=== PATIENT | female | born 1965 | race Caucasian/White ===

== ENCOUNTER 2020-07-13 10:29 | Outpatient (REF) | payer MEDICARE, MEDICAID, SELFPAY ==
--- NOTE | 2020-07-13 10:43 | XR_ITS ---
EXAMINATION: XR KNEE, BILATERAL XR KNEE, RIGHT CLINICAL INFORMATION: Right knee pain COMPARISON: X-ray left knee 08/29/2019. X-ray bilateral knees 07/04/2017 TECHNIQUE: AP bilateral knees 1 view. Right knee 2 views. FINDINGS: RIGHT KNEE: Moderate medial compartment joint space narrowing. Marginal spurring in the patellofemoral compartment. No fracture or dislocation. Possible small joint effusion. LEFT KNEE: Moderate medial compartment joint space narrowing. Marginal spurring in the lateral compartment. XR/XR knee RT 2V IMPRESSION: 1. Right knee arthritis. Moderate medial compartment arthritis, slightly progressed from previous. 2. Left knee arthritis as above.
--- NOTE | 2020-07-13 10:43 | XR_ITS ---
EXAMINATION: XR KNEE, BILATERAL XR KNEE, RIGHT CLINICAL INFORMATION: Right knee pain COMPARISON: X-ray left knee 08/29/2019. X-ray bilateral knees 07/04/2017 TECHNIQUE: AP bilateral knees 1 view. Right knee 2 views. FINDINGS: RIGHT KNEE: Moderate medial compartment joint space narrowing. Marginal spurring in the patellofemoral compartment. No fracture or dislocation. Possible small joint effusion. LEFT KNEE: Moderate medial compartment joint space narrowing. Marginal spurring in the lateral compartment. XR/XR knee standing BI IMPRESSION: 1. Right knee arthritis. Moderate medial compartment arthritis, slightly progressed from previous. 2. Left knee arthritis as above.
== END 2020-07-13 10:30 | disposition home or self-care (01) ==
LOC: HO.HOSX 10:29
PROVIDERS: Visit Provider Orthopaedic Surgery
DX: M25.561 Pain in right knee (principal); M17.0 Bilateral primary osteoarthritis of knee
CPT/HCPCS: 20610; 73560; 73565; 99212; J1100

== ENCOUNTER → 2021-05-06 14:09 | Outpatient (BNVA) | payer MEDICARE, MEDICAID, SELFPAY | PROVIDERS: PCP Internal Medicine Geriatric Medicine; Visit Provider Hospitalist | DX: J45.909 Unspecified asthma, uncomplicated (principal); G47.33 Obstructive sleep apnea (adult) (pediatric); Z79.899 Other long term (current) drug therapy | CPT/HCPCS: 99202 ==

== ENCOUNTER 2021-06-10 13:59 | Outpatient (REF) | payer MEDICARE, MEDICAID, SELFPAY ==
--- NOTE | ~2021-06-10 | XR_ITS ---
EXAMINATION: XR CHEST CLINICAL INFORMATION: Asthma. COMPARISON: Most recent chest radiograph dated 10/26/2014 TECHNIQUE: 2 views of the chest were obtained. FINDINGS: Linear atelectasis versus scarring along the right minor fissure, new when compared to the prior examination. No large, confluent airspace consolidation. No pleural effusion or pneumothorax. Stable cardiomediastinal silhouette. No acute osseous abnormality. XR/XR chest 2V IMPRESSION: Linear scarring versus atelectasis along the right minor fissure, new when compared to the prior examination.
[2021-06-10 15:42] LABS: MANUAL DIFF FLAG NO
[2021-06-10 16:10] LABS: Basophils Absolute Auto 0.1 X10*3/uL (0.0-0.2); Basophils Percent Auto 0.6 % (0-2); Eosinophils Absolute Auto 0.3 X10*3/uL (0.0-0.4); Eosinophils Percent Auto 2.3 % (0-4); Hematocrit 37.7 % (37-47); Imm Gran Abs Auto 0.07 X10*3/uL (0.00-0.03); Imm Gran Pct Auto 0.6 % (0.0-0.4); Lymphocytes Absolute Auto 2.4 X10*3/uL (1.2-4.9); Lymphocytes Percent Auto 21.2 % (20-40); Mean Corpuscular HGB Conc 31.8 g/dl (31.0-35.0); Mean Corpuscular Hemoglobin 26.3 pg (27.0-33.0); Mean Corpuscular Volume 82.5 fL (80-98); Mean Platelet Volume 10.3 fL (9.4-12.3); Monocytes Absolute Auto 0.6 X10*3/uL (0.1-1.2); Monocytes Percent Auto 4.9 % (2-11); Neutrophils Absolute Auto 7.9 X10*3/uL (2.0-8.3); Neutrophils Percent Auto 70.4 % (45-73); Platelet Count 299 X10*3/uL (160-400); Red Blood Count 4.57 X10*6/uL (4.20-5.50); Red Cell Distribution Width 14.6 % (11.0-16.0); White Blood Count 11.2 X10*3/uL (4.8-10.8)
[2021-06-10 16:31] LABS: Anion Gap 11 (12-20); Blood Urea Nitrogen 15 mg/dL (9-16); Calcium 9.9 mg/dL (8.4-10.2); Carbon Dioxide 30 mmol/L (22-29); Chloride 105 mmol/L (96-108); Estimated Glomerular Filt Rate > 60; Glucose Random 62 mg/dL (60-115); Potassium 4.8 mmol/L (3.3-5.1); Sodium 141 mmol/L (135-145)
[2021-06-10 17:16] LABS: Erythrocyte Sedimentation Rate 31 MM/HR (0-20)
== END 2021-06-10 14:00 | disposition home or self-care (01) ==
LOC: HO.XRAY 13:59
PROVIDERS: PCP Internal Medicine Geriatric Medicine; Visit Provider Hospitalist
DX: G47.33 Obstructive sleep apnea (adult) (pediatric) (principal); E66.01 Morbid (severe) obesity due to excess calories; J45.909 Unspecified asthma, uncomplicated; M79.89 Other specified soft tissue disorders; Z01.82 Encounter for allergy testing; Z99.81 Dependence on supplemental oxygen
CPT/HCPCS: 36415; 71046; 80048; 82785; 85025; 85652; 86003; 99212

== ENCOUNTER → 2021-06-23 19:07 | Outpatient (REF) | payer MEDICARE, MEDICAID, SELFPAY | LOC: HO.SL 19:07 | PROVIDERS: Visit Provider Hospitalist | DX: G47.33 Obstructive sleep apnea (adult) (pediatric) (principal); E66.01 Morbid (severe) obesity due to excess calories | CPT/HCPCS: 95810 ==

== ENCOUNTER → 2021-07-22 15:10 | Outpatient (BNVA) | payer MEDICARE, MEDICAID, SELFPAY | PROVIDERS: PCP Internal Medicine Geriatric Medicine; Visit Provider Hospitalist | DX: G47.33 Obstructive sleep apnea (adult) (pediatric) (principal); E66.01 Morbid (severe) obesity due to excess calories; J45.909 Unspecified asthma, uncomplicated; M79.89 Other specified soft tissue disorders | CPT/HCPCS: 99212 ==

== ENCOUNTER 2021-08-26 11:00 | Outpatient (RCR) | payer MEDICARE, MEDICAID, SELFPAY ==
[2021-08-14 09:09] VITALS: BP 152/71; PULSE 76
== END 2021-10-08 14:38 | disposition home or self-care (01) ==
LOC: HO.PT 11:00
PROVIDERS: PCP Internal Medicine Geriatric Medicine; Visit Provider Internal Medicine Rheumatology
DX: M25.511 Pain in right shoulder (principal); M25.512 Pain in left shoulder
CPT/HCPCS: 97110; 97161

== ENCOUNTER → 2021-09-20 11:13 | Outpatient (BNVA) | payer MEDICARE, MEDICAID, SELFPAY | PROVIDERS: PCP Internal Medicine Geriatric Medicine; Referring Provider Internal Medicine Geriatric Medicine; Visit Provider Physician Assistant | DX: E65 Localized adiposity (principal); G47.33 Obstructive sleep apnea (adult) (pediatric); E11.9 Type 2 diabetes mellitus without complications | CPT/HCPCS: 99211 ==

== ENCOUNTER → 2021-09-20 11:22 | Outpatient (BNVA) | payer MEDICARE, MEDICAID, SELFPAY | PROVIDERS: PCP Internal Medicine Geriatric Medicine; Visit Provider Physician Assistant ==

== ENCOUNTER → 2021-10-18 10:34 | Outpatient (BNVA) | payer MEDICARE, MEDICAID, SELFPAY | PROVIDERS: PCP Internal Medicine Geriatric Medicine; Referring Provider Internal Medicine Geriatric Medicine; Visit Provider Physician Assistant | DX: E66.01 Morbid (severe) obesity due to excess calories (principal); G47.33 Obstructive sleep apnea (adult) (pediatric); J45.909 Unspecified asthma, uncomplicated; Z68.43 Body mass index [BMI] 50.0-59.9, adult | CPT/HCPCS: 99212 ==

== ENCOUNTER 2021-10-21 07:09 | Outpatient (REF) | payer MEDICARE, MEDICAID, SELFPAY ==
[2021-10-21 07:47] LABS: MANUAL DIFF FLAG NO
[2021-10-21 08:18] LABS: Basophils Absolute Auto 0.1 X10*3/uL (0.0-0.2); Basophils Percent Auto 0.8 % (0-2); Eosinophils Absolute Auto 0.2 X10*3/uL (0.0-0.4); Eosinophils Percent Auto 2.2 % (0-4); Hematocrit 38.9 % (37.0-47.0); Hemoglobin 12.3 g/dl (12.0-16.0); Imm Gran Abs Auto 0.12 X10*3/uL (0.00-0.03); Imm Gran Pct Auto 1.1 % (0.0-0.4); Lymphocytes Absolute Auto 2.3 X10*3/uL (1.2-4.9); Lymphocytes Percent Auto 21.1 % (20-40); Mean Corpuscular HGB Conc 31.6 g/dl (31.0-35.0); Mean Corpuscular Hemoglobin 26.1 pg (27.0-33.0); Mean Corpuscular Volume 82.6 fL (80.0-98.0); Mean Platelet Volume 10.9 fL (9.4-12.3); Monocytes Absolute Auto 0.5 X10*3/uL (0.1-1.2); Monocytes Percent Auto 4.8 % (2-11); Neutrophils Absolute Auto 7.5 x10*3/uL (2.0-8.3); Platelet Count 284 X10*3/uL (160-400); Red Blood Count 4.71 X10*6/uL (4.20-5.50); Red Cell Distribution Width 14.9 % (11.0-16.0); White Blood Count 10.8 X10*3/uL (4.8-10.8)
[2021-10-21 08:19] LABS: Estimated Average Glucose 203 mg/dL; Hemoglobin A1c % 8.7 %
[2021-10-21 08:29] LABS: Alanine Aminotransferase 28 U/L (0-31); Albumin Level 4.4 g/dL (3.5-5.0); Alkaline Phosphatase 100 U/L (39-117); Anion Gap 13 (12-20); Aspartate Amino Transferase 20 U/L (5-31); Bilirubin Total 0.4 mg/dL (0.0-1.0); Blood Urea Nitrogen 16 mg/dL (9-16); C Reactive Protein 3.38 mg/dL (< or = 0.50); Calcium 9.8 mg/dL (8.4-10.2); Carbon Dioxide 28 mmol/L (22-29); Chloride 102 mmol/L (96-108); Cholesterol 162 mg/dL; Estimated Glomerular Filt Rate > 60; Glucose Random 237 mg/dL (60-115); HDL Cholesterol 33 mg/dL; Iron 45 mcg/dL (30-160); LDL Cholesterol Calculated 94 mg/dl; Percent Iron Saturation 13 % (15-50); Potassium 4.6 mmol/L (3.3-5.1); Sodium 138 mmol/L (135-145); Total Iron Binding Capacity 348 mcg/dL (228-428); Total Protein 7.5 g/dL (6.5-8.0); Triglycerides 179 mg/dL; Unsaturated Iron Binding 303 ug/dL
[2021-10-21 08:59] LABS: Ferritin 99 ng/mL (10-250); TSH reflex Free T4 2.05 uIU/mL (0.32-4.0)
[2021-10-21 09:18] LABS: Vitamin B12 389 pg/mL (200-900)
[2021-10-21 10:13] LABS: Insulin 623 uU/mL (2-29)
[2021-10-21 10:36] LABS: Creatinine Urine 117.05 mg/dL; Protein/Creatinine Ratio, Ur 0.35 (<0.2); Total Protein Urine Random 41 mg/dL (<12)
[2021-10-22 12:07] LABS: Calcium (PTHI) 9.6 mg/dL (8.6-10.4); PTHI 41 pg/mL (14-64)
[2021-10-25 05:25] LABS: Zinc 80 mcg/dL (60-130)
[2021-10-26 06:27] LABS: Vitamin B1 10 nmol/L (8-30)
[2021-10-27 20:00] LABS: Vitamin A 42 mcg/dL (38-98)
== END 2021-10-21 07:10 | disposition home or self-care (01) ==
LOC: HO.LAB 07:09
PROVIDERS: Absent Provider Internal Medicine Nephrology; PCP Internal Medicine Geriatric Medicine; Visit Provider Physician Assistant
DX: R80.8 Other proteinuria (principal); I10 Essential (primary) hypertension; E66.01 Morbid (severe) obesity due to excess calories; G47.33 Obstructive sleep apnea (adult) (pediatric); J45.909 Unspecified asthma, uncomplicated
CPT/HCPCS: 36415; 80053; 80061; 82306; 82607; 82728; 82746; 83036; 83525; 83540; 83970; 84156; 84425; 84443; 84590; 84630; 85025; 86140

== ENCOUNTER → 2021-11-04 08:14 | Outpatient (BNVA) | payer MEDICARE, MEDICAID, SELFPAY | PROVIDERS: PCP Internal Medicine Geriatric Medicine; Visit Provider Dietitian, Registered | DX: Z13.89 Encounter for screening for other disorder (principal) ==

== ENCOUNTER → 2021-11-05 08:17 | Outpatient (BNVA) | payer MEDICARE, MEDICAID, SELFPAY | PROVIDERS: PCP Internal Medicine Geriatric Medicine; Visit Provider Dietitian, Registered | DX: E66.01 Morbid (severe) obesity due to excess calories (principal); E11.9 Type 2 diabetes mellitus without complications; Z71.3 Dietary counseling and surveillance | CPT/HCPCS: 97802 ==

== ENCOUNTER → 2021-11-19 08:13 | Outpatient (BNVA) | payer MEDICARE, MEDICAID, SELFPAY | PROVIDERS: PCP Internal Medicine Geriatric Medicine; Referring Provider Physician Assistant; Visit Provider Dietitian, Registered | DX: E66.01 Morbid (severe) obesity due to excess calories (principal); Z68.43 Body mass index [BMI] 50.0-59.9, adult; E11.9 Type 2 diabetes mellitus without complications; Z71.3 Dietary counseling and surveillance | CPT/HCPCS: 97803 ==

== ENCOUNTER → 2021-11-21 15:22 | Outpatient (BNVA) | payer MEDICARE, MEDICAID, SELFPAY | PROVIDERS: PCP Internal Medicine Geriatric Medicine; Visit Provider Hospitalist | DX: G47.33 Obstructive sleep apnea (adult) (pediatric) (principal); E66.01 Morbid (severe) obesity due to excess calories; J45.909 Unspecified asthma, uncomplicated; M79.89 Other specified soft tissue disorders; Z68.43 Body mass index [BMI] 50.0-59.9, adult | CPT/HCPCS: 99212 ==

== ENCOUNTER 2021-11-25 10:15 | Outpatient (REF) | payer MEDICARE, MEDICAID, SELFPAY ==
[2021-11-27 11:28] LABS: H Pylori Breath Test Negative (Negative)
== END 2021-11-25 10:16 | disposition home or self-care (01) ==
LOC: CF 10:15
PROVIDERS: PCP Internal Medicine Geriatric Medicine; Referring Provider Internal Medicine Geriatric Medicine; Visit Provider Physician Assistant
DX: E66.01 Morbid (severe) obesity due to excess calories (principal); E11.9 Type 2 diabetes mellitus without complications; G47.33 Obstructive sleep apnea (adult) (pediatric); J44.9 Chronic obstructive pulmonary disease, unspecified
CPT/HCPCS: 36415; 83013; 99211; 99212

== ENCOUNTER 2021-11-27 08:18 | Outpatient (REF) | payer MEDICARE, MEDICAID, SELFPAY ==
--- NOTE | ~2021-11-27 | US_ITS ---
EXAMINATION: US COMPLETE ABDOMEN WITH LIVER ELASTOGRAPHY CLINICAL INFORMATION: Obesity COMPARISON: None. TECHNIQUE: Real-time imaging of the abdominal viscera. Noninvasive ultrasound liver fibrosis assessment is performed using Rochelle ElastPQ point quantification shear wave elastography (2D-SWE) with a C5-2 MHz transducer. Multiple elastography samples are obtained. FINDINGS: PANCREAS: The visualized pancreatic head and body are normal in appearance. The remainder of the pancreas is obscured from visualization by the overlying bowel gas. ABDOMINAL AORTA: Not well visualized due to bowel gas. INFERIOR VENA CAVA: Not well visualized due to bowel gas. LIVER: Liver echotexture is increased. The liver is enlarged. The liver contour is normal. No focal lesion or intrahepatic biliary duct dilatation. The right lobe measures 20 cm in length. The left lobe measures 10 cm in length. Portal flow is normal/hepatopedal Shear wave liver elastography median stiffness is 1.1 m/s (reference: normal median stiffness is 1.3 m/s or less). IQR/median stiffness to assess sampling precision is 0.27 (reference: good quality data set is IQR/median stiffness of 0.15 or less). GALLBLADDER: Normal. The gallbladder is physiologically distended without evidence of stones, sludge, polyps, wall thickening or pericholecystic fluid. COMMON BILE DUCT: Normal in caliber measuring 0.3 cm in diameter. RIGHT KIDNEY: Normal. No hydronephrosis. No renal calculi or focal parenchymal lesions. The kidney measures 11.9 cm in maximum dimension. LEFT KIDNEY: Normal. No hydronephrosis. No renal calculi or focal parenchymal lesions. The kidney measures 10.9 cm in maximum dimension. SPLEEN: Slightly enlarged. The spleen measures 14.6 cm in maximum dimension. FREE FLUID: None. US/US abdomen comp w elastography IMPRESSION: 1. Impression: Enlarged liver and spleen. Echogenic liver probably representing fatty infiltration. Limited visualization of the pancreas, aorta and IVC. 2. Liver elastography: Slightly limited due to sampling error. Normal liver stiffness. REFERENCE: Society of Radiologists in Ultrasound Liver Stiffness Thresholds (2020): LIVER STIFFNESS THRESHOLDS: *Liver Stiffness equal or less than 1.3 m/s: High probability of being normal. *Liver Stiffness less than 1.7 m/s: In the absence of other known clinical signs, rules out compensated advanced chronic liver disease. *Liver Stiffness 1.7-2.1 m/s: Suggestive of compensated advanced chronic liver disease but need further test for confirmation. *Liver Stiffness over 2.1 m/s: Rules in compensated advanced chronic liver disease. *Liver Stiffness over 2.4 m/s: Suggestive of clinically significant portal hypertension. QUALITY OF DATA SET: *IQR/Median value equal or less than 0.15 implies a quality data set. *IQR/Median value over 0.15 implies a poor quality data set. SIGNIFICANT CHANGE FROM PRIOR EXAM: Significant change if liver stiffness measurement is 10% or greater from prior exam. OTHER CONSIDERATIONS: The stage of liver fibrosis may be overestimated in the setting of acute hepatitis, liver inflammation, elevated liver function tests, hepatic vascular congestion, obstructive cholestasis, non-fasting state, and infiltrative diseases such as amyloidosis and lymphoma. In some patients with NAFLD, the liver stiffness thresholds for compensated advanced chronic liver disease may be lower. In causes other than viral hepatitis and NAFLD, liver stiffness thresholds are not well established.
--- NOTE | ~2021-11-27 | FL_ITS ---
EXAMINATION: XR FLUOROSCOPY UPPER GI WITH AIR CLINICAL INFORMATION: Morbid/severe obesity due to excess calories. COMPARISON: None TECHNIQUE: Routine upper GI contrast study was performed. FINDINGS: Following oral administration of thick barium and effervescent granules there is normal propagation of bolus from the oral cavity through the pharynx, esophagus into stomach without any evidence of obstruction, narrowing or stricture. On placing patient supine and prone there is mild gastroesophageal reflux without hiatal hernia. The course, caliber and peristalsis of stomach, duodenal bulb and the sweep is normal. The mucosal pattern of stomach and the duodenum is normal. FLUOROSCOPY TIME: 2.8 minutes. DOSE AREA PRODUCT: 43.682 uGy-m2 (microgray-meter squared). FL/FL upper GI w air IMPRESSION: Mild gastroesophageal reflux without hiatal hernia.
== END 2021-11-27 08:19 | disposition home or self-care (01) ==
LOC: HO.US 08:18
PROVIDERS: Visit Provider Physician Assistant
DX: Z01.818 Encounter for other preprocedural examination (principal); E66.01 Morbid (severe) obesity due to excess calories; G47.33 Obstructive sleep apnea (adult) (pediatric); J45.909 Unspecified asthma, uncomplicated
CPT/HCPCS: 74246; 76705; 76981

== ENCOUNTER → 2021-12-12 15:41 | Outpatient (BNVA) | payer MEDICARE, MEDICAID, SELFPAY | PROVIDERS: Referring Provider Physician Assistant; Visit Provider Dietitian, Registered | DX: E66.01 Morbid (severe) obesity due to excess calories (principal); E11.9 Type 2 diabetes mellitus without complications; G47.33 Obstructive sleep apnea (adult) (pediatric); Z88.8 Allergy status to other drugs, medicaments and biological substances | CPT/HCPCS: 97803 ==

== ENCOUNTER → 2021-12-16 10:41 | Outpatient (REF) | payer MEDICARE, MEDICAID, SELFPAY ==
--- NOTE | 2021-12-16 11:53 | ECG_ITS ---
Test Reason : E66.01 Blood Pressure : / mmHG Vent. Rate : 076 BPM Atrial Rate : 076 BPM P-R Int : 178 ms QRS Dur : 094 ms QT Int : 358 ms P-R-T Axes : 039 -03 015 degrees QTc Int : 402 ms Normal sinus rhythm Normal ECG When compared to the previous EKG of No significant changes seen Referred By: Asmita Hernández Electronically Signed By:Denis Moore
== END ==
LOC: HO.CARD 10:41
PROVIDERS: PCP Internal Medicine Geriatric Medicine; Referring Provider Internal Medicine Geriatric Medicine; Visit Provider Physician Assistant
DX: G47.33 Obstructive sleep apnea (adult) (pediatric) (principal); J45.909 Unspecified asthma, uncomplicated; E66.01 Morbid (severe) obesity due to excess calories; K76.0 Fatty (change of) liver, not elsewhere classified
CPT/HCPCS: 93005; 99212

== ENCOUNTER → 2021-12-19 08:08 | Outpatient (BNVA) | payer MEDICARE, MEDICAID, SELFPAY | PROVIDERS: PCP Internal Medicine Geriatric Medicine; Referring Provider Physician Assistant; Visit Provider Dietitian, Registered | DX: E66.01 Morbid (severe) obesity due to excess calories (principal); E11.9 Type 2 diabetes mellitus without complications; Z71.3 Dietary counseling and surveillance | CPT/HCPCS: 97803 ==

== ENCOUNTER → 2022-01-13 10:13 | Outpatient (BNVA) | payer MEDICARE, MEDICAID, SELFPAY | PROVIDERS: PCP Internal Medicine Geriatric Medicine; Referring Provider Internal Medicine Geriatric Medicine; Visit Provider Physician Assistant | DX: E66.01 Morbid (severe) obesity due to excess calories (principal); E11.9 Type 2 diabetes mellitus without complications; R07.9 Chest pain, unspecified; Z68.43 Body mass index [BMI] 50.0-59.9, adult | CPT/HCPCS: 99212 ==

== ENCOUNTER → 2022-01-27 08:26 | Outpatient (BNVA) | payer MEDICARE, MEDICAID, SELFPAY | PROVIDERS: PCP Internal Medicine Geriatric Medicine; Visit Provider Dietitian, Registered | DX: Z13.89 Encounter for screening for other disorder (principal) ==

== ENCOUNTER → 2022-02-10 12:40 | Outpatient (BNVA) | payer MEDICARE, MEDICAID, SELFPAY | PROVIDERS: PCP Internal Medicine Geriatric Medicine; Visit Provider Counselor Mental Health | DX: F41.1 Generalized anxiety disorder (principal); E66.01 Morbid (severe) obesity due to excess calories | CPT/HCPCS: 90791 ==

== ENCOUNTER → 2022-02-17 09:04 | Outpatient (BNVA) | payer MEDICARE, MEDICAID, SELFPAY | PROVIDERS: PCP Internal Medicine Geriatric Medicine; Visit Provider Physician Assistant | DX: E66.01 Morbid (severe) obesity due to excess calories (principal); Z68.43 Body mass index [BMI] 50.0-59.9, adult; E11.9 Type 2 diabetes mellitus without complications; R07.9 Chest pain, unspecified | CPT/HCPCS: 99212 ==

== ENCOUNTER → 2022-02-18 09:08 | Outpatient (BNVA) | payer MEDICARE, MEDICAID, SELFPAY | PROVIDERS: PCP Internal Medicine Geriatric Medicine; Referring Provider Physician Assistant; Visit Provider Dietitian, Registered | DX: E66.01 Morbid (severe) obesity due to excess calories (principal); E11.9 Type 2 diabetes mellitus without complications; Z71.3 Dietary counseling and surveillance | CPT/HCPCS: 97803 ==

== ENCOUNTER → 2022-02-24 15:25 | Outpatient (BNVA) | payer MEDICARE, MEDICAID, SELFPAY | PROVIDERS: PCP Internal Medicine Geriatric Medicine; Visit Provider Hospitalist | DX: J45.909 Unspecified asthma, uncomplicated (principal); G47.33 Obstructive sleep apnea (adult) (pediatric); E66.01 Morbid (severe) obesity due to excess calories; Z68.43 Body mass index [BMI] 50.0-59.9, adult; M79.89 Other specified soft tissue disorders | CPT/HCPCS: 99212 ==

== ENCOUNTER → 2022-03-03 07:33 | Outpatient (REF) | payer MEDICARE, MEDICAID, SELFPAY ==
--- NOTE | 2022-03-03 | CA_ITS ---
Acquisition Time: 2022-03-03 08:34:52 Total Exercise Time: 00:02:00 Test Indications: Abnormal ECG Medications: SEE H Protocol: LEXISCAN Max HR: 116 BPM 70% of Pred: 164 BPM Max BP: 140/080 mmHG Max Work Load: 1.0 METS Pharmacological stress test with Lexiscan injection, while sitting and kicking her legs, with report of mild chest tightness post injection, without arrythmia, with normotensive response to injection, without EKG changes meeting criteria for ischemia. Nuclear images pending. Test reviewed with Dr Gallegos. Referred By: Asmita Hernándze Overread By: ANTON BARRETT
--- NOTE | ~2022-03-03 | NM_ITS ---
Myocardial perfusion study Indication: Chest pain to evaluate for myocardial ischemia Technique: The patient was brought in for a Lexiscan perfusion study on 03/03/2022. Patient performed low-level exercise and was injected 0.4 mg of Lexiscan intravenously. Within a minute of injection, 45 mCi of sestamibi was given intravenously. Images were obtained using the SPECT gamma camera interlaced with the gating device. Images were obtained in supine position. Resting perfusion study was performed on 03/04/2022. Patient was administered 45 mCi of sestamibi intravenously at rest. Images were then obtained in supine position. Images obtained with and without CT attenuation. Total DLP 186 mGy-cm. Images were processed with the software and compared side to side in short axis, horizontal long axis and vertical long axis views. Findings: The stress perfusion study showed non attenuated images show minimal thinning of the distal lateral wall of the LV minute of the cardiac. Attenuation corrected images show minimally reduced uptake in the septum of the LV myocardium.. The gated study shows normal LV systolic function with calculated LVEF of 58%. LV cavity is normal in size. The gated study shows normal systolic wall thickening and contraction of segments. Resting study shows no clear change in perfusion pattern compared to stress perfusion study. Gating at rest reveals normal systolic wall motion with ejection fraction at greater than 50%. The findings are consistent with likely normal myocardial perfusion. NM/NM cardiolite stress test Impression: 1. Myocardial perfusion imaging study shows likely normal myocardial perfusion 2. Gated LVEF is 58% 3. Transient ischemic dilatation not present EKG is nondiagnostic for ischemia
--- NOTE | 2022-03-03 07:37 | CA_ITS ---
Transthoracic Echocardiogram Patient (Last, First, Middle): Angela Montilla I Gender: Female Date of : 1965 Age: 56 Procedure Date: 03/03/2022 Procedure Type: Transthoracic Echocardiogram Location: OP Height: 149.86 cm Weight: 115.21 kg BSA: 2.04 m2 Heart Rate: bpm BP: 150 / 64 mmHg [place] [facility] Operator: CHRISTY Referring MD: Asmita Hernández PA-C Symptoms: R07.9 - Chest pain, unspecified Study Quality: Adequate ECG Rhythm: Sinus Conclusions: - The left ventricular systolic function is normal. The calculated ejection fraction is 66% by biplane method. - There is mild mitral annular calcification. - There is mild tricuspid valve regurgitation. Findings Left Ventricle Normal left ventricular cavity size. There is normal left ventricular wall thickness. The left ventricular systolic function is normal. The calculated ejection fraction is 66% by biplane method. There is no evidence of regional wall motion abnormalities. Diastolic function is normal for age. Right Ventricle Normal right ventricular cavity size and systolic function. Atria Both atria are normal in size. Aortic Valve The aortic valve structure and function is likely normal. There is no aortic valve stenosis. There is no aortic valve regurgitation. Mitral Valve There is mild mitral annular calcification. There is trace mitral valve regurgitation. There is no mitral valve stenosis. Pulmonic Valve The pulmonic valve is likely normal. Tricuspid Valve Normal tricuspid valve structure. There is mild tricuspid valve regurgitation. The pulmonary artery systolic pressure is normal. Great Vessels The aortic annulus, sinuses of valsalva, and asc aorta are normal in size. Venous The inferior vena cava is normal in size and collapses greater than 50% with inspiration. Pericardium/Pleural There is no evidence of pericardial effusion. Prior Study Comparison No prior study available for comparison. Measurements 2D Linear Measurements IVSd: 1.00 0.6-0.9/0.6-1.0 cm LVIDd: 4.84 3.9-5.3/4.2-5.9 cm LVIDd Index: 2.37 2.4-3.2/2.2-3.1 cm/m2 LVIDs: 3.10 2.0-3.6 cm LVPWd: 1.08 0.7-1.1 cm LA Diam: 3.00 2.7-3.8/3.0-4.0 cm LAIDs Index: 1.47 1.5-2.3 cm/m2 LV Mass: 226.71 67-162/88-224 g LV Mass Index: 111.13 43-95/49-115 g/m2 LVOT Diam: 1.70 3.0+(-)1.3 cm 2D Systolic Function EF 4C: 62.60 >55% EF 2C: 69.70 >55% EF BiP: 65.70 >55% Mitral Valve MV Pk E: 1.25 MV PK A: 0.99 MV Decel Time: 225.00 E/A: 1.30 E'Lateral: 9.25 E'Medial: 7.72 E/E' Med: 16.20 E/E' Lat: 13.50 PHT: 66.00 MVA PHT: 3.33 Decel [place]: 5.57 Aortic Valve AoV Pk Alonzo: 1.81 AoV Mn Alonzo: 1.20 AoV VTI: 0.41 AoV Pk Grad: 13.00 Aov Mn Grad: 7.00 ARSEN Cont.VTI: 1.68 LVOT LVOT Pk Alonzo: 1.22 LVOT Mn [place]onzo: 0.85 LVOT VTI: 0.30 LVOT Pk Grad: 6.00 LVOT Mn Grad: 3.00 LVOT Diam: 1.70 LVOT Area: 2.27 Diastolic Function MV Pk E: 1.25 MV Pk A: 0.99 E/A: 1.30 E'Medial: 7.72 E/E' Med: 16.20 E' Laterial: 9.25 E/E' Lat: 13.50 Right Ventricle TAPSE (mm): 27.20 TVS' Alonzo: 14.90 Tricuspid Valve TR Pk Alonzo: 2.69 TR Pk Grad: 29.00 RA Press: 3.00 RVSP: 32.00 Great Vessels Aorta Sinus of Valsalva: 2.65 2.0-3.5 cm Ao Asc: 3.20 2.1-3.4 cm Updated in Other Vendor System with Status of Final David Gallegos MD electronically signed on 03/03/2022 11:26:36 AM with status of Final
== END ==
LOC: HO.CARD 07:33
PROVIDERS: PCP Internal Medicine Geriatric Medicine; Visit Provider Physician Assistant
DX: R07.9 Chest pain, unspecified (principal); E66.01 Morbid (severe) obesity due to excess calories; E11.9 Type 2 diabetes mellitus without complications
CPT/HCPCS: 78452; 93017; 93306; A9500; J0280; J2785

== ENCOUNTER → 2022-03-07 08:08 | Outpatient (BNVA) | payer MEDICARE, MEDICAID, SELFPAY | PROVIDERS: PCP Internal Medicine Geriatric Medicine; Visit Provider Surgery | DX: E66.01 Morbid (severe) obesity due to excess calories (principal); G47.33 Obstructive sleep apnea (adult) (pediatric); J44.9 Chronic obstructive pulmonary disease, unspecified; M17.0 Bilateral primary osteoarthritis of knee; F41.1 Generalized anxiety disorder; E78.1 Pure hyperglyceridemia; F32.9 Major depressive disorder, single episode, unspecified; I10 Essential (primary) hypertension; E11.21 Type 2 diabetes mellitus with diabetic nephropathy; K76.0 Fatty (change of) liver, not elsewhere classified; K21.9 Gastro-esophageal reflux disease without esophagitis | CPT/HCPCS: Q3014 ==

== ENCOUNTER → 2022-04-01 09:15 | Outpatient (BNVA) | payer MEDICARE, MEDICAID, SELFPAY | PROVIDERS: PCP Internal Medicine Geriatric Medicine; Visit Provider Internal Medicine | DX: J45.901 Unspecified asthma with (acute) exacerbation (principal); G47.33 Obstructive sleep apnea (adult) (pediatric); J44.9 Chronic obstructive pulmonary disease, unspecified; E66.01 Morbid (severe) obesity due to excess calories; Z68.43 Body mass index [BMI] 50.0-59.9, adult | CPT/HCPCS: 99212 ==

== ENCOUNTER → 2022-04-07 09:15 | Outpatient (BNVA) | payer MEDICARE, MEDICAID, SELFPAY | PROVIDERS: PCP Internal Medicine Geriatric Medicine; Visit Provider Physician Assistant | DX: E66.01 Morbid (severe) obesity due to excess calories (principal); Z68.43 Body mass index [BMI] 50.0-59.9, adult; G47.33 Obstructive sleep apnea (adult) (pediatric); E11.9 Type 2 diabetes mellitus without complications; E78.1 Pure hyperglyceridemia; I10 Essential (primary) hypertension; K21.9 Gastro-esophageal reflux disease without esophagitis; J45.909 Unspecified asthma, uncomplicated | CPT/HCPCS: 99212 ==

== ENCOUNTER → 2022-05-05 10:24 | Outpatient (BNVA) | payer MEDICARE, MEDICAID, SELFPAY | PROVIDERS: PCP Internal Medicine Geriatric Medicine; Visit Provider Physician Assistant | DX: E11.21 Type 2 diabetes mellitus with diabetic nephropathy (principal); E66.01 Morbid (severe) obesity due to excess calories; Z71.3 Dietary counseling and surveillance; Z79.4 Long term (current) use of insulin | CPT/HCPCS: 99212 ==

== ENCOUNTER → 2022-05-21 09:45 | Outpatient (BNVA) | payer MEDICARE, MEDICAID, SELFPAY | PROVIDERS: PCP Internal Medicine Geriatric Medicine; Referring Provider Internal Medicine Geriatric Medicine; Visit Provider Internal Medicine Cardiovascular Disease | DX: R07.9 Chest pain, unspecified (principal) | CPT/HCPCS: 93005; 99202 ==

== ENCOUNTER → 2022-05-26 08:32 | Outpatient (BNVA) | payer MEDICARE, MEDICAID, SELFPAY | PROVIDERS: PCP Internal Medicine Geriatric Medicine; Visit Provider Physician Assistant | DX: E66.01 Morbid (severe) obesity due to excess calories (principal); R07.9 Chest pain, unspecified; G47.33 Obstructive sleep apnea (adult) (pediatric); E11.9 Type 2 diabetes mellitus without complications; I10 Essential (primary) hypertension; Z68.43 Body mass index [BMI] 50.0-59.9, adult | CPT/HCPCS: 99212 ==

== ENCOUNTER 2022-06-06 15:55 | Outpatient (REF) | payer MEDICARE, MEDICAID, SELFPAY ==
[2022-06-06 17:10] LABS: Hematocrit 38.5 % (37.0-47.0); Hemoglobin 12.5 g/dl (12.0-16.0); Mean Corpuscular HGB Conc 32.5 g/dl (31.0-35.0); Mean Corpuscular Volume 80.2 fL (80.0-98.0); Mean Platelet Volume 11.1 fL (9.4-12.3); Platelet Count 307 X10*3/uL (160-400); Red Cell Distribution Width 14.6 % (11.0-16.0); White Blood Count 10.9 X10*3/uL (4.8-10.8)
[2022-06-06 17:18] LABS: INTERNATIONAL NORM RATIO 1.1 (0.9-1.1); Prothrombin Time 12.7 SEC (10.0-13.1)
[2022-06-06 17:30] LABS: Anion Gap 16 (12-20); Blood Urea Nitrogen 13 mg/dL (9-16); Carbon Dioxide 28 mmol/L (22-29); Chloride 101 mmol/L (96-108); Estimated Glomerular Filt Rate > 60; Glucose Random 128 mg/dL (60-115); Potassium 4.5 mmol/L (3.3-5.1); Sodium 140 mmol/L (135-145)
== END 2022-06-06 15:56 | disposition home or self-care (01) ==
LOC: HO.LAB 15:55
PROVIDERS: PCP Internal Medicine Geriatric Medicine; Visit Provider Internal Medicine Cardiovascular Disease
DX: R07.9 Chest pain, unspecified (principal)
CPT/HCPCS: 36415; 80048; 85027; 85610

== ENCOUNTER → 2022-06-23 09:11 | Outpatient (BNVA) | payer MEDICARE, MEDICAID, SELFPAY | PROVIDERS: PCP Internal Medicine Geriatric Medicine; Visit Provider Physician Assistant | DX: E66.01 Morbid (severe) obesity due to excess calories (principal); E11.9 Type 2 diabetes mellitus without complications; G47.33 Obstructive sleep apnea (adult) (pediatric); J44.9 Chronic obstructive pulmonary disease, unspecified | CPT/HCPCS: 99212 ==

== ENCOUNTER → 2022-07-02 09:57 | Outpatient (BNVA) | payer MEDICARE, MEDICAID, SELFPAY | PROVIDERS: PCP Internal Medicine Geriatric Medicine; Referring Provider Internal Medicine Geriatric Medicine; Visit Provider Internal Medicine Cardiovascular Disease | DX: R07.9 Chest pain, unspecified (principal); I10 Essential (primary) hypertension | CPT/HCPCS: 99212 ==

== ENCOUNTER → 2022-07-28 09:12 | Outpatient (BNVA) | payer MEDICARE, MEDICAID, SELFPAY | PROVIDERS: PCP Internal Medicine Geriatric Medicine; Referring Provider Internal Medicine Geriatric Medicine; Visit Provider Physician Assistant | DX: E66.01 Morbid (severe) obesity due to excess calories (principal); E11.9 Type 2 diabetes mellitus without complications; J45.901 Unspecified asthma with (acute) exacerbation; I10 Essential (primary) hypertension; Z68.43 Body mass index [BMI] 50.0-59.9, adult | CPT/HCPCS: 99212 ==

== ENCOUNTER → 2022-08-25 14:38 | Outpatient (BNVA) | payer MEDICARE, MEDICAID, SELFPAY | PROVIDERS: PCP Internal Medicine Geriatric Medicine; Visit Provider Hospitalist | DX: G47.33 Obstructive sleep apnea (adult) (pediatric) (principal); J45.909 Unspecified asthma, uncomplicated; E66.01 Morbid (severe) obesity due to excess calories; Z68.43 Body mass index [BMI] 50.0-59.9, adult | CPT/HCPCS: 99212 ==

== ENCOUNTER → 2022-09-22 09:25 | Outpatient (BNVA) | payer MEDICARE, MEDICAID, SELFPAY | PROVIDERS: PCP Internal Medicine Geriatric Medicine; Visit Provider Physician Assistant | DX: R07.89 Other chest pain (principal); I10 Essential (primary) hypertension; J45.901 Unspecified asthma with (acute) exacerbation; Z98.890 Other specified postprocedural states | CPT/HCPCS: 99212 ==

== ENCOUNTER 2022-10-03 07:57 | Outpatient (REF) | payer MEDICARE, MEDICAID, SELFPAY ==
[2022-10-03 09:15] LABS: Estimated Average Glucose 177 mg/dL; Hemoglobin A1c % 7.8 %
== END 2022-10-03 07:58 | disposition home or self-care (01) ==
LOC: HO.LAB 07:57
PROVIDERS: PCP Internal Medicine Geriatric Medicine; Visit Provider Surgery
DX: E11.9 Type 2 diabetes mellitus without complications (principal)
CPT/HCPCS: 36415; 83036

== ENCOUNTER → 2022-10-06 08:55 | Outpatient (BNVA) | payer MEDICARE, MEDICAID, SELFPAY | PROVIDERS: PCP Internal Medicine Geriatric Medicine; Visit Provider Surgery | DX: E66.01 Morbid (severe) obesity due to excess calories (principal); Z68.43 Body mass index [BMI] 50.0-59.9, adult | CPT/HCPCS: 99212 ==

== ENCOUNTER → 2022-11-17 09:33 | Outpatient (BNVA) | payer MEDICARE, MEDICAID, SELFPAY | PROVIDERS: PCP Internal Medicine Geriatric Medicine; Referring Provider Internal Medicine Geriatric Medicine; Visit Provider Surgery | DX: E66.01 Morbid (severe) obesity due to excess calories (principal); E11.9 Type 2 diabetes mellitus without complications; Z79.4 Long term (current) use of insulin; Z68.43 Body mass index [BMI] 50.0-59.9, adult | CPT/HCPCS: 99212 ==

== ENCOUNTER → 2022-12-15 10:44 | Outpatient (BNVA) | payer MEDICARE, MEDICAID, SELFPAY | PROVIDERS: PCP Internal Medicine Geriatric Medicine; Visit Provider Surgery | DX: E66.01 Morbid (severe) obesity due to excess calories (principal); Z68.42 Body mass index [BMI] 45.0-49.9, adult | CPT/HCPCS: 99212 ==

== ENCOUNTER 2023-01-02 08:26 | Outpatient (REF) | payer MEDICARE, MEDICAID, SELFPAY ==
--- NOTE | ~2023-01-02 | US_ITS ---
EXAMINATION: US COMPLETE ABDOMEN WITH LIVER ELASTOGRAPHY CLINICAL INFORMATION: Hepatomegaly COMPARISON: Previous ultrasound November 2021 TECHNIQUE: Real-time imaging of the abdominal viscera. Noninvasive ultrasound liver fibrosis assessment is performed using Rochelle ElastPQ point quantification shear wave elastography (2D-SWE) with a C5-2 MHz transducer. Multiple elastography samples are obtained. FINDINGS: PANCREAS: Head and body the pancreas are normal. The tail is not well visualized due to bowel gas ABDOMINAL AORTA: The proximal abdominal aorta is normal in caliber. The mid and distal abdominal aorta are not well visualized. INFERIOR VENA CAVA: Visualized portions are normal. LIVER: Enlarged echogenic liver probably representing fatty infiltration. There is a small hypoechoic area adjacent to the gallbladder, characteristic location of focal fatty sparing. The liver is normal in contour. No other focal lesion or intrahepatic biliary duct dilatation. The right lobe measures 21 cm in length. The left lobe measures 9 cm in length. Portal flow is normal/hepatopedal Shear wave liver elastography median stiffness is 1.1 m/s (reference: normal median stiffness is 1.3 m/s or less). Previous: 1.1 m/s. IQR/median stiffness to assess sampling precision is 0.12 (reference: good quality data set is IQR/median stiffness of 0.15 or less). GALLBLADDER: Normal. The gallbladder is physiologically distended without evidence of stones, sludge, polyps, wall thickening or pericholecystic fluid. COMMON BILE DUCT: Normal in caliber measuring 0.4 cm in diameter. RIGHT KIDNEY: Normal. No hydronephrosis. No renal calculi or focal parenchymal lesions. The kidney measures 11 cm in maximum dimension. LEFT KIDNEY: Normal. No hydronephrosis. No renal calculi or focal parenchymal lesions. The kidney measures 10 cm in maximum dimension. SPLEEN: The spleen is slightly enlarged. The spleen measures 14 cm in maximum dimension. FREE FLUID: None. US/US abdomen comp w elastography IMPRESSION: 1. Impression: Enlarged echogenic liver probably representing fatty infiltration. Mild splenomegaly. Limited visualization of the pancreas and aorta. 2. Liver elastography: Adequate liver sampling. Normal liver stiffness. REFERENCE: Society of Radiologists in Ultrasound Liver Stiffness Thresholds (2020): LIVER STIFFNESS THRESHOLDS: *Liver Stiffness equal or less than 1.3 m/s: High probability of being normal. *Liver Stiffness less than 1.7 m/s: In the absence of other known clinical signs, rules out compensated advanced chronic liver disease. *Liver Stiffness 1.7-2.1 m/s: Suggestive of compensated advanced chronic liver disease but need further test for confirmation. *Liver Stiffness over 2.1 m/s: Rules in compensated advanced chronic liver disease. *Liver Stiffness over 2.4 m/s: Suggestive of clinically significant portal hypertension. QUALITY OF DATA SET: *IQR/Median value equal or less than 0.15 implies a quality data set. *IQR/Median value over 0.15 implies a poor quality data set. SIGNIFICANT CHANGE FROM PRIOR EXAM: Significant change if liver stiffness measurement is 10% or greater from prior exam. OTHER CONSIDERATIONS: The stage of liver fibrosis may be overestimated in the setting of acute hepatitis, liver inflammation, elevated liver function tests, hepatic vascular congestion, obstructive cholestasis, non-fasting state, and infiltrative diseases such as amyloidosis and lymphoma. In some patients with NAFLD, the liver stiffness thresholds for compensated advanced chronic liver disease may be lower. In causes other than viral hepatitis and NAFLD, liver stiffness thresholds are not well established.
== END 2023-01-02 08:27 | disposition home or self-care (01) ==
LOC: HO.US 08:26
PROVIDERS: PCP Internal Medicine Geriatric Medicine; Visit Provider Surgery
DX: Z01.818 Encounter for other preprocedural examination (principal); R16.0 Hepatomegaly, not elsewhere classified; E66.01 Morbid (severe) obesity due to excess calories
CPT/HCPCS: 76705; 76981

== ENCOUNTER → 2023-01-05 11:46 | Outpatient (BNVA) | payer MEDICARE, MEDICAID, SELFPAY | PROVIDERS: PCP Internal Medicine Geriatric Medicine; Visit Provider Surgery | DX: E66.01 Morbid (severe) obesity due to excess calories (principal); G47.33 Obstructive sleep apnea (adult) (pediatric); K21.9 Gastro-esophageal reflux disease without esophagitis; J44.9 Chronic obstructive pulmonary disease, unspecified; E11.9 Type 2 diabetes mellitus without complications; Z68.42 Body mass index [BMI] 45.0-49.9, adult | CPT/HCPCS: 99212 ==

== ENCOUNTER → 2023-01-09 08:57 | Outpatient (BNVA) | payer MEDICARE, MEDICAID, SELFPAY | PROVIDERS: PCP Internal Medicine Geriatric Medicine; Visit Provider Surgery ==

== ENCOUNTER 2023-01-20 08:56 | Outpatient (REF) | payer MEDICARE, MEDICAID, SELFPAY ==
[2023-01-20 09:27] LABS: MANUAL DIFF FLAG NO
[2023-01-20 10:32] LABS: Estimated Average Glucose 111 mg/dL; Hemoglobin A1c % 5.5 %
[2023-01-20 10:33] LABS: Basophils Absolute Auto 0.1 X10*3/uL (0.0-0.2); Basophils Percent Auto 0.6 % (0-2); Eosinophils Absolute Auto 0.2 X10*3/uL (0.0-0.4); Eosinophils Percent Auto 1.8 % (0-4); Hematocrit 41.2 % (37.0-47.0); Hemoglobin 13.2 g/dl (12.0-16.0); Imm Gran Abs Auto 0.04 X10*3/uL (0.00-0.03); Imm Gran Pct Auto 0.4 % (0.0-0.4); Lymphocytes Absolute Auto 2.1 X10*3/uL (1.2-4.9); Lymphocytes Percent Auto 22.6 % (20-40); Mean Corpuscular Hemoglobin 26.3 pg (27.0-33.0); Mean Corpuscular Volume 82.2 fL (80.0-98.0); Mean Platelet Volume 11.3 fL (9.4-12.3); Monocytes Absolute Auto 0.5 X10*3/uL (0.1-1.2); Neutrophils Absolute Auto 6.6 x10*3/uL (2.0-8.3); Neutrophils Percent Auto 69.6 % (45-73); Platelet Count 307 X10*3/uL (160-400); Red Blood Count 5.01 X10*6/uL (4.20-5.50); Red Cell Distribution Width 14.6 % (11.0-16.0); White Blood Count 9.4 X10*3/uL (4.8-10.8)
[2023-01-20 10:37] LABS: INTERNATIONAL NORM RATIO 1.1 (0.9-1.1); Prothrombin Time 12.3 SEC (10.0-13.1)
[2023-01-20 10:40] LABS: Partial Thromboplastin Time 36.3 SEC (26.0-36.4)
[2023-01-20 11:10] LABS: Alanine Aminotransferase 28 U/L (0-31); Albumin Level 4.4 g/dL (3.5-5.0); Alkaline Phosphatase 81 U/L (39-117); Anion Gap 15 (12-20); Aspartate Amino Transferase 25 U/L (5-31); Bilirubin Total 0.6 mg/dL (0.0-1.0); Blood Urea Nitrogen 10 mg/dL (9-16); C Reactive Protein 2.48 mg/dL (< or = 0.50); Calcium 9.8 mg/dL (8.4-10.2); Carbon Dioxide 25 mmol/L (22-29); Chloride 103 mmol/L (96-108); Cholesterol 162 mg/dL; Estimated Glomerular Filt Rate > 60; Glucose Random 81 mg/dL (60-115); HDL Cholesterol 31 mg/dL; LDL Cholesterol Calculated 104 mg/dl; Potassium 4.6 mmol/L (3.3-5.1); Sodium 138 mmol/L (135-145); Total Protein 7.4 g/dL (6.5-8.0); Triglycerides 137 mg/dL
[2023-01-20 11:26] LABS: Insulin 19 uU/mL (2-29); TSH reflex Free T4 1.52 uIU/mL (0.32-4.0)
== END 2023-01-20 08:57 | disposition home or self-care (01) ==
LOC: HO.LAB 08:56
PROVIDERS: Visit Provider Surgery
DX: E66.01 Morbid (severe) obesity due to excess calories (principal); G47.33 Obstructive sleep apnea (adult) (pediatric); J44.9 Chronic obstructive pulmonary disease, unspecified; E11.9 Type 2 diabetes mellitus without complications
CPT/HCPCS: 36415; 80053; 80061; 83036; 83525; 84443; 85025; 85610; 85730; 86140

== ENCOUNTER 2023-02-03 08:01 | Inpatient (IN) | payer MEDICARE, MEDICAID, SELFPAY ==
[2023-01-26 14:10] VITALS: BMI 47.5
--- NOTE | 2023-01-27 13:01 | P.CONAN_ITS ---
Documented by User: Marly Pemberton NP 01/30/23 09:53 HPI - Anesthesia Eval Consult details Narrative: 57yo F for Gastrectomy Sleeve,EGD,poss diaphragmatic hernia,poss ventral hernia,poss open, Follows renal for proteinuria - last eval 11/17/2022, stable, encouraged weight loss surgery Stable at PCP annual exam 10/2022 [place] [facility] [place] - cath showed no significant CAD - stable at 09/2022 office visit [place] [facility] [place] asthma, LUCINDA - stable at last eval 08/2022 [facility] Active Problems Active Problems: All Active Problems (Updated 01/26/23 @ 14:04 by Kita Choudhary RN) Limb swelling (Acute) Morbid obesity (Acute) LUCINDA and COPD overlap syndrome (Acute) Diabetes mellitus (Acute) Steatosis, liver (Acute) Chest pain at rest (Acute) Generalized anxiety disorder (Acute) Chest pain (Acute) Hepatomegaly (Acute) Asthma exacerbation (Acute) GERD (gastroesophageal reflux disease) (Acute) Diabetic nephropathy (Acute) Hypertension (Acute) Depression (Acute) Hypertriglyceridemia (Acute) Asthma (Acute) Morbid obesity (Acute) LUCINDA (obstructive sleep apnea) (Acute) Bilateral primary osteoarthritis of knee (Acute) Right knee pain (Acute) Past Medical History Medical History Anxiety Asthma Asthma exacerbation Bilateral primary osteoarthritis of knee Bursitis, subacromial Carpal tunnel syndrome Depression Diabetic nephropathy Dyspepsia Fibromyalgia GERD (gastroesophageal reflux disease) Hypertension Hypertriglyceridemia Kidney problem Morbid obesity LUCINDA (obstructive sleep apnea) Right knee pain Type 2 diabetes mellitus Family History Family History Mother No problems noted. Father No problems noted. Surgical History Surgical History History of carpal tunnel release of both wrists S/P cardiac cath Social History Social History Household Members Other:: niece Are you a primary animal care technician to a significant other at home: No Do you presently have visiting nurse or other home services: Yes (monthly nurse check-in) Alcohol intake: never Patient Tobacco Use Status: Never used Tobacco Use of substances other than those prescribed or required for medical reasons: No Have you been hit, kicked, punched, or otherwise hurt by someone within the past year? If so, by whom?: No Are you DNR?: No Advance Directives: No Advance Directives Information Provided: Yes (brochure mailed) Advance Directives on File: No Recently lost weight without trying: No Eating poorly because of decreased appetite: No Nutrition Risks: No Nutritional Risk Poor oral hygiene: Yes (missing tooth upper front/broken teeth) Current occupational status: unemployed Current occupation: right handed Meds Allergies Allergy/AdvReac Type Severity Reaction Status Date / Time canagliflozin [Invokana] Allergy Severe chest Verified 02/03/23 08:24 tightness lisinopril [LISINOPRIL] Allergy Severe sweating, Verified 02/03/23 08:24 rash, difficulty breathing, cough oxycodone Allergy Intermediate vomiting/GI Verified 02/03/23 08:24 cramping Home Medications Medication Instructions Recorded Confirmed Last Taken Type amitriptyline 50 mg tablet 50 mg PO DAILY 07/12/20 01/26/23 02/02/23 History rosuvastatin 5 mg tablet (Crestor) 5 mg PO DAILY 07/12/20 01/26/23 02/02/23 History trazodone 50 mg tablet 25 mg PO DAILY 07/12/20 01/26/23 02/02/23 History aspirin 81 mg tablet,delayed 81 mg PO DAILY 05/06/21 01/26/23 01/20/23 History release bupropion HCl 300 mg 24 hr tablet, 300 mg PO DAILY 05/06/21 02/03/23 02/02/23 History extended release cyclobenzaprine 5 mg tablet 5 mg PO TID PRN muscle pain 05/06/21 01/26/23 Unknown History diclofenac sodium 1 % topical gel 1 ea topical BID 05/06/21 01/26/23 Unknown History lidocaine 5 % topical patch 1 patch topical DAILY 05/06/21 01/26/23 02/02/23 History loratadine 10 mg tablet 10 mg PO DAILY 05/06/21 01/26/23 02/02/23 History omeprazole 20 mg capsule,delayed 20 mg PO DAILY 05/06/21 01/26/23 02/02/23 History release losartan 100 mg tablet 100 mg PO DAILY 06/10/21 01/26/23 02/02/23 History amlodipine 10 mg tablet 10 mg PO DAILY 02/24/22 01/26/23 02/03/23 06:30 History budesonide 1 mg/2 mL suspension 1 mg inhalation DAILY 02/24/22 01/26/23 Unknown History for nebulization insulin degludec 200 unit/mL (3 45 unit subcut DAILY 08/25/22 01/26/23 02/02/23 History mL) subcutaneous pen (Tresiba FlexTouch U-200 insulin) clonidine HCl 0.2 mg tablet See Rx Instructions PO .COMPLEX 09/22/22 01/26/23 02/02/23 History Exam Exam Date and Time: January 27, 2023 1301 Height,Weight and Vital Signs: Height 4 ft 11 in Weight 106.594 kg Pertinent Lab Results Pertinent Lab Results: Laboratory Tests 01/20/23 09:17 Blood Type O Positive Antibody Screen NEGATIVE Laboratory Tests 01/20/23 01/20/23 09:26 09:26 WBC 9.4 Hgb 13.2 Hct 41.2 Plt Count 307 Sodium 138 Potassium 4.6 Chloride 103 Carbon Dioxide 25 BUN 10 Creatinine 0.76 Narrative Narrative: EKG pending ECHO 02/2022 Conclusions: - The left ventricular systolic function is normal.? The ? calculated ejection fraction is 66% by biplane method. ? - There is mild mitral annular calcification.? - There is mild tricuspid valve regurgitation. ? ? Assessment and Plan Assessment Anesthesia Assessment: Chart Reviewed Documented by User: Mary Douglass MD 02/03/23 12:00 [facility] Past Medical History Medical History Anxiety Asthma Asthma exacerbation Bilateral primary osteoarthritis of knee Bursitis, subacromial Carpal tunnel syndrome Depression Diabetic nephropathy Dyspepsia Fibromyalgia GERD (gastroesophageal reflux disease) Hypertension Hypertriglyceridemia Kidney problem Morbid obesity LUCINDA (obstructive sleep apnea) Right knee pain Type 2 diabetes mellitus Family History Family History Mother No problems noted. Father No problems noted. Surgical History Surgical History History of carpal tunnel release of both wrists S/P cardiac cath History of Problems with Anesthesia: No Social History Social History Household Members Other:: niece Are you a primary animal care technician to a significant other at home: No Do you presently have visiting nurse or other home services: Yes (monthly nurse check-in) Alcohol intake: never Patient Tobacco Use Status: Never used Tobacco Use of substances other than those prescribed or required for medical reasons: No Have you been hit, kicked, punched, or otherwise hurt by someone within the past year? If so, by whom?: No Are you DNR?: No Advance Directives: No Advance Directives Information Provided: Yes (brochure mailed) Advance Directives on File: No Recently lost weight without trying: No Eating poorly because of decreased appetite: No Nutrition Risks: No Nutritional Risk Poor oral hygiene: Yes (missing tooth upper front/broken teeth) Current occupational status: unemployed Current occupation: right handed Meds Allergies Allergy/AdvReac Type Severity Reaction Status Date / Time canagliflozin [Invokana] Allergy Severe chest Verified 02/03/23 08:24 tightness lisinopril [LISINOPRIL] Allergy Severe sweating, Verified 02/03/23 08:24 rash, difficulty breathing, cough oxycodone Allergy Intermediate vomiting/GI Verified 02/03/23 08:24 cramping Home Medications Medication Instructions Recorded Confirmed Last Taken Type amitriptyline 50 mg tablet 50 mg PO DAILY 07/12/20 01/26/23 02/02/23 History rosuvastatin 5 mg tablet (Crestor) 5 mg PO DAILY 07/12/20 01/26/23 02/02/23 History trazodone 50 mg tablet 25 mg PO DAILY 07/12/20 01/26/23 02/02/23 History aspirin 81 mg tablet,delayed 81 mg PO DAILY 05/06/21 01/26/23 01/20/23 History release bupropion HCl 300 mg 24 hr tablet, 300 mg PO DAILY 05/06/21 02/03/23 02/02/23 History extended release cyclobenzaprine 5 mg tablet 5 mg PO TID PRN muscle pain 05/06/21 01/26/23 Unknown History diclofenac sodium 1 % topical gel 1 ea topical BID 05/06/21 01/26/23 Unknown History lidocaine 5 % topical patch 1 patch topical DAILY 05/06/21 01/26/23 02/02/23 History loratadine 10 mg tablet 10 mg PO DAILY 05/06/21 01/26/23 02/02/23 History omeprazole 20 mg capsule,delayed 20 mg PO DAILY 05/06/21 01/26/23 02/02/23 History release losartan 100 mg tablet 100 mg PO DAILY 06/10/21 01/26/23 02/02/23 History amlodipine 10 mg tablet 10 mg PO DAILY 02/24/22 01/26/23 02/03/23 06:30 History budesonide 1 mg/2 mL suspension 1 mg inhalation DAILY 02/24/22 01/26/23 Unknown History for nebulization insulin degludec 200 unit/mL (3 45 unit subcut DAILY 08/25/22 01/26/23 02/02/23 History mL) subcutaneous pen (Tresiba FlexTouch U-200 insulin) clonidine HCl 0.2 mg tablet See Rx Instructions PO .COMPLEX 09/22/22 01/26/23 02/02/23 History Exam Airway Mallampati Class: II (missing upper central incisor) TM Dist: >3cm Neck ROM: Full Loose/Missing/Broken Teeth: Yes and Upper Heart: RRR Lungs: CTA Assessment and Plan Assessment Anesthesia Assessment: Anesthesia Plan Discussed Final Anesthetic Review History of Problems with Anesthesia: No NPO: Yes ASA Class: III Final Preanesthetic Review: Meds/Allgs Chart Reviewed, Consent Obtained/Reviewed and Anes Risks/Benef Reviewed Patient Risk: Intermediate Procedure Risk: Intermediate Anesthetic Plan Anesthetic Plan: GA Disposition: Standard PACU
--- NOTE | 2023-02-01 11:00 | MHC.SHP ---
Pre-Procedural Eval Section A Date of Service: 02/01/23 The patient is an INPATIENT: Yes The History & Physical has been completed within 30 days and I have reviewed it.: Yes Section B Chief Complaint: Morbid (severe) obesity due to excess calories Relevant Family History (Specify if Yes): No Relevant Social History: None Present Medications: None Medical History: No relevant PMH History of Previous Operations: No relevant previous surgery Allergies: Allergies Allergy/AdvReac Type Severity Reaction Status Date / Time canagliflozin [Invokana] Allergy Severe chest Verified 01/26/23 13:20 tightness lisinopril [LISINOPRIL] Allergy Severe sweating, Verified 01/26/23 13:19 rash, difficulty breathing, cough oxycodone Allergy Intermediate vomiting/GI Verified 01/26/23 14:09 cramping Review of Systems Sugical H&P ROS: Negative: Constitution, Cardiovascular, Respiratory, Neurological, Psychiatric, Hem-Onc, Allergic/Immunologic, Gastrointestinal, Genitourinary, Musculoskeletal, Integumentary, Endocrine and Eyes/Ears/Nose/Throat Exam Surgical H&P Exam: Normal: HEENT, Normal: Heart, Normal: Lungs, Normal: Extremities, Normal: Abdomen, Normal: Skin and Normal: Neurological Plan Diagnosis/Plan: Unchanged I have reviewed the history and physical and performed a pertinent physical examination on my patient. No changes have occurred unless specified. Time Spent With Patient Time: Total time managing care of this patient today ____ minutes.
[2023-02-03] VITALS (10 sets, daily range): BP systolic 116–151; BP diastolic 57–68; PULSE 83–97; RESP 14–20; TEMP 35.9–37.1; O2SAT 90–97
--- NOTE | 2023-02-03 | ECG_ITS ---
Test Reason : ASTHMA, HTN Blood Pressure : / mmHG Vent. Rate : 080 BPM Atrial Rate : 080 BPM P-R Int : 166 ms QRS Dur : 092 ms QT Int : 378 ms P-R-T Axes : 034 -11 014 degrees QTc Int : 435 ms Normal sinus rhythm Cannot rule out Anterior infarct , age undetermined Abnormal ECG When compared with ECG of 16-DEC-2021 11:55, No significant change was found Referred By: Marly Pemberton Electronically Signed By:SOPHIE PUENTE MD
--- OUTSIDE RECORDS SUMMARY | 2023-02-03 08:17 | XMS_ITS | Continuity of Care Document ---
Author Name Unknown Organization [facility] Address [address] [place] [address]- Care Team Providers Care Motion Picture Actor Name Role Phone Name Jamal HENDRIX Primary Care Physician Encounter [facility] Date(s): 07/24/20 - 08/23/20 [facility] [address] [place] [id number]- Allergies, Adverse Reactions, Alerts Substance Reaction Severity Status lisinopril Active Medications Advair Diskus 500 mcg-50 mcg inhalation powder INHALE 1 PUFF TWICE DAILY., 07/18/14 14:55:00 Start Date: 07/18/14 Status: Ordered albuterol 0.083% inhalation solution USE 1 UNIT DOSE IN NEBULIZER EVERY 6 HOURS NEEDED., 07/18/14 14:55:00 Start Date: 07/18/14 Status: Ordered aspirin 81 mg oral delayed release tablet 81 mg, 1, tablet, By Mouth, Daily, # 90 tablet, Refills 5, Tot. Refills 5, Maintenance, 09/08/17 15:13:52, Route to Pharmacy Electronically, [id number], [facility]/pharmacy #[id number] Start Date: 09/08/17 Stop Date: 03/02/19 Status: Ordered aspirin 81 mg oral delayed release tablet TAKE 1 TABLET DAILY., 07/18/14 15:31:00 Start Date: 07/18/14 Status: Ordered buPROPion 300 mg/24 hours (XL) oral tablet, extended release TAKE 1 TABLET DAILY., 07/18/14 14:55:00 Start Date: 07/18/14 Status: Ordered cholecalciferol 1000 intl units oral capsule 1 capsule = 1,000 International_Units, By Mouth, Daily, # 30 capsule, 6 Refills, Maintenance, 12/10/17 17:05:00 EDT, Capsule Start Date: 12/10/17 Status: Ordered fluoxeteine 2o mg fluoxeteine 2o mg, Refills 0, Maintenance, 05/09/11 15:10:35 Start Date: 05/09/11 Status: Ordered Fluticasone Nasal Daily, 0 Refills, Maintenance Start Date: 05/09/11 Status: Ordered Freestyle Lite Lancets See Instructions, # 400 each, Refills 3, Tot. Refills 3, Maintenance, use as directed for Type 2 Diabetes Mellitus, 09/08/17 15:14:44, Compound Start Date: 09/08/17 Stop Date: 09/03/18 Status: Ordered Freestyle Lite Test Strips See Instructions, # 200 each, Refills 5, Tot. Refills 5, Maintenance, use as directed for Type 2 Diabetes Mellitus E11.9 Test Blood Sugar 5-6x day, 12/14/17 15:10:20 EDT, Compound Start Date: 12/14/17 Stop Date: 06/07/19 Status: Ordered NovoLOG FlexPen 100 units/mL subcutaneous solution 10-45 units, Subcutaneous Injection, 4 times a day, # 30 mL, 5 Refills, Maintenance, 09/08/17 15:12:56 Start Date: 09/08/17 Stop Date: 03/07/18 Status: Ordered omega-3 polyunsaturated fatty acids 1100 mg oral delayed release capsule See Instructions, 2 capsules 2x a day, # 100 capsule, 3 Refills, Maintenance Start Date: 11/01/12 Status: Ordered Pen [place], 31 G x 8 mm BD Ultra Fine III See Instructions, # 150 each, Refills 5, Tot. Refills 5, Maintenance, use as directed for Type 2 Diabetes Mellitus, 09/08/17 15:13:39, Compound Start Date: 09/08/17 Stop Date: 03/07/18 Status: Ordered ProAir HFA 90 mcg/inh inhalation aerosol with adapter 2 puffs, Inhalation, 4 times a day, 0 Refills, Maintenance Start Date: 05/09/11 Status: Ordered rosuvastatin 10 mg oral tablet 1 tablet = 10 mg, By Mouth, Daily, # 30 tablet, 11 Refills, Maintenance, 11/27/17 10:29:42, Tablet Start Date: 11/27/17 Stop Date: 11/22/18 Status: Ordered Singulair 10 mg oral tablet 1 tablet, By Mouth, Daily in PM, # 30 tablet, 0 Refills, Maintenance, Tablet Start Date: 05/09/11 Status: Ordered Tresiba FlexTouch 200 units/mL subcutaneous solution = 140 units, Subcutaneous Infusion, Daily, # 9 application, 5 Refills, Maintenance, 09/08/17 15:12:45 Start Date: 09/08/17 Stop Date: 03/07/18 Status: Ordered Victoza 18 mg/3 mL subcutaneous solution = 1.8 mg, Subcutaneous Infusion, Daily, # 9 mL, 11 Refills, Maintenance, 09/08/17 15:09:09 Start Date: 09/08/17 Stop Date: 09/03/18 Status: Ordered Vitamin D 30954 iu oral capsule 50,000 International_Units, 1, capsule, By Mouth, Every week, # 5 capsule, Refills 3, Tot. Refills 3, Maintenance, 12/17/15 17:35:49, Route to Pharmacy Electronically, [id number], [facility]/pharmacy #[id number] Start Date: 12/17/15 Stop Date: 04/15/16 Status: Ordered Problem List Condition Effective Dates Status Health Status Inform ant Asthma(Confirmed) Active Depression(Confirmed) Active Diabetes mellitus(Confirmed) Active Fibromyalgia(Confirmed) Active Hypercholesteremia(Confirmed) Active Hypertension(Confirmed) Active Osteoarthritis of knee(Confirmed) Active Encounter for preventive [facility] examination(Confirmed) Active Social History Social History Type Response Smoking Status Never smoker; Type: Cigarettes entered on: 08/13/15 Sex
--- OUTSIDE RECORDS SUMMARY | 2023-02-03 08:17 | XMS_ITS | Continuity of Care Document ---
Author Name Unknown Organization [facility] ter Address [address] [place] [id number]- Care Team Providers Care Cloth Winder Name Role Phone Name Jamal HENDRIX Primary Care Physician Encounter [facility] [place] Date(s): 06/10/22 - 06/10/[address] [id number] Discharge Disposition: A-D/C Home Attending Physician: Denis Moore MD Admitting Physician: Denis Moore MD Referring Physician: Denis Moore MD Allergies, Adverse Reactions, Alerts Substance Reaction Severity Status lisinopril Active Percocet Active canagliflozin Active Medications albuterol 0.083% inhalation solution USE 1 UNIT DOSE IN NEBULIZER EVERY 6 HOURS NEEDED., 07/18/14 14:55:00 Start Date: 07/18/14 Status: Ordered amitriptyline 50 mg oral tablet See Instructions, ASHLEY ORDAZ AL LORENA, # 90 tablet, 2 Refills, 02/10/22 9:28:00 EDT, [facility]/pharmacy #[id number], 150, cm, 02/10/22 8:58:00 EDT, Height Start Date: 02/10/22 Status: Ordered amLODIPine 10 mg oral tablet 10 mg, 1, tablet, By Mouth, Daily, # 30 tablet, Refills 0, Maintenance, 08/05/21 9:06:00 EST, Partial fill upon patient request if the prescription is for a schedule II opioid drug. Start Date: 08/05/21 Status: Ordered aspirin 81 mg oral delayed release tablet 81 mg, 1, tablet, By Mouth, Daily, # 90 tablet, Refills 5, Tot. Refills 5, Maintenance, 09/08/17 15:13:52, Route to Pharmacy Electronically, [id number], [facility]/pharmacy #[id number] Start Date: 09/08/17 Stop Date: 03/02/19 Status: Ordered budesonide 1 mg/2 mL inhalation suspension INHALE 2 MILLILITER BY NEBULIZATION ROUTE EVERY DAY. PT MUST ANSWER QUESTIONS ON PART B Start Date: 06/10/22 Status: Ordered buPROPion 300 mg/24 hours (XL) oral tablet, extended release TAKE 1 TABLET DAILY., 07/18/14 14:55:00 Start Date: 07/18/14 Status: Ordered cholecalciferol 1000 intl units oral capsule 1 capsule = 1,000 International_Units, By Mouth, Daily, # 30 capsule, 6 Refills, Maintenance, 12/10/17 17:05:00 EDT, Capsule Start Date: 12/10/17 Status: Ordered cloNIDine 0.2 mg oral tablet 0.2 mg, 1, tablet, By Mouth, Daily, PRN, TOME PEACE TABLETA AL ACOSTARSE AND 1/4 TO 1/2 TAB DAILY NEED FOR PANIC SYMPTOMS, Anxiety Start Date: 06/10/22 Status: Ordered diclofenac 1% topical gel See Instructions, APLIQUE AL AREA AFECTADA DOS VECES AL SHRUTHI, # 300 Gm, 3 Refills, [id number], 30, APLIQUE AL AREA AFECTADA DOS VECES AL SHRUTHI, 150, cm, 02/10/22 8:58:00 EDT, Height Start Date: 04/24/22 Status: Ordered fluoxeteine 2o mg fluoxeteine 2o [...] Date: 12/14/17 Stop Date: 06/07/19 Status: Ordered lidocaine 5% topical film 1 patch, Topically, Daily, APLIQUE UN PARCHE TODOS LOS D MAY WEAR UP TO 12 HOURS Start Date: 06/10/22 Status: Ordered loratadine 10 mg oral tablet 10 mg, 1, tablet, By Mouth, Daily, TOME PEACE TABLETA TODOS LOS D Start Date: 06/10/22 Status: Ordered losartan 100 mg oral tablet 1 tablet = 100 mg, By Mouth, Daily, 0 Refills, Maintenance, 08/05/21 9:05:00 EST, Partial fill uponpatient request if the prescription is for a schedule II opioid drug. Start Date: 08/05/21 Status: Ordered NovoLOG FlexPen 100 units/mL subcutaneous solution 10-45 units, Subcutaneous Injection, 4 times a day, # 30 mL, 5 Refills, Maintenance, 09/08/17 15:12:56 Start Date: 09/08/17 Stop Date: 03/07/18 Status: Ordered omeprazole 20 mg oral enteric coated capsule 1 capsule = 20 mg, By Mouth, Daily, TOME PEACE C PSULA TOS LOS D 30 MINUTES TO 1 HOUR BEFORE A MEAL Start Date: 06/10/22 Status: Ordered Ozempic (1 mg dose) 4 mg/3 mL subcutaneous solution = 1 mg, Subcutaneous Injection, Every 7 days, INJECT 1 MG UNDER THE SKIN EVERY 7 DAYS Start Date: 06/10/22 Status: Ordered Pen [place], 31 G x 8 mm BD Ultra Fine III See Instructions, # 150 each, Refills 5, Tot. Refills 5, Maintenance, use as directed for Type 2 Diabetes Mellitus, 09/08/17 15:13:39, Compound Start Date: 09/08/17 Stop Date: 03/07/18 Status: Ordered rosuvastatin 5 mg oral tablet 1 tablet = 5 mg, By Mouth, Daily, TOME PEACE TABLETA TODOS LOS D Start Date: 06/10/22 Status: Ordered Singulair 10 mg oral tablet 1 tablet, By Mouth, Daily in PM, # 30 tablet, 0 Refills, Maintenance, Tablet Start Date: 05/09/11 Status: Ordered traZODone 50 mg oral tablet TOME PEACE O DOS TABLETAS POR V A ORAL AL ACOSTARSE CUANDO SEA NECESARIO PARA DORMIR Start Date: 06/10/22 Status: Ordered Trelegy Ellipta 200 mcg-62.5 mcg-25 mcg/inh inhalation powder 1 puffs, Inhalation, Daily, INHALE 1 PUFF BY INHALATION ROUTE EVERY DAY AT THE SAME TIME EACH DAY Start Date: 06/10/22 Status: Ordered Tresiba FlexTouch 200 units/mL subcutaneous solution = 125 units, Subcutaneous Injection, Daily, INJECT 125 UNITS UNDER THE SKIN DAILY. Start Date: 06/10/22 Status: Ordered triamcinolone 0.1% topical cream 0 Refills, Maintenance, 06/10/22 13:14:00 EDT, Partial fill upon patient request if the prescription is for a schedule II opioid drug. Start Date: 06/10/22 Status: Ordered Vitamin B-12 250 mcg oral tablet 1 tablet = 250 mcg, By Mouth, Daily, TOME PEACE TABLETA TODOS LOS D Start Date: 06/10/22 Status: Ordered Problem List Condition Confirmation Course Effective Dates Status Health Status Informant Asthma Confirmed Active Depression Confirmed Active Diabetes mellitus Confirmed Active Fibromyalgia Confirmed Active Hypercholesteremia Confirmed Active Hypertension Confirmed Active Osteoarthritis of knee Confirmed Active Encounter for preventive health examination Confirmed Active Severe obesity Confirmed Active Vital Signs Most recent to oldest [Reference Range]: 1 2 3 Height 149 cm (06/10/22 10:00 AM) 149 cm (06/10/22 10:00 AM) Weight 117.4 kg (06/10/22 10:00 AM) 117.4 kg (06/10/22 10:00 AM) Oxygen Saturation [94-100 %] 95 % (06/10/22 5:00 PM) 96 % (06/10/22 4:45 PM) 94 % (06/10/22 4:30 PM) Pulse Rate [55-90 bpm] 67 bpm (06/10/22 10:00 AM) Body Mass Index [18.5-24.99 kg/m2] 52.88 kg/m2 *>HHI* (06/10/22 10:00 AM) Blood Pressure [90-138/55-84 mm Hg] 150/73mm Hg *H* (06/10/22 5:00 PM) 154/68mm Hg *H* (06/10/22 4:45 PM) 147/66mm Hg *H* (06/10/22 4:30 PM) Respiratory Rate [16-30 br/min] 17 br/min (06/10/22 5:00 PM) 20 br/min (06/10/22 4:45 PM) 18 br/min (06/10/22 4:30 PM) Temperature [96.8-100.4 DegF] 97.4 DegF (06/10/22 10:00 AM) Mode of Delivery (Oxygen) Room air (06/10/22 5:00 PM) Room air (06/10/22 4:45 PM) Room air (06/10/22 2:00 PM) Blood pressure sites Arm, left (06/10/22 2:00 PM) Arm, left (06/10/22 10:15 AM) Arm, right (06/10/22 10:00 AM) Social History Social History Type Response Smoking Status Never smoker; Type: Cigarettes entered on: 08/13/15 Sex Patient Care team information Personnel Name: Jamal Castañeda MD Address: Address: [address] [place] [address]
--- OUTSIDE RECORDS SUMMARY | 2023-02-03 08:17 | XMS_ITS | Continuity of Care Document ---
Author Name Unknown Organization [facility] Address [address] [place] [address]- Care Team Providers Care Palliative Care Specialist Name Role Phone Moris HENDRIX, Asma Primary Care Physician Encounter [facility] Date(s): 06/04/20 - 07/04/20 [facility] Rhe[facility] [address] [place] [address]- [facility] Allergies, Adverse Reactions, Alerts Substance Reaction Severity [...] Maintenance, 09/08/17 15:13:52, Route to Pharmacy Electronically, [id number], [facility]/pharmacy #[id number] Start Date: 09/08/17 Stop Date: 03/02/19 Status: [...] Maintenance Start Date: 11/01/12 Status: Ordered Pen [place], 31 G x 8 mm BD Ultra [...] Stop Date: 09/03/18 Status: Ordered Vitamin D 61528 iu oral capsule 50,000 International_Units, 1, capsule, By Mouth, Every week, # 5 capsule, Refills 3, Tot. Refills 3, Maintenance, 12/17/15 17:35:49, Route to Pharmacy Electronically, [id number], [facility][id number] Start Date: 12/17/15 Stop Date: 04/15/16 Status: Ordered Problem List Condition Effective Dates Status Health Status Inform ant Asthma(Confirmed) Active Depression(Confirmed) Active Diabetes mellitus(Confirmed) Active Fibromyalgia(Confirmed) Active Hypercholesteremia(Confirmed) Active Hypertension(Confirmed) Active Osteoarthritis of knee(Confirmed) Active Encounter for preventive [facility] examination(Confirmed) Active Social History Social History Type Response Smoking Status Never smoker; Type: Cigarettes entered on: 08/13/15 Sex
--- OUTSIDE RECORDS SUMMARY | 2023-02-03 08:17 | XMS_ITS | Continuity of Care Document ---
Author Name Unknown Organization [facility] Address [address] [place] [address]- Care Team Providers Care Type Proof Reproducer Name Role Phone Moris HENDRIX, Asma Primary Care Physician [phone] Encounter [facility] Date(s): 04/18/20 - 05/18/20 [facility] [address] [place] [address]- [facility] Allergies, Adverse Reactions, Alerts Substance Reaction [...] Maintenance, 09/08/17 15:13:52, Route to Pharmacy Electronically, [id number], [facility]/pharmacy #[id number] Start Date: 09/08/17 Stop Date: 03/02/19 Status: [...] Maintenance Start Date: 11/01/12 Status: Ordered Pen [place], 31 G x 8 mm BD Ultra [...] Stop Date: 09/03/18 Status: Ordered Vitamin D 10384 iu oral capsule 50,000 International_Units, 1, capsule, By Mouth, Every week, # 5 capsule, Refills 3, Tot. Refills 3, Maintenance, 12/17/15 17:35:49, Route to Pharmacy Electronically, [id number], [id number] Start Date: 12/17/15 Stop Date: 04/15/16 Status: Ordered Problem List Condition Effective Dates Status Health Status Inform ant Asthma(Confirmed) Active Depression(Confirmed) Active Diabetes mellitus(Confirmed) Active Fibromyalgia(Confirmed) Active Hypercholesteremia(Confirmed) Active Hypertension(Confirmed) Active Osteoarthritis of knee(Confirmed) Active Encounter for preventive [facility] examination(Confirmed) Active Social History Social History Type Response Smoking Status Never smoker; Type: Cigarettes entered on: 08/13/15 Sex
--- NOTE | 2023-02-03 08:30 | PHA.MEDREC ---
Pharmacy Consult ? Medication Reconciliation Pharmacy has completed the medication reconciliation. Pharmacy has reviewed med rec done by nursing.
[2023-02-03 08:41] LABS: COVID-19 Test Negative (Negative); IDNOW Serial# BCCEAD1C
[2023-02-03] MEDS: Aprepitant 32 MG/4.4 ML VIAL IVPUSH (08:56)
[2023-02-03] MEDS: Lactated Ringers 1,000 ML 999 ML IV (08:57)
[2023-02-03 09:32] LABS: Glucose, Whole Blood 86 mg/dL (60-115)
--- NOTE | 2023-02-03 10:10 | P.BOP_ITS ---
Brief Operative Note Date of Service: 02/03/23 Pre-op diagnosis: Morbid obesity with comorbidities (see below) Post-op diagnosis: same Procedure: INITIAL PATIENT BMI ON PRESENTATION AT OUR OFFICE: 55 kg/m2 LAST BMI BEFORE SURGERY: 46.2 kg/m2 COMORBIDITIES: sleep apnea on CPAP, GERD, hyperlipidemia, insulin dependent diabetes, diabetic neuropathy, hypertension, asthma, depression, anxiety, insomnia, back pain, livber steatosis, tricucpid calve insufficiency ?The patient presented to the Weight Management Program with significant obesity that was negatively impacting the patient's comorbidities as listed above.? The program is a phased program with a special focus on preoperative medical weight management to promote substantial weight loss and prepare the patients for the second phase of the program: bariatric surgery. The patient participated in an intensive weekly lifestyle ?intervention and exercise program during which the patient ?has lost between the initial office visit and the last preoperative visit 46.2 lbs, or 16.96% of initial actual body weight. It was deemed appropriate for the patient to now have bariatric surgery. In light of the current Covid-19 pandemic and the well documented strong association of obesity and increased risk of worse outcomes if infected with Covid-19 (REFERENCES: https://pubmed.ncbi.nlm.nih.gov/11265215/ ,? https://pubmed.ncbi.nlm.nih.gov/65580512/ ), any delay in undergoing bariatric surgery may lead to the patient's worsening health condition and increased?risk of more severe Covid-19 disease if infected. In addition a recent?study from [facility] published in [employer] on 09/02/2021 ([email or web address]) found that, among patients with obesity, substantial weight loss achieved with surgery was associated with improved outcomes of COVID-19 infection. The findings suggest that obesity can be a modifiable risk factor for the severity of COVID-19 infection. In addition, the patient met the BMI-criteria for bariatric surgery based on the BMI on initial presentation. The patient should not be penalized for achieving such weight loss because ?it is not sustainable long-term without surgical intervention and it was achieved in preparation for bariatric surgery ?under my direction and based on my published research ([email or web address]).[email or web address] and? https://www.soard.org/article/[email or web address](32)32330-X/pdf ) ?that a 10% preoperative weight loss improves long-term weight loss after surgery and reduces perioperative complications.? Insurance carriers such as [employer] [facility] [facility] have endorsed my recommendations ?and have included in their policies criteria to include a 10% preoperative weight loss requirement. PROCEDURE: Esophago-gastroscopy, laparoscopic sleeve gastrectomy and laparoscopic gastropexy INDICATIONS: This is a 57 year-old female who was electively scheduled for laparoscopic, possibly open sleeve gastrectomy. The risks and complications of the procedure were discussed with the patient in advance, particularly the possibility of ; pulmonary embolism; staple line leak; bleeding; GERD; cardiac, pulmonary, or renal complications; as well as long-term problems such as insufficient weight loss, vitamin deficiency, strictures, or ulcers. The patient understood all the risks, and was in agreement to proceed with surgery. DESCRIPTION OF PROCEDURE: After informed consent was obtained from the patient, the patient was given preoperative antibiotics, and was transferred to the operating room. After successful induction of general anesthesia, pneumatic compression devices were placed on both lower extremities. An upper endoscopy was performed next. The oropharynx and esophagus appeared to be within normal limits. There was no diaphragmatic hernia present consistent with the findings of the preoperative upper GI. The stomach was entered. Then after all fluid and air were suctioned and the stomach was fully decompressed, the scope was withdrawn and secured in the mid esophagus. The patient was then prepped and draped in the usual sterile manner, and abdominal access was established at the right upper quadrant with the Andres technique. A 12 mm blunt port was inserted, and the abdomen was insufflated with CO2 to a pressure of 15 mmHg. Under direct visualization, additional ports were placed, specifically two 5 mm Versi-step ports to the left upper quadrant, and a 5 mm Versi-Step port to the right upper quadrant. 1% lidocaine plain was used to infiltrate all port sites as well as all fascia defects. Following that, the patient was placed in a steep reverse Trendelenburg position. An additional 5 mm port was placed to the right flank for the Mediflex retractor that was used to retract the left lobe of the liver. The gastro-esophageal fat pad was opened with the ultrasonic device (Thunderbeat, Olympus) and the anterior esophagus and hiatus were exposed. The a ngle of His was opened with the ultrasonic device the fundus of the stomach from any diaphragmatic and splenic attachments. I then opened the gastrocolic ligament between the transverse colon and the greater curvature of the stomach with the ultrasonic device to enter the lesser sac and facilitate the ligation of the short gastric vessels. I started at a mid-point along the greater curvature and using the Thunderbeat, all short gastric vessels were divided all the way to the angle of His until the left marta was completely dissected at its entirety. I then divided the gastro-colic l igament distally to a distance of about 3-4 cm proximal to the pylorus. The stomach was then divided transversely with two Endo MARSHA-45 purple and four MARSHA-60 articulating purple loads using the ROSTRIA stapler and loads. Every effort was made that the gastric sleeve had a tubular shape and an even caliber throughout. Once the sleeve resection was completed, the staple line of the gastric sleeve was reinforced with Hemoclips. The resected stomach was retrieved without difficulty from the Andres port. A gastropexy was then performed in order to prevent postoperative GERD and partial gastric volvulus. Several interrupted 2.0 Surgidac sutures were placed between the sleeve's staple line and the previously divided greater omentum and gastro-colic ligament using the Endo-Stitch device. ?An upper endoscopy was performed. There was no narrowing at the GE junction. The scope was easily advanced all the way to the pylorus which was clearly visualized. There was no narrowing anywhere and the sleeve's caliber was even throughout. The sleeve's staple line was inspected and there was no evidence of ischemia, bleeding or dehiscence. At that point the gastroscope was withdrawn from the patient?s mouth while we were decompressing the bowel and the stomach from any remaining air. I looked into the lesser sac to see how the sleeve was situating and it was situating well. There was no bleeding from the staple line, spleen, or short gastric vessels. The Mediflex retractor was removed, and the undersurface of the liver was inspected and there was no bleeding. The patient was placed in supine position. I closed the fascial defect of the 12 mm port site with a figure of eight #1 Polysorb suture. Then 30cc Ropivacaine plain with 10 mg of Dexamethasone were used to infiltrate the fascial closure as well as all skin incisions. At this point, the abdomen was deflated, all ports were removed under direct vision, and no bleeding was noted from any of the port sites. The skin incisions were irrigated with saline and were closed with 4-0 absorbable monofilament sutures. Steri-Strips and OpSites were used to cover all incisions. The patient was extubated and was transferred in stable condition to the recovery room for further care. I was present and performed all arriaga parts of the procedure. Ms. Hernández was the first dyer. There were no residents to assist with this case. Xiang Kc MD, PhD, FACS Surgeon: Yobani Kc MD Anesthesia: GETA, local and other (TAP block) Was an Thread Cutter used for this Procedure?: No Thread Cutter: Asmita Hernández Estimated blood loss (mL): 10 Urine output (mL): 0 (No [place] to record) Pathology: other (Stomach) Condition: stable Disposition: PACU
--- NOTE | 2023-02-03 10:13 | PM.PNGS ---
Subjective Subjective Date of Service: 02/04/23 Interval history: Feels well. Mild incisional pain. She is tolerating phase 1 bariatric diet Physical Exam Vital Signs: Vital Signs: BMI result Body Mass Index 47.5 GI: Inspection: Yes normal to inspection, Yes incision (clean, dry and intact) and Yes obesity Palpation (GI): Soft to palpation Extrem: Right lower extremity: normal to inspection (no calf tenderness) Left lower extremity: normal to inspection (no calf tenderness) Objective Data Active Medications Albuterol Sulfate (Albuterol Sulfate (0.083%) 2.5 Mg/3 Ml Vial.Neb) 2.5 mg INHALE ONCE PRN PRN Reason: Shortness of Breath/Wheezing Lactated Ringer's (Lr) 1,000 mls @ 100 mls/hr IVCONT .Q10H AMADEO Lactated Ringer's (Lr) 1,000 mls @ 999 mls/hr IV .Q1H1M AMADEO Stop: 02/03/23 10:15 Last Admin: 02/03/23 08:57 Dose: 999 mls/hr Documented By: OZZY Labs 02/04/23 06:17 02/04/23 06:17 Labs: Laboratory Results - last 24 hr 02/03/23 02/03/23 08:08 09:01 POC Glucose 86 COVID-19 ([facility]) Negative COVID-19 Clin Com See Note Procedures Date of Service Date of Service: 02/04/23 Progress Note: A&P Assessment and plan (1) Morbid obesity: Status: Acute Assessment and Plan: s/p laparoscopic sleeve gastrectomy and gastropexy Doing well Will check am labs and if OK the patient will be discharged home (2) LUCINDA (obstructive sleep apnea): Status: Acute (3) Bilateral primary osteoarthritis of knee: Status: Acute (4) Asthma: Status: Acute (5) Hypertriglyceridemia: Status: Acute (6) Depression: Status: Acute (7) Hypertension: Status: Acute (8) Diabetic nephropathy: Status: Acute (9) GERD (gastroesophageal reflux disease): Status: Acute (10) Asthma exacerbation: Status: Acute (11) Hepatomegaly: Status: Acute (12) Steatosis, liver: Status: Acute (13) Diabetes mellitus: Status: Acute (14) S/P laparoscopic sleeve gastrectomy: Status: Acute (15) Tricuspid valve insufficiency: Status: Acute Time Spent With Patient Time: Total time managing care of this patient today ____ minutes. Quality Stroke Does the patient have a stroke diagnosis?: No VTE Prior VTE?: No VTE Risk Level:: Surgical - moderate VTE Device Contraindication: N/A - Device Ordered VTE Drug Contraindication: Treatment Not Indicated
--- NOTE | 2023-02-03 10:16 | P.DS_ITS ---
DS: Providers Provider Date of Service: 02/04/23 Date of admission: 02/03/23 08:01 Primary care physician: Jamal Castañeda MD DS: Diagnosis Discharge Diagnosis (1) Morbid obesity: Status: Acute (2) LUCINDA (obstructive sleep apnea): Status: Acute (3) Bilateral primary osteoarthritis of knee: Status: Acute (4) Asthma: Status: Acute (5) Hypertriglyceridemia: Status: Acute (6) Depression: Status: Acute (7) Hypertension: Status: Acute (8) Diabetic nephropathy: Status: Acute (9) GERD (gastroesophageal reflux disease): Status: Acute (10) Asthma exacerbation: Status: Acute (11) Hepatomegaly: Status: Acute (12) Steatosis, liver: Status: Acute (13) Diabetes mellitus: Status: Acute DS: Summary Hospital Course Hospital Course: ADMITTING DIAGNOSIS: morbid obesity, DM, HTN, HLD,LUCINDA, fibromyalgia, astham, GERD DISCHARGE DIAGNOSIS: same, s/p laparoscopic sleeve gastrectomy PAST SURGICAL HISTORY: cardiac catheterization, bilateral carpal tunnel PROCEDURE: upper endoscopy, laparoscopic sleeve gastrectomy DISCHARGE SUMMARY: History of Present Illness: The patient is a 57 year-old woman with a BMI of 55.8 kg/m2 and associated co- morbidities as described above. The patient had extensive work-up, lost 36.8 lbs preoperatively and was electively scheduled for laparoscopic, possible open sleeve gastrectomy and gastropexy. Risks and complications of the surgery were discussed with the patient in advance, particularly the possibility of , pulmonary embolism, anastomotic leak, bleeding, bowel injury, GERD, cardiac, renal or pulmonary complications. The patient understood all the risks and was in agreement with the surgical plan. Hospital Course: The patient underwent an uneventful laparoscopic sleeve gastrectomy with gastropexy on the day of admission. Postoperatively, the patient was transferred to the surgical floor. The patient received IV Acetaminophen and IV dilaudid for pain control. Patient was started on bariatric phase 1 diet POD #0. On postoperative day one, the patient was feeling well without nausea, vomiting, fevers, or tachycardia. The patient had some mild incisional pain and the abdomen was soft. On the morning of postoperative day one, the patient was continued on 1 ounce of water or ice every half hour. During the day, the patient did fairly well, having some incisional pain, but able to ambulate adequately and to tolerate liquids well. Since the patient is doing well, we decided that the patient was ready to be discharged. The patient was given instructions to follow-up with me next week and to call my office for any fever over 101, persistent abdominal pain, nausea, vomiting, GERD, symptoms of DVT such as calf tenderness, or leg swelling, or pulmonary embolism such as chest pain or shortness of breath. The patient was also instructed to drink 40-60 ounces of liquids per day using the 1-ounce cups. The patient had been given prescriptions for Tylenol for pain, Zofran prn for nausea, and pantoprazole and carafate previously. The patient was encouraged to ambulate and use the incentive spirometer. The patient was allowed to shower, but no baths, and encouraged to stay active at home. All of these instructions were given to the patient personally. All questions were answered and the patient understood all instructions, the instructions were also given to the patient in print. Time Spent with Patient Time attestation: Total time managing care of this patient today ____ minutes. Discharge coordination time: Less than 30 minutes Quality: Safe Use of Opioids Does Pt have an Active Cancer Diagnosis on the Problem List?: No Quality: Stroke Does the patient have a stroke diagnosis?: No Physical Exam Vital Signs: Vital Signs: BMI result Body Mass Index 47.5 DS: Data Data Completed and Pending Labs on day of discharge: Laboratory Results - last 24 hr 02/03/23 02/03/23 08:08 09:01 POC Glucose 86 COVID-19 ([facility]) Negative COVID-19 Clin Com See Note Discharge Plan Discharge Anticipated Discharge Date/Time: 02/04/23 10:00 Patient Disposition: Home, Self-Care Discharge Diagnosis: s/p sleeve gastrectomy Referrals: Name,MD Jamal [Primary Care Provider] - 1 Week Discharge Medications: Continued Trelegy Ellipta 200-62.5-25 mcg blister with device 1 inh inhalation DAILY 30 Days Qty: 60 12RF fluticasone propionate 50 mcg/actuation spray,suspension 2 spray intranasal DAILY Qty: 48 3RF montelukast 10 mg tablet 10 mg PO DAILY Qty: 90 2RF albuterol sulfate 2.5 mg /3 mL (0.083 %) solution for nebulization 2.5 mg inhalation Q6H PRN (Reason: shortness of breath or wheezing) 30 Days Qty: 180 11RF losartan 100 mg tablet 100 mg PO DAILY trazodone 50 mg tablet 25 mg PO DAILY rosuvastatin [Crestor] 5 mg tablet 5 mg PO DAILY amitriptyline 50 mg tablet 50 mg PO DAILY diclofenac sodium 1 % gel 1 ea topical BID loratadine 10 mg tablet 10 mg PO DAILY bupropion HCl 300 mg tablet extended release 24 hr 300 mg PO DAILY lidocaine 5 % adhesive patch,medicated 1 patch topical DAILY budesonide 1 mg/2 mL suspension for nebulization 1 mg inhalation DAILY albuterol sulfate 90 mcg/actuation HFA aerosol inhaler 2 puff inhalation Q6H PRN (Reason: shortness of breath or wheezing) 30 Days Qty: 8.5 8RF sucralfate 100 mg/mL suspension 10 ml PO BID Qty: 400 2RF Held clonidine HCl 0.2 mg tablet See Rx Instructions PO .COMPLEX Hold Instructions: Resume on 02/05/23. Send blood pressure to Dr. Kc. Do not take before he responds. Don't take if blood pressure is less than 110/70. Rx Instructions: 0.2mg QHS. Then 0.25-0.5 tab PRN for panic symptoms orally; hydrochlorothiazide 12.5 mg tablet 12.5 mg PO DAILY 90 Days Qty: 90 3RF Hold Instructions: Discuss restart wtih Dr Buchanan amlodipine 10 mg tablet 10 mg PO DAILY Hold Instructions: Resume on 02/05/23. Send blood pressure to Dr. Kc. Do not take before he responds. Don't take if blood pressure is less than 110/70. insulin degludec [Tresiba FlexTouch U-200] 200 unit/mL (3 mL) insulin pen 45 unit subcut DAILY Hold Instructions: Discuss dosage with Dr Buchanan Ozemprush 1 mg/dose (4 mg/3 mL) pen injector 2 mg subcut QWEEK Qty: 3 3RF Hold Instructions: Discuss continuing with Dr De Flores cholecalciferol (vitamin D3) [Vitamin D3] 25 mcg (1,000 unit) capsule 25 mcg PO DAILY Qty: 90 2RF cyanocobalamin (vitamin B-12) 250 mcg tablet 250 mcg PO DAILY Qty: 90 2RF aspirin 81 mg tablet,delayed release (DR/EC) 81 mg PO DAILY cyclobenzaprine 5 mg tablet 5 mg PO TID PRN (Reason: muscle pain) omeprazole 20 mg capsule,delayed release(DR/EC) 20 mg PO DAILY Discharge Orders: Discharge Order (Routine); Ordered 02/04/23 Ordered By: Yobani Kc Activity on Discharge: No heavy lifting Stand Alone Forms: Patient Portal Discharge page Care Plan Goals: weight loss Health Concerns: morbid obesity Plan of Treatment: No tub baths, sex or returning to work until discussed at first post op appointment. No exercise, alcohol, tobacco or illegal drug use. Continue to use incentive spirometer hourly while awake. Walk in home for 5- 10 minutes every 2 hours during the first week. Continue phase 1 diet today and start phase 2 diet tomorrow morning. Follow all instructions in the bariatric handbook and call with any questions. 1. Please call your doctor or come back to the emergency room should any new symptoms arise. 2. You will receive a courtesy call from [facility] 24-48 hours after discharge. 3. Activity: abstain from alcohol, practice limited stair climbing, no bending, no driving, no exercise, no illicit substances, no lifting, no sex, no tub bath, no work. 4. Diet: continue as discussed with bariatric team.. 5. Dressing Change/Wound Care: Do not change or remove surgical dressings unless they are wet or soiled. 6. Call your doctor if: - Your temperature exceeds 101.5 F - You experience excessive pain or swelling - You have an unexpected reaction to medication - You have excessive bleeding - You experience continued vomiting/nausea - Your incision begins to separate - Your incision shows signs of infection such as increased redness, swelling, excessive pain, heat, or drainage (light blood or clear fluid is normal) 7. General instructions: No lifting greater than 5 lbs for the next 4 weeks[address] driving within 24 hours of taking narcotic pain medications. If you do not move your bowels in the next 2 days, please take milk of magnesia over the counter. Please follow the post op diet and do not advance your diet until you are seen in the office in about 2 weeks. Please walk around your home every hour or two to prevent blood clots from forming in your legs. You do not need to wake from sleeping to walk. Please sleep in a bed or couch to prevent kinking at the hips and knees. Please take your incentive spirometer (your lung satellite dish installer) home with you and use it for the next few days to prevent pneumonias. You may shower, no hot tubs, baths or swimming pools. Please call the office with any questions or concerns such as increasing abdominal pain, fever, chills, shortness of breath, chest pain, leg pain or swelling, or redness or drainage from your incisions. Do not hesitate to contact the office with any questions at . The patient's medical history has been reviewed and they are considered low risk for post op DVT and therefore DVT prophylaxis is not considered necessary. Travel after surgery was reviewed. The patient has not disclosed any travel plans during the first 30 days after surgery and they have been advised that within the first 30 days after surgery any bus, plane, train or car travel over 2 hours in duration is contraindicated due to the possibility of developing blood clots from immobility. Any travel, needs to include periods of ambulation of 10 minutes in duration every 2 hours. The patient was instructed to discuss any plans for travel during this period with their bariatric surgeon. Assessment: stable, post op sleeve gastrectomy Discharge Date/Time: 02/04/23 10:12
[2023-02-03 13:24] LABS: Hematocrit 37.6 % (37.0-47.0); Hemoglobin 12.4 g/dl (12.0-16.0)
[2023-02-03 13:39] LABS: Anion Gap 15 (12-20); Blood Urea Nitrogen 7 mg/dL (9-16); Carbon Dioxide 23 mmol/L (22-29); Chloride 106 mmol/L (96-108); Creatinine Clr Calc Pharmacy 94.6; Estimated Glomerular Filt Rate > 60; Glucose Random 140 mg/dL (60-115); Potassium 3.9 mmol/L (3.3-5.1); Sodium 140 mmol/L (135-145)
[2023-02-03] MEDS: Lactated Ringers 1,000 ML 100 ML IVCONT ×2 (13:52→20:57)
[2023-02-03] MEDS: ondansetron HCL 4 MG/2 ML VIAL IVPUSH ×2 (13:54→20:58)
[2023-02-03] MEDS: Famotidine/PF 20 MG/2 ML VIAL IVPUSH ×2 (15:20→20:58)
[2023-02-03 16:35] LABS: Glucose, Whole Blood 217 mg/dL (60-115)
[2023-02-03] MEDS: ceFAZolin Sodium/Dextrose,Iso 2 GM/50 ML PIGGYBACK IV (16:48)
[2023-02-03] MEDS: Insulin Lispro 100 UNIT/ML 3 ML VIAL SUBCUT (16:48)
[2023-02-03 20:37] LABS: Glucose, Whole Blood 164 mg/dL (60-115)
[2023-02-03] MEDS: Acetaminophen 1,000 MG/100 ML PIGGYBACK 400 MG IV (20:58)
[2023-02-04 00:08] LABS: Glucose, Whole Blood 117 mg/dL (60-115)
[2023-02-04 03:21] VITALS: BP 148/70; PULSE 71; RESP 18; TEMP 36.6; O2SAT 99
[2023-02-04 03:47] LABS: Glucose, Whole Blood 117 mg/dL (60-115)
[2023-02-04] MEDS: Acetaminophen 1,000 MG/100 ML PIGGYBACK 400 MG IV (04:13)
[2023-02-04 06:32] LABS: MANUAL DIFF FLAG NO
[2023-02-04 06:56] LABS: Anion Gap 14 (12-20); Blood Urea Nitrogen 7 mg/dL (9-16); Calcium 8.6 mg/dL (8.4-10.2); Carbon Dioxide 22 mmol/L (22-29); Chloride 107 mmol/L (96-108); Creatinine Clr Calc Pharmacy 110.1; Estimated Glomerular Filt Rate > 60; Glucose Random 96 mg/dL (60-115); Potassium 4.4 mmol/L (3.3-5.1); Sodium 139 mmol/L (135-145)
[2023-02-04 07:03] LABS: Basophils Percent Auto 0.2 % (0-2); Hematocrit 33.5 % (37.0-47.0); Hemoglobin 10.7 g/dl (12.0-16.0); Imm Gran Abs Auto 0.09 X10*3/uL (0.00-0.03); Imm Gran Pct Auto 0.7 % (0.0-0.4); Lymphocytes Absolute Auto 0.9 X10*3/uL (1.2-4.9); Lymphocytes Percent Auto 6.9 % (20-40); Mean Corpuscular HGB Conc 31.9 g/dl (31.0-35.0); Mean Corpuscular Hemoglobin 26.4 pg (27.0-33.0); Mean Corpuscular Volume 82.5 fL (80.0-98.0); Mean Platelet Volume 11.7 fL (9.4-12.3); Monocytes Absolute Auto 0.6 X10*3/uL (0.1-1.2); Monocytes Percent Auto 4.7 % (2-11); Neutrophils Absolute Auto 11.2 x10*3/uL (2.0-8.3); Neutrophils Percent Auto 87.5 % (45-73); Platelet Count 252 X10*3/uL (160-400); Red Blood Count 4.06 X10*6/uL (4.20-5.50); Red Cell Distribution Width 14.6 % (11.0-16.0); White Blood Count 12.8 X10*3/uL (4.8-10.8)
[2023-02-04] MEDS: Famotidine/PF 20 MG/2 ML VIAL IVPUSH (07:12)
[2023-02-04 07:20] VITALS: BP 168/81; PULSE 81; RESP 18; TEMP 36; O2SAT 97
[2023-02-04 07:52] LABS: Glucose, Whole Blood 98 mg/dL (60-115)
--- NOTE | 2023-02-04 08:47 | MHC.CM.PN ---
[facility] DELIVERED INTERVIEW CONDUCTED WITH [facility]. PT LIVES ALONE IN AN APT. USES CANE FOR MOBILITY. USES C-PAP AT NIGHT, VENDOR IS [employer]. UNSURE IF HAS A HCP, DOES NOT WISH TO COMPLETE AT THIS TIME. +COVID VAX X2 PCP [facility]. DP: PT HAS BEEN MEDICALLY CLEARED FOR DC HOME, NO SERVICES. [facility] WILL TRANSPORT HOME
--- NOTE | 2023-02-05 10:55 | HO.POSTANES ---
Post Anesthesia Evaluation Post Anesthesia Evaluation Date of Service: 02/04/23 Vital Signs: 0720: 168/81, 81, 18, 96.8F, 97%RA Anesthesia: General Endotracheal-GETA Mental Status: Awake Pain Control: Satisfactory Nausea/Vomiting: None Hydration: Adequate Anesthesia-Related Issues: No Anes. Related Issues
== END 2023-02-04 10:12 | disposition home or self-care (01) | DRG 621 ==
LOC: HO.SSSA 10:16 → HO.S3 13:20
PROVIDERS: Physician Assistant; Physician Assistant Surgical; Admitting Provider Surgery; PCP Internal Medicine Geriatric Medicine; Visit Provider Surgery
PROC: 0DB64Z3 Excision of Stomach, Percutaneous Endoscopic Approach, Vertical (ICD-10-PCS; CPT 43845; principal; 2023-02-03 10:10)
DX: E66.01 Morbid (severe) obesity due to excess calories (principal); E78.1 Pure hyperglyceridemia; G47.33 Obstructive sleep apnea (adult) (pediatric); K21.9 Gastro-esophageal reflux disease without esophagitis; E11.40 Type 2 diabetes mellitus with diabetic neuropathy, unspecified; I10 Essential (primary) hypertension; J45.909 Unspecified asthma, uncomplicated; F32.A Depression, unspecified; F41.9 Anxiety disorder, unspecified; G47.00 Insomnia, unspecified; K76.0 Fatty (change of) liver, not elsewhere classified; I07.1 Rheumatic tricuspid insufficiency; Z68.42 Body mass index [BMI] 45.0-49.9, adult; Z20.822 Contact with and (suspected) exposure to COVID-19; Z88.5 Allergy status to narcotic agent; Z88.8 Allergy status to other drugs, medicaments and biological substances; Z79.51 Long term (current) use of inhaled steroids; Z79.4 Long term (current) use of insulin; Z79.899 Other long term (current) drug therapy
CPT/HCPCS: 36415; 80048; 82947; 85014; 85018; 85025; 86850; 86900; 86901; 87635; 88304; 88307; 88342; 93005; A4649; C9088; C9145; J0131; J0690; J1100; J1170; J2250; J2405; J2795; J3010

== ENCOUNTER → 2023-02-09 10:39 | Outpatient (BNVA) | payer MEDICARE, MEDICAID, SELFPAY | PROVIDERS: PCP Internal Medicine Geriatric Medicine; Referring Provider Internal Medicine Geriatric Medicine; Visit Provider Physician Assistant Surgical | DX: Z98.84 Bariatric surgery status (principal) | CPT/HCPCS: 99212 ==

== ENCOUNTER → 2023-02-23 13:41 | Outpatient (BNVA) | payer MEDICARE, MEDICAID, SELFPAY | PROVIDERS: PCP Internal Medicine Geriatric Medicine; Visit Provider Hospitalist | DX: G47.33 Obstructive sleep apnea (adult) (pediatric) (principal); J45.909 Unspecified asthma, uncomplicated; J31.0 Chronic rhinitis; E66.01 Morbid (severe) obesity due to excess calories; Z68.41 Body mass index [BMI] 40.0-44.9, adult | CPT/HCPCS: 99212 ==

== ENCOUNTER → 2023-03-05 10:46 | Outpatient (BNVA) | payer MEDICARE, MEDICAID, SELFPAY | PROVIDERS: PCP Internal Medicine Geriatric Medicine; Visit Provider Physician Assistant Surgical | DX: Z98.84 Bariatric surgery status (principal) ==

== ENCOUNTER 2023-03-30 09:39 | Outpatient (AMB) | payer MEDICARE, MEDICAID, SELFPAY ==
--- NOTE | 2023-03-30 09:56 | MHC.OFFVIS ---
Intake Vital Signs 03/30/23 09:57 Height 4 ft 11 in Weight 198 lb 6.656 oz BMI 40.1 BP 120/70 Pulse 53 Pulse Source Pulse Oximeter Intake Visit Reasons: 6 mth fu Intake Note: 6 month f/u Allergies canagliflozin [Invokana] Allergy (Severe, Verified 03/30/23 10:00) chest tightness lisinopril [LISINOPRIL] Allergy (Severe, Verified 03/30/23 10:00) sweating, rash, difficulty breathing, cough oxycodone Allergy (Intermediate, Verified 03/30/23 10:00) vomiting/GI cramping Medication List - Last Reconciled 03/30/23 by Denis Moore MD albuterol sulfate 2.5 mg (3 mL) inhalation Q6H PRN 30 days albuterol sulfate 90 mcg/actuation 2 puffs inhalation Q6H PRN 30 days amitriptyline 50 mg PO DAILY amlodipine 10 mg PO DAILY budesonide 1 mg inhalation DAILY bupropion HCl 300 mg PO DAILY clonidine HCl 0.2mg QHS. Then 0.25-0.5 tab PRN for panic symptoms orally; diclofenac sodium 1% 1 ea topical BID fluticasone propionate 50 mcg/actuation 2 sprays intranasal DAILY [id number]-qpfthdiph-mdehysdt 200-62.5-25 mcg (Trelegy Ellipta) 1 inh inhalation DAILY 30 days hydrochlorothiazide 12.5 mg PO DAILY 90 days lidocaine 5% 1 patch topical DAILY loratadine 10 mg PO DAILY nebulizers As directed pantoprazole 40 mg PO DAILY rosuvastatin (Crestor) 5 mg PO DAILY sennosides (senna) 17.2 mg (2 x 8.6 mg) PO BEDTIME PRN 90 days sucralfate 10 mL PO BID HPI HPI Comments History of Present Illness Details 57-year-old female who is here for follow-up. She has background history of asthma. She had exertional chest discomfort and underwent Lexiscan the past which was normal. She continued to have exertional chest discomfort and we discussed about coronary CTA versus diagnostic angiography and she wished to pursue angiography. She was taken for cardiac catheterization and underwent angiography from right ulnar artery approach because righted artery was too small. This showed no significant coronary disease. Her blood pressure was elevated and we added hydrochlorothiazide to her regimen. She is back for follow-up today. Blood pressure control is much better. 03/30/23: Today she returns for follow-up. She has no chest discomfort shortness of breath on follow-up. She has been taking medications regularly and has no concerns about her medications. Blood pressure control is good. [facility] Medical History Anxiety Asthma Asthma exacerbation Bilateral primary osteoarthritis of knee Bursitis, subacromial Carpal tunnel syndrome Depression Diabetic nephropathy Dyspepsia Fibromyalgia GERD (gastroesophageal reflux disease) Hypertension Hypertriglyceridemia Kidney problem Morbid obesity LUCINDA (obstructive sleep apnea) Right knee pain Type 2 diabetes mellitus Surgical History History of carpal tunnel release of both wrists S/P cardiac cath S/P laparoscopic sleeve gastrectomy Family History Mother No problems noted. Father No problems noted. Social History Household Members: Family Household Members Other:: niece Housing: Apartment Are you a primary respiratory care technician to a significant other at home: No Do you presently have visiting nurse or other home services: No Alcohol intake: never Patient Tobacco Use Status: Never used Tobacco service: No Current occupational status: unemployed Current occupation: right handed Review of Systems ENT Reports dizziness Card Denies chest pain, Denies chest pain at rest, Denies chest pain with activity, Denies rapid heart rate, Denies pedal edema, Denies edema, Denies leg edema, Denies lightheadedness, Denies palpitations, Denies dyspnea, Denies dyspnea on exertion and Denies orthopnea Resp Denies cough, Denies dyspnea and Denies dyspnea on exertion GI Denies hematochezia and Denies change in stool character Musc Denies abnormal gait, Reports limited range of motion, Reports muscle cramps, Denies muscle weakness, Denies numbness, Denies radiating pain into limb, Denies stiffness and Denies tingling Neuro Denies abnormal gait, Reports dizziness, Denies numbness and Denies tingling Endo Denies palpitations Physical Exam Vital Signs: Last Vital Signs Pulse 53 03/30/23 09:57 BP 120/70 03/30/23 09:57 BMI result Body Mass Index 40.1 GENERAL APPEARANCE: in no acute distress, pleasant. NECK: no carotid bruit, no jugular venous distention. SKIN: no suspicious lesions, warm and dry. HEART: no murmurs, regular rate and rhythm. LUNGS: clear to auscultation bilaterally. ABDOMEN: soft, nontender. EXTREMITIES: no edema. PERIPHERAL PULSES: equal. NEUROLOGIC: No gross deficits, AAO X 3 Assessment & Plan Assessment & Plan (1) Hypertension: Code(s): I10 - Essential (primary) hypertension Plan Pleasant 57 year female here for follow-up. She underwent cardiac catheterization for chest discomfort which revealed no coronary artery disease. She has been doing well on follow-up and denying any chest discomfort shortness of breath. Her blood pressure control is good. She should continue same medications for now. She will follow-up with us in 6 months. Thank you for allowing me to participate in the care of your patient. Please feel free to contact me if you have any questions. Coding Level of Care Code Est Pt Level 3 (74005) Diagnoses Hypertension I10
[2023-03-30 09:57] VITALS: BP 120/70; PULSE 53; BMI 40.1
== END 2023-03-30 10:40 | disposition home or self-care (01) ==
LOC: HO.HCS 09:39
PROVIDERS: PCP Internal Medicine Geriatric Medicine; Visit Provider Internal Medicine Cardiovascular Disease
DX: I10 Essential (primary) hypertension (principal)
CPT/HCPCS: 99213

== ENCOUNTER → 2023-03-30 09:39 | Outpatient (BNVA) | payer MEDICARE, MEDICAID, SELFPAY | PROVIDERS: PCP Internal Medicine Geriatric Medicine; Visit Provider Internal Medicine Cardiovascular Disease | DX: I10 Essential (primary) hypertension (principal) | CPT/HCPCS: 99212 ==

== ENCOUNTER 2023-04-06 09:21 | Outpatient (AMB) | payer MEDICARE, MEDICAID, SELFPAY ==
--- NOTE | 2023-04-06 09:25 | A.OFFVIS_ITS ---
Intake VS Expanded 04/06/23 09:30 Height 4 ft 11 in Weight 193 lb 6.4 oz BMI 39.1 BP 161/71 H Blood Pressure Location Rt brachial Blood Pressure Position Sitting Pulse 70 Pulse Source Pulse Oximeter Temp 97.1 F Temperature Source Temporal Artery Scan Pulse Oximetry 98 Oxygen Delivery Method Room Air Body Fat 71.0 Body Fat Percentage 36.7 Free Fat Mass 122.4 Muscle Mass 116.2 Visceral Mass 12.0 Water Mass 86.6 BMR 1,658 Intake Visit Reasons: (OV) PO LSG 02/03/23 Horse Exerciser Required: Yes Horse Exerciser Name: office cmi Allergies canagliflozin [Invokana] Allergy (Severe, Verified 04/06/23 09:29) chest tightness lisinopril [LISINOPRIL] Allergy (Severe, Verified 04/06/23 09:29) sweating, rash, difficulty breathing, cough oxycodone Allergy (Intermediate, Verified 04/06/23 09:29) vomiting/GI cramping Medication List - Last Reconciled 04/06/23 by JANET Negro albuterol sulfate 2.5 mg (3 mL) inhalation Q6H PRN 30 days albuterol sulfate 90 mcg/actuation 2 puffs inhalation Q6H PRN 30 days amitriptyline 50 mg PO DAILY amlodipine 10 mg PO DAILY budesonide 1 mg inhalation DAILY bupropion HCl 300 mg PO DAILY clonidine HCl 0.2mg QHS. Then 0.25-0.5 tab PRN for panic symptoms orally; diclofenac sodium 1% 1 ea topical BID fluticasone propionate 50 mcg/actuation 2 sprays intranasal DAILY bpwrqgmpozi-atomtimkd-seflqrdm 200-62.5-25 mcg (Trelegy Ellipta) 1 inh in halation DAILY 30 days hydrochlorothiazide 12.5 mg PO DAILY 90 days lidocaine 5% 1 patch topical DAILY loratadine 10 mg PO DAILY nebulizers As directed pantoprazole 40 mg PO DAILY rosuvastatin (Crestor) 5 mg PO DAILY sennosides (senna) 17.2 mg (2 x 8.6 mg) PO BEDTIME PRN 90 days sucralfate 10 mL PO BID HPI HPI Comments History of Present Illness Details This?a?58?yo female who is s/p LSG without hiatal hernia repair on?5/30/23. Presents for 2 month post op visit. Weight today is 193.4 pounds, with a BMI of 39.1.? There has been a 79 pound weight loss,(initial weight 272.4 pounds) since starting the program on 09/19/21 reflecting a 29% total body weight loss and a weight loss of 41.1 pounds since surgery (operative weight 234.5 pounds) reflecting a 17.5% TBWL since surgery.? Mild constipation improved with senna Wants to start food Present meal plan includes: 2 celebrate 4:1 w 2 scoops each Orgain 1 scoop 1 ZP bar? 32 oz water daily Exercise routine includes: walking, 7 days per week 300-320 joaquim [facility] Medical History Anxiety Asthma Asthma exacerbation Bilateral primary osteoarthritis of knee Bursitis, subacromial Carpal tunnel syndrome Depression Diabetic nephropathy Dyspepsia Fibromyalgia GERD (gastroesophageal reflux disease) Hypertension Hypertriglyceridemia Kidney problem Morbid obesity LUCINDA (obstructive sleep apnea) Right knee pain Type 2 diabetes mellitus Surgical History History of carpal tunnel release of both wrists S/P cardiac cath S/P laparoscopic sleeve gastrectomy Family History Mother No problems noted. Father No problems noted. Social History Household Members: Family Household Members Other:: niece Housing: Apartment Are you a primary career placement specialist to a significant other at home: No Do you presently have visiting nurse or other home services: No Alcohol intake: never Patient Tobacco Use Status: Never used Tobacco service: No Current occupational status: unemployed Current occupation: right handed Review of Systems Const All systems reviewed & are unremarkable except as noted in HPI and below Physical Exam Const General: healthy appearing and no acute distress Resp Effort & Inspection: normal respiratory effort Auscultation: clear to auscultation bilaterally Cardio Rate: regular rate Rhythm: regular rhythm GI Auscultation: normal bowel sounds Extrem General: Yes normal to inspection Assessment & Plan Assessment & Plan (1) S/P laparoscopic sleeve gastrectomy: Code(s): Z98.84 - Bariatric surgery status Plan: meal plan: Celebrate 4:1 2 scoops each meal with 4 forks protein and 4 forks cooked veg, may increase to 6/6 if she wishes and tolerates well (2) Constipation: Code(s): K59.00 - Constipation, unspecified Plan: add colace increase water to 48-64 oz water daily Medications: New docusate sodium (Colace) 100 mg PO BID 90 days 180 caps 0RF Coding Level of Care Code Global (33924) Diagnoses S/P laparoscopic sleeve gastrectomy Z98.84 Constipation K59.00
[2023-04-06 09:30] VITALS: BP 161/71; PULSE 70; TEMP 36.2; O2SAT 98; BMI 39.1
== END 2023-04-06 09:46 | disposition home or self-care (01) ==
PROVIDERS: PCP Internal Medicine Geriatric Medicine; Visit Provider Physician Assistant Surgical
DX: E66.09 Other obesity due to excess calories (principal); Z68.39 Body mass index [BMI] 39.0-39.9, adult; Z90.3 Acquired absence of stomach [part of]; Z98.84 Bariatric surgery status
CPT/HCPCS: 99024

== ENCOUNTER → 2023-04-06 09:21 | Outpatient (BNVA) | payer MEDICARE, MEDICAID, SELFPAY | PROVIDERS: PCP Internal Medicine Geriatric Medicine; Visit Provider Physician Assistant Surgical | DX: Z98.84 Bariatric surgery status (principal) ==

== ENCOUNTER → 2023-05-13 09:37 | Outpatient (REF) | payer MEDICARE, MEDICAID, SELFPAY | LOC: HO.SL 09:37 | PROVIDERS: Visit Provider Hospitalist | DX: G47.33 Obstructive sleep apnea (adult) (pediatric) (principal) | CPT/HCPCS: 95806 ==

== ENCOUNTER → 2023-05-13 09:58 | Outpatient (BNV) | payer MEDICARE, MEDICAID, SELFPAY | PROVIDERS: Visit Provider Internal Medicine | DX: G47.33 Obstructive sleep apnea (adult) (pediatric) (principal) | CPT/HCPCS: 95806 ==

== ENCOUNTER 2023-05-18 12:55 | Outpatient (AMB) | payer MEDICARE, MEDICAID, SELFPAY ==
--- NOTE | 2023-05-18 13:05 | MHC.OFFVISWM ---
Intake VS Expanded 05/18/23 13:14 Height 4 ft 11 in Weight 187 lb BMI 37.8 BP 141/64 H Blood Pressure Location Rt brachial Pulse 87 Pulse Source Pulse Oximeter Temp 98.0 F Temperature Source Tympanic Pulse Oximetry 95 Oxygen Delivery Method Room Air Body Fat 61.8 Body Fat Percentage 33.0 Free Fat Mass 125.2 Muscle Mass 118.8 Visceral Mass 10.0 Water Mass 88.8 BMR 1,678 Intake Visit Reasons: (OV) PO LSG 02/03/23 Microbiology Lab Technician Required: Yes Microbiology Lab Technician Name: office cmi Allergies canagliflozin [Invokana] Allergy (Severe, Verified 05/18/23 13:15) chest tightness lisinopril [LISINOPRIL] Allergy (Severe, Verified 05/18/23 13:15) sweating, rash, difficulty breathing, cough oxycodone Allergy (Intermediate, Verified 05/18/23 13:15) vomiting/GI cramping Medication List - Last Reconciled 05/18/23 by JANET Negro albuterol sulfate 2.5 mg (3 mL) inhalation Q6H PRN 30 days albuterol sulfate 90 mcg/actuation 2 puffs inhalation Q6H PRN 30 days amitriptyline 50 mg PO DAILY amlodipine 10 mg PO DAILY budesonide 1 mg inhalation DAILY bupropion HCl 300 mg PO DAILY clonidine HCl 0.2mg QHS. Then 0.25-0.5 tab PRN for panic symptoms orally; diclofenac sodium 1% 1 ea topical BID fluticasone propionate 50 mcg/actuation 2 sprays intranasal DAILY glfoxizoono-iycvjunif-qugnfhel 200-62.5-25 mcg (Trelegy Ellipta) 1 inh inhalation DAILY 30 days hydrochlorothiazide 12.5 mg PO DAILY 90 days lidocaine 5% 1 patch topical DAILY loratadine 10 mg PO DAILY nebulizers As directed nirmatrelvir-ritonavir 300 mg (150 mg x 2)-100 mg (Paxlovid) take TWO 150 mg tablets of nirmatrelvir with ONE 100 mg tablet of ritonavir twice daily for 5 days PO rosuvastatin (Crestor) 5 mg PO DAILY HPI HPI Comments History of Present Illness Details This?a?58?yo female who is s/p LSG without hiatal hernia repair on?02/03/23. Presents for 3 month post op visit. Weight today is 187 pounds, with a BMI of 37.8.? There has been a 85.4 pound weight loss,(initial weight 272.4 pounds) since starting the program on 09/19/21 reflecting a 31.3% total body weight loss and a weight loss of 47.5 pounds since surgery (operative weight 234.5 pounds) reflecting a 20.2% TBWL since surgery.? Mild constipation improved with senna She states she has had covid about a month ago and has now recovered. She has not started a MVI as per Dr Breaux. She wants to keep her meal plan the same for now. Present meal plan includes: 1 celebrate 4:1 w 1 scoop, 8-10am Another shake w 2 scoops, 2-4 pm ZP bar, 4-7 pm Meal 4 forks, 4 forks, 8 pm 96 oz water daily Exercise routine includes: treadmill, 5 x per week, 300 calories PFS Medical History Asthma exacerbation GERD (gastroesophageal reflux disease) Diabetic nephropathy Hypertension LUCINDA (obstructive sleep apnea) Bilateral primary osteoarthritis of knee Kidney problem Fibromyalgia Right knee pain Carpal tunnel syndrome Morbid obesity Depression Anxiety Asthma Type 2 diabetes mellitus Dyspepsia Hypertriglyceridemia Bursitis, subacromial Surgical History S/P laparoscopic sleeve gastrectomy S/P cardiac cath History of carpal tunnel release of both wrists Family History Mother No problems noted. Father No problems noted. Social History Household Members: Family Household Members Other:: niece Housing: Apartment Are you a primary healthcare economics manager to a significant other at home: No Do you presently have visiting nurse or other home services: No Alcohol intake: never Patient Tobacco Use Status: Never used Tobacco service: No Current occupational status: unemployed Current occupation: right handed Physical Exam Vital Signs: Last Vital Signs Temp 98.0 F 05/18/23 13:14 Pulse 87 05/18/23 13:14 BP 141/64 H 05/18/23 13:14 Pulse Ox 95 05/18/23 13:14 Oxygen Delivery Method Room Air 05/18/23 13:14 BMI result Body Mass Index 37.8 Const General: healthy appearing and no acute distress Resp Effort & Inspection: normal respiratory effort Auscultation: clear to auscultation bilaterally Cardio Rate: regular rate Rhythm: regular rhythm GI Auscultation: normal bowel sounds Extrem General: Yes normal to inspection Assessment & Plan Assessment & Plan (1) S/P laparoscopic sleeve gastrectomy: Code(s): Z98.84 - Bariatric surgery status Plan: States wants to keep meal plan same for now Discussed if she wants to change meal plan will need MVI Encouraged to try to increase calories burned on treadmill to 400 if doing 5 days per week, speed 3 incline 0-8 She has been in constant communications with Dr Breaux and will continue to do so Encouraged to decrease water intake to 64 oz daily RTC Asmita 6 weeks for meal changes Coding Level of Care Code Est Pt Level 3 (23622) Diagnoses S/P laparoscopic sleeve gastrectomy Z98.84
[2023-05-18 13:14] VITALS: BP 141/64; PULSE 87; TEMP 36.7; O2SAT 95; BMI 37.8
== END 2023-05-18 13:49 | disposition home or self-care (01) ==
PROVIDERS: PCP Internal Medicine Geriatric Medicine; Visit Provider Physician Assistant Surgical
DX: E66.09 Other obesity due to excess calories (principal); Z68.37 Body mass index [BMI] 37.0-37.9, adult; Z90.3 Acquired absence of stomach [part of]; Z98.84 Bariatric surgery status
CPT/HCPCS: 99213

== ENCOUNTER → 2023-05-18 12:55 | Outpatient (BNVA) | payer MEDICARE, MEDICAID, SELFPAY | PROVIDERS: PCP Internal Medicine Geriatric Medicine; Visit Provider Physician Assistant Surgical | DX: Z98.84 Bariatric surgery status (principal) | CPT/HCPCS: 99212 ==

== ENCOUNTER 2023-07-24 13:26 | Outpatient (REF) | payer MEDICARE, MEDICAID, SELFPAY ==
[2023-07-24 16:06] LABS: MANUAL DIFF FLAG NO
[2023-07-24 16:18] LABS: Basophils Absolute Auto 0.1 X10*3/uL (0.0-0.2); Basophils Percent Auto 0.5 % (0-2); Eosinophils Absolute Auto 0.1 X10*3/uL (0.0-0.4); Eosinophils Percent Auto 0.7 % (0-4); Hematocrit 41.2 % (37.0-47.0); Hemoglobin 13.6 g/dl (12.0-16.0); Imm Gran Abs Auto 0.04 X10*3/uL (0.00-0.03); Imm Gran Pct Auto 0.3 % (0.0-0.4); Lymphocytes Absolute Auto 1.1 X10*3/uL (1.2-4.9); Lymphocytes Percent Auto 9.8 % (20-40); Mean Corpuscular Hemoglobin 27.4 pg (27.0-33.0); Mean Corpuscular Volume 82.9 fL (80.0-98.0); Mean Platelet Volume 11.4 fL (9.4-12.3); Monocytes Absolute Auto 0.5 X10*3/uL (0.1-1.2); Monocytes Percent Auto 4.2 % (2-11); Neutrophils Absolute Auto 9.8 x10*3/uL (2.0-8.3); Neutrophils Percent Auto 84.5 % (45-73); Platelet Count 313 X10*3/uL (160-400); Red Blood Count 4.97 X10*6/uL (4.20-5.50); Red Cell Distribution Width 13.6 % (11.0-16.0); White Blood Count 11.6 X10*3/uL (4.8-10.8)
[2023-07-24 16:37] LABS: Alanine Aminotransferase 467 U/L (0-31); Albumin Level 4.5 g/dL (3.5-5.0); Alkaline Phosphatase 237 U/L (39-117); Anion Gap 11 (12-20); Aspartate Amino Transferase 813 U/L (5-31); Bilirubin Total 1.6 mg/dL (0.0-1.0); Blood Urea Nitrogen 12 mg/dL (9-16); Calcium 10.4 mg/dL (8.4-10.2); Carbon Dioxide 30 mmol/L (22-29); Chloride 102 mmol/L (96-108); Estimated Glomerular Filt Rate > 60; Glucose Random 97 mg/dL (60-115); Potassium 4.2 mmol/L (3.3-5.1); Sodium 139 mmol/L (135-145); Total Protein 8.3 g/dL (6.5-8.0)
[2023-07-24 16:46] LABS: Lipase 960 U/L (8-78)
== END 2023-07-24 13:27 | disposition home or self-care (01) ==
LOC: HO.HHCL 13:26
PROVIDERS: Visit Provider Internal Medicine Geriatric Medicine
DX: R10.10 Upper abdominal pain, unspecified (principal); R11.0 Nausea
CPT/HCPCS: 36415; 80053; 83690; 85025

== ENCOUNTER 2023-08-10 12:49 | Outpatient (AMB) | payer MEDICARE, MEDICAID, SELFPAY ==
--- NOTE | 2023-08-10 12:51 | MHC.OFFVIS ---
Intake Vital Signs 08/10/23 13:03 Height 4 ft 11 in Weight 176 lb 12.972 oz BMI 35.7 BP 133/63 Blood Pressure Location Rt brachial Position Sitting Pulse 73 Pulse Source Pulse Oximeter Temp 96.7 F L Temp Source Tympanic Pulse Oximetry (%) 94 Oxygen Delivery Method Room Air Intake Visit Reasons: (OV) Pre Op Lap Ruby 08/13/23 Radar Mechanic Required: Yes Radar Mechanic Name: Nichole Information Interpreted: clinical only Spray Pilot: Spray Pilot Present Allergies canagliflozin [Invokana] Allergy (Severe, Verified 05/18/23 13:15) chest tightness lisinopril [LISINOPRIL] Allergy (Severe, Verified 05/18/23 13:15) sweating, rash, difficulty breathing, cough oxycodone Allergy (Intermediate, Verified 05/18/23 13:15) vomiting/GI cramping Medication List - Last Reconciled 08/10/23 by Jose Miguel Santo MD, FACS, [facility] amlodipine 10 mg PO DAILY hydrochlorothiazide 12.5 mg PO DAILY 90 days nebulizers As directed HPI HPI Comments History of Present Illness Details The patient is a 58-year-old woman with history of type 2 diabetes, obstructive sleep apnea, hypertension who underwent laparoscopic sleeve gastrectomy 02/03/2023 without hiatal hernia repair. Patient presented to an outside hospital with abdominal pain and was noted to have choledocholithiasis. Notes from [facility] from her admission 07/24/2023 to 03/27/2023 are reviewed and in the EMR. Interpretive services were provided by MARSHAL Varela to facilitate care since the patient is Nauruan-speaking only. Ozempic is listed in her discharge medications and she reports her last dose was 3 weeks ago. Other than bariatric surgery, specifically her sleeve gastrectomy, the patient denies other abdominal operations. As noted, she underwent successful ERCP and subsequent MRCP and was advised to have cholecystectomy. She denies any new medical problems or pains. She notes that she was advised to stop Ozempic because it can cause pancreatitis. [facility] Medical History Asthma exacerbation GERD (gastroesophageal reflux disease) Diabetic nephropathy Hypertension LUCINDA (obstructive sleep apnea) Bilateral primary osteoarthritis of knee Kidney problem Fibromyalgia Right knee pain Carpal tunnel syndrome Morbid obesity Depression Anxiety Asthma Type 2 diabetes mellitus Dyspepsia Hypertriglyceridemia Bursitis, subacromial Surgical History (Reviewed 08/10/23 @ 13:18 by Jose Miguel Santo MD, [facility], [facility]) S/P laparoscopic sleeve gastrectomy S/P cardiac cath History of carpal tunnel release of both wrists Family History (Reviewed 08/10/23 @ 13:18 by Jose Miguel Santo MD, [facility], [facility]) Mother No problems noted. Father No problems noted. Social History (Reviewed 08/10/23 @ 13:18 by Jose Miguel Santo MD, [facility], [facility]) Household Members: Family Household Members Other:: niece Housing: Apartment Are you a primary vocational childcare teacher to a significant other at home: No Do you presently have visiting nurse or other home services: No Alcohol intake: never Patient Tobacco Use Status: Never used Tobacco service: No Current occupational status: unemployed Current occupation: right handed Review of Systems Const All systems reviewed & are unremarkable except as noted in HPI and below Reports as per HPI Physical Exam On exam, she is nontoxic She is anicteric She is in no respiratory distress Her abdomen is obese and nontender Results Reviewed Results Reviewed: labs 07/24/23 Hb 13.6, Plts 313K, wbc 11.6 BN 12, Cr 0.60, lytes WNL, Ca high at 10.4 TBili down to 1.6, Alk phos 237 lipase 960 AST 813, ALT 467 Note that these labs were from pre ERCP. Records from [facility] discharge 07/28/2023 are reviewed. Patient presented with choledocholithiasis and gallstone pancreatitis and underwent successful ERCP with sphincterotomy and subsequent MRCP that showed no residual debris in the CBD. Assessment & Plan Assessment & Plan (1) Gallstone pancreatitis: Code(s): K85.10 - Biliary acute pancreatitis without necrosis or infection (2) S/P laparoscopic sleeve gastrectomy: Code(s): Z98.84 - Bariatric surgery status (3) Stable angina: Code(s): I20.8 - Other forms of angina pectoris (4) LUCINDA and COPD overlap syndrome: Comment: Patient is using her CPAP very regularly. Code(s): G47.33 - Obstructive sleep apnea (adult) (pediatric); J44.9 - Chronic obstructive pulmonary disease, unspecified (5) Diabetes mellitus: Code(s): E11.9 - Type 2 diabetes mellitus without complications (6) Steatosis, liver: Code(s): K76.0 - Fatty (change of) liver, not elsewhere classified (7) Hepatomegaly: Code(s): R16.0 - Hepatomegaly, not elsewhere classified (8) Hypertension: Code(s): I10 - Essential (primary) hypertension (9) Hypertriglyceridemia: Code(s): E78.1 - Pure hyperglyceridemia Plan I explained the patient's recent hospitalization due to gallstones and gallstone pancreatitis and reviewed the recommendation for laparoscopic cholecystectomy, possibly open, possible cholangiogram. I reviewed the option of continued observation and 2nd opinion which was declined. I also reviewed the inherent risks to surgery which include, but are not limited to: Bleeding that could require another operation or blood transfusion, the need for open surgery, the unlikely but possible issue of bile leak that could require an ERCP, the risk of retained common duct stones that could require an ERCP, the risk of common bile duct injury which would require transfer to a larger institution for another operation. Patient seemed to understand her options, and the cathode builder was present for the entire visit including informed consent. Instructions regarding diet and activity reviewed and apparently understood. The patient is advised to avoid rich fatty foods postoperatively to avoid GI distress/diarrhea and advised to not lift more than 20 lb for medical reasons to minimize the risk of hernia postoperatively. I recommended that she discuss these restrictions with her employer and that she is not disabled during this time frame but can perform light duty. The patient's questions seemed to be satisfactorily answered. While the patient notes nausea and sometimes vomiting with oxycodone, records from [facility] indicate that she received morphine; patient notes that she has ondansetron at home and this helps with her nausea. Will likely prescribe hydrocodone/[place] and the patient is advised to use ondansetron if needed for nausea or vomiting. The patient will void her bladder electronic device monitor, receive Ancef, 2 g IV and have SCDs in place. Arrangements regarding transportation were reviewed. Will sign scripts for [place] and Zofran postop. Coding Level of Care Code Est Pt Level 4 (99094) Diagnoses Gallstone pancreatitis K85.10 S/P laparoscopic sleeve gastrectomy Z98.84 Stable angina I20.8 LUCINDA and COPD overlap syndrome G47.33; J44.9 Diabetes mellitus E11.9 Steatosis, liver K76.0 Hepatomegaly R16.0 Hypertension I10 Hypertriglyceridemia E78.1
[2023-08-10 13:03] VITALS: BP 133/63; PULSE 73; TEMP 35.9; O2SAT 94; BMI 35.7
== END 2023-08-10 13:24 | disposition home or self-care (01) ==
PROVIDERS: PCP Internal Medicine Geriatric Medicine; Visit Provider Surgery
DX: K85.10 Biliary acute pancreatitis without necrosis or infection (principal); Z98.84 Bariatric surgery status; I20.8 Other forms of angina pectoris; G47.33 Obstructive sleep apnea (adult) (pediatric); J44.9 Chronic obstructive pulmonary disease, unspecified; E11.9 Type 2 diabetes mellitus without complications; K76.0 Fatty (change of) liver, not elsewhere classified; R16.0 Hepatomegaly, not elsewhere classified; I10 Essential (primary) hypertension; E78.1 Pure hyperglyceridemia
CPT/HCPCS: 99214

== ENCOUNTER → 2023-08-10 12:49 | Outpatient (BNVA) | payer MEDICARE, MEDICAID, SELFPAY | PROVIDERS: PCP Internal Medicine Geriatric Medicine; Visit Provider Surgery | DX: K85.10 Biliary acute pancreatitis without necrosis or infection (principal); K76.0 Fatty (change of) liver, not elsewhere classified; G47.33 Obstructive sleep apnea (adult) (pediatric); J44.9 Chronic obstructive pulmonary disease, unspecified; R16.0 Hepatomegaly, not elsewhere classified; I10 Essential (primary) hypertension; E78.1 Pure hyperglyceridemia; E11.9 Type 2 diabetes mellitus without complications; I20.89 Other forms of angina pectoris; Z98.84 Bariatric surgery status | CPT/HCPCS: 99212 ==

== ENCOUNTER 2023-08-13 08:20 | Day surgery (SDC) | payer MEDICARE, MEDICAID, SELFPAY ==
--- NOTE | 2023-08-12 09:41 | HO.ANESPROP2 ---
Documented by User: Marly Pemberton NP 08/12/23 09:51 HPI - Anesthesia Eval Consult details Narrative: 58yo F for Cholecystectomy Laparoscopic s/p Gastric sleeve 01/2023 with GA-ETT 7.5 Follows [facility] cardiology. Last office visit 03/2023. Stable without any CV symptoms. Anesthesia Pre-Procedure Meds Is the patient on any of the following meds?: Semaglutide (Ozempic) PMFSH Active Problems Active Problems: All Active Problems (Updated 08/10/23 @ 13:19 by Jose Miguel Santo MD, FACS, [employer]) Gallstone pancreatitis (Acute) Stable angina (Acute) Constipation (Acute) S/P laparoscopic sleeve gastrectomy (Acute) Tricuspid valve insufficiency (Acute) Limb swelling (Acute) Morbid obesity (Acute) LUCINDA and COPD overlap syndrome (Acute) Diabetes mellitus (Acute) Steatosis, liver (Acute) Chest pain at rest (Acute) Generalized anxiety disorder (Acute) Chest pain (Acute) Hepatomegaly (Acute) GERD (gastroesophageal reflux disease) (Acute) Diabetic nephropathy (Acute) Hypertension (Acute) Depression (Acute) Hypertriglyceridemia (Acute) Asthma (Acute) Morbid obesity (Acute) LUCINDA (obstructive sleep apnea) (Acute) Right knee pain (Acute) Past Medical History Medical History Asthma exacerbation GERD (gastroesophageal reflux disease) Diabetic nephropathy Hypertension LUCINDA (obstructive sleep apnea) Bilateral primary osteoarthritis of knee Kidney problem Fibromyalgia Right knee pain Carpal tunnel syndrome Morbid obesity Depression Anxiety Asthma Type 2 diabetes mellitus Dyspepsia Hypertriglyceridemia Bursitis, subacromial Family History Family History Mother No problems noted. Father No problems noted. Surgical History Surgical History S/P laparoscopic sleeve gastrectomy S/P cardiac cath History of carpal tunnel release of both wrists History of Problems with Anesthesia: No Social History Social History Household Members: Family Household Members Other:: niece Housing: Apartment Are you a primary childcare worker to a significant other at home: No Do you presently have visiting nurse or other home services: No Alcohol intake: never Patient Tobacco Use Status: Never used Tobacco Use of substances other than those prescribed or required for medical reasons: No Are you DNR?: No Advance Directives: No Advance Directives Information Provided: Yes service: No Current occupational status: unemployed Current occupation: right handed Meds Allergies Allergy/AdvReac Type Severity Reaction Status Date / Time canagliflozin [Invokana] Allergy Severe chest Verified 08/13/23 09:59 tightness lisinopril [LISINOPRIL] Allergy Severe sweating, Verified 08/13/23 09:59 rash, difficulty breathing, cough oxycodone Allergy Intermediate vomiting/GI Verified 08/13/23 09:59 cramping Home Medications Medication Instructions Recorded Confirmed Last Taken Type amlodipine 10 mg tablet 10 mg PO DAILY 02/24/22 08/13/23 08/13/23 History nebulizers 02/23/23 08/10/23 Unknown History albuterol sulfate 2.5 mg/3 mL 2.5 mg inhalation Q6H PRN sob 08/12/23 08/13/23 Unknown History (0.083 %) solution for nebulization albuterol sulfate 90 mcg/actuation 2 puff inhalation Q6H PRN wheezing 08/12/23 08/13/23 Unknown History aerosol inhaler amitriptyline 50 mg tablet 50 mg BEDTIME 08/12/23 08/13/23 Unknown History aspirin 81 mg tablet,delayed 81 mg DAILY 08/12/23 08/13/23 08/11/23 History release bupropion HCl 300 mg 24 hr tablet, 300 mg PO QAM 08/12/23 08/13/23 Unknown History extended release cholecalciferol (vitamin D3) 25 25 mcg PO DAILY 08/12/23 08/13/23 Unknown History mcg (1,000 unit) capsule (Vitamin D3) cyanocobalamin (vitamin B-12) 250 250 mcg PO DAILY 08/12/23 08/13/23 Unknown History mcg tablet fluticasone fur. 200 mcg-umeclid 1 ea inhalation DAILY 08/12/23 08/13/23 08/13/23 History 62.5 mcg-vilant 25 mcg inhalat.powder (Trelegy Ellipta) fluticasone propionate 50 2 spray intranasal DAILY 08/12/23 08/13/23 Unknown History mcg/actuation nasal spray,suspension loratadine 10 mg tablet 10 mg DAILY 08/12/23 08/13/23 Unknown History losartan 100 mg tablet 100 mg DAILY 08/12/23 08/13/23 Unknown History montelukast 10 mg tablet 10 mg PO DAILY 08/12/23 08/13/23 Unknown History pantoprazole 40 mg tablet,delayed 40 mg PO DAILY 08/12/23 08/13/23 Unknown History release rosuvastatin 5 mg tablet 5 mg DAILY 08/12/23 08/13/23 Unknown History semaglutide 2 mg/dose (8 mg/3 mL) 2 mg subcut QWEEK 08/12/23 08/13/23 07/14/23 History subcutaneous pen injector (Ozempic) trazodone 50 mg tablet 50 - 100 mg PO BEDTIME PRN insomnia 08/12/23 08/13/23 Unknown History triamcinolone acetonide 0.1 % 1 appl topical BID 08/12/23 08/13/23 Unknown History topical cream Exam Pertinent Lab Results Pertinent Lab Results: Laboratory Tests 01/20/23 09:17 Blood Type O Positive Antibody Screen NEGATIVE Laboratory Tests 01/20/23 01/20/23 09:26 09:26 WBC 9.4 Hgb 13.2 Hct 41.2 Plt Count 307 Sodium 138 Potassium 4.6 Chloride 103 Carbon Dioxide 25 BUN 10 Creatinine 0.76 Narrative Narrative: EKG 01/2023 Vent. Rate : 080 BPM Atrial Rate : 080 BPM P-R Int : 166 ms QRS Dur : 092 ms QT Int : 378 ms P-R-T Axes : 034 -11 014 degrees QTc Int : 435 ms Normal sinus rhythm Cannot rule out Anterior infarct , age undetermined Abnormal ECG When compared with ECG of 16-DEC-2021 11:55, No significant change was found ECHO 02/2022 Conclusions: - The left ventricular systolic function is normal.? The ? calculated ejection fraction is 66% by biplane method. ? - There is mild mitral annular calcification.? - There is mild tricuspid valve regurgitation. ? ? NM cardiolite stress test 2021 Impression: 1. Myocardial perfusion imaging study shows likely normal myocardial perfusion 2. Gated LVEF is 58% 3. Transient ischemic dilatation not present EKG is nondiagnostic for ischemia Cardiac cath 2021 without coronary disease Assessment and Plan Final Anesthetic Review History of Problems with Anesthesia: No Documented by User: Manish Tovar MD 08/13/23 11:49 HPI - Anesthesia Eval Anesthesia Pre-Procedure Meds If Yes to any meds - educate patient: Pt education - increased risk of aspiration (Pt is no longer taking Ozempic) PMFSH Past Medical History Medical History Asthma exacerbation GERD (gastroesophageal reflux disease) Diabetic nephropathy Hypertension LUCINDA (obstructive sleep apnea) Bilateral primary osteoarthritis of knee Kidney problem Fibromyalgia Right knee pain Carpal tunnel syndrome Morbid obesity Depression Anxiety Asthma Type 2 diabetes mellitus Dyspepsia Hypertriglyceridemia Bursitis, subacromial Family History Family History Mother No problems noted. Father No problems noted. Family history of problems with anesthesia: No Surgical History Surgical History S/P laparoscopic sleeve gastrectomy S/P cardiac cath History of carpal tunnel release of both wrists History of Problems with Anesthesia: Yes (PONV) Social History Social History Household Members: Family Household Members Other:: niece Housing: Apartment Are you a primary childcare worker to a significant other at home: No Do you presently have visiting nurse or other home services: No Alcohol intake: never Patient Tobacco Use Status: Never used Tobacco Use of substances other than those prescribed or required for medical reasons: No Are you DNR?: No Advance Directives: No Advance Directives Information Provided: Yes service: No Current occupational status: unemployed Current occupation: right handed Meds Allergies Allergy/AdvReac Type Severity Reaction Status Date / Time canagliflozin [Invokana] Allergy Severe chest Verified 08/13/23 09:59 tightness lisinopril [LISINOPRIL] Allergy Severe sweating, Verified 08/13/23 09:59 rash, difficulty breathing, cough oxycodone Allergy Intermediate vomiting/GI Verified 08/13/23 09:59 cramping Home Medications Medication Instructions Recorded Confirmed Last Taken Type amlodipine 10 mg tablet 10 mg PO DAILY 02/24/22 08/13/23 08/13/23 History nebulizers 02/23/23 08/10/23 Unknown History albuterol sulfate 2.5 mg/3 mL 2.5 mg inhalation Q6H PRN sob 08/12/23 08/13/23 Unknown History (0.083 %) solution for nebulization albuterol sulfate 90 mcg/actuation 2 puff inhalation Q6H PRN wheezing 08/12/23 08/13/23 Unknown History aerosol inhaler amitriptyline 50 mg tablet 50 mg BEDTIME 08/12/23 08/13/23 Unknown History aspirin 81 mg tablet,delayed 81 mg DAILY 08/12/23 08/13/23 08/11/23 History release bupropion HCl 300 mg 24 hr tablet, 300 mg PO QAM 08/12/23 08/13/23 Unknown History extended release cholecalciferol (vitamin D3) 25 25 mcg PO DAILY 08/12/23 08/13/23 Unknown History mcg (1,000 unit) capsule (Vitamin D3) cyanocobalamin (vitamin B-12) 250 250 mcg PO DAILY 08/12/23 08/13/23 Unknown History mcg tablet fluticasone fur. 200 mcg-umeclid 1 ea inhalation DAILY 08/12/23 08/13/23 08/13/23 History 62.5 mcg-vilant 25 mcg inhalat.powder (Trelegy Ellipta) fluticasone propionate 50 2 spray intranasal DAILY 08/12/23 08/13/23 Unknown History mcg/actuation nasal spray,suspension loratadine 10 mg tablet 10 mg DAILY 08/12/23 08/13/23 Unknown History losartan 100 mg tablet 100 mg DAILY 08/12/23 08/13/23 Unknown History montelukast 10 mg tablet 10 mg PO DAILY 08/12/23 08/13/23 Unknown History pantoprazole 40 mg tablet,delayed 40 mg PO DAILY 08/12/23 08/13/23 Unknown History release rosuvastatin 5 mg tablet 5 mg DAILY 08/12/23 08/13/23 Unknown History semaglutide 2 mg/dose (8 mg/3 mL) 2 mg subcut QWEEK 08/12/23 08/13/23 07/14/23 History subcutaneous pen injector (Ozempic) trazodone 50 mg tablet 50 - 100 mg PO BEDTIME PRN insomnia 08/12/23 08/13/23 Unknown History triamcinolone acetonide 0.1 % 1 appl topical BID 08/12/23 08/13/23 Unknown History topical cream Exam Airway Mallampati Class: II TM Dist: <=3cm Neck ROM: Full Partial: Upper and Lower Loose/Missing/Broken Teeth: Yes, Upper and Lower Heart: ok Lungs: ok Assessment and Plan Assessment Anesthesia Assessment: Anesthesia Plan Discussed and Chart Reviewed Final Anesthetic Review Family History of Problems with Anesthesia: No History of Problems with Anesthesia: Yes (PONV) NPO: Yes ASA Class: III Final Preanesthetic Review: No Changes in Pt Med Stat, Meds/Allgs Chart Reviewed, Consent Obtained/Reviewed and Anes Risks/Benef Reviewed Patient Risk: Intermediate Procedure Risk: Intermediate Anesthetic Plan Anesthetic Plan: GA and Agree w/ Assess. and Plan Disposition: Standard PACU
--- NOTE | 2023-08-12 12:27 | MHC.SHP ---
Pre-Procedural Eval Section A Date of Service: 08/12/23 The patient is an INPATIENT: No The History & Physical has been completed within 30 days and I have reviewed it.: Yes Section B Chief Complaint: Calculus of bile duct without cholangitis or nellie Allergies: Allergies Allergy/AdvReac Type Severity Reaction Status Date / Time canagliflozin [Invokana] Allergy Severe chest Verified 05/18/23 13:15 tightness lisinopril [LISINOPRIL] Allergy Severe sweating, Verified 05/18/23 13:15 rash, difficulty breathing, cough oxycodone Allergy Intermediate vomiting/GI Verified 05/18/23 13:15 cramping Plan I have reviewed the history and physical and performed a pertinent physical examination on my patient. No changes have occurred unless specified. Time Spent With Patient Time: Total time managing care of this patient today ____ minutes.
[2023-08-13] VITALS (11 sets, daily range): BP systolic 118–158; BP diastolic 51–69; PULSE 66–89; RESP 12–16; TEMP 36.3–36.8; O2SAT 93–99; BMI 35.5
--- NOTE | 2023-08-13 09:04 | W.PM.OPN ---
Operative Note Operative Note Date of Service: 08/13/23 Narrative: Preop diagnosis: [Choledocholithiasis, status post ERCP, history of laparoscopic sleeve gastrectomy] Postop diagnosis: [Same] Procedure: [Laparoscopic cholecystectomy, lysis of adhesions for 21 minute] Surgeon: Jose Miguel Santo MD, FACS, [facility] Assist: [Asmita Hernández PA-C] Anesthesia: [GET, Local: Marcaine, 0.25% with epi] Estimated blood loss: [3cc] Specimen: [Gallbladder with contents] Intraoperative findings: [RUQ adhesions from the gallbladder to the omentum and liver to the omentum requiring lysis of adhesion for 21'. Cystic duct 4-5mm/ cystic art 3mm; critical view of safety demonstrated] Indications: [The patient is a 58-year-old woman with history of type 2 diabetes, obstructive sleep apnea, hypertension who underwent laparoscopic sleeve gastrectomy 02/03/2023 without hiatal hernia repair. Patient presented to an outside hospital with abdominal pain and was noted to have choledocholithiasis. Notes from [facility] from her admission 07/24/2023 to 03/27/2023 are reviewed and in the EMR. I recommended laparoscopic cholecystectomy. I reviewed the option of continued observation and 2nd opinion which was declined. I also reviewed the inherent risks to surgery which include, but are not limited to: Bleeding that could require another operation or blood transfusion, the need for open surgery, the unlikely but possible issue of bile leak that could require an ERCP, the risk of retained common duct stones that could require an ERCP, the risk of common bile duct injury which would require transfer to a larger institution for another operation. Patient seemed to understand her options, as reviewed via independent living advisor and had her questions answered, she declined a 2nd opinion and wants to proceed. Instructions regarding diet and activity reviewed and apparently understood. The patient is advised to avoid rich fatty foods postoperatively to avoid GI distress/diarrhea and advised to not lift more than 20 lb for medical reasons to minimize the risk of hernia postoperatively. I recommended that she discuss these restrictions with her employer and that she is not disabled during this time frame but can perform light duty. The patient's questions seemed to be satisfactorily answered.] Procedure: [The patient was identified in preoperative holding and again in the operating room and placed supine on the table. An appropriate time-out was performed and preemptive local used at all trocar insertion sites. I began at the patient's LUQ and placed a Veress needle through a stabl incision. An appropriate drop test was performed. The needle was connected to high flow and opening pressures were 7 mmHg. A pneumoperitoneum of 15 mmHg was then obtained using carbon dioxide. The Veress needle was then removed and I accessed the patient's abdomen through the supraumbilical midline incision using a 5 mm Optiview trocar and 30 degree/5 mm laparoscopic without incident. The left upper quadrant was examined for injury for the Veress needle in none found so the needle was removed. Next a a 5 mm epigastric and two 5 mm right subcostal ports were placed with preemptive analgesia under direct laparoscopic vision without incident and the supraumbilical trocar upsized to a 12 mm trocar under direct laparoscopic vision. The lysis of adhesions and patient's body habitus required placement of an additional 5 mm port to facilitate dissection in the patient's right mid abdomen/midclavicular line. Lysis of adhesions from the omentum to the gallbladder and omentum to the liver was performed using electrocautery and careful dissection to avoid the bowel, duodenum and mesentery. The gallbladder was clearly identified and grasped by its fundus. It was retracted cranially and anteriorly and dissection began in the lateral cystic triangle. The cystic duct was identified at its junction on the gallbladder and dissection carried medially, then circumferentially using the [place] dissector and hook. The cystic artery was then carefully identified and circumferentially dissected. Once dissection of both structures was complete and the critical view of safety demonstrated, the duct and artery were double clipped proximally and once distally and sharply divided. Electrocautery was used to remove the gallbladder from its fossa on the liver. Liver bed was inspected for hemostasis and the clips were noted to be on the respective structures. The gallbladder was placed in an Endo-Catch bag and delivered through the umbilicus under direct laparoscopic vision. The abdomen was again inspected with the laparoscoped and a abdomen deflated to assess for hemostasis. The patient was returned to neutral position, the abdomen deflated and the fascia of the supraumbilical incision closed with interrupted Vicryl sutures. Skin was closed with 4-0 Monocryl subcuticular sutures. Mastisol and Steri-Strips were applied followed by Band-Aids. The patient tolerated the procedure well and was extubated recovered in stable condition. All sponge instrument counts were correct.]
[2023-08-13 10:18] LABS: Glucose, Whole Blood 100 mg/dL (60-115)
[2023-08-13] MEDS: Lactated Ringers 1,000 ML 100 ML IVCONT (10:50)
--- NOTE | 2023-08-13 11:13 | PC.NURSE ---
Patient in preop, coughing intermittently. Patient states I am getting over a cold . Denies having a fever, no current fever. SaO2 WNL. Lung sounds clear throughout. Dr. Tovar at bedside, made aware. No new orders at this time, Okay to proceed.
[2023-08-13] MEDS: ondansetron HCL 4 MG/2 ML VIAL IVPUSH (12:53)
[2023-08-13] MEDS: Acetaminophen 1,000 MG/100 ML PIGGYBACK 400 MG IV (13:07)
== END 2023-08-13 15:38 | disposition home or self-care (01) ==
LOC: HO.SSS 08:22
PROVIDERS: PCP Internal Medicine Geriatric Medicine; Visit Provider Surgery
PROC: 0FT44ZZ Resection of Gallbladder, Percutaneous Endoscopic Approach (ICD-10-PCS; CPT 47562; principal; 2023-08-13 11:50)
DX: K80.10 Calculus of gallbladder with chronic cholecystitis without obstruction (principal); K82.8 Other specified diseases of gallbladder; K85.10 Biliary acute pancreatitis without necrosis or infection; K66.0 Peritoneal adhesions (postprocedural) (postinfection); K21.9 Gastro-esophageal reflux disease without esophagitis; I10 Essential (primary) hypertension; R16.0 Hepatomegaly, not elsewhere classified; K76.0 Fatty (change of) liver, not elsewhere classified; I20.89 Other forms of angina pectoris; E78.1 Pure hyperglyceridemia; G47.33 Obstructive sleep apnea (adult) (pediatric); J44.9 Chronic obstructive pulmonary disease, unspecified; E66.01 Morbid (severe) obesity due to excess calories; Z68.35 Body mass index [BMI] 35.0-35.9, adult; E11.21 Type 2 diabetes mellitus with diabetic nephropathy; Z79.85 Long-term (current) use of injectable non-insulin antidiabetic drugs; Z79.51 Long term (current) use of inhaled steroids; Z79.82 Long term (current) use of aspirin; Z79.899 Other long term (current) drug therapy; Z88.8 Allergy status to other drugs, medicaments and biological substances; Z98.84 Bariatric surgery status; Z90.3 Acquired absence of stomach [part of]
CPT/HCPCS: 47562; 82947; 88304; J0131; J0690; J1100; J2250; J2405; J2550; J2704; J3010

== ENCOUNTER → 2023-08-13 08:20 | Outpatient (BNV) | payer MEDICARE, MEDICAID, SELFPAY | PROVIDERS: PCP Internal Medicine Geriatric Medicine; Visit Provider Surgery | DX: K80.50 Calculus of bile duct without cholangitis or cholecystitis without obstruction (principal) | CPT/HCPCS: 47562 ==

== ENCOUNTER 2023-08-19 09:03 | Outpatient (AMB) | payer MEDICARE, MEDICAID, SELFPAY ==
--- NOTE | 2023-08-19 09:05 | A.OFFVIS_ITS ---
Intake Vital Signs 08/19/23 09:12 Height 4 ft 11 in Weight 172 lb 6.424 oz BMI 34.8 BP 151/66 H Blood Pressure Location Rt brachial Position Sitting Pulse 68 Pulse Source Pulse Oximeter Temp 96.1 F L Temp Source Tympanic Pulse Oximetry (%) 98 Oxygen Delivery Method Room Air Intake Visit Reasons: s/p Lap Ruby 08/13/23 Manufacturing Mechanic Required: Yes Manufacturing Mechanic Language: Professor Of Social Work Name: Nichole ARAYA Information Interpreted: clinical only Urology Nurse: Urology Nurse Present Allergies canagliflozin [Invokana] Allergy (Severe, Verified 08/19/23 09:11) chest tightness lisinopril [LISINOPRIL] Allergy (Severe, Verified 08/19/23 09:11) sweating, rash, difficulty breathing, cough oxycodone Allergy (Intermediate, Verified 08/19/23 09:11) vomiting/GI cramping Medication List - Last Reconciled 08/19/23 by Jose Miguel Santo MD, FACS, FASMBS albuterol sulfate 90 mcg/actuation 2 puffs inhalation Q6H PRN albuterol sulfate 2.5 mg inhalation Q6H PRN amitriptyline 50 mg BEDTIME amlodipine 10 mg PO DAILY aspirin 81 mg DAILY bupropion HCl 300 mg PO QAM cholecalciferol (vitamin D3) (Vitamin D3) 25 mcg PO DAILY cyanocobalamin (vitamin B-12) 250 mcg PO DAILY fluticasone propionate 50 mcg/actuation 2 sprays intranasal DAILY sdmobtypsul-yxzfibecx-ezatlxgz 200-62.5-25 mcg (Trelegy Ellipta) 1 ea inhalation DAILY hydrochlorothiazide 12.5 mg PO DAILY 90 days hydrocodone-acetaminophen 5-325 mg 1 tab PO Q4-6H PRN loratadine 10 mg DAILY losartan 100 mg DAILY montelukast 10 mg PO DAILY nebulizers As directed ondansetron HCl 4 mg PO Q6H PRN pantoprazole 40 mg PO DAILY rosuvastatin 5 mg DAILY semaglutide (Ozempic) 2 mg subcut QWEEK trazodone 50 - 100 mg PO BEDTIME PRN triamcinolone acetonide 0.1% 1 appl topical BID HPI HPI Comments History of Present Illness Details The patient returns to the office for routine follow-up after laparoscopic cholecystectomy 08/23/23 for gallstone pancreatitis managed with an ERCP at an outside hospital. MARSHAL Varela provided interpretive services. Since surgery, the patient reports she is having intermittent diarrhea and staying on her current protein shakes with almond milk. She denies any chest pain, difficulty breathing, shortness of breath and denies any abdominal pain. In reviewing the EMR, her Ozempic is currently held. The patient has been following up with Dr. Kc regarding bariatric follow-up and texts him once a week. At this time, she does not have any follow-up with any of the PAs and she requested that she communicate with Dr. Kc regarding follow-up with him versus PAs. [facility] Medical History (Updated 08/13/23 @ 11:13 by Jessica Hutr) Asthma exacerbation GERD (gastroesophageal reflux disease) Diabetic nephropathy Hypertension LUCINDA (obstructive sleep apnea) Bilateral primary osteoarthritis of knee Kidney problem Fibromyalgia Right knee pain Carpal tunnel syndrome Morbid obesity Depression Anxiety Asthma Type 2 diabetes mellitus Dyspepsia Hypertriglyceridemia Bursitis, subacromial Surgical History (Reviewed 08/10/23 @ 13:18 by Jose Miguel Santo MD, [facility], [facility]) S/P laparoscopic sleeve gastrectomy S/P cardiac cath History of carpal tunnel release of both wrists Family History (Reviewed 08/10/23 @ 13:18 by Jose Miguel Santo MD, [facility], [facility]) Mother No problems noted. Father No problems noted. Social History Household Members: Family Household Members Other:: niece Housing: Apartment Are you a primary health care aide to a significant other at home: No Do you presently have visiting nurse or other home services: No Alcohol intake: never Patient Tobacco Use Status: Never used Tobacco service: No Current occupational status: unemployed Current occupation: right handed Review of Systems Const All systems reviewed & are unremarkable except as noted in HPI and below Physical Exam On exam, she is anicteric and nontoxic She is having no respiratory distress Abdomen is obese with Band-Aids on. These were all carefully removed and Steri- Strips are in place. There is no evidence of any infection or obvious hernia. 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 Code(s): G47.33 - Obstructive sleep apnea (adult) (pediatric); J44.9 - Chronic ob structive pulmonary disease, unspecified (6) Diabetes mellitus: Code(s): E11.9 - Type 2 diabetes mellitus without complications (7) Morbid obesity: Code(s): E66.01 - Morbid (severe) obesity due to excess calories (8) S/P laparoscopic sleeve gastrectomy: Code(s): Z98.84 - Bariatric surgery status (9) Diabetic nephropathy: Code(s): E11.21 - Type 2 diabetes mellitus with diabetic nephropathy (10) Hypertension: Code(s): I10 - Essential (primary) hypertension (11) Depression: Code(s): F32.9 - Major depressive disorder, single episode, unspecified Plan Instructions regarding diet and activity were reviewed and apparently understood. Patient is encouraged to stay on a high-protein/low-carbohydrate/low-fat diet and will avoid strenuous activities such as lifting more than 20 lb or core tightening/strengthening exercises for the next month to minimize risk of incisional hernia. Follow-up will continue her bariatric follow-up with Dr. Kc for her history of sleeve gastrectomy and obesity-related comorbidities. The patient may need her protein shake routine adjusted if it continues to give her diarrhea and the option of adding 1-2 Imodium only as needed if she has ongoing diarrhea was reviewed and apparently understood. Patient has a follow-up later this month with her PCP who had been prescribing Ozempic. Explained to the patient and her daughter that Ozempic has been known to cause pancreatitis, and given her recent pancreatitis, her prescriber may change this medication. Further discussion on the matter is deferred to the prescribing provider. Patient is otherwise discharged from my care and will follow-up with Dr. Kc and her PCP. She will contact the office if she has additional questions or problems. Coding Level of Care Code Global (74439) Diagnoses Gallstone pancreatitis K85.10 Tricuspid valve insufficiency I07.1 Hepatomegaly R16.0 Steatosis, liver K76.0 LUCINDA and COPD overlap syndrome G47.33; J44.9 Diabetes mellitus E11.9 Morbid obesity E66.01 S/P laparoscopic sleeve gastrectomy Z98.84 Diabetic nephropathy E11.21 Hypertension I10 Depression F32.9
[2023-08-19 09:12] VITALS: BP 151/66; PULSE 68; TEMP 35.6; O2SAT 98; BMI 34.8
== END 2023-08-19 09:30 | disposition home or self-care (01) ==
PROVIDERS: PCP Internal Medicine Geriatric Medicine; Visit Provider Surgery
DX: K85.10 Biliary acute pancreatitis without necrosis or infection (principal); I07.1 Rheumatic tricuspid insufficiency; R16.0 Hepatomegaly, not elsewhere classified; K76.0 Fatty (change of) liver, not elsewhere classified; G47.33 Obstructive sleep apnea (adult) (pediatric); J44.9 Chronic obstructive pulmonary disease, unspecified; E11.9 Type 2 diabetes mellitus without complications; E66.01 Morbid (severe) obesity due to excess calories; Z98.84 Bariatric surgery status; E11.21 Type 2 diabetes mellitus with diabetic nephropathy; I10 Essential (primary) hypertension; F32.9 Major depressive disorder, single episode, unspecified
CPT/HCPCS: 99024

== ENCOUNTER → 2023-08-19 09:03 | Outpatient (BNVA) | payer MEDICARE, MEDICAID, SELFPAY | PROVIDERS: PCP Internal Medicine Geriatric Medicine; Visit Provider Surgery | DX: K85.10 Biliary acute pancreatitis without necrosis or infection (principal); K76.0 Fatty (change of) liver, not elsewhere classified; I07.1 Rheumatic tricuspid insufficiency; I10 Essential (primary) hypertension; G47.33 Obstructive sleep apnea (adult) (pediatric); R16.0 Hepatomegaly, not elsewhere classified; J44.9 Chronic obstructive pulmonary disease, unspecified; E66.01 Morbid (severe) obesity due to excess calories; E11.21 Type 2 diabetes mellitus with diabetic nephropathy; F32.9 Major depressive disorder, single episode, unspecified; Z98.84 Bariatric surgery status | CPT/HCPCS: 99212 ==

== ENCOUNTER 2023-10-05 11:01 | Outpatient (AMB) | payer MEDICARE, MEDICAID, SELFPAY ==
--- NOTE | 2023-10-05 10:02 | MHC.OFFVISWM ---
Intake VS Expanded 10/05/23 10:13 Height 4 ft 11 in Weight 174 lb 12.8 oz BMI 35.3 Intake Visit Reasons: TV PO LSG 02/03/23 Utility Pipe Layer Required: Yes Utility Pipe Layer Name: # [id number] Allergies canagliflozin [Invokana] Allergy (Severe, Verified 08/19/23 09:11) chest tightness lisinopril [LISINOPRIL] Allergy (Severe, Verified 08/19/23 09:11) sweating, rash, difficulty breathing, cough oxycodone Allergy (Intermediate, Verified 08/19/23 09:11) vomiting/GI cramping Medication List - Last Reconciled 10/05/23 by JANET Negro albuterol sulfate 2.5 mg inhalation Q6H PRN albuterol sulfate 90 mcg/actuation 2 puffs inhalation Q6H PRN amitriptyline 50 mg BEDTIME amlodipine 10 mg PO DAILY aspirin 81 mg DAILY bupropion HCl 300 mg PO QAM cholecalciferol (vitamin D3) (Vitamin D3) 25 mcg PO DAILY cyanocobalamin (vitamin B-12) 250 mcg PO DAILY fluticasone propionate 50 mcg/actuation 2 sprays intranasal DAILY lpuscptksnk-eckblzwbl-aqxrnscf 200-62.5-25 mcg (Trelegy Ellipta) 1 ea inhalation DAILY hydrochlorothiazide 12.5 mg PO DAILY 90 days hydrocodone-acetaminophen 5-325 mg 1 tab PO Q4-6H PRN loratadine 10 mg DAILY losartan 100 mg DAILY montelukast 10 mg PO DAILY 90 days nebulizers As directed ondansetron HCl 4 mg PO Q6H PRN pantoprazole 40 mg PO DAILY rosuvastatin 5 mg DAILY semaglutide (Ozempic) 2 mg subcut QWEEK trazodone 50 - 100 mg PO BEDTIME PRN triamcinolone acetonide 0.1% 1 appl topical BID HPI HPI Comments History of Present Illness Details This?a?58?yo female who is s/p LSG without hiatal hernia repair on?02/03/23. Presents for 8 month post op visit. She did not send her weight measurement and the last time she weighed herself was on thursday09/29/23. Her weight was 174.8 pounds, with a BMI of 35.3.? There has been a 97.6 pound weight loss,(initial weight 272.4 pounds) since starting the program on 09/19/21 reflecting a 35.8% total body weight loss and a weight loss of 59.7 pounds since surgery (operative weight 234.5 pounds) reflecting a 25.4% TBWL since surgery.? Mild constipation improved with senna Present meal plan includes: 1 celebrate 4:1 w 2 scoop, 6-8am Another shake w 2 scoops, 10am-12 pm ZP bar at noon mexican yogurt, 4 pm Meal 4 forks, 4 forks, 8 pm 96 oz water daily Exercise routine includes: bike, treadmill, 5 x per week, 300 calories [facility] Medical History (Updated 10/05/23 @ 10:22 by JANET Negro) Asthma exacerbation GERD (gastroesophageal reflux disease) Diabetic nephropathy Hypertension LUCINDA (obstructive sleep apnea) Bilateral primary osteoarthritis of knee Kidney problem Fibromyalgia Right knee pain Carpal tunnel syndrome Morbid obesity Depression Anxiety Asthma Type 2 diabetes mellitus Dyspepsia Hypertriglyceridemia Bursitis, subacromial Surgical History S/P laparoscopic sleeve gastrectomy S/P cardiac cath History of carpal tunnel release of both wrists Family History Mother No problems noted. Father No problems noted. Social History (Reviewed 08/10/23 @ 13:18 by Jose Miguel Santo MD, FACS, [facility]) Household Members: Family Household Members Other:: niece Housing: Apartment Are you a primary menagerie caretaker to a significant other at home: No Do you presently have visiting nurse or other home services: No Alcohol intake: never Patient Tobacco Use Status: Never used Tobacco service: No Current occupational status: unemployed Current occupation: right handed Assessment & Plan Assessment & Plan (1) Obesity (BMI 30-39.9): Code(s): E66.9 - Obesity, unspecified Plan: Overall, she is satisfied with her weight loss of 1-2 lb per week and does not want to change her meal plan to much. Will change meal plan slightly to : 1 celebrate 4:1 w 2 scoop, 8-10am Another shake w 2 scoops, 11am-1pm Meal 6 forks, 6 forks, 6 pm Continue 64-80 oz fluids. Encouraged to continue exercise although increased from 300-400 calories burned per day. Return to the office in 1 month. Telehealth Telehealth Location of provider rendering services: practice address Location of patient: address on file Patient Identification confirmed using: Name, : Yes Telehealth method: voice only Patient verbally consented to treatment: Yes Patient verbally consented to billing insurance company: Yes Patient informed of any privacy concerns related to visit: Yes Minutes spent on Phone/Video with Pt.: 20 Coding Level of Care Code Tele Est Pt Level 3 (02267) Diagnoses Obesity (BMI 30-39.9) E66.9 Time Spent (min) 25
[2023-10-05 10:13] VITALS: BMI 35.3
== END 2023-10-05 12:01 | disposition home or self-care (01) ==
LOC: HO.HBS 11:01
PROVIDERS: PCP Internal Medicine Geriatric Medicine; Visit Provider Physician Assistant Surgical
DX: E66.9 Obesity, unspecified (principal); Z68.35 Body mass index [BMI] 35.0-35.9, adult
CPT/HCPCS: 99442

== ENCOUNTER → 2023-10-05 11:01 | Outpatient (BNVA) | payer MEDICARE, MEDICAID, SELFPAY | PROVIDERS: PCP Internal Medicine Geriatric Medicine; Visit Provider Physician Assistant Surgical | DX: I10 Essential (primary) hypertension (principal); E11.9 Type 2 diabetes mellitus without complications; E66.01 Morbid (severe) obesity due to excess calories; E78.1 Pure hyperglyceridemia; Z98.890 Other specified postprocedural states; Z68.35 Body mass index [BMI] 35.0-35.9, adult | CPT/HCPCS: 99212 ==

== ENCOUNTER 2023-10-05 13:00 | Outpatient (AMB) | payer MEDICARE, MEDICAID, SELFPAY ==
[2023-10-05 13:14] VITALS: BP 122/62; PULSE 67; BMI 35.9
--- NOTE | 2023-10-05 13:14 | A.OFFVIS_ITS ---
Intake Vital Signs 10/05/23 13:14 Height 4 ft 11 in Weight 177 lb 11.081 oz BMI 35.9 BP 122/62 Blood Pressure Location Lt brachial Position Sitting Pulse 67 Pulse Source Pulse Oximeter Intake Visit Reasons: 6 mnth f/up Production Scheduler Required: Yes Production Scheduler Language: Door Cutter Name: daquan Cao [id number] Allergies canagliflozin [Invokana] Allergy (Severe, Verified 10/05/23 13:16) chest tightness lisinopril [LISINOPRIL] Allergy (Severe, Verified 10/05/23 13:16) sweating, rash, difficulty breathing, cough oxycodone Allergy (Intermediate, Verified 10/05/23 13:16) vomiting/GI cramping Medication List - Last Reconciled 10/05/23 by LEIGHA Gordon albuterol sulfate 2.5 mg inhalation Q6H PRN albuterol sulfate 90 mcg/actuation 2 puffs inhalation Q6H PRN amitriptyline 50 mg BEDTIME amlodipine 10 mg PO DAILY aspirin 81 mg DAILY bupropion HCl 300 mg PO QAM cholecalciferol (vitamin D3) (Vitamin D3) 25 mcg PO DAILY cyanocobalamin (vitamin B-12) 250 mcg PO DAILY fluticasone propionate 50 mcg/actuation 2 sprays intranasal DAILY qzbopmiidph-aadrkzzho-anearuzi 200-62.5-25 mcg (Trelegy Ellipta) 1 ea inhalation DAILY hydrochlorothiazide 12.5 mg PO DAILY 90 days hydrocodone-acetaminophen 5-325 mg 1 tab PO Q4-6H PRN loratadine 10 mg DAILY losartan 100 mg DAILY montelukast 10 mg PO DAILY 90 days nebulizers As directed ondansetron HCl 4 mg PO Q6H PRN pantoprazole 40 mg PO DAILY rosuvastatin 5 mg DAILY trazodone 50 - 100 mg PO BEDTIME PRN triamcinolone acetonide 0.1% 1 appl topical BID HPI 6 mnth f/up HPI Details Angela is a 58-year-old female past medical history of hypertension, hyperlipidemia, diabetes, obesity, sleep apnea who had reported chest discomfort and shortness of breath with exertion, cardiac catheterization 06/2022 showing normal coronary arteries who presents for follow-up. Today she reports that she has been feeling well with no concerning symptoms. She denies any chest discomfort at rest or with activity. She has mild shortness of breath with exertion. No shortness of breath at rest. No PND, orthopnea or edema. No palpitations, lightheadedness, presyncope, syncope, PND, orthopnea or edema. Taking meds as directed. Goes to the gym 5 days a week for 1.5 hours using the treadmill and bike which she says she tolerates well. [facility] Medical History Asthma exacerbation GERD (gastroesophageal reflux disease) Diabetic nephropathy Hypertension LUCINDA (obstructive sleep apnea) Bilateral primary osteoarthritis of knee Kidney problem Fibromyalgia Right knee pain Carpal tunnel syndrome Morbid obesity Depression Anxiety Asthma Type 2 diabetes mellitus Dyspepsia Hypertriglyceridemia Bursitis, subacromial Surgical History (Updated 10/05/23 @ 17:25 by Chiquita Loaiza NP-C) S/P laparoscopic sleeve gastrectomy S/P cardiac cath History of carpal tunnel release of both wrists Family History Mother No problems noted. Father No problems noted. Social History Household Members: Family Household Members Other:: niece Housing: Apartment Are you a primary rn home care to a significant other at home: No Do you presently have visiting nurse or other home services: No Alcohol intake: never Patient Tobacco Use Status: Never used Tobacco service: No Current occupational status: unemployed Current occupation: right handed Review of Systems Const All systems reviewed & are unremarkable except as noted in HPI and below ENT Denies dizziness Card Denies chest pain, Denies chest pain at rest, Denies chest pain with activity, Denies rapid heart rate, Denies pedal edema, Denies edema, Denies leg edema, Denies lightheadedness, Denies palpitations, Denies dyspnea, Denies dyspnea on exertion and Denies orthopnea Resp Denies cough, Denies dyspnea and Denies dyspnea on exertion GI Denies hematochezia and Denies change in stool character Musc Denies abnormal gait, Denies limited range of motion, Denies muscle cramps, Denies muscle weakness, Denies numbness, Denies radiating pain into limb, Denies stiffness and Denies tingling Neuro Denies abnormal gait, Denies dizziness, Denies numbness and Denies tingling Endo Denies palpitations Physical Exam Vital Signs: Last Vital Signs Pulse 67 10/05/23 13:14 BP 122/62 10/05/23 13:14 BMI result Body Mass Index 35.9 Const General: cooperative, healthy appearing, comfortable and no acute distress Orientation/consciousness: patient oriented x3 Neck Neck: Yes normal visual inspection and Yes no JVD Resp Effort & Inspection: normal respiratory effort Auscultation: clear to auscultation bilaterally, no crackles, no rales, no rhonchi and no wheezes Cardio Jugular venous distension: no JVD Rate: regular rate Rhythm: regular rhythm Heart sounds: S1 normal heart sound present, S2 normal heart sound present, no gallops, no murmurs and no rubs Neuro General: patient oriented x3 Extrem General: Yes normal to inspection, No no pedal edema and No calf tenderness Psych Appearance: grossly normal Mental Status: mental status grossly normal Speech and movement: Normal speech and movement present Assessment & Plan Assessment & Plan (1) S/P cardiac cath: Comment: Jun 10, 2022 normal coronary arteries Code(s): Z98.890 - Other specified postprocedural states Plan: Prior cardiac catheterization for reports of chest discomfort and shortness of breath. Cardiac risk factors of hypertension, hyperlipidemia, diabetes, obesity. Cardiac catheterization showed normal coronaries. Continue with ongoing cardiac risk factor modification including good blood pressure control, ideally less than 130/85. Continue good cholesterol control with ideal LDL goal less than 70 in patient with diabetes. Continue good diabetic control with hemoglobin A1c goal less than 7, followed by PCP. She is part of the [facility] [place] bariatric program and is working on weight loss. She exercises 5 days a week without any concerning symptoms. Spent time reviewing signs and symptoms of angina with her. Cardiology follow-up p.r.n. (2) Hypertension: Code(s): I10 - Essential (primary) hypertension Plan: Well controlled at this time. Labs done 07/24/2023 showed potassium 4.7, creatinine 0.6. Blood pressure today 122/62. Continue losartan, hydrochlorothiazide and amlodipine. These can be managed by her PCP (3) Diabetes mellitus: Code(s): E11.9 - Type 2 diabetes mellitus without complications Plan: As above (4) Morbid obesity: Code(s): E66.01 - Morbid (severe) obesity due to excess calories Plan: As above (5) Hypertriglyceridemia: Code(s): E78.1 - Pure hyperglyceridemia Plan: LDL goal less than 70 in patient with diabetes, triglyceride goal less than 150. Labs done 01/20/23 showed LDL 104, triglycerides 137. More recently she has had elevated liver tests and ERCP done last month. It seems she is still on rosuvastatin 5 mg daily. Will have her continue that at this time. Recommend a recheck of fasting lipids, LFTs. Rosuvastatin dose can be further titrated as needed. Will forward this note to her PCP Plan Time spent on chart review, documentation, interview and assessment Coding Level of Care Code Est Pt Level 4 (60324) Diagnoses S/P cardiac cath Z98.890 Hypertension I10 Diabetes mellitus E11.9 Morbid obesity E66.01 Hypertriglyceridemia E78.1 Time Spent (min) 28
== END 2023-10-05 13:41 | disposition home or self-care (01) ==
PROVIDERS: PCP Internal Medicine Geriatric Medicine; Visit Provider Nurse Practitioner Family
DX: Z98.890 Other specified postprocedural states (principal); I10 Essential (primary) hypertension; E11.9 Type 2 diabetes mellitus without complications; E66.01 Morbid (severe) obesity due to excess calories; E78.1 Pure hyperglyceridemia
CPT/HCPCS: 99214

== ENCOUNTER 2023-10-07 10:29 | Outpatient (AMB) | payer MEDICARE, MEDICAID, SELFPAY ==
--- NOTE | 2023-10-07 11:17 | MHC.OFFVIS ---
Intake Vital Signs 10/07/23 11:18 Height 4 ft 11 in Weight 172 lb BMI 34.7 Pulse 60 Pulse Source Pulse Oximeter Pulse Oximetry (%) 99 Oxygen Delivery Method Room Air Intake Visit Reasons: Asthma/LUCINDA Allergies canagliflozin [Invokana] Allergy (Severe, Verified 10/07/23 11:19) chest tightness lisinopril [LISINOPRIL] Allergy (Severe, Verified 10/07/23 11:19) sweating, rash, difficulty breathing, cough oxycodone Allergy (Intermediate, Verified 10/07/23 11:19) vomiting/GI cramping HPI HPI Comments History of Present Illness Details The patient is a 58-year-old woman with a known history of obstructive sleep apnea, asthma who is presenting with worsening cough. The patient has is constantly clearing her throat. She denies any reflux symptoms. She denies any significant postnasal drip. She is not taking any Konstantin inhibitors that she is allergic to them. The cough is indeed aggravating to her and her family. Moderate severity. Inhalers have been partially helpful. She gets very confused with her inhalers as she has many. A try to simplify her regimen by given her 1 maintenance inhaler, Trelegy and she can continue her rescue inhaler as needed. The patient also did undergo allergy testing and she is allergic to trees among other things. I do not have those results at this time. The patient also has a diagnosis of sleep apnea. She had been on CPAP but could not tolerated. Therefore she was on oxygen. At this point the patient continues to have daytime drowsiness with an elevated Hayti score of 12/24. Will have the patient have a sleep study at this time to see if we can get her situated with CPAP as is going to be a better therapy for her underlying sleep apnea. The patient also has cardiovascular risk factors increasing her risk with the untreated sleep apnea this time. The patient will undergo sleep study will follow-up after the results. 02/26/2022 the patient is here for a pulmonary follow-up visit. She finally got her CPAP machine. She has been using it more than 4 hours a night. The therapy has been affecting beneficial. She did bring machine we were able to downloaded. Her AHI is within normal limits At 0.5 events an hour. Her average pressure is 6 cm of water. The patient has been tolerating her mask well. However, she has not been able to get supplies. That is primarily because she has not sent her car to be read by the [employer] company in order for them to get the approval from the insurance to get supplies. Her breathing overall is better. Patient has continue Trelegy daily. She also is using Singulair. And also has the albuterol as needed. 08/25/2022 the patient is here for a pulmonary follow-up visit. The patient overall has been feeling well. Recently she had flu-like symptoms and she did require prednisone. However, now she is back to her baseline. She does use her respiratory therapy as prescribed. Has not had to use her rescue inhaler. However she is starting to get a sore throat and also some chest congestion. [id number] severity. Denies any fevers or chills. Could be a postviral bacterial process. Therefore I will send her Z-Julien to make sure that she can clear this process. In regards to the CPAP the CPAP therapy continues to be affecting beneficial. She is getting supplies through [employer] Although she states that she has not gotten any supplies recently. Will go ahead and submit another prescription in order for her to get supplies. If the patient has any issues she is to call our office so we can address it. otherwise patient will follow-up in 6-8 months. 02/23/2023 the patient is here for a pulmonary follow-up visit. Overall the patient is doing well. Back in January she did undergo a Rainbow surgery. Since then she has lost already about 70 lb. The patient has not been using her CPAP. She does have severe sleep apnea. Although on has not been getting supplies readily from her [employer]. That made it hard for her to use the machine. Ultimately she has been sleeping without it and with weight loss she feels that she is doing a little better. She still has a dry mouth but her daytime drowsiness improved. We did talk about positional therapy. She is going to work on positional therapy and will plan to repeat her sleep study in the coming months. If her symptoms worsen she is to call the office for an earlier assessment otherwise will follow-up after sleep study in 4-6 months. Her respiratory therapy has been stable. She is continue with her inhalers with good effect. Has not required any prednisone. 10/07/2023 the patient is here for a pulmonary follow-up visit. The patient continues to lose weight after having her bariatric surgery. She did have a slight complication of pancreatitis due to gallstones and ultimately required a cholecystectomy. She did require also a 5 day stay in hospital. Currently she is feeling better from that. She continues to use her respiratory medications with good effect. The Trelegy inhaler has been very affecting beneficial she does take once a day. She does take the lower dose which is reassuring. She has not required her rescue inhaler and has not required any prednisone either. The patient also has been struggling with her sleep apnea. She does have daytime drowsiness. Her repeat sleep study demonstrated that she still had moderate sleep apnea. She has a hard time sleeping on her sides so therefore tends to sleep more on her back which is an issue. She tries to sleep elevated to try help with that. She has not been able to use her CPAP because she has not been able to get supplies. She has been calling her [employer] company without much success. I did call them to see what the issues as far as getting an update. Have to find that if she is still active with the [employer] company if she has not been using it. But I understand from her point of view is hard for her to use it if she has not been able to get supplies. Therefore, will go ahead and wait for the [employer] to let us know what the next best step would be. Explained to the patient that if she is the activated from the [employer] company she will need a repeat sleep study. This be important specially with an elevated Hayti score 11/24. [facility] Medical History (Updated 10/07/23 @ 18:10 by Rajinder Ramirez MD) Asthma exacerbation GERD (gastroesophageal reflux disease) Diabetic nephropathy Hypertension LUCINDA (obstructive sleep apnea) Bilateral primary osteoarthritis of knee Kidney problem Fibromyalgia Right knee pain Carpal tunnel syndrome Morbid obesity Depression Anxiety Asthma Type 2 diabetes mellitus Dyspepsia Hypertriglyceridemia Bursitis, subacromial Surgical History (Updated 10/05/23 @ 17:25 by Chiquita Loaiza NP-C) S/P laparoscopic sleeve gastrectomy S/P cardiac cath History of carpal tunnel release of both wrists Family History Mother No problems noted. Father No problems noted. Social History Household Members: Family Household Members Other:: niece Housing: Apartment Are you a primary primary care md to a significant other at home: No Do you presently have visiting nurse or other home services: No Alcohol intake: never Patient Tobacco Use Status: Never used Tobacco service: No Current occupational status: unemployed Current occupation: right handed Review of Systems Const Denies night sweats and Reports weight loss ENT Denies change in voice, Denies lip swelling, Denies mouth pain, Reports nasal congestion, Reports nasal discharge, Reports sore throat and Denies tongue swelling Card Denies chest pain and Reports dyspnea on exertion Resp Reports dyspnea on exertion and Denies wheezing GI Denies abdominal pain Musc Reports abnormal gait Neuro Denies Neuro-related abnormal movements and Reports abnormal gait Psych Denies no additional complaints Derik/Lymph Denies easy bleeding and Denies lymphadenopathy Aller/Immun Denies lip swelling, Denies tongue swelling and Denies wheezing Physical Exam Vital Signs: Last Vital Signs Pulse 60 10/07/23 11:18 Pulse Ox 99 10/07/23 11:18 Oxygen Delivery Method Room Air 10/07/23 11:18 BMI result Body Mass Index 34.7 Const General: alert Neck Neck: Yes normal visual inspection, Yes full ROM and Yes no lymphadenopathy Chest Chest palpation & inspection: normal inspection of the chest Resp Auscultation: diminished lung sounds Cardio Rate: regular rate Rhythm: regular rhythm Heart sounds: S1 normal heart sound present and S2 normal heart sound present GI Palpation (GI): Soft to palpation and nontender Auscultation: normal bowel sounds Skin General skin exam: rashes and/or lesions noted Extrem General: Yes edema Assessment & Plan Assessment & Plan (1) LUCINDA (obstructive sleep apnea): Code(s): G47.33 - Obstructive sleep apnea (adult) (pediatric) (2) Asthma: Comment: controlled on current regimen-denies any recent exacerbation Code(s): J45.909 - Unspecified asthma, uncomplicated Qualifiers: Asthma complication type: uncomplicated Asthma persistence: persistent Asthma severity: moderate Qualified Code(s): J45.40 - Moderate persistent asthma, uncomplicated Plan continue/restart APAP, Ibreeze Resvent APAP, JL. Needs supplies ?active. If no active with the DME, will need a repeat PSG low salt diet fluticasone nasal spray continue Trelegy inhaler daily IVAN as needed F/U 4-6 months Coding Level of Care Code Est Pt Level 4 (24728) Diagnoses LUCINDA (obstructive sleep apnea) G47.33 Moderate persistent asthma without complication J45.40 Asthma complication type: uncomplicated Asthma persistence: persistent Asthma severity: moderate Time Spent (min) 17
[2023-10-07 11:18] VITALS: PULSE 60; O2SAT 99; BMI 34.7
== END 2023-10-07 11:43 | disposition home or self-care (01) ==
PROVIDERS: PCP Internal Medicine Geriatric Medicine; Visit Provider Hospitalist
DX: G47.33 Obstructive sleep apnea (adult) (pediatric) (principal); J45.40 Moderate persistent asthma, uncomplicated
CPT/HCPCS: 99214

== ENCOUNTER → 2023-10-07 10:29 | Outpatient (BNVA) | payer MEDICARE, MEDICAID, SELFPAY | PROVIDERS: PCP Internal Medicine Geriatric Medicine; Visit Provider Hospitalist | DX: J45.40 Moderate persistent asthma, uncomplicated (principal); G47.33 Obstructive sleep apnea (adult) (pediatric) | CPT/HCPCS: 99212 ==

== ENCOUNTER 2023-10-28 10:51 | Outpatient (REF) | payer MEDICARE, MEDICAID, SELFPAY ==
[2023-10-28 13:53] LABS: Anion Gap 13 (12-20); Blood Urea Nitrogen 16 mg/dL (9-16); Calcium 9.9 mg/dL (8.4-10.2); Carbon Dioxide 29 mmol/L (22-29); Chloride 104 mmol/L (96-108); Estimated Glomerular Filt Rate > 60; Glucose Random 83 mg/dL (60-115); Potassium 4.6 mmol/L (3.3-5.1); Sodium 141 mmol/L (135-145)
[2023-10-29 08:12] LABS: ~HepC Num1 0.12 S/CO (0.00-0.79); ~Hepatitis C Antibody Nonreactive (Nonreactive)
== END 2023-10-28 10:52 | disposition home or self-care (01) ==
LOC: HO.HHCL 10:51
PROVIDERS: Visit Provider Internal Medicine Geriatric Medicine
DX: I10 Essential (primary) hypertension (principal); Z11.59 Encounter for screening for other viral diseases
CPT/HCPCS: 36415; 80048; 86803

== ENCOUNTER 2023-11-16 13:10 | Outpatient (AMB) | payer MEDICARE, MEDICAID, SELFPAY ==
--- NOTE | 2023-11-16 13:46 | MHC.OFFVISWM ---
Intake Intake Visit Reasons: OV PO LSG 02/03/23 Allergies canagliflozin [Invokana] Allergy (Severe, Verified 10/07/23 11:19) chest tightness lisinopril [LISINOPRIL] Allergy (Severe, Verified 10/07/23 11:19) sweating, rash, difficulty breathing, cough oxycodone Allergy (Intermediate, Verified 10/07/23 11:19) vomiting/GI cramping PFSH Medical History (Updated 10/07/23 @ 18:10 by Rajinder Ramirez MD) Asthma exacerbation GERD (gastroesophageal reflux disease) Diabetic nephropathy Hypertension LUCINDA (obstructive sleep apnea) Bilateral primary osteoarthritis of knee Kidney problem Fibromyalgia Right knee pain Carpal tunnel syndrome Morbid obesity Depression Anxiety Asthma Type 2 diabetes mellitus Dyspepsia Hypertriglyceridemia Bursitis, subacromial Surgical History (Updated 10/05/23 @ 17:25 by Chiquita Loaiza, STATISTICIAN THEORETICAL-C) S/P laparoscopic sleeve gastrectomy S/P cardiac cath History of carpal tunnel release of both wrists Family History Mother No problems noted. Father No problems noted. 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
--- NOTE | 2023-11-16 13:46 | MHC.OFFVISWM ---
Intake VS Expanded 11/16/23 13:54 BP 186/76 H Blood Pressure Location Rt brachial Blood Pressure Position Sitting Pulse 76 Pulse Source Pulse Oximeter Temp 96.8 F Temperature Source Tympanic Pulse Oximetry 98 Oxygen Delivery Method Room Air Height 4 ft 11 in Weight 179 lb 9.6 oz BMI 36.3 Body Fat % 35.4 Body Fat Mass 63.4 Fat Free Mass 116.0 Visceral Fat Rating 10.0 Body Water % 45.8 Body Water Mass 82.2 Muscle Mass/Score 110.0 Basal Metabolic Rate/Score 1,566 Intake Visit Reasons: OV PO LSG 02/03/23 Wire Wheeler Required: Yes Wire Wheeler Name: office cmi Allergies canagliflozin [Invokana] Allergy (Severe, Verified 10/07/23 11:19) chest tightness lisinopril [LISINOPRIL] Allergy (Severe, Verified 10/07/23 11:19) sweating, rash, difficulty breathing, cough oxycodone Allergy (Intermediate, Verified 10/07/23 11:19) vomiting/GI cramping Medication List - Last Reconciled 11/16/23 by JANET Negro albuterol sulfate 2.5 mg inhalation Q6H PRN albuterol sulfate 90 mcg/actuation 2 puffs inhalation Q6H PRN amitriptyline 50 mg BEDTIME amlodipine 10 mg PO DAILY aspirin 81 mg DAILY bupropion HCl 300 mg PO QAM cholecalciferol (vitamin D3) (Vitamin D3) 25 mcg PO DAILY cyanocobalamin (vitamin B-12) 250 mcg PO DAILY fluticasone propionate 50 mcg/actuation 2 sprays intranasal DAILY jtrxehfdkgm-xoukuvaro-zftnadoy 200-62.5-25 mcg (Trelegy Ellipta) 1 ea inhalation DAILY hydrochlorothiazide 12.5 mg PO DAILY 90 days hydrocodone-acetaminophen 5-325 mg 1 tab PO Q4-6H PRN lidocaine 5% 1 patch topical DAILY loratadine 10 mg DAILY losartan 100 mg DAILY montelukast 10 mg PO DAILY 90 days nebulizers As directed ondansetron HCl 4 mg PO Q6H PRN pantoprazole 40 mg PO DAILY rosuvastatin 5 mg DAILY trazodone 50 - 100 mg PO BEDTIME PRN triamcinolone acetonide 0.1% 1 appl topical BID HPI HPI Comments History of Present Illness Details This?a?58?yo female who is s/p LSG without hiatal hernia repair on?02/03/[address] Kc and laparoscopic cholecystectomy on 08/13/[address] Santo. Presents for 9 month post op visit. Her weight today is 179.6 pounds, with a BMI of 36.3.? There has been a 92.8 pound weight loss,(initial weight 272.4 pounds) since starting the program on 09/19/21 reflecting a 34% total body weight loss and a weight loss of 54.9 pounds since surgery (operative weight 234.5 pounds) reflecting a 23.4% TBWL since surgery.? Mild constipation improved with senna She states she is doing well. She states no exercise in the last week due to foot pain and she has had rice and bread twice. wants to change second shake for a yogurt or bar. Present meal plan includes: 1 celebrate 4:1 w 2 scoop w 8 oz almond milk, 8-10am Another shake w 2 scoops, 11am-1pm Meal 6 forks, 6 forks, 6 pm 64 oz water daily Exercise routine includes: bike, treadmill, 5 x per week, 300 calories [facility] Medical History Asthma exacerbation GERD (gastroesophageal reflux disease) Diabetic nephropathy Hypertension LUCINDA (obstructive sleep apnea) Bilateral primary osteoarthritis of knee Kidney problem Fibromyalgia Right knee pain Carpal tunnel syndrome Morbid obesity Depression Anxiety Asthma Type 2 diabetes mellitus Dyspepsia Hypertriglyceridemia Bursitis, subacromial Surgical History S/P laparoscopic sleeve gastrectomy S/P cardiac cath History of carpal tunnel release of both wrists Family History Mother No problems noted. Father No problems noted. Social History Household Members: Family Household Members Other:: niece Housing: Apartment Are you a primary primary care physician to a significant other at home: No Do you presently have visiting nurse or other home services: No Alcohol intake: never Patient Tobacco Use Status: Never used Tobacco service: No Current occupational status: unemployed Current occupation: right handed Physical Exam Const General: healthy appearing and no acute distress Resp Effort & Inspection: normal respiratory effort Auscultation: clear to auscultation bilaterally Cardio Rate: regular rate Rhythm: regular rhythm GI Auscultation: normal bowel sounds Extrem General: Yes normal to inspection Assessment & Plan Assessment & Plan (1) Obesity (BMI 30-39.9): Code(s): E66.9 - Obesity, unspecified Plan: Patient wishes to change her meal plan to include a yogurt or zone perfect bar which we will substitute for the shake mid day. Avoid bread and rice 1 celebrate 4:1 w 2 scoop w 8 oz almond milk, 8-10am yogurt or zp bar Meal 6 forks, 6 forks, 6 pm Advised to take a celebrate multivitamin, 1 tablet 4 times per week. Encouraged to resume exercise once her foot heals although increasing from 300 calories to 400 calories burned per day, 5 days per week. She uses the exercise bike or treadmill. Return to the office 1 month. Coding Level of Care Code Est Pt Level 3 (43480) Diagnoses Obesity (BMI 30-39.9) E66.9
[2023-11-16 13:54] VITALS: BP 186/76; PULSE 76; TEMP 36; O2SAT 98; BMI 36.3
== END 2023-11-16 14:20 | disposition home or self-care (01) ==
PROVIDERS: PCP Internal Medicine Geriatric Medicine; Visit Provider Physician Assistant Surgical
DX: E66.9 Obesity, unspecified (principal); Z68.36 Body mass index [BMI] 36.0-36.9, adult; Z90.3 Acquired absence of stomach [part of]; Z98.84 Bariatric surgery status
CPT/HCPCS: 99213

== ENCOUNTER → 2023-11-16 13:10 | Outpatient (BNVA) | payer MEDICARE, MEDICAID, SELFPAY | PROVIDERS: PCP Internal Medicine Geriatric Medicine; Visit Provider Physician Assistant Surgical | DX: E66.9 Obesity, unspecified (principal); Z68.36 Body mass index [BMI] 36.0-36.9, adult; Z98.84 Bariatric surgery status | CPT/HCPCS: 99212 ==

== ENCOUNTER 2023-11-26 11:11 | Outpatient (AMB) | payer MEDICARE, MEDICAID, SELFPAY ==
[2023-11-26 11:36] VITALS: BP 118/64; PULSE 59; O2SAT 96; BMI 36.8
--- NOTE | 2023-11-26 11:36 | HO.NEPHOV ---
HPI HPI Comments History of Present Illness Details I had the privilege of seeing Angela in follow-up of her hypertension and proteinuria. She has lost a lot of weight. She had discontinued losartan when her blood pressure was running low. Currently she is only on amlodipine and hydrochlorothiazide. She has been having band like headache. She feels dizzy when she moves her head even while lying down. She denies any tinnitus or discharge from the ear. She does not have any chest pain, shortness of breath, paroxysmal nocturnal dyspnea, orthopnea, pedal edema, fever or urinary symptoms. She does not take any rwpu-iuy-nglituc medications. [facility] Medical History Asthma exacerbation GERD (gastroesophageal reflux disease) Diabetic nephropathy Hypertension LUCINDA (obstructive sleep apnea) Bilateral primary osteoarthritis of knee Kidney problem Fibromyalgia Right knee pain Carpal tunnel syndrome Morbid obesity Depression Anxiety Asthma Type 2 diabetes mellitus Dyspepsia Hypertriglyceridemia Bursitis, subacromial Surgical History S/P laparoscopic sleeve gastrectomy S/P cardiac cath History of carpal tunnel release of both wrists Family History Mother No problems noted. Father No problems noted. Social History Household Members: Family Household Members Other:: niece Housing: Apartment Are you a primary care management specialist to a significant other at home: No Do you presently have visiting nurse or other home services: No Alcohol intake: never Patient Tobacco Use Status: Never used Tobacco service: No Current occupational status: unemployed Current occupation: right handed Vital Signs 11/26/23 11:36 Height 4 ft 11 in Weight 182 lb BMI 36.8 BP 118/64 Blood Pressure Location Lt brachial Position Sitting Pulse 59 Pulse Source Pulse Oximeter Pulse Oximetry (%) 96 Oxygen Delivery Method Room Air Physical Exam Vital Signs: Last Vital Signs Pulse 59 11/26/23 11:36 BP 118/64 11/26/23 11:36 Pulse Ox 96 11/26/23 11:36 Oxygen Delivery Method Room Air 11/26/23 11:36 BMI result Body Mass Index 36.8 Const General: comfortable and no acute distress Orientation/consciousness: patient oriented x3 HEENT Head: Yes normocephalic Mouth: Normal oral and palatal mucosa present Eyes EOM: EOMs intact bilaterally Neck Neck: Yes supple Resp Auscultation: clear to auscultation bilaterally Cardio Jugular venous distension: no JVD Rate: regular rate GI Palpation (GI): Soft to palpation Auscultation: normal bowel sounds General: Yes no CVA tenderness Back/Spine/Pelvis Back: no CVA tenderness Skin General skin exam: no rashes or lesions noted Neuro General: patient oriented x3 and moves all extremities Extrem General: Yes no pedal edema Assessment & Plan Assessment & Plan (1) Hypertension: Code(s): I10 - Essential (primary) hypertension Qualifiers: Hypertension type: primary hypertension Qualified Code(s): I10 - Essential (primary) hypertension (2) Dizziness: Code(s): R42 - Dizziness and giddiness Martin Miller has longstanding hypertension. She had been on angiotensin receptor mayur in the past which has been discontinued. Currently she is on amlodipine and hydrochlorothiazide. HER Blood pressure is currently at goal. She is having vertigo. I prescribed her meclizine. If she does not have any improvement she may have to see neurology for further workup. I ordered urine protein creatinine ratio. Her renal functions are normal. All her and her niece's questions were answered. Follow-up appointment given. Orders: Orders Protein Creatinine Ratio, Ur Today I10 - Essential (primary) hypertension Medications: New meclizine 12.5 mg PO BID PRN 60 tabs 1RF dizziness Coding Level of Care Code Est Pt Level 4 (09040) Diagnoses Primary hypertension I10 Hypertension type: primary hypertension Dizziness R42 Results Reviewed Nephrology Results: Sodium 141 mmol/L (135-145) 10/28/23 Potassium 4.6 mmol/L (3.3-5.1) 10/28/23 Chloride 104 mmol/L (96-108) 10/28/23 Carbon Dioxide 29 mmol/L (22-29) 10/28/23 BUN 16 mg/dL (9-16) 10/28/23 Creatinine 0.68 mg/dL (0.5-1.4) 10/28/23 Calcium 9.9 mg/dL (8.4-10.2) 10/28/23
== END 2023-11-26 12:14 | disposition home or self-care (01) ==
PROVIDERS: PCP Internal Medicine Geriatric Medicine; Visit Provider Internal Medicine Nephrology
DX: I10 Essential (primary) hypertension (principal); R42 Dizziness and giddiness
CPT/HCPCS: 99214

== ENCOUNTER → 2023-11-26 11:11 | Outpatient (BNVA) | payer MEDICARE, MEDICAID, SELFPAY | PROVIDERS: PCP Internal Medicine Geriatric Medicine; Visit Provider Internal Medicine Nephrology | DX: I10 Essential (primary) hypertension (principal); R42 Dizziness and giddiness | CPT/HCPCS: 99212 ==

== ENCOUNTER 2023-12-01 11:28 | Outpatient (REF) | payer MEDICARE, MEDICAID, SELFPAY | END 2023-12-01 11:29 | disposition home or self-care (01) | LOC: HO.MAMMO 11:28 | PROVIDERS: PCP Internal Medicine Geriatric Medicine; Visit Provider Internal Medicine Geriatric Medicine | DX: Z12.31 Encounter for screening mammogram for malignant neoplasm of breast (principal) | CPT/HCPCS: 77063; 77067 ==

== ENCOUNTER → 2023-12-01 12:00 | Outpatient (BNV) | payer MEDICARE, MEDICAID, SELFPAY | PROVIDERS: PCP Internal Medicine Geriatric Medicine; Visit Provider Radiology Diagnostic Radiology | DX: Z12.31 Encounter for screening mammogram for malignant neoplasm of breast (principal) | CPT/HCPCS: 77063; 77067 ==

== ENCOUNTER 2023-12-17 07:44 | Outpatient (REF) | payer MEDICARE, MEDICAID, SELFPAY ==
[2023-12-24 18:59] LABS: HPV mRNA E6/E7 rflx Not Detected (Not Detected)
== END 2023-12-17 07:45 | disposition home or self-care (01) ==
LOC: HO.LNP 07:44
PROVIDERS: Visit Provider Advanced Practice Midwife
DX: Z12.4 Encounter for screening for malignant neoplasm of cervix (principal); Z11.51 Encounter for screening for human papillomavirus (HPV); Z78.0 Asymptomatic menopausal state
CPT/HCPCS: 87624; 88142

== ENCOUNTER 2023-12-30 08:02 | Outpatient (REF) | payer MEDICARE, MEDICAID, SELFPAY ==
[2023-12-30 11:20] LABS: Creatinine Urine 93.51 mg/dL; Protein/Creatinine Ratio, Ur 0.09 (<0.2); Total Protein Urine Random 8 mg/dL (<12)
== END 2023-12-30 08:03 | disposition home or self-care (01) ==
LOC: HO.LNP 08:02
PROVIDERS: Visit Provider Internal Medicine Nephrology
DX: I10 Essential (primary) hypertension (principal)
CPT/HCPCS: 82570; 84156

== ENCOUNTER 2024-01-07 10:27 | Outpatient (AMB) | payer MEDICARE, MEDICAID, SELFPAY ==
--- NOTE | 2024-01-07 10:35 | HO.NEPHOV_ITS ---
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 She has lost a lot of weight. She had discontinued losartan when her blood pressure was running low. Currently she is only on amlodipine and hydrochlorothiazide. She does not have any chest pain, shortness of breath, paroxysmal nocturnal dyspnea, orthopnea, pedal edema, fever or urinary symptoms. She does not take any ckud-woz-mjutfws medications. Her BP has been labile. [facility] Medical History Asthma exacerbation GERD (gastroesophageal reflux disease) Diabetic nephropathy Hypertension LUCINDA (obstructive sleep apnea) Bilateral primary osteoarthritis of knee Kidney problem Fibromyalgia Right knee pain Carpal tunnel syndrome Morbid obesity Depression Anxiety Asthma Type 2 diabetes mellitus Dyspepsia Hypertriglyceridemia Bursitis, subacromial Surgical History History of carpal tunnel release of both wrists S/P laparoscopic sleeve gastrectomy S/P cardiac cath Family History Mother No problems noted. Father No problems noted. Social History Household Members: Family Household Members Other:: niece Housing: Apartment Are you a primary occasional caregiver to a significant other at home: No Do you presently have visiting nurse or other home services: No Alcohol intake: never Patient Tobacco Use Status: Never used Tobacco service: No Current occupational status: unemployed Current occupation: right handed Physical Exam Vital Signs: Last Vital Signs Pulse 52 01/07/24 10:36 BP 122/70 01/07/24 10:36 Pulse Ox 99 01/07/24 10:36 Oxygen Delivery Method Room Air 01/07/24 10:36 BMI result Body Mass Index 37.0 Const General: comfortable and no acute distress Orientation/consciousness: patient oriented x3 HEENT Head: Yes normocephalic Mouth: Normal oral and palatal mucosa present Eyes EOM: EOMs intact bilaterally Neck Neck: Yes supple Resp Auscultation: clear to auscultation bilaterally Cardio Jugular venous distension: no JVD Rate: regular rate GI Palpation (GI): Soft to palpation Auscultation: normal bowel sounds General: Yes no CVA tenderness Back/Spine/Pelvis Back: no CVA tenderness Skin General skin exam: no rashes or lesions noted Neuro General: patient oriented x3 and moves all extremities Extrem General: Yes no pedal edema Results Reviewed Nephrology Results: Sodium 141 mmol/L (135-145) 10/28/23 Potassium 4.6 mmol/L (3.3-5.1) 10/28/23 Chloride 104 mmol/L (96-108) 10/28/23 Carbon Dioxide 29 mmol/L (22-29) 10/28/23 BUN 16 mg/dL (9-16) 10/28/23 Creatinine 0.68 mg/dL (0.5-1.4) 10/28/23 Calcium 9.9 mg/dL (8.4-10.2) 10/28/23 Urine Creatinine 93.51 mg/dL 12/30/23 Protein/Creatinin Ratio 0.09 (<0.2) 12/30/23 Assessment & Plan Assessment & Plan (1) Hypertension: Code(s): I10 - Essential (primary) hypertension Category: Medical Qualifiers: Hypertension type: primary hypertension Qualified Code(s): I10 - Essential (primary) hypertension (2) Proteinuria: Code(s): R80.9 - Proteinuria, unspecified Category: Medical Qualifiers: Proteinuria type: other Qualified Code(s): R80.8 - Other proteinuria Plan Angela has longstanding hypertension. She had been on angiotensin receptor mayur in the past. Currently she is on amlodipine and hydrochlorothiazide. I discontinued her HCTZ. I started her on losartan 25 mg to be taken at night. I plan to increase losartan and D/C Amlodipine with time. She has no significant detectable proteinuria. Her renal functions are normal. All her and her niece's questions were answered. Follow-up appointment given. Medications: New losartan 25 mg PO DAILY 30 tabs 3RF Coding Level of Care Code Est Pt Level 4 (93541) Diagnoses Primary hypertension I10 Hypertension type: primary hypertension Other proteinuria R80.8 Proteinuria type: other
[2024-01-07 10:36] VITALS: BP 122/70; PULSE 52; O2SAT 99; BMI 37.0
== END 2024-01-07 10:56 | disposition home or self-care (01) ==
PROVIDERS: PCP Internal Medicine Geriatric Medicine; Visit Provider Internal Medicine Nephrology
DX: I10 Essential (primary) hypertension (principal); R80.8 Other proteinuria
CPT/HCPCS: 99214

== ENCOUNTER → 2024-01-07 10:27 | Outpatient (BNVA) | payer MEDICARE, MEDICAID, SELFPAY | PROVIDERS: PCP Internal Medicine Geriatric Medicine; Visit Provider Internal Medicine Nephrology | DX: I10 Essential (primary) hypertension (principal); R80.8 Other proteinuria | CPT/HCPCS: 99212 ==

== ENCOUNTER 2024-01-11 10:51 | Outpatient (AMB) | payer MEDICARE, MEDICAID, SELFPAY ==
--- NOTE | 2024-01-11 10:53 | A.OFFVIS_ITS ---
VS Expanded 01/11/24 11:00 BP 161/71 H Blood Pressure Location Rt brachial Blood Pressure Position Sitting Pulse 66 Pulse Source Pulse Oximeter Temp 96.5 F L Temperature Source Tympanic Pulse Oximetry 99 Oxygen Delivery Method Room Air Height 4 ft 11 in Weight 178 lb BMI 35.9 Body Fat % 37.3 Body Fat Mass 66.4 Fat Free Mass 111.6 Visceral Fat Rating 11.0 Body Water % 44.5 Body Water Mass 79.2 Basal Metabolic Rate/Score 1,517 Intake Visit Reasons: OV PO LSG 02/03/23 Allergies canagliflozin [Invokana] Allergy (Severe, Verified 01/11/24 11:09) chest tightness lisinopril [LISINOPRIL] Allergy (Severe, Verified 01/11/24 11:09) sweating, rash, difficulty breathing, cough oxycodone Allergy (Intermediate, Verified 01/11/24 11:09) vomiting/GI cramping Medication List - Last Reconciled 01/11/24 by JANET Negro albuterol sulfate 2.5 mg inhalation Q6H PRN albuterol sulfate 90 mcg/actuation 2 puffs inhalation Q6H PRN amitriptyline 50 mg BEDTIME amlodipine 10 mg PO DAILY aspirin 81 mg DAILY bupropion HCl XL 300 mg PO QAM cholecalciferol (vitamin D3) (Vitamin D3) 25 mcg PO DAILY cyanocobalamin (vitamin B-12) 250 mcg PO DAILY fluticasone propionate 50 mcg/actuation 2 sprays intranasal DAILY qvuxampkjud-vvtalgpoi-jxqsclbf 200-62.5-25 mcg (Trelegy Ellipta) 1 ea inhalation DAILY hydrocodone-acetaminophen 5-325 mg 1 tab PO Q4-6H PRN lidocaine 5% 1 patch topical DAILY loratadine 10 mg DAILY losartan 25 mg PO DAILY meclizine 12.5 mg PO BID PRN montelukast 10 mg PO DAILY 90 days nebulizers As directed ondansetron HCl 4 mg PO Q6H PRN pantoprazole 40 mg PO DAILY rosuvastatin 5 mg DAILY trazodone 50 - 100 mg PO BEDTIME PRN triamcinolone acetonide 0.1% 1 appl topical BID HPI Comments Details: This?a?58?yo female who is s/p LSG without hiatal hernia repair on?02/03/[address] Kc and laparoscopic cholecystectomy on 12/7/[address] Santo. Presents for 11 month post op visit. Her weight today is 178 pounds, with a BMI of 36.? There has been a 94.4 pound weight loss,(initial weight 272.4 pounds) since starting the program on 09/19/21 reflecting a 34.6% total body weight loss and a weight loss of 56.5 pounds since surgery (operative weight 234.5 pounds) reflecting a 24% TBWL since surgery.? Mild constipation improved with senna She states she is doing well. She stopped taking her multivitamin because she felt it got stuck and caused nausea Present meal plan includes: 1 celebrate 4:1 w 2 scoop w 8 oz almond milk, 8-10am yogurt or zp bar Meal 6 forks, 6 forks, 6 pm Exercise plan: Walking on treadmill 5 days per week 300 joaquim Advised to take a celebrate multivitamin, 1 tablet 4 times per week. [facility] Medical History Asthma exacerbation GERD (gastroesophageal reflux disease) Diabetic nephropathy Hypertension LUCINDA (obstructive sleep apnea) Bilateral primary osteoarthritis of knee Kidney problem Fibromyalgia Right knee pain Carpal tunnel syndrome Morbid obesity Depression Anxiety Asthma Type 2 diabetes mellitus Dyspepsia Hypertriglyceridemia Bursitis, subacromial Surgical History History of carpal tunnel release of both wrists S/P laparoscopic sleeve gastrectomy S/P cardiac cath Family History Mother No problems noted. Father No problems noted. Social History Household Members: Family Household Members Other:: niece Housing: Apartment Are you a primary career development specialist to a significant other at home: No Do you presently have visiting nurse or other home services: No Alcohol intake: never Patient Tobacco Use Status: Never used Tobacco service: No Current occupational status: unemployed Current occupation: right handed Physical Exam Const General: healthy appearing and no acute distress Resp Effort & Inspection: normal respiratory effort Auscultation: clear to auscultation bilaterally Cardio Rate: regular rate Rhythm: regular rhythm GI Auscultation: normal bowel sounds Extrem General: Yes normal to inspection Assessment & Plan Assessment & Plan (1) Obesity (BMI 30-39.9): Code(s): E66.9 - Obesity, unspecified Category: Medical Plan: Encouraged to increase her exercise to 400 calories daily, 6 days a week. She may discontinue the celebrate multivitamin. She will get bariatric fusion, multivitamin, chewable, two gummies daily and a calcium, 1 daily. Return to the office in 1 month for her 1 year follow-up appointment. Check labs at that time.
[2024-01-11 11:00] VITALS: BP 161/71; PULSE 66; TEMP 35.8; O2SAT 99; BMI 35.9
== END 2024-01-11 11:16 | disposition home or self-care (01) ==
PROVIDERS: PCP Internal Medicine Geriatric Medicine; Visit Provider Physician Assistant Surgical
DX: E66.9 Obesity, unspecified (principal); Z68.35 Body mass index [BMI] 35.0-35.9, adult; Z90.3 Acquired absence of stomach [part of]; Z98.84 Bariatric surgery status
CPT/HCPCS: 99213

== ENCOUNTER → 2024-01-11 10:51 | Outpatient (BNVA) | payer MEDICARE, MEDICAID, SELFPAY | PROVIDERS: PCP Internal Medicine Geriatric Medicine; Visit Provider Physician Assistant Surgical | DX: E66.9 Obesity, unspecified (principal); Z68.35 Body mass index [BMI] 35.0-35.9, adult | CPT/HCPCS: 99212 ==

== ENCOUNTER 2024-01-21 10:49 | Outpatient (AMB) | payer MEDICARE, MEDICAID, SELFPAY ==
[2024-01-21 10:53] VITALS: BP 114/60; PULSE 63; O2SAT 96; BMI 36.6
--- NOTE | 2024-01-21 10:53 | HO.NEPHOV ---
Vital Signs 01/21/24 10:53 Height 4 ft 11 in Weight 181 lb 6 oz BMI 36.6 BP 114/60 Blood Pressure Location Lt brachial Position Sitting Pulse 63 Pulse Source Pulse Oximeter Pulse Oximetry (%) 96 Oxygen Delivery Method Room Air Intake Visit Reasons: 2 wks follow up/ Confirmed Cryptographic Center Specialist Required: Yes Cryptographic Center Specialist Name: Dorys Brady Information Interpreted: clinical only Accompanied by: Nephew or Niece Allergies canagliflozin [Invokana] Allergy (Severe, Verified 01/21/24 10:55) chest tightness lisinopril [LISINOPRIL] Allergy (Severe, Verified 01/21/24 10:55) sweating, rash, difficulty breathing, cough oxycodone Allergy (Intermediate, Verified 01/21/24 10:55) vomiting/GI cramping HPI Comments Details: I had the privilege of seeing Angela in follow-up of her hypertension and proteinuria. She has lost a lot of weight. She had discontinued losartan when her blood pressure was running low. Currently she is only on amlodipine and hydrochlorothiazide. She does not have any chest pain, shortness of breath, paroxysmal nocturnal dyspnea, orthopnea, pedal edema, fever or urinary symptoms. She does not take any eklc-psw-nilqdek medications. Her BP has been labile. [facility] Medical History Asthma exacerbation GERD (gastroesophageal reflux disease) Diabetic nephropathy Hypertension LUCINDA (obstructive sleep apnea) Bilateral primary osteoarthritis of knee Kidney problem Fibromyalgia Right knee pain Carpal tunnel syndrome Morbid obesity Depression Anxiety Asthma Type 2 diabetes mellitus Dyspepsia Hypertriglyceridemia Bursitis, subacromial Surgical History History of carpal tunnel release of both wrists S/P laparoscopic sleeve gastrectomy S/P cardiac cath Family History Mother No problems noted. Father No problems noted. Social History Household Members: Family Household Members Other:: niece Housing: Apartment Are you a primary multi care technician to a significant other at home: No Do you presently have visiting nurse or other home services: No Alcohol intake: never Patient Tobacco Use Status: Never used Tobacco service: No Current occupational status: unemployed Current occupation: right handed Physical Exam Vital Signs: Last Vital Signs Pulse 63 01/21/24 10:53 BP 114/60 01/21/24 10:53 Pulse Ox 96 01/21/24 10:53 Oxygen Delivery Method Room Air 01/21/24 10:53 BMI result Body Mass Index 36.6 Const General: comfortable and no acute distress Orientation/consciousness: patient oriented x3 HEENT Head: Yes normocephalic Mouth: Normal oral and palatal mucosa present Eyes EOM: EOMs intact bilaterally Neck Neck: Yes supple Resp Auscultation: clear to auscultation bilaterally Cardio Jugular venous distension: no JVD Rate: regular rate GI Palpation (GI): Soft to palpation Auscultation: normal bowel sounds General: Yes no CVA tenderness Back/Spine/Pelvis Back: no CVA tenderness Skin General skin exam: no rashes or lesions noted Neuro General: patient oriented x3 and moves all extremities Extrem General: Yes no pedal edema Results Reviewed Nephrology Results: Sodium 141 mmol/L (135-145) 10/28/23 Potassium 4.6 mmol/L (3.3-5.1) 10/28/23 Chloride 104 mmol/L (96-108) 10/28/23 Carbon Dioxide 29 mmol/L (22-29) 10/28/23 BUN 16 mg/dL (9-16) 10/28/23 Creatinine 0.68 mg/dL (0.5-1.4) 10/28/23 Calcium 9.9 mg/dL (8.4-10.2) 10/28/23 Urine Creatinine 93.51 mg/dL 12/30/23 Protein/Creatinin Ratio 0.09 (<0.2) 12/30/23 Assessment & Plan Assessment & Plan (1) Proteinuria: Code(s): R80.9 - Proteinuria, unspecified Category: Medical Qualifiers: Proteinuria type: other Qualified Code(s): R80.8 - Other proteinuria (2) Hypertension: Code(s): I10 - Essential (primary) hypertension Category: Medical Qualifiers: Hypertension type: primary hypertension Qualified Code(s): I10 - Essential (primary) hypertension Plan Angela has longstanding hypertension. She had been on angiotensin receptor mayur in the past. Currently she is on amlodipine and hydrochlorothiazide. I discontinued her HCTZ at the last visit. I reduced her Amlodipine to 5 mg and increased her losartan to 50 mg to be taken at night. I plan to increase losartan and D/C Amlodipine with time. She has no significant detectable proteinuria. Her renal functions are normal. All her and her niece's questions were answered. Follow-up appointment given. Coding Level of Care Code Est Pt Level 4 (30190) Diagnoses Other proteinuria R80.8 Proteinuria type: other Primary hypertension I10 Hypertension type: primary hypertension
== END 2024-01-21 11:16 | disposition home or self-care (01) ==
PROVIDERS: PCP Internal Medicine Geriatric Medicine; Visit Provider Internal Medicine Nephrology
DX: R80.8 Other proteinuria (principal); I10 Essential (primary) hypertension
CPT/HCPCS: 99214

== ENCOUNTER → 2024-01-21 10:49 | Outpatient (BNVA) | payer MEDICARE, MEDICAID, SELFPAY | PROVIDERS: PCP Internal Medicine Geriatric Medicine; Visit Provider Internal Medicine Nephrology | DX: R80.8 Other proteinuria (principal); I10 Essential (primary) hypertension; Z79.899 Other long term (current) drug therapy | CPT/HCPCS: 99212 ==

== ENCOUNTER 2024-02-13 07:02 | Outpatient (REF) | payer MEDICARE, MEDICAID, SELFPAY ==
[2024-02-13 08:35] LABS: Anion Gap 11 (12-20); Blood Urea Nitrogen 14 mg/dL (9-16); Carbon Dioxide 30 mmol/L (22-29); Chloride 106 mmol/L (96-108); Estimated Glomerular Filt Rate > 60; Potassium 4.3 mmol/L (3.3-5.1); Sodium 143 mmol/L (135-145)
== END 2024-02-13 07:03 | disposition home or self-care (01) ==
LOC: HO.LAB 07:02
PROVIDERS: PCP Internal Medicine Geriatric Medicine; Visit Provider Internal Medicine Nephrology
DX: R80.8 Other proteinuria (principal); I10 Essential (primary) hypertension
CPT/HCPCS: 36415; 80051; 82565; 84520

== ENCOUNTER 2024-02-16 11:49 | Outpatient (AMB) | payer MEDICARE, MEDICAID, SELFPAY ==
--- NOTE | 2024-02-16 11:57 | HO.NEPHOV_ITS ---
Vital Signs 02/16/24 12:24 Height 4 ft 11 in Weight 183 lb 2 oz BMI 37.0 BP 114/70 Blood Pressure Location Lt brachial Position Sitting Pulse 62 Pulse Source Pulse Oximeter Pulse Oximetry (%) 96 Oxygen Delivery Method Room Air Intake Visit Reasons: 3 wks follow up/ LVM Intake Note: Regional Clinical Director services refused, refusal form signed and scanned into chart. Regional Clinical Director Required: Yes Regional Clinical Director Name: Dorys Brady (Niece) Accompanied by: Nephew or Niece Allergies canagliflozin [Invokana] Allergy (Severe, Verified 02/16/24 12:26) chest tightness lisinopril [LISINOPRIL] Allergy (Severe, Verified 02/16/24 12:26) sweating, rash, difficulty breathing, cough oxycodone Allergy (Intermediate, Verified 02/16/24 12:26) vomiting/GI cramping HPI Comments Details: Angela was seen in follow-up of her hypertension and proteinuria. She has lost a lot of weight. She had discontinued losartan when her blood pressure was running low. Currently she is only on amlodipine and hydrochlorothiazide. She does not have any chest pain, shortness of breath, paroxysmal nocturnal dyspnea, orthopnea, pedal edema, fever or urinary symptoms. She does not take any efbq-wwn-jeyehry medications. Her BP had been labile but better. [facility] Medical History Asthma exacerbation GERD (gastroesophageal reflux disease) Diabetic nephropathy Hypertension LUCINDA (obstructive sleep apnea) Bilateral primary osteoarthritis of knee Kidney problem Fibromyalgia Right knee pain Carpal tunnel syndrome Morbid obesity Depression Anxiety Asthma Type 2 diabetes mellitus Dyspepsia Hypertriglyceridemia Bursitis, subacromial Surgical History History of carpal tunnel release of both wrists S/P laparoscopic sleeve gastrectomy S/P cardiac cath Family History Mother No problems noted. Father No problems noted. Social History Household Members: Family Household Members Other:: niece Housing: Apartment Are you a primary patient care coordinator to a significant other at home: No Do you presently have visiting nurse or other home services: No Alcohol intake: never Patient Tobacco Use Status: Never used Tobacco service: No Current occupational status: unemployed Current occupation: right handed Physical Exam Vital Signs: Last Vital Signs Pulse 62 02/16/24 12:24 BP 114/70 02/16/24 12:24 Pulse Ox 96 02/16/24 12:24 Oxygen Delivery Method Room Air 02/16/24 12:24 BMI result Body Mass Index 37.0 Const General: comfortable and no acute distress Orientation/consciousness: patient oriented x3 HEENT Head: Yes normocephalic Mouth: Normal oral and palatal mucosa present Eyes EOM: EOMs intact bilaterally Neck Neck: Yes supple Resp Auscultation: clear to auscultation bilaterally Cardio Jugular venous distension: no JVD Rate: regular rate GI Palpation (GI): Soft to palpation Auscultation: normal bowel sounds General: Yes no CVA tenderness Back/Spine/Pelvis Back: no CVA tenderness Skin General skin exam: no rashes or lesions noted Neuro General: patient oriented x3 and moves all extremities Extrem General: Yes no pedal edema Results Reviewed Nephrology Results: Sodium 143 mmol/L (135-145) 02/13/24 Potassium 4.3 mmol/L (3.3-5.1) 02/13/24 Chloride 106 mmol/L (96-108) 02/13/24 Carbon Dioxide 30 mmol/L (22-29) H 02/13/24 BUN 14 mg/dL (9-16) 02/13/24 Creatinine 0.73 mg/dL (0.5-1.4) 02/13/24 Urine Creatinine 93.51 mg/dL 12/30/23 Protein/Creatinin Ratio 0.09 (<0.2) 12/30/23 Assessment & Plan Assessment & Plan (1) Proteinuria: Code(s): R80.9 - Proteinuria, unspecified Category: Medical Qualifiers: Proteinuria type: other Qualified Code(s): R80.8 - Other proteinuria (2) Hypertension: Code(s): I10 - Essential (primary) hypertension Category: Medical Qualifiers: Hypertension type: primary hypertension Qualified Code(s): I10 - Essential (primary) hypertension Plan Angela has longstanding hypertension. She had been on angiotensin receptor mayur in the past. Currently she is on amlodipine and hydrochlorothiazide. I discontinued her HCTZ at the last visit. I discontinued her Amlodipine and increased her losartan to 75 mg to be taken at night. She has no significant detectable proteinuria. Her renal functions are normal. All her and her niece's questions were answered. Follow-up appointment given. Orders: Orders Blood Urea Nitrogen Today I10 - Essential (primary) hypertension, R80.8 - Other proteinuria Electrolytes Today I10 - Essential (primary) hypertension, R80.8 - Other proteinuria Creatinine Today I10 - Essential (primary) hypertension, R80.8 - Other proteinuria Medications: Changed From losartan 25 mg PO DAILY 30 tabs 3RF To losartan 75 mg (1.5 x 50 mg) PO DAILY 30 days 45 tabs 3RF Coding Level of Care Code Est Pt Level 4 (13243) Diagnoses Other proteinuria R80.8 Proteinuria type: other Primary hypertension I10 Hypertension type: primary hypertension
[2024-02-16 12:24] VITALS: BP 114/70; PULSE 62; O2SAT 96; BMI 37.0
== END 2024-02-16 12:42 | disposition home or self-care (01) ==
PROVIDERS: PCP Internal Medicine Geriatric Medicine; Visit Provider Internal Medicine Nephrology
DX: R80.8 Other proteinuria (principal); I10 Essential (primary) hypertension
CPT/HCPCS: 99214

== ENCOUNTER → 2024-02-16 11:49 | Outpatient (BNVA) | payer MEDICARE, MEDICAID, SELFPAY | PROVIDERS: PCP Internal Medicine Geriatric Medicine; Visit Provider Internal Medicine Nephrology | DX: R80.8 Other proteinuria (principal); I10 Essential (primary) hypertension | CPT/HCPCS: 99212 ==

== ENCOUNTER 2024-03-07 15:07 | Outpatient (AMB) | payer MEDICARE, MEDICAID, SELFPAY ==
--- NOTE | 2024-03-07 15:08 | A.OFFVIS_ITS ---
VS Expanded 03/07/24 15:14 BP 156/68 H Blood Pressure Location Rt brachial Blood Pressure Position Sitting Pulse 66 Pulse Source Pulse Oximeter Temp 96.8 F Temperature Source Tympanic Pulse Oximetry 95 Oxygen Delivery Method Room Air Height 4 ft 11 in Weight 180 lb 9.6 oz BMI 36.5 Body Fat % 36.9 Body Fat Mass 66.6 Fat Free Mass 114.0 Visceral Fat Rating 11.0 Body Water % 44.7 Body Water Mass 80.6 Muscle Mass/Score 108.2 Basal Metabolic Rate/Score 1,547 Intake Visit Reasons: OV PO LSG 02/03/23 Allergies canagliflozin [Invokana] Allergy (Severe, Verified 03/07/24 15:16) chest tightness lisinopril [LISINOPRIL] Allergy (Severe, Verified 03/07/24 15:16) sweating, rash, difficulty breathing, cough oxycodone Allergy (Intermediate, Verified 03/07/24 15:16) vomiting/GI cramping Medication List - Last Reconciled 03/07/24 by JANET Negro albuterol sulfate 2.5 mg inhalation Q6H PRN albuterol sulfate 90 mcg/actuation 2 puffs PO Q6H PRN amitriptyline 50 mg BEDTIME aspirin 81 mg DAILY bupropion HCl XL 300 mg PO QAM cetirizine 10 mg PO DAILY cholecalciferol (vitamin D3) (Vitamin D3) 25 mcg PO DAILY cyanocobalamin (vitamin B-12) 250 mcg PO DAILY fluticasone propionate 50 mcg/actuation 2 sprays intranasal DAILY [id number]-pxvzuitgd-tgrrakdq 200-62.5-25 mcg (Trelegy Ellipta) 1 ea inhalation DAILY hydrocodone-acetaminophen 5-325 mg 1 tab PO Q4-6H PRN lidocaine 5% 1 patch topical DAILY loratadine 10 mg DAILY losartan 75 mg (1.5 x 50 mg) PO DAILY 30 days meclizine 12.5 mg PO BID PRN montelukast 10 mg PO DAILY 90 days nebulizers As directed ondansetron HCl 4 mg PO Q6H PRN rosuvastatin 5 mg DAILY trazodone 50 - 100 mg PO BEDTIME PRN triamcinolone acetonide 0.1% 1 appl topical BID HPI Comments Details: This?a?58?yo female who is s/p LSG without hiatal hernia repair on?02/03/[address] Kc and laparoscopic cholecystectomy on 08/13/[address] Santo. Presents for 1year 1 month post op visit. Her weight today is 180.6 pounds, with a BMI of 36.5.? There has been a 91.8 pound weight loss,(initial weight 272.4 pounds) since starting the program on 09/19/21 reflecting a 33.7% total body weight loss and a weight loss of 53.9 pounds since surgery (operative weight 234.5 pounds) reflecting a 22.9% TBWL since surgery.? Mild constipation improved with senna She states she is doing well. Rheumatology did right knee injection for OA. Present meal plan includes: 1 celebrate 4:1 w 1 scoop w 8 oz almond milk, 8-10am, 1-3 pm yogurt or zp bar Meal 6 forks, 6 forks, 6 pm Exercise plan: none for 1 month but restarted 6 weeks ago Walking on treadmill 7 days per week 400 joaquim Advised to take a celebrate multivitamin, 1 tablet 4 times per week. Any post op complications: none LUCINDA: improveed DM: resolved HTN: improved Hyperlipidemia: improved GERD:?0-5 scale ??0 = no symptoms ??1 = symptoms noticeable but not bothersome 2 =symptoms bothersome but not daily ? 3 = symptoms bothersome and daily 4 = symptoms affect daily activities 5 = symptoms are incapacitating, unable to do daily activities ? How bad is the heartburn: 1 ? Heartburn while lying down: 0 ? Heartburn when standing up: 0 ? Heartburn after meals: 0 ? Does heartburn change your diet: 0 ? Does heartburn wake you up from sleep: 0 ? Do you have difficulty swallowin ? Do you have pain with swallowin ? If you take medicine for your reflux, does this affect your daily life: 0 Satisfaction with present condition - satisfied or not satisfied: satisfied [facility] Medical History Asthma exacerbation GERD (gastroesophageal reflux disease) Diabetic nephropathy Hypertension LUCINDA (obstructive sleep apnea) Bilateral primary osteoarthritis of knee Kidney problem Fibromyalgia Right knee pain Carpal tunnel syndrome Morbid obesity Depression Anxiety Asthma Type 2 diabetes mellitus Dyspepsia Hypertriglyceridemia Bursitis, subacromial Surgical History History of carpal tunnel release of both wrists S/P laparoscopic sleeve gastrectomy S/P cardiac cath Family History Mother No problems noted. Father No problems noted. Social History Household Members: Family Household Members Other:: niece Housing: Apartment Are you a primary healthcare administration internship to a significant other at home: No Do you presently have visiting nurse or other home services: No Alcohol intake: never Patient Tobacco Use Status: Never used Tobacco service: No Current occupational status: unemployed Current occupation: right handed Physical Exam Const General: cooperative and no acute distress Orientation/consciousness: patient oriented x3 Resp Effort & Inspection: normal respiratory effort Auscultation: clear to auscultation bilaterally Cardio Rate: regular rate Rhythm: regular rhythm GI Inspection: Yes normal to inspection and Yes incision (well healed) Palpation (GI): Soft to palpation and no masses Neuro General: patient oriented x3 Assessment & Plan Assessment & Plan (1) S/P laparoscopic sleeve gastrectomy: Code(s): Z98.84 - Bariatric surgery status Category: Surgical Plan: Recommend the patient return to exercising 7 days a week now that she has had a shot by rheumatology for her arthritis in her right knee. She will continue to follow her meal plan. We will check 1 year postop labs. Continue communication by text. Return to the office 2 months Orders: Orders Lipid Panel Today E11.9 - Type 2 diabetes mellitus without complications, E66.9 - Obesity, unspecified, E78.1 - Pure hyperglyceridemia, I10 - Essential (primary) hypertension, Z98.84 - Bariatric surgery status Comprehensive Met. Panel Today E11.9 - Type 2 diabetes mellitus without complic ations, E66.9 - Obesity, unspecified, E78.1 - Pure hyperglyceridemia, I10 - Essential (primary) hypertension, Z98.84 - Bariatric surgery status Zinc Today E11.9 - Type 2 diabetes mellitus without complications, E66.9 - Obesity, unspecified, E78.1 - Pure hyperglyceridemia, I10 - Essential (primary) hypertension, Z98.84 - Bariatric surgery status Ferritin Today E11.9 - Type 2 diabetes mellitus without complications, E66.9 - Obesity, unspecified, E78.1 - Pure hyperglyceridemia, I10 - Essential (primary) hypertension, Z98.84 - Bariatric surgery status Vitamin D 25-OH Total Today E11.9 - Type 2 diabetes mellitus without complications, E66.9 - Obesity, unspecified, E78.1 - Pure hyperglyceridemia, I10 - Essential (primary) hypertension, Z98.84 - Bariatric surgery status Insulin Today E11.9 - Type 2 diabetes mellitus without complications, E66.9 - Obesity, unspecified, E78.1 - Pure hyperglyceridemia, I10 - Essential (primary) hypertension, Z98.84 - Bariatric surgery status Hemoglobin A1c Today E11.9 - Type 2 diabetes mellitus without complications, E66.9 - Obesity, unspecified, E78.1 - Pure hyperglyceridemia, I10 - Essential (primary) hypertension, Z98.84 - Bariatric surgery status Complete Blood Count Auto Diff Today E11.9 - Type 2 diabetes mellitus without complications, E66.9 - Obesity, unspecified, E78.1 - Pure hyperglyceridemia, I10 - Essential (primary) hypertension, Z98.84 - Bariatric surgery status IRON PROFILE Today E11.9 - Type 2 diabetes mellitus without complications, E66.9 - Obesity, unspecified, E78.1 - Pure hyperglyceridemia, I10 - Essential (primary) hypertension, Z98.84 - Bariatric surgery status Vitamin B12 and Folate Today E11.9 - Type 2 diabetes mellitus without complications, E66.9 - Obesity, unspecified, E78.1 - Pure hyperglyceridemia, I10 - Essential (primary) hypertension, Z98.84 - Bariatric surgery status C Reactive Protein Today E11.9 - Type 2 diabetes mellitus without complications, E66.9 - Obesity, unspecified, E78.1 - Pure hyperglyceridemia, I10 - Essential (primary) hypertension, Z98.84 - Bariatric surgery status Vitamin B1 Today E11.9 - Type 2 diabetes mellitus without complications, E66.9 - Obesity, unspecified, E78.1 - Pure hyperglyceridemia, I10 - Essential (primary) hypertension, Z98.84 - Bariatric surgery status Vitamin A Today E11.9 - Type 2 diabetes mellitus without complications, E66.9 - Obesity, unspecified, E78.1 - Pure hyperglyceridemia, I10 - Essential (primary) hypertension, Z98.84 - Bariatric surgery status TSH reflex Free T4 Today E11.9 - Type 2 diabetes mellitus without complications, E66.9 - Obesity, unspecified, E78.1 - Pure hyperglyceridemia, I10 - Essential (primary) hypertension, Z98.84 - Bariatric surgery status
[2024-03-07 15:14] VITALS: BP 156/68; PULSE 66; TEMP 36; O2SAT 95; BMI 36.5
== END 2024-03-07 15:35 | disposition home or self-care (01) ==
PROVIDERS: PCP Internal Medicine Geriatric Medicine; Visit Provider Physician Assistant Surgical
DX: E66.09 Other obesity due to excess calories (principal); Z68.36 Body mass index [BMI] 36.0-36.9, adult; Z90.3 Acquired absence of stomach [part of]; Z98.84 Bariatric surgery status
CPT/HCPCS: 99213

== ENCOUNTER → 2024-03-07 15:07 | Outpatient (BNVA) | payer MEDICARE, MEDICAID, SELFPAY | PROVIDERS: PCP Internal Medicine Geriatric Medicine; Visit Provider Physician Assistant Surgical | DX: E66.9 Obesity, unspecified (principal); E11.9 Type 2 diabetes mellitus without complications; E78.1 Pure hyperglyceridemia; I10 Essential (primary) hypertension; Z71.3 Dietary counseling and surveillance; Z98.84 Bariatric surgery status | CPT/HCPCS: 99212 ==

== ENCOUNTER 2024-03-21 11:22 | Outpatient (AMB) | payer MEDICARE, MEDICAID, SELFPAY ==
--- NOTE | 2024-03-21 11:25 | A.OFFVIS_ITS ---
Vital Signs 03/21/24 11:26 Height 4 ft 11 in Weight 184 lb 11.958 oz BMI 37.3 BP 130/60 Blood Pressure Location Lt brachial Position Sitting Pulse 56 Pulse Source Monitor Intake Visit Reasons: 6 month fu Intake Note: 6mth f/up/ pt is doing fine. Stencil Cutter Required: Yes Stencil Cutter Name: Ileidys/ neice/swedish Accompanied by: Nephew or Niece Allergies canagliflozin [Invokana] Allergy (Severe, Verified 03/07/24 15:16) chest tightness lisinopril [LISINOPRIL] Allergy (Severe, Verified 03/07/24 15:16) sweating, rash, difficulty breathing, cough oxycodone Allergy (Intermediate, Verified 03/07/24 15:16) vomiting/GI cramping Medication List - Last Reconciled 03/21/24 by Denis Moore MD albuterol sulfate 2.5 mg inhalation Q6H PRN albuterol sulfate 90 mcg/actuation 2 puffs PO Q6H PRN amitriptyline 50 mg BEDTIME aspirin 81 mg DAILY bupropion HCl XL 300 mg PO QAM cetirizine 10 mg PO DAILY cholecalciferol (vitamin D3) (Vitamin D3) 25 mcg PO DAILY cyanocobalamin (vitamin B-12) 250 mcg PO DAILY fluticasone propionate 50 mcg/actuation 2 sprays intranasal DAILY [id number]-wrzxvjnuh-ftnyeylr 200-62.5-25 mcg (Trelegy Ellipta) 1 ea inhalation DAILY hydrocodone-acetaminophen 5-325 mg 1 tab PO Q4-6H PRN lidocaine 5% 1 patch topical DAILY loratadine 10 mg DAILY losartan 75 mg (1.5 x 50 mg) PO DAILY 30 days meclizine 12.5 mg PO BID PRN montelukast 10 mg PO DAILY 90 days nebulizers As directed ondansetron HCl 4 mg PO Q6H PRN rosuvastatin 5 mg DAILY trazodone 50 - 100 mg PO BEDTIME PRN triamcinolone acetonide 0.1% 1 appl topical BID HPI Comments Details: 58-year-old female who is here for follow-up. She has background history of asthma. She had exertional chest discomfort and underwent Lexiscan the past which was normal. She continued to have exertional chest discomfort and we discussed about coronary CTA versus diagnostic angiography and she wished to pursue angiography. She was taken for cardiac catheterization and underwent angiography from right ulnar artery approach because right radial artery was too small. This showed no significant coronary disease. Her blood pressure was elevated and we added hydrochlorothiazide to her regimen. She is back for follow-up today. Blood pressure control is much better. 03/21/2024: She returns for follow-up. She has been doing well. Denying chest discomfort or shortness of breath. Blood pressure is well controlled on losartan 75 mg daily. She is following with Nephrology closely. [facility] Medical History Asthma exacerbation GERD (gastroesophageal reflux disease) Diabetic nephropathy Hypertension LUCINDA (obstructive sleep apnea) Bilateral primary osteoarthritis of knee Kidney problem Fibromyalgia Right knee pain Carpal tunnel syndrome Morbid obesity Depression Anxiety Asthma Type 2 diabetes mellitus Dyspepsia Hypertriglyceridemia Bursitis, subacromial Surgical History History of carpal tunnel release of both wrists S/P laparoscopic sleeve gastrectomy S/P cardiac cath Family History Mother No problems noted. Father No problems noted. Social History Household Members: Family Household Members Other:: niece Housing: Apartment Are you a primary special needs caregiver to a significant other at home: No Do you presently have visiting nurse or other home services: No Alcohol intake: never Patient Tobacco Use Status: Never used Tobacco service: No Current occupational status: unemployed Current occupation: right handed Review of Systems Const Denies chills, Denies fatigue, Denies fever(s), Denies frequent falls, Denies weakness, Denies weight gain and Denies weight loss ENT Denies dizziness Card Denies chest pain, Denies leg edema, Denies lightheadedness, Denies palpitations, Denies dyspnea and Denies dyspnea on exertion Resp Denies cough, Denies dyspnea and Denies dyspnea on exertion GI Denies hematochezia Musc Denies abnormal gait, Denies muscle weakness, Denies numbness, Denies radiating pain into limb and Denies tingling Neuro Denies abnormal gait, Denies dizziness, Denies frequent falls, Denies numbness, Denies tingling and Denies weakness Endo Denies fatigue and Denies palpitations Physical Exam Vital Signs: Last Vital Signs Pulse 56 03/21/24 11:26 BP 130/60 03/21/24 11:26 BMI result Body Mass Index 37.3 GENERAL APPEARANCE: in no acute distress, pleasant. NECK: no carotid bruit, no jugular venous distention. SKIN: no suspicious lesions, warm and dry. HEART: no murmurs, regular rate and rhythm. LUNGS: clear to auscultation bilaterally. ABDOMEN: soft, nontender. EXTREMITIES: no edema. PERIPHERAL PULSES: equal. NEUROLOGIC: No gross deficits, AAO X 3 Office Procedures EKG Details: Sinus bradycardia 56 beats per minute, normal axis, first-degree AV block with ME interval 214 milliseconds, poor R-wave progression, QTC 382 milliseconds. [id number], Complete Assessment & Plan Assessment & Plan (1) Hypertension: Code(s): I10 - Essential (primary) hypertension Category: Medical Qualifiers: Hypertension type: primary hypertension Qualified Code(s): I10 - Essential (primary) hypertension (2) Hypertriglyceridemia: Code(s): E78.1 - Pure hyperglyceridemia Category: Medical Plan 58-year-old female who is here for follow-up. She has background of hypertension. Blood pressure is well controlled currently on losartan. She is following with Nephrology. Denying chest discomfort shortness of breath. She has background of hypertriglyceridemia. She should have fasting lipid panel performed with the next blood workup. She can see us back in 6 months. Thank you for allowing me to participate in the care of your patient. Please feel free to contact me if you have any questions. Coding Level of Care Code Est Pt Level 3 (81051) Diagnoses Primary hypertension I10 Hypertension type: primary hypertension Hypertriglyceridemia E78.1 CPT Codes EKG - CPT: 67584-[id number], Complete ([id number])
[2024-03-21 11:26] VITALS: BP 130/60; PULSE 56; BMI 37.3
== END 2024-03-21 11:47 | disposition home or self-care (01) ==
PROVIDERS: PCP Internal Medicine Geriatric Medicine; Visit Provider Internal Medicine Cardiovascular Disease
DX: I10 Essential (primary) hypertension (principal); E78.1 Pure hyperglyceridemia
CPT/HCPCS: 93010; 99213

== ENCOUNTER → 2024-03-21 11:22 | Outpatient (BNVA) | payer MEDICARE, MEDICAID, SELFPAY | PROVIDERS: PCP Internal Medicine Geriatric Medicine; Visit Provider Internal Medicine Cardiovascular Disease | DX: E78.1 Pure hyperglyceridemia (principal); I10 Essential (primary) hypertension | CPT/HCPCS: 93005; 99212 ==

== ENCOUNTER 2024-04-04 10:43 | Outpatient (AMB) | payer MEDICARE, MEDICAID, SELFPAY ==
[2024-04-04 10:52] VITALS: PULSE 61; O2SAT 97; BMI 35.5
--- NOTE | 2024-04-04 10:52 | MHC.OFFVIS ---
Vital Signs 04/04/24 10:52 Height 4 ft 11 in Weight 176 lb BMI 35.5 Pulse 61 Pulse Source Pulse Oximeter Pulse Oximetry (%) 97 Oxygen Delivery Method Room Air Intake Visit Reasons: Asthma/LUCINDA Ship Rigger Required: No Allergies canagliflozin [Invokana] Allergy (Severe, Verified 04/04/24 10:53) chest tightness lisinopril [LISINOPRIL] Allergy (Severe, Verified 04/04/24 10:53) sweating, rash, difficulty breathing, cough oxycodone Allergy (Intermediate, Verified 04/04/24 10:53) vomiting/GI cramping HPI Comments Details: The patient is a 59-year-old woman with a known history of obstructive sleep apnea, asthma who is presenting with worsening cough. The patient has is constantly clearing her throat. She denies any reflux symptoms. She denies any significant postnasal drip. She is not taking any Konstantin inhibitors that she is allergic to them. The cough is indeed aggravating to her and her family. Moderate severity. Inhalers have been partially helpful. She gets very confused with her inhalers as she has many. A try to simplify her regimen by given her 1 maintenance inhaler, Trelegy and she can continue her rescue inhaler as needed. The patient also did undergo allergy testing and she is allergic to trees among other things. I do not have those results at this time. The patient also has a diagnosis of sleep apnea. She had been on CPAP but could not tolerated. Therefore she was on oxygen. At this point the patient continues to have daytime drowsiness with an elevated Brooks score of 12/24. Will have the patient have a sleep study at this time to see if we can get her situated with CPAP as is going to be a better therapy for her underlying sleep apnea. The patient also has cardiovascular risk factors increasing her risk with the untreated sleep apnea this time. The patient will undergo sleep study will follow-up after the results. 02/26/2022 the patient is here for a pulmonary follow-up visit. She finally got her CPAP machine. She has been using it more than 4 hours a night. The therapy has been affecting beneficial. She did bring machine we were able to downloaded. Her AHI is within normal limits At 0.5 events an hour. Her average pressure is 6 cm of water. The patient has been tolerating her mask well. However, she has not been able to get supplies. That is primarily because she has not sent her car to be read by the [employer] company in order for them to get the approval from the insurance to get supplies. Her breathing overall is better. Patient has continue Trelegy daily. She also is using Singulair. And also has the albuterol as needed. 08/25/2022 the patient is here for a pulmonary follow-up visit. The patient overall has been feeling well. Recently she had flu-like symptoms and she did require prednisone. However, now she is back to her baseline. She does use her respiratory therapy as prescribed. Has not had to use her rescue inhaler. However she is starting to get a sore throat and also some chest congestion. [id number] severity. Denies any fevers or chills. Could be a postviral bacterial process. Therefore I will send her Z-Julien to make sure that she can clear this process. In regards to the CPAP the CPAP therapy continues to be affecting beneficial. She is getting supplies through [employer] Although she states that she has not gotten any supplies recently. Will go ahead and submit another prescription in order for her to get supplies. If the patient has any issues she is to call our office so we can address it. otherwise patient will follow-up in 6-8 months. 02/23/2023 the patient is here for a pulmonary follow-up visit. Overall the patient is doing well. Back in January she did undergo a [place] surgery. Since then she has lost already about 70 lb. The patient has not been using her CPAP. She does have severe sleep apnea. Although on has not been getting supplies readily from her [employer] company. That made it hard for her to use the machine. Ultimately she has been sleeping without it and with weight loss she feels that she is doing a little better. She still has a dry mouth but her daytime drowsiness improved. We did talk about positional therapy. She is going to work on positional therapy and will plan to repeat her sleep study in the coming months. If her symptoms worsen she is to call the office for an earlier assessment otherwise will follow-up after sleep study in 4-6 months. Her respiratory therapy has been stable. She is continue with her inhalers with good effect. Has not required any prednisone. 10/07/2023 the patient is here for a pulmonary follow-up visit. The patient continues to lose weight after having her bariatric surgery. She did have a slight complication of pancreatitis due to gallstones and ultimately required a cholecystectomy. She did require also a 5 day stay in hospital. Currently she is feeling better from that. She continues to use her respiratory medications with good effect. The Trelegy inhaler has been very affecting beneficial she does take once a day. She does take the lower dose which is reassuring. She has not required her rescue inhaler and has not required any prednisone either. The patient also has been struggling with her sleep apnea. She does have daytime drowsiness. Her repeat sleep study demonstrated that she still had moderate sleep apnea. She has a hard time sleeping on her sides so therefore tends to sleep more on her back which is an issue. She tries to sleep elevated to try help with that. She has not been able to use her CPAP because she has not been able to get supplies. She has been calling her [employer] without much success. I did call them to see what the issues as far as getting an update. Have to find that if she is still active with the [employer] company if she has not been using it. But I understand from her point of view is hard for her to use it if she has not been able to get supplies. Therefore, will go ahead and wait for the [employer] to let us know what the next best step would be. Explained to the patient that if she is the activated from the [employer] she will need a repeat sleep study. This be important specially with an elevated Brooks score 07/31. 04/04/2024 the patient is here for a pulmonary follow-up visit. Overall the patient is doing okay. She is status post again the bariatric surgery and has had significant weight loss. She is wondering if she still needs her CPAP after all the weight loss. Will go ahead and repeat her home sleep study to see if she no longer needs it. If she does will go ahead and send supplies to her [employer] company in order for to continue using it. From a respiratory status the patient is doing okay. She is using her Trelegy inhaler daily. She also has a rescue inhaler that she typically uses less than 2 times a week. [facility] Medical History Asthma exacerbation GERD (gastroesophageal reflux disease) Diabetic nephropathy Hypertension LUCINDA (obstructive sleep apnea) Bilateral primary osteoarthritis of knee Kidney problem Fibromyalgia Right knee pain Carpal tunnel syndrome Morbid obesity Depression Anxiety Asthma Type 2 diabetes mellitus Dyspepsia Hypertriglyceridemia Bursitis, subacromial Surgical History History of carpal tunnel release of both wrists S/P laparoscopic sleeve gastrectomy S/P cardiac cath Family History Mother No problems noted. Father No problems noted. Social History Household Members: Family Household Members Other:: niece Housing: Apartment Are you a primary customer care coordinator to a significant other at home: No Do you presently have visiting nurse or other home services: No Alcohol intake: never Patient Tobacco Use Status: Never used Tobacco service: No Current occupational status: unemployed Current occupation: right handed Review of Systems Const Denies night sweats and Reports weight loss ENT Denies change in voice, Denies lip swelling, Denies mouth pain, Reports nasal congestion, Reports nasal discharge, Reports sore throat and Denies tongue swelling Card Denies chest pain and Reports dyspnea on exertion Resp Reports dyspnea on exertion and Denies wheezing GI Denies abdominal pain Musc Reports abnormal gait Neuro Denies Neuro-related abnormal movements and Reports abnormal gait Psych Denies no additional complaints Derik/Lymph Denies easy bleeding and Denies lymphadenopathy Aller/Immun Denies lip swelling, Denies tongue swelling and Denies wheezing Physical Exam Vital Signs: Last Vital Signs Pulse 61 04/04/24 10:52 Pulse Ox 97 04/04/24 10:52 Oxygen Delivery Method Room Air 04/04/24 10:52 BMI result Body Mass Index 35.5 Const General: alert Neck Neck: Yes normal visual inspection, Yes full ROM and Yes no lymphadenopathy Chest Chest palpation & inspection: normal inspection of the chest Resp Auscultation: diminished lung sounds Cardio Rate: regular rate Rhythm: regular rhythm Heart sounds: S1 normal heart sound present and S2 normal heart sound present GI Palpation (GI): Soft to palpation and nontender Auscultation: normal bowel sounds Skin General skin exam: rashes and/or lesions noted Extrem General: Yes edema Assessment & Plan Assessment & Plan (1) LUCINDA (obstructive sleep apnea): Code(s): G47.33 - Obstructive sleep apnea (adult) (pediatric) Category: Medical (2) Asthma: Comment: controlled on current regimen-denies any recent exacerbation Code(s): J45.909 - Unspecified asthma, uncomplicated Category: Medical Qualifiers: Asthma complication type: uncomplicated Asthma persistence: persistent Asthma severity: moderate Qualified Code(s): J45.40 - Moderate persistent asthma, uncomplicated Plan repeat Home sleep study after significant weight loss low salt diet fluticasone nasal spray continue Trelegy inhaler daily IVAN as needed F/U 4-6 months Coding Level of Care Code Est Pt Level 4 (26623) Diagnoses LUCINDA (obstructive sleep apnea) G47.33 Moderate persistent asthma without complication J45.40 Asthma complication type: uncomplicated Asthma persistence: persistent Asthma severity: moderate Time Spent (min) 16
== END 2024-04-04 11:11 | disposition home or self-care (01) ==
PROVIDERS: PCP Internal Medicine Geriatric Medicine; Visit Provider Hospitalist
DX: G47.33 Obstructive sleep apnea (adult) (pediatric) (principal); J45.40 Moderate persistent asthma, uncomplicated
CPT/HCPCS: 99214

== ENCOUNTER → 2024-04-04 10:43 | Outpatient (BNVA) | payer MEDICARE, MEDICAID, SELFPAY | PROVIDERS: PCP Internal Medicine Geriatric Medicine; Visit Provider Hospitalist | DX: J45.40 Moderate persistent asthma, uncomplicated (principal); G47.33 Obstructive sleep apnea (adult) (pediatric) | CPT/HCPCS: 99212 ==

== ENCOUNTER 2024-04-18 12:43 | Outpatient (REF) | payer MEDICARE, MEDICAID, SELFPAY ==
[2024-04-18 13:43] LABS: Anion Gap 11 (12-20); Blood Urea Nitrogen 10 mg/dL (9-16); Carbon Dioxide 28 mmol/L (22-29); Chloride 107 mmol/L (96-108); Estimated Glomerular Filt Rate > 60; Potassium 4.3 mmol/L (3.3-5.1); Sodium 142 mmol/L (135-145)
== END 2024-04-18 12:44 | disposition home or self-care (01) ==
LOC: HO.10HDL 12:43
PROVIDERS: Visit Provider Internal Medicine Nephrology
DX: R80.8 Other proteinuria (principal); I10 Essential (primary) hypertension
CPT/HCPCS: 36415; 80051; 82565; 84520

== ENCOUNTER 2024-04-19 10:23 | Outpatient (AMB) | payer MEDICARE, MEDICAID, SELFPAY ==
--- NOTE | 2024-04-19 10:24 | HO.NEPHOV ---
Vital Signs 04/19/24 10:25 Height 4 ft 11 in Weight 183 lb BMI 37.0 BP 130/66 Blood Pressure Location Lt brachial Position Sitting Pulse 54 Pulse Source Pulse Oximeter Pulse Oximetry (%) 96 Oxygen Delivery Method Room Air Intake Visit Reasons: 2 mon follow up / Conf Intake Note: [place] [facility] signed and scanned into chart. [employer] Officer Required: No Accompanied by: Nephew or Niece Allergies canagliflozin [Invokana] Allergy (Severe, Verified 04/19/24 10:26) chest tightness lisinopril [LISINOPRIL] Allergy (Severe, Verified 04/19/24 10:) sweating, rash, difficulty breathing, cough oxycodone Allergy (Intermediate, Verified 04/19/24 10:) vomiting/GI cramping HPI Comments Details: Angela was seen in follow-up of her hypertension and proteinuria. She was on amlodipine and hydrochlorothiazide which was discontinued and losartan was re introduced, which she is tolerating well. She does not have any chest pain, shortness of breath, paroxysmal nocturnal dyspnea, orthopnea, pedal edema, fever or urinary symptoms. She does not take any [id number] medications. Her BP is at goal. [facility] Medical History Asthma exacerbation GERD (gastroesophageal reflux disease) Diabetic nephropathy Hypertension LUCINDA (obstructive sleep apnea) Bilateral primary osteoarthritis of knee Kidney problem Fibromyalgia Right knee pain Carpal tunnel syndrome Morbid obesity Depression Anxiety Asthma Type 2 diabetes mellitus Dyspepsia Hypertriglyceridemia Bursitis, subacromial Surgical History History of carpal tunnel release of both wrists S/P laparoscopic sleeve gastrectomy S/P cardiac cath Family History Mother No problems noted. Father No problems noted. Social History Household Members: Family Household Members Other:: niece Housing: Apartment Are you a primary career development coordinator to a significant other at home: No Do you presently have visiting nurse or other home services: No Alcohol intake: never Patient Tobacco Use Status: Never used Tobacco service: No Current occupational status: unemployed Current occupation: right handed Review of Systems Const All systems reviewed & are unremarkable except as noted in HPI and below Physical Exam Vital Signs: Last Vital Signs Pulse 54 04/19/24 10:25 BP 130/66 04/19/24 10:25 Pulse Ox 96 04/19/24 10:25 Oxygen Delivery Method Room Air 04/19/24 10:25 BMI result Body Mass Index 37.0 Const General: comfortable and no acute distress Orientation/consciousness: patient oriented x3 HEENT Head: Yes normocephalic Mouth: Normal oral and palatal mucosa present Eyes EOM: EOMs intact bilaterally Neck Neck: Yes supple Resp Auscultation: clear to auscultation bilaterally Cardio Jugular venous distension: no JVD Rate: regular rate GI Palpation (GI): Soft to palpation Auscultation: normal bowel sounds General: Yes no CVA tenderness Back/Spine/Pelvis Back: no CVA tenderness Skin General skin exam: no rashes or lesions noted Neuro General: patient oriented x3 and moves all extremities Extrem General: Yes no pedal edema Results Reviewed Nephrology Results: Sodium 142 mmol/L (135-145) 04/18/24 Potassium 4.3 mmol/L (3.3-5.1) 04/18/24 Chloride 107 mmol/L (96-108) 04/18/24 Carbon Dioxide 28 mmol/L (22-29) 04/18/24 BUN 10 mg/dL (9-16) 04/18/24 Creatinine 0.70 mg/dL (0.5-1.4) 04/18/24 Assessment & Plan Assessment & Plan (1) Proteinuria: Code(s): R80.9 - Proteinuria, unspecified Category: Medical Qualifiers: Proteinuria type: other Qualified Code(s): R80.8 - Other proteinuria (2) Hypertension: Code(s): I10 - Essential (primary) hypertension Category: Medical Qualifiers: Hypertension type: primary hypertension Qualified Code(s): I10 - Essential (primary) hypertension Plan Angela has longstanding hypertension. She was on amlodipine and hydrochlorothiazide which was discontinued and started losartan which was increased to 75 mg recently , to be taken at night. She has no significant detectable proteinuria. Her renal functions are normal. All her and her niece's questions were answered. Follow-up appointment given. Orders: Orders Creatinine Today I10 - Essential (primary) hypertension, R80.8 - Other proteinuria Electrolytes Today I10 - Essential (primary) hypertension, R80.8 - Other proteinuria Blood Urea Nitrogen Today I10 - Essential (primary) hypertension, R80.8 - Other proteinuria Protein Creatinine Ratio, Ur Today I10 - Essential (primary) hypertension, R80.8 - Other proteinuria Medications: Changed From losartan 75 mg PO DAILY To losartan 75 mg (1.5 x 50 mg) PO DAILY 135 tabs 3RF 90 days Coding Level of Care Code Est Pt Level 4 (88235) Diagnoses Other proteinuria R80.8 Proteinuria type: other Primary hypertension I10 Hypertension type: primary hypertension
[2024-04-19 10:25] VITALS: BP 130/66; PULSE 54; O2SAT 96; BMI 37.0
== END 2024-04-19 10:47 | disposition home or self-care (01) ==
PROVIDERS: PCP Internal Medicine Geriatric Medicine; Visit Provider Internal Medicine Nephrology
DX: R80.8 Other proteinuria (principal); I10 Essential (primary) hypertension
CPT/HCPCS: 99214

== ENCOUNTER → 2024-04-19 10:23 | Outpatient (BNVA) | payer MEDICARE, MEDICAID, SELFPAY | PROVIDERS: PCP Internal Medicine Geriatric Medicine; Visit Provider Internal Medicine Nephrology | DX: I10 Essential (primary) hypertension (principal); R80.9 Proteinuria, unspecified | CPT/HCPCS: 99212 ==

== ENCOUNTER 2024-06-10 06:34 | Outpatient (REF) | payer MEDICARE, MEDICAID, SELFPAY ==
[2024-06-10 07:02] LABS: MANUAL DIFF FLAG NO
[2024-06-10 07:42] LABS: Basophils Absolute Auto 0.1 X10*3/uL (0.0-0.2); Basophils Percent Auto 1.2 % (0-2); Eosinophils Absolute Auto 0.2 X10*3/uL (0.0-0.4); Eosinophils Percent Auto 2.8 % (0-4); Hematocrit 38.9 % (37.0-47.0); Hemoglobin 12.8 g/dl (12.0-16.0); Imm Gran Abs Auto 0.03 X10*3/uL (0.00-0.03); Imm Gran Pct Auto 0.4 % (0.0-0.4); Lymphocytes Absolute Auto 2.2 X10*3/uL (1.2-4.9); Lymphocytes Percent Auto 29.3 % (20-40); Mean Corpuscular HGB Conc 32.9 g/dl (31.0-35.0); Mean Corpuscular Hemoglobin 27.5 pg (27.0-33.0); Mean Corpuscular Volume 83.5 fL (80.0-98.0); Monocytes Absolute Auto 0.4 X10*3/uL (0.1-1.2); Monocytes Percent Auto 5.5 % (2-11); Neutrophils Absolute Auto 4.5 x10*3/uL (2.0-8.3); Neutrophils Percent Auto 60.8 % (45-73); Platelet Count 258 X10*3/uL (160-400); Red Blood Count 4.66 X10*6/uL (4.20-5.50); Red Cell Distribution Width 13.1 % (11.0-16.0); White Blood Count 7.4 X10*3/uL (4.8-10.8)
[2024-06-10 07:53] LABS: Estimated Average Glucose 108 mg/dL; Hemoglobin A1C 116.9222 umol/L; Hemoglobin A1c % 5.4 % (<6.0); Total Hemoglobin (HGBA1C) 3286.3907 umol/L
[2024-06-10 08:38] LABS: Alanine Aminotransferase 20 U/L (0-31); Albumin Level 4.3 g/dL (3.5-5.0); Alkaline Phosphatase 80 U/L (39-117); Anion Gap 15 (12-20); Aspartate Amino Transferase 29 U/L (5-31); Bilirubin Total 0.4 mg/dL (0.0-1.0); Blood Urea Nitrogen 15 mg/dL (9-16); C Reactive Protein 0.34 mg/dL (< or = 0.50); Calcium 9.8 mg/dL (8.4-10.2); Carbon Dioxide 24 mmol/L (22-29); Chloride 106 mmol/L (96-108); Cholesterol 200 mg/dL (<200); Estimated Glomerular Filt Rate > 60; Glucose Random 85 mg/dL (60-115); HDL Cholesterol 53 mg/dL (>40); Iron 121 mcg/dL (30-160); LDL Cholesterol Calculated 122 mg/dL (<100); Percent Iron Saturation 40 % (15-50); Potassium 4.7 mmol/L (3.3-5.1); Sodium 140 mmol/L (135-145); Total Iron Binding Capacity 299 mcg/dL (228-428); Total Protein 7.8 g/dL (6.5-8.0); Triglycerides 129 mg/dL (<150); Unsaturated Iron Binding 178 ug/dL
[2024-06-10 08:48] LABS: Ferritin 121 ng/mL (10-250); Insulin 8 uU/mL (2-29); TSH reflex Free T4 1.55 uIU/mL (0.32-4.0); Vitamin D 25-OH Total 43.8 ng/mL (>30)
[2024-06-10 08:51] LABS: Folate 13.4 ng/mL (> or = 4.0); Vitamin B12 468 pg/mL (200-900)
[2024-06-14 16:29] LABS: Zinc 82 mcg/dL (60-130)
[2024-06-15 23:28] LABS: Vitamin A 58 mcg/dL (38-98)
[2024-06-18 15:19] LABS: Vitamin B1 16 nmol/L (8-30)
== END 2024-06-10 06:35 | disposition home or self-care (01) ==
LOC: HO.LAB 06:34
PROVIDERS: PCP Internal Medicine Geriatric Medicine; Visit Provider Physician Assistant Surgical
DX: E66.9 Obesity, unspecified (principal); E11.9 Type 2 diabetes mellitus without complications; I10 Essential (primary) hypertension; E78.1 Pure hyperglyceridemia; Z98.84 Bariatric surgery status
CPT/HCPCS: 36415; 80053; 80061; 82306; 82607; 82728; 82746; 83036; 83525; 83540; 84425; 84443; 84590; 84630; 85025; 86140

== ENCOUNTER 2024-06-13 09:44 | Outpatient (AMB) | payer MEDICARE, MEDICAID, SELFPAY ==
--- NOTE | 2024-06-13 09:47 | MHC.OFFVISWM ---
VS Expanded 06/13/24 09:58 BP 178/74 H Blood Pressure Location Rt brachial Blood Pressure Position Sitting Pulse 64 Pulse Source Pulse Oximeter Temp 97.2 F Temperature Source Temporal Artery Scan Pulse Oximetry 97 Oxygen Delivery Method Room Air Height 4 ft 11 in Weight 182 lb 9.6 oz BMI 36.9 Body Fat % 38.4 Body Fat Mass 70.2 Fat Free Mass 112.4 Visceral Fat Rating 12.0 Body Water % 43.6 Body Water Mass 79.6 Muscle Mass/Score 106.8 Basal Metabolic Rate/Score 1,533 Intake Visit Reasons: OV PO LSG 02/03/23 Child Welfare Consultant Required: Yes Child Welfare Consultant Services: Child Welfare Consultant Present Child Welfare Consultant Name: hospital cmi Allergies canagliflozin [Invokana] Allergy (Severe, Verified 06/13/24 09:54) chest tightness lisinopril [LISINOPRIL] Allergy (Severe, Verified 06/13/24 09:54) sweating, rash, difficulty breathing, cough oxycodone Allergy (Intermediate, Verified 06/13/24 09:54) vomiting/GI cramping Medication List - Last Reconciled 06/13/24 by JANET Negro albuterol sulfate 2.5 mg inhalation Q6H PRN albuterol sulfate 90 mcg/actuation 2 puffs PO Q6H PRN amitriptyline 50 mg BEDTIME aspirin 81 mg DAILY bupropion HCl XL 300 mg PO QAM cetirizine 10 mg PO DAILY cholecalciferol (vitamin D3) (Vitamin D3) 25 mcg PO DAILY cyanocobalamin (vitamin B-12) 250 mcg PO DAILY fluticasone propionate 50 mcg/actuation 2 sprays intranasal DAILY mnpvuxmsftl-qcvxoyhck-kypkmmpw 200-62.5-25 mcg (Trelegy Ellipta) 1 ea inhalation DAILY hydrocodone-acetaminophen 5-325 mg 1 tab PO Q4-6H PRN lidocaine 5% 1 patch topical DAILY loratadine 10 mg DAILY losartan 75 mg (1.5 x 50 mg) PO DAILY 90 days meclizine 12.5 mg PO BID PRN montelukast 10 mg PO DAILY 90 days nebulizers As directed ondansetron HCl 4 mg PO Q6H PRN rosuvastatin 5 mg DAILY trazodone 50 - 100 mg PO BEDTIME PRN triamcinolone acetonide 0.1% 1 appl topical BID HPI Comments Details: This?a?58?yo female who is s/p LSG without hiatal hernia repair on?02/03/[address] Kc and laparoscopic cholecystectomy on 08/13/[address] Santo. Presents for 1year 5 month post op visit. Her weight today is 182.6 pounds, with a BMI of 36.9.? There has been a 89.8 pound weight loss,(initial weight 272.4 pounds) since starting the program on 09/19/21 reflecting a 33.5% total body weight loss and a weight loss of 51.9 pounds since surgery (operative weight 234.5 pounds) reflecting a 22.7% TBWL since surgery.? Mild constipation improved with senna She states she is doing well. Rheumatology did right knee injection for OA. Advised to take a celebrate multivitamin, 1 tablet 4 times per week. Present meal plan includes: 1 celebrate 4:1 w 1 scoop x 2 w 8 oz almond milk, 8-10am, 1-3 pm yogurt or zp bar Meal 6 forks, 6 forks, 6 pm Exercise plan: Walking on treadmill PF 5 days per week 400-500 joaquim PFSH Medical History Asthma exacerbation GERD (gastroesophageal reflux disease) Diabetic nephropathy Hypertension LUCINDA (obstructive sleep apnea) Bilateral primary osteoarthritis of knee Kidney problem Fibromyalgia Right knee pain Carpal tunnel syndrome Morbid obesity Depression Anxiety Asthma Type 2 diabetes mellitus Dyspepsia Hypertriglyceridemia Bursitis, subacromial Surgical History History of carpal tunnel release of both wrists S/P laparoscopic sleeve gastrectomy S/P cardiac cath Family History Mother No problems noted. Father No problems noted. Social History Household Members: Family Household Members Other:: niece Housing: Apartment Are you a primary career information specialist to a significant other at home: No Do you presently have visiting nurse or other home services: No Alcohol intake: never Patient Tobacco Use Status: Never used Tobacco service: No Current occupational status: unemployed Current occupation: right handed Physical Exam Const General: healthy appearing and no acute distress Resp Effort & Inspection: normal respiratory effort Auscultation: clear to auscultation bilaterally Cardio Rate: regular rate Rhythm: regular rhythm GI Auscultation: normal bowel sounds Extrem General: Yes normal to inspection Assessment & Plan Assessment & Plan (1) S/P laparoscopic sleeve gastrectomy: Code(s): Z98.84 - Bariatric surgery status Category: Surgical Plan: Overall doing fairly well however was not following the meal plan exactly. She was doing an extra scoop of protein powder and having both the yogurt and the bar. She additionally has not been exercising for the last week she had hurt her back. We discussed the importance of following the plan accurately. Discussed gentle stretching and moist heat for her back. She will return to the meal plan as recommended and returned to exercise as she is able. We will have her return to the office in approximately 1 month. She was encouraged to text her weight weekly and with any questions or concerns.
[2024-06-13 09:58] VITALS: BP 178/74; PULSE 64; TEMP 36.2; O2SAT 97; BMI 36.9
== END 2024-06-13 10:23 | disposition home or self-care (01) ==
PROVIDERS: PCP Internal Medicine Geriatric Medicine; Visit Provider Physician Assistant Surgical
DX: E66.9 Obesity, unspecified (principal); Z68.36 Body mass index [BMI] 36.0-36.9, adult; Z90.3 Acquired absence of stomach [part of]; Z98.84 Bariatric surgery status
CPT/HCPCS: 99213; G2211

== ENCOUNTER → 2024-06-13 09:44 | Outpatient (BNVA) | payer MEDICARE, MEDICAID, SELFPAY | PROVIDERS: PCP Internal Medicine Geriatric Medicine; Visit Provider Physician Assistant Surgical | DX: E66.9 Obesity, unspecified (principal); Z68.36 Body mass index [BMI] 36.0-36.9, adult; Z90.3 Acquired absence of stomach [part of]; Z90.49 Acquired absence of other specified parts of digestive tract | CPT/HCPCS: 99212 ==

== ENCOUNTER 2024-07-04 10:02 | Outpatient (AMB) | payer MEDICARE, MEDICAID, SELFPAY ==
[2024-07-04 10:14] VITALS: PULSE 61; O2SAT 98; BMI 37.0
--- NOTE | 2024-07-04 10:14 | MHC.OFFVIS ---
Vital Signs 07/04/24 10:14 Height 4 ft 11 in Weight 183 lb BMI 37.0 Pulse 61 Pulse Source Pulse Oximeter Pulse Oximetry (%) 98 Oxygen Delivery Method Room Air Intake Visit Reasons: Asthma/LUCINDA Territory Account Manager Required: No Allergies canagliflozin [Invokana] Allergy (Severe, Verified 07/04/24 10:15) chest tightness lisinopril [LISINOPRIL] Allergy (Severe, Verified 07/04/24 10:15) sweating, rash, difficulty breathing, cough oxycodone Allergy (Intermediate, Verified 07/04/24 10:15) vomiting/GI cramping HPI Comments Details: The patient is a 59-year-old woman with a known history of obstructive sleep apnea, asthma who is presenting with worsening cough. The patient has is constantly clearing her throat. She denies any reflux symptoms. She denies any significant postnasal drip. She is not taking any Konstantin inhibitors that she is allergic to them. The cough is indeed aggravating to her and her family. Moderate severity. Inhalers have been partially helpful. She gets very confused with her inhalers as she has many. A try to simplify her regimen by given her 1 maintenance inhaler, Trelegy and she can continue her rescue inhaler as needed. The patient also did undergo allergy testing and she is allergic to trees among other things. I do not have those results at this time. The patient also has a diagnosis of sleep apnea. She had been on CPAP but could not tolerated. Therefore she was on oxygen. At this point the patient continues to have daytime drowsiness with an elevated [place] score of 12/24. Will have the patient have a sleep study at this time to see if we can get her situated with CPAP as is going to be a better therapy for her underlying sleep apnea. The patient also has cardiovascular risk factors increasing her risk with the untreated sleep apnea this time. The patient will undergo sleep study will follow-up after the results. 02/23/2023 the patient is here for a pulmonary follow-up visit. Overall the patient is doing well. Back in January she did undergo a Warren surgery. Since then she has lost already about 70 lb. The patient has not been using her CPAP. She does have severe sleep apnea. Although on has not been getting supplies readily from her [employer]. That made it hard for her to use the machine. Ultimately she has been sleeping without it and with weight loss she feels that she is doing a little better. She still has a dry mouth but her daytime drowsiness improved. We did talk about positional therapy. She is going to work on positional therapy and will plan to repeat her sleep study in the coming months. If her symptoms worsen she is to call the office for an earlier assessment otherwise will follow-up after sleep study in 4-6 months. Her respiratory therapy has been stable. She is continue with her inhalers with good effect. Has not required any prednisone. 10/07/2023 the patient is here for a pulmonary follow-up visit. The patient continues to lose weight after having her bariatric surgery. She did have a slight complication of pancreatitis due to gallstones and ultimately required a cholecystectomy. She did require also a 5 day stay in hospital. Currently she is feeling better from that. She continues to use her respiratory medications with good effect. The Trelegy inhaler has been very affecting beneficial she does take once a day. She does take the lower dose which is reassuring. She has not required her rescue inhaler and has not required any prednisone either. The patient also has been struggling with her sleep apnea. She does have daytime drowsiness. Her repeat sleep study demonstrated that she still had moderate sleep apnea. She has a hard time sleeping on her sides so therefore tends to sleep more on her back which is an issue. She tries to sleep elevated to try help with that. She has not been able to use her CPAP because she has not been able to get supplies. She has been calling her [employer] without much success. I did call them to see what the issues as far as getting an update. Have to find that if she is still active with the [employer] if she has not been using it. But I understand from her point of view is hard for her to use it if she has not been able to get supplies. Therefore, will go ahead and wait for the [employer] to let us know what the next best step would be. Explained to the patient that if she is the activated from the [employer] she will need a repeat sleep study. This be important specially with an elevated Longme[place] score 07/31. 04/04/2024 the patient is here for a pulmonary follow-up visit. Overall the patient is doing okay. She is status post again the bariatric surgery and has had significant weight loss. She is wondering if she still needs her CPAP after all the weight loss. Will go ahead and repeat her home sleep study to see if she no longer needs it. If she does will go ahead and send supplies to her [employer] company in order for to continue using it. From a respiratory status the patient is doing okay. She is using her Trelegy inhaler daily. She also has a rescue inhaler that she typically uses less than 2 times a week. 07/04/2024 the patient is here for a pulmonary follow-up visit. Overall she is doing okay. For the last few days she did develop a cough productive in nature. Moderate severity. Denies any fevers or chills. Positive sick contacts. Denies any chest tightness. She is using Trelegy which is helping her. She has a rescue inhaler as well they can she can use as needed. She is not requiring it right now. She has had significant weight loss losing about 80 lb already. Will go ahead and request a repeat sleep study at this time to see if we can assure that she does not need the CPAP any longer. [facility] Medical History Asthma exacerbation GERD (gastroesophageal reflux disease) Diabetic nephropathy Hypertension LUCINDA (obstructive sleep apnea) Bilateral primary osteoarthritis of knee Kidney problem Fibromyalgia Right knee pain Carpal tunnel syndrome Morbid obesity Depression Anxiety Asthma Type 2 diabetes mellitus Dyspepsia Hypertriglyceridemia Bursitis, subacromial Surgical History History of carpal tunnel release of both wrists S/P laparoscopic sleeve gastrectomy S/P cardiac cath Family History Mother No problems noted. Father No problems noted. Social History Household Members: Family Household Members Other:: niece Housing: Apartment Are you a primary cna caregiver to a significant other at home: No Do you presently have visiting nurse or other home services: No Alcohol intake: never Patient Tobacco Use Status: Never used Tobacco service: No Current occupational status: unemployed Current occupation: right handed Review of Systems Const Denies night sweats and Reports weight loss ENT Denies change in voice, Denies lip swelling, Denies mouth pain, Reports nasal congestion, Reports nasal discharge, Reports sore throat and Denies tongue swelling Card Denies chest pain and Reports dyspnea on exertion Resp Reports chest congestion, Reports cough, Reports dyspnea on exertion and Denies wheezing GI Denies abdominal pain Musc Reports abnormal gait Neuro Denies Neuro-related abnormal movements and Reports abnormal gait Psych Denies no additional complaints Derik/Lymph Denies easy bleeding and Denies lymphadenopathy Aller/Immun Denies lip swelling, Denies tongue swelling and Denies wheezing Physical Exam Vital Signs: Last Vital Signs Pulse 61 07/04/24 10:14 Pulse Ox 98 07/04/24 10:14 Oxygen Delivery Method Room Air 07/04/24 10:14 BMI result Body Mass Index 37.0 Const General: alert Neck Neck: Yes normal visual inspection, Yes full ROM and Yes no lymphadenopathy Chest Chest palpation & inspection: normal inspection of the chest Resp Effort & Inspection: Actively coughing Auscultation: diminished lung sounds Cardio Rate: regular rate Rhythm: regular rhythm Heart sounds: S1 normal heart sound present and S2 normal heart sound present GI Palpation (GI): Soft to palpation and nontender Auscultation: normal bowel sounds Skin General skin exam: rashes and/or lesions noted Extrem General: Yes edema Assessment & Plan Assessment & Plan (1) LUCINDA (obstructive sleep apnea): Code(s): G47.33 - Obstructive sleep apnea (adult) (pediatric) Category: Medical (2) Asthma: Comment: controlled on current regimen-denies any recent exacerbation Code(s): J45.909 - Unspecified asthma, uncomplicated Category: Medical Qualifiers: Asthma complication type: uncomplicated Asthma persistence: persistent Asthma severity: moderate Qualified Code(s): J45.40 - Moderate persistent asthma, uncomplicated Plan repeat Home sleep study after significant weight loss low salt diet fluticasone nasal spray continue Trelegy inhaler daily IVAN as needed start Azithromycin cough medicine F/U 4-6 months Orders: Orders RT home sleep study Today G47.33 - Obstructive sleep apnea (adult) (pediatric) Medications: New azithromycin 500 mg PO DAILY 5 tabs 0RF 5 days benzonatate 200 mg PO TID PRN 90 caps 1RF cough 30 days Coding Level of Care Code Est Pt Level 4 (53879) Diagnoses LUCINDA (obstructive sleep apnea) G47.33 Moderate persistent asthma without complication J45.40 Asthma complication type: uncomplicated Asthma persistence: persistent Asthma severity: moderate Time Spent (min) 16
== END 2024-07-04 10:28 | disposition home or self-care (01) ==
PROVIDERS: PCP Internal Medicine Geriatric Medicine; Visit Provider Hospitalist
DX: G47.33 Obstructive sleep apnea (adult) (pediatric) (principal); J45.40 Moderate persistent asthma, uncomplicated
CPT/HCPCS: 99214

== ENCOUNTER → 2024-07-04 10:02 | Outpatient (BNVA) | payer MEDICARE, MEDICAID, SELFPAY | PROVIDERS: PCP Internal Medicine Geriatric Medicine; Visit Provider Hospitalist | DX: J45.40 Moderate persistent asthma, uncomplicated (principal); G47.33 Obstructive sleep apnea (adult) (pediatric); Z99.89 Dependence on other enabling machines and devices | CPT/HCPCS: 99212 ==

== ENCOUNTER 2024-07-19 14:05 | Outpatient (REF) | payer MEDICARE, MEDICAID, SELFPAY ==
[2024-07-19 15:17] LABS: Anion Gap 13 (12-20); Blood Urea Nitrogen 18 mg/dL (9-16); Carbon Dioxide 27 mmol/L (22-29); Chloride 105 mmol/L (96-108); Estimated Glomerular Filt Rate > 60; Potassium 4.5 mmol/L (3.3-5.1); Sodium 140 mmol/L (135-145)
[2024-07-19 15:18] LABS: Creatinine Urine 77.45 mg/dL; Total Protein Urine Random < 7 mg/dL (<12)
== END 2024-07-19 14:06 | disposition home or self-care (01) ==
LOC: HO.LAB 14:05
PROVIDERS: PCP Internal Medicine Geriatric Medicine; Visit Provider Internal Medicine Nephrology
DX: R80.8 Other proteinuria (principal); I10 Essential (primary) hypertension
CPT/HCPCS: 36415; 80051; 82565; 82570; 84156; 84520

== ENCOUNTER 2024-07-21 09:16 | Outpatient (AMB) | payer MEDICARE, MEDICAID, SELFPAY ==
--- NOTE | 2024-07-21 09:41 | HO.NEPHOV ---
Vital Signs 07/21/24 09:43 Height 4 ft 11 in Weight 187 lb 4 oz BMI 37.8 BP 116/64 Blood Pressure Location Lt brachial Position Sitting Pulse 61 Pulse Source Pulse Oximeter Pulse Oximetry (%) 96 Oxygen Delivery Method Room Air Intake Visit Reasons: 6 mon follow up-Conf Montessori Toddler Teacher Required: No Accompanied by: Other Relationship Allergies canagliflozin [Invokana] Allergy (Severe, Verified 07/21/24 09:43) chest tightness lisinopril [LISINOPRIL] Allergy (Severe, Verified 07/21/24 09:43) sweating, rash, difficulty breathing, cough oxycodone Allergy (Intermediate, Verified 07/21/24 09:43) vomiting/GI cramping HPI Comments Details: Angela was seen in follow-up of her hypertension and proteinuria. She was on amlodipine and hydrochlorothiazide which was discontinued and losartan was re introduced, which she is tolerating well. She does not have any chest pain, shortness of breath, paroxysmal nocturnal dyspnea, orthopnea, pedal edema, fever or urinary symptoms. She does not take any [id number] medications. Her BP is at goal. [facility] Medical History Asthma exacerbation GERD (gastroesophageal reflux disease) Diabetic nephropathy Hypertension LUCINDA (obstructive sleep apnea) Bilateral primary osteoarthritis of knee Kidney problem Fibromyalgia Right knee pain Carpal tunnel syndrome Morbid obesity Depression Anxiety Asthma Type 2 diabetes mellitus Dyspepsia Hypertriglyceridemia Bursitis, subacromial Surgical History History of carpal tunnel release of both wrists S/P laparoscopic sleeve gastrectomy S/P cardiac cath Family History Mother No problems noted. Father No problems noted. Social History Household Members: Family Household Members Other:: niece Housing: Apartment Are you a primary critical care unit manager to a significant other at home: No Do you presently have visiting nurse or other home services: No Alcohol intake: never Patient Tobacco Use Status: Never used Tobacco service: No Current occupational status: unemployed Current occupation: right handed Review of Systems Const All systems reviewed & are unremarkable except as noted in HPI and below Physical Exam Vital Signs: Last Vital Signs Pulse 61 07/21/24 09:43 BP 116/64 07/21/24 09:43 Pulse Ox 96 07/21/24 09:43 Oxygen Delivery Method Room Air 07/21/24 09:43 BMI result Body Mass Index 37.8 Const General: comfortable and no acute distress Orientation/consciousness: patient oriented x3 HEENT Head: Yes normocephalic Mouth: Normal oral and palatal mucosa present Eyes EOM: EOMs intact bilaterally Neck Neck: Yes supple Resp Auscultation: clear to auscultation bilaterally Cardio Jugular venous distension: no JVD Rate: regular rate GI Palpation (GI): Soft to palpation Auscultation: normal bowel sounds General: Yes no CVA tenderness Back/Spine/Pelvis Back: no CVA tenderness Skin General skin exam: no rashes or lesions noted Neuro General: patient oriented x3 and moves all extremities Extrem General: Yes no pedal edema Results Reviewed Nephrology Results: Hgb 12.8 g/dl (12.0-16.0) 06/10/24 WBC 7.4 X10*3/uL (4.8-10.8) 06/10/24 Plt Count 258 X10*3/uL (160-400) 06/10/24 Sodium 140 mmol/L (135-145) 07/19/24 Potassium 4.5 mmol/L (3.3-5.1) 07/19/24 Chloride 105 mmol/L (96-108) 07/19/24 Carbon Dioxide 27 mmol/L (22-29) 07/19/24 BUN 18 mg/dL (9-16) H 07/19/24 Creatinine 0.69 mg/dL (0.5-1.4) 07/19/24 Calcium 9.8 mg/dL (8.4-10.2) 06/10/24 Urine Creatinine 77.45 mg/dL 07/19/24 Protein/Creatinin Ratio TNP 07/19/24 Assessment & Plan Assessment & Plan (1) Proteinuria: Code(s): R80.9 - Proteinuria, unspecified Category: Medical Qualifiers: Proteinuria type: other Qualified Code(s): R80.8 - Other proteinuria (2) Hypertension: Code(s): I10 - Essential (primary) hypertension Category: Medical Qualifiers: Hypertension type: primary hypertension Qualified Code(s): I10 - Essential (primary) hypertension Martin Miller has longstanding hypertension. She was on amlodipine and hydrochlorothiazide which was discontinued and started losartan which can be continued at 50 mg daily. She has no significant detectable proteinuria. Her renal functions are normal. All her and her niece's questions were answered. Follow-up appointment given Orders: Orders Protein Creatinine Ratio, Ur 6 Months R80.8 - Other proteinuria Creatinine 6 Months R80.8 - Other proteinuria Blood Urea Nitrogen 6 Months R80.8 - Other proteinuria Electrolytes 6 Months R80.8 - Other proteinuria Medications: Changed From losartan 75 mg (1.5 x 50 mg) PO DAILY 90 days 135 tabs 3RF To losartan 50 mg PO DAILY 90 days 90 tabs 3RF Coding Level of Care Code Est Pt Level 4 (73573) Diagnoses Other proteinuria R80.8 Proteinuria type: other Primary hypertension I10 Hypertension type: primary hypertension
[2024-07-21 09:43] VITALS: BP 116/64; PULSE 61; O2SAT 96; BMI 37.8
== END 2024-07-21 10:25 | disposition home or self-care (01) ==
PROVIDERS: PCP Internal Medicine Geriatric Medicine; Visit Provider Internal Medicine Nephrology
DX: R80.8 Other proteinuria (principal); I10 Essential (primary) hypertension
CPT/HCPCS: 99214

== ENCOUNTER → 2024-07-21 09:16 | Outpatient (BNVA) | payer MEDICARE, MEDICAID, SELFPAY | PROVIDERS: PCP Internal Medicine Geriatric Medicine; Visit Provider Internal Medicine Nephrology | DX: I10 Essential (primary) hypertension (principal); R80.8 Other proteinuria; Z79.899 Other long term (current) drug therapy | CPT/HCPCS: 99212 ==

== ENCOUNTER → 2024-08-16 11:43 | Outpatient (REF) | payer MEDICARE, MEDICAID, SELFPAY | LOC: HO.SL 11:43 | PROVIDERS: PCP Internal Medicine Geriatric Medicine; Visit Provider Hospitalist | DX: Z13.89 Encounter for screening for other disorder (principal) ==

== ENCOUNTER 2024-09-20 09:02 | Outpatient (AMB) | payer MEDICARE, MEDICAID, SELFPAY ==
[2024-09-20 09:45] VITALS: BP 120/62; PULSE 64; BMI 38.1
--- NOTE | 2024-09-20 09:45 | MHC.OFFVIS ---
Vital Signs 09/20/24 09:45 Height 4 ft 11 in Weight 188 lb 11.451 oz BMI 38.1 BP 120/62 Blood Pressure Location Lt brachial Position Sitting Pulse 64 Pulse Source Pulse Oximeter Intake Visit Reasons: 6 mth f/up Process Engineer Required: No Electrician Helper: Electrician Helper Present Allergies canagliflozin [Invokana] Allergy (Severe, Verified 09/20/24 09:48) chest tightness lisinopril [LISINOPRIL] Allergy (Severe, Verified 09/20/24 09:48) sweating, rash, difficulty breathing, cough oxycodone Allergy (Intermediate, Verified 09/20/24 09:48) vomiting/GI cramping Medication List - Last Reconciled 09/20/24 by LEIGHA Gordon albuterol sulfate 2.5 mg inhalation Q6H PRN albuterol sulfate 90 mcg/actuation 2 puffs PO Q6H PRN amitriptyline 50 mg BEDTIME aspirin 81 mg DAILY bupropion HCl XL 300 mg PO QAM cetirizine 10 mg PO DAILY cholecalciferol (vitamin D3) (Vitamin D3) 25 mcg PO DAILY cyanocobalamin (vitamin B-12) 250 mcg PO DAILY fluticasone propionate 50 mcg/actuation 2 sprays intranasal DAILY rtrwbqvtdqk-qqjvtoiuv-ohvbuckk 200-62.5-25 mcg (Trelegy Ellipta) 1 ea inhalation DAILY lidocaine 5% 1 patch topical DAILY loratadine 10 mg DAILY losartan 25 mg PO DAILY meclizine 12.5 mg PO BID PRN montelukast 10 mg PO DAILY 90 days nebulizers As directed rosuvastatin 10 mg PO BEDTIME trazodone 50 - 100 mg PO BEDTIME PRN triamcinolone acetonide 0.1% 1 appl topical BID HPI HPI 6 mth f/up: Details: Angela is a 59-year-old female past medical history of hypertension, hyperlipidemia, diabetes, obesity, sleep apnea who had reported chest discomfort and shortness of breath with exertion, cardiac catheterization 06/2022 showing normal coronary arteries. Her cardiology follow-up was to be p.r.n. however she scheduled this appointment today due to symptom of dizziness. Today she reports that she has been having episodes of dizziness over the last 2 months. She notices it when she moves around, bends forward or turns her head. She did fall forward out of the chair and got an abrasion on her left forehead. She is not noticing any heart palpitations, presyncope, syncope. No chest discomfort at rest or with activity. She has mild shortness of breath with exertion which is not new. No shortness of breath at rest. No PND, orthopnea or edema. Taking meds as directed. She is waiting for an appointment to see Neurology for her dizziness. [facility] Medical History Asthma exacerbation GERD (gastroesophageal reflux disease) Diabetic nephropathy Hypertension LUCINDA (obstructive sleep apnea) Bilateral primary osteoarthritis of knee Kidney problem Fibromyalgia Right knee pain Carpal tunnel syndrome Morbid obesity Depression Anxiety Asthma Type 2 diabetes mellitus Dyspepsia Hypertriglyceridemia Bursitis, subacromial Surgical History History of carpal tunnel release of both wrists S/P laparoscopic sleeve gastrectomy S/P cardiac cath Family History Mother No problems noted. Father No problems noted. Social History Household Members: Family Household Members Other:: niece Housing: Apartment Are you a primary director critical care to a significant other at home: No Do you presently have visiting nurse or other home services: No Alcohol intake: never Patient Tobacco Use Status: Never used Tobacco service: No Current occupational status: unemployed Current occupation: right handed Review of Systems Const All systems reviewed & are unremarkable except as noted in HPI and below ENT Reports dizziness Card Denies chest pain, Denies chest pain at rest, Denies chest pain with activity, Denies rapid heart rate, Denies pedal edema, Denies edema, Denies leg edema, Denies lightheadedness, Denies palpitations, Denies dyspnea, Denies dyspnea on exertion and Denies orthopnea Resp Denies cough, Denies dyspnea and Denies dyspnea on exertion GI Denies hematochezia and Denies change in stool character Musc Denies abnormal gait, Denies limited range of motion, Denies muscle cramps, Denies muscle weakness, Denies numbness, Denies radiating pain into limb, Denies stiffness and Denies tingling Neuro Denies abnormal gait, Reports dizziness, Denies numbness and Denies tingling Endo Denies palpitations Physical Exam Vital Signs: Last Vital Signs Pulse 64 09/20/24 09:45 BP 120/62 09/20/24 09:45 BMI result Body Mass Index 38.1 Const General: cooperative, healthy appearing, comfortable and no acute distress Orientation/consciousness: patient oriented x3 Neck Neck: Yes normal visual inspection and Yes no JVD Resp Effort & Inspection: normal respiratory effort Auscultation: clear to auscultation bilaterally, no crackles, no rales, no rhonchi and no wheezes Cardio Rate: regular rate Rhythm: regular rhythm Heart sounds: S1 normal heart sound present, S2 normal heart sound present, no murmurs and no rubs Neuro General: patient oriented x3 Extrem General: Yes normal to inspection and No no pedal edema Psych Appearance: grossly normal Mental Status: mental status grossly normal Speech and movement: Normal speech and movement present Assessment & Plan Assessment & Plan (1) Dizziness: Code(s): R42 - Dizziness and giddiness Category: Medical Plan: Reports of dizziness with position changes, bending forward and turning head over the last 2 months. She did have a recent fall out of a chair as she bent forward to grab something. No palpitations, presyncope, syncope. She says she was told that she has vertigo and was given meclizine with some improvement of this symptom. Her heart tones are regular on examination. No concern for arrhythmia. Her last echocardiogram was 03/03/2022 showing EF 66%, mild mitral annular calcification and mild TR. Blood pressure is normal today, not orthostatic when checked by me. No strong indication to repeat cardiac testing at this time. She is waiting for a neurology appointment. Instructed her to maintain good hydration, use caution with position changes. Continue meclizine as ordered by PCP. (2) Chest pain: Code(s): R07.9 - Chest pain, unspecified Category: Medical Plan: Prior reports of chest discomfort and shortness of breath. Cardiac risk factors of hypertension, hyperlipidemia, diabetes, obesity. Cardiac catheterization 06/2022 showed normal coronaries. She currently has no anginal sounding symptoms. Continue with ongoing cardiac risk factor modification including good blood pressure control, ideally less than 130/85. Continue good cholesterol control with ideal LDL goal less than 70 in patient with diabetes. Continue good diabetic control with hemoglobin A1c goal less than 7, followed by PCP. Continue work on weight loss. She does follow with the [facility] bariatric program and did undergo a sleeve gastrectomy. Spent time reviewing signs and symptoms of angina with her. Cardiology follow-up p.r.n. (3) S/P cardiac cath: Comment: Jun 10, 2022 normal coronary arteries Code(s): Z98.890 - Other specified postprocedural states Category: Surgical (4) Hypertension: Code(s): I10 - Essential (primary) hypertension Category: Medical Qualifiers: Hypertension type: primary hypertension Qualified Code(s): I10 - Essential (primary) hypertension Plan: Well controlled at this time. No med changes made. Plan Time spent on chart review, documentation, interview and assessment Medications: Changed From losartan 50 mg PO DAILY 90 days 90 tabs 3RF To losartan 25 mg PO DAILY Coding Level of Care Code Est Pt Level 4 (35955) Complex EM visit Add On G2211 Diagnoses Dizziness R42 Chest pain R07.9 S/P cardiac cath Z98.890 Primary hypertension I10 Hypertension type: primary hypertension Time Spent (min) 30
== END 2024-09-20 10:23 | disposition home or self-care (01) ==
PROVIDERS: PCP Internal Medicine Geriatric Medicine; Visit Provider Nurse Practitioner Family
DX: R42 Dizziness and giddiness (principal); R07.9 Chest pain, unspecified; Z98.890 Other specified postprocedural states; I10 Essential (primary) hypertension
CPT/HCPCS: 99214; G2211

== ENCOUNTER → 2024-09-20 09:02 | Outpatient (BNVA) | payer MEDICARE, MEDICAID, SELFPAY | PROVIDERS: PCP Internal Medicine Geriatric Medicine; Visit Provider Nurse Practitioner Family | DX: R42 Dizziness and giddiness (principal); R07.9 Chest pain, unspecified; I10 Essential (primary) hypertension; Z98.890 Other specified postprocedural states | CPT/HCPCS: 99212 ==

== ENCOUNTER 2024-09-22 11:40 | Outpatient (AMB) | payer MEDICARE, MEDICAID, SELFPAY ==
--- NOTE | 2024-09-22 11:42 | MHC.OFFVISWM ---
VS Expanded 09/22/24 11:48 BP 171/73 H Blood Pressure Location Rt brachial Blood Pressure Position Sitting Pulse 72 Pulse Source Pulse Oximeter Temp 97.5 F Temperature Source Temporal Artery Scan Pulse Oximetry 100 Oxygen Delivery Method Room Air Height 4 ft 11 in Weight 184 lb 9.6 oz BMI 37.3 Body Fat % 40.9 Body Fat Mass 75.4 Fat Free Mass 109.2 Visceral Fat Rating 12.0 Body Water % 41.9 Body Water Mass 77.4 Muscle Mass/Score 103.6 Basal Metabolic Rate/Score 1,502 Intake Visit Reasons: OV PO LSG 02/03/23 Home Health Clinical Liaison Required: Yes Home Health Clinical Liaison Services: Home Health Clinical Liaison Present Home Health Clinical Liaison Name: hospital [facility]mi Allergies canagliflozin [Invokana] Allergy (Severe, Verified 09/22/24 11:46) chest tightness lisinopril [LISINOPRIL] Allergy (Severe, Verified 09/22/24 11:46) sweating, rash, difficulty breathing, cough oxycodone Allergy (Intermediate, Verified 09/22/24 11:46) vomiting/GI cramping Medication List - Last Reconciled 09/22/24 by JANET Negro albuterol sulfate 2.5 mg inhalation Q6H PRN albuterol sulfate 90 mcg/actuation 2 puffs PO Q6H PRN amitriptyline 50 mg BEDTIME aspirin 81 mg DAILY bupropion HCl XL 300 mg PO QAM cetirizine 10 mg PO DAILY cholecalciferol (vitamin D3) (Vitamin D3) 25 mcg PO DAILY cyanocobalamin (vitamin B-12) 250 mcg PO DAILY fluticasone propionate 50 mcg/actuation 2 sprays intranasal DAILY sundlzfqhyj-siksjmpdl-ahaxscqi 200-62.5-25 mcg (Trelegy Ellipta) 1 ea inhalation DAILY lidocaine 5% 1 patch topical DAILY loratadine 10 mg DAILY losartan 25 mg PO DAILY meclizine 12.5 mg PO BID PRN montelukast 10 mg PO DAILY 90 days nebulizers As directed rosuvastatin 10 mg PO BEDTIME trazodone 50 - 100 mg PO BEDTIME PRN triamcinolone acetonide 0.1% 1 appl topical BID HPI Comments Details: This?a?59?yo female who is s/p LSG without hiatal hernia repair on?02/03/[address] Kc and laparoscopic cholecystectomy on 08/13/[address] Santo. Presents for 1year 7.5 month post op visit. Her weight today is 184.6 pounds, with a BMI of 37.3.? There has been a 89.8 pound weight loss,(initial weight 272.4 pounds) since starting the program on 09/19/21 reflecting a 33.5% total body weight loss and a weight loss of 51.9 pounds since surgery (operative weight 234.5 pounds) reflecting a 22.7% TBWL since surgery.? Mild constipation improved with senna She states she fell 3 weeks ago sustaining scrapes to her head and she hurt her back. She did not go to the hospital despite being told to do so by her family. Was doing both yogurt and bar Present meal plan includes: 1 celebrate 4:1 w 1 scoop x 2 w 8 oz almond milk, 8-10am, 1-3 pm yogurt or zp bar Meal 6 forks protein, 6 forks vegetables, 6 pm Exercise plan: none in the last 3 weeks Walking on treadmill PF 5 days per week 400-500 joaquim [facility] Medical History Asthma exacerbation GERD (gastroesophageal reflux disease) Diabetic nephropathy Hypertension LUCINDA (obstructive sleep apnea) Bilateral primary osteoarthritis of knee Kidney problem Fibromyalgia Right knee pain Carpal tunnel syndrome Morbid obesity Depression Anxiety Asthma Type 2 diabetes mellitus Dyspepsia Hypertriglyceridemia Bursitis, subacromial Surgical History History of carpal tunnel release of both wrists S/P laparoscopic sleeve gastrectomy S/P cardiac cath Family History Mother No problems noted. Father No problems noted. Social History Household Members: Family Household Members Other:: niece Housing: Apartment Are you a primary child day care provider to a significant other at home: No Do you presently have visiting nurse or other home services: No Alcohol intake: never Patient Tobacco Use Status: Never used Tobacco service: No Current occupational status: unemployed Current occupation: right handed Physical Exam Const General: healthy appearing and no acute distress Resp Effort & Inspection: normal respiratory effort Auscultation: clear to auscultation bilaterally Cardio Rate: regular rate Rhythm: regular rhythm GI Auscultation: normal bowel sounds Extrem General: Yes normal to inspection Assessment & Plan Assessment & Plan (1) S/P laparoscopic sleeve gastrectomy: Code(s): Z98.84 - Bariatric surgery status Category: Surgical Plan: Discussed not doing both yogurt and bar, but rather one or the other. Will resume exercise now that she has recovered from her fall. Encouraged to text weights weeksly. RTC as scheduled
[2024-09-22 11:48] VITALS: BP 171/73; PULSE 72; TEMP 36.4; O2SAT 100; BMI 37.3
== END 2024-09-22 13:06 | disposition home or self-care (01) ==
PROVIDERS: PCP Internal Medicine Geriatric Medicine; Visit Provider Physician Assistant Surgical
DX: E66.812 Obesity, class 2 (principal); Z68.37 Body mass index [BMI] 37.0-37.9, adult; Z90.3 Acquired absence of stomach [part of]; Z98.84 Bariatric surgery status
CPT/HCPCS: 99213; G2211

== ENCOUNTER → 2024-09-22 11:40 | Outpatient (BNVA) | payer MEDICARE, MEDICAID, SELFPAY | PROVIDERS: PCP Internal Medicine Geriatric Medicine; Visit Provider Physician Assistant Surgical | DX: E66.01 Morbid (severe) obesity due to excess calories (principal); Z71.3 Dietary counseling and surveillance; Z98.84 Bariatric surgery status | CPT/HCPCS: 99212 ==

== ENCOUNTER 2024-10-19 11:17 | Outpatient (REF) | payer MEDICARE, MEDICAID, SELFPAY ==
--- NOTE | ~2024-10-19 | XR_ITS ---
EXAMINATION: XR HAND, LEFT CLINICAL INFORMATION: 3 weeks of left hand pain after trauma, mild swelling COMPARISON: March 21, 2013 TECHNIQUE: PA, lateral, and oblique views of the left hand. FINDINGS: Joint space narrowing with the sclerosis of the articular surfaces involving the distal interphalangeal joints of the digits. No acute cortical disruption or malalignment. No lytic or blastic lesions. No subcutaneous emphysema. No metallic or radiopaque foreign body. XR/XR hand LT min 3V IMPRESSION: Osteoarthrosis, distal interphalangeal joints of the digits. Electronically signed by: Wiley Harrell MD 10/19/2024 11:46 AM EST
--- OUTSIDE RECORDS SUMMARY | 2024-10-19 13:13 | XMS_ITS | Encounter Summary ---
Author Organization [employer] Address [address] [place] [address] [place] [address] Care Team Providers Care Lead Project Engineer Name Role Phone Name, Jamal HENDRIX Primary Care Provider [phone] Reason for Visit * Reason Comments Med Refill Encounter Details Date Type Department Care Team ([facility] st Contact Info) Description 09/13/2024 Refill [facility] [address] [place], [place] [phone] Name, MD Jamal [address] [place] [address] Social History Tobacco Use Types Packs/Day Years Used Date Smoking Tobacco: Never Smokeless Tobacco: Never Alcohol Use Standard Drinks/Week Comments Never 0 (1 standard drink = 0.6 oz pur e alcohol) Alcohol Answer Date Recorded Frequency of Alcohol Consumption Not on file 04/26/2024 Average Number of Drinks Not on file 024 Frequency of Binge Drinking Not on file 04/08 Score 0 04/26/2024 Depression Answer Date Recorded Patient Health Questionnaire-9 Score 2 10/28/2023 Patient Health Questionnaire-9 Score 2 10/28/2023 Last PHQ-9: Questionnaire Data Not on file 0 10/28/2023 Housing Stability Answer Date Recorded What is your housing situation today? I have jaspreet vick 10/28/[address] you li ve. Do you have problems with any of the following? None of the above 10/28/2023 Food Insecurity Answer Date Recorded Within the past 12 months, y ou worried that your food would run out before you got money to buy more: Never True 10/28/2023 Within the past 12 months,th e food you bought just didn't last and you didn't have enough money to get more: Never True Transportation Answer Date Recorded In the past 12 months, has l ack of transportation kept you from medical appts, meetings, work or from getting things needed for daily living? No 10/28/2023 Utilities Answer Date Recorded In the past 12 months, has t he electric, gas, oil or water company threatened to shut off services in your home? No 10/28/2023 Depression Answer Date Recorded Patient Health Questionnaire-2 Score 0 10/28/2023 Comments No Sex and Gender Information Value Date Recorded Sex Assigned at Female 07/07/2022 10:19 AM EDT Legal Sex Female 10:19 AM EDT Gender Identity Female 07/07/2022 10:19 AM EDT Sexual Orientation Straight 07/07/2022 10 :19 AM EDT documented as of this encounter Plan of Treatment Upcoming Encounters Date Type Department Care Team (Late st Contact Info) Description 10/31/2024 10:15 AM EST Office Visit [facility] [address] [place] [address] NameJamal MD [address] [place] [address] documented as of this encounter Visit Diagnoses Not on filedocumented in this encounter Additional Health Concerns Assessment Noted Time PHQ-9 Depression Total Score: 2 10/28/19 24 10:00 AM EST documented as of this encounter Care Teams Lead Project Engineer Relationship Specialty Start Date End Date Name, MD Jamal [address] [place] [phone] PCP - General Family Medicine 05/25/19 documented as of this encounter
--- OUTSIDE RECORDS SUMMARY | 2024-10-19 13:13 | XMS_ITS | Clinical Summary ---
Author Organization [facility] Address [address] [facility] [address] [place] [address] Phone Care Team Providers Care Life Skills Teacher Name Role Phone Name, Jamal HENDRIX Primary Care Provider [phone] Allergies Active Allergy Reactions Criticality Noted Date Comments Canagliflozin 04/21/2022 uti Lisinopril Other (see comments) 11/15/2017 Oxycodone-Acetaminophen Nausea And Vomiting 02/2023 Medications fluticasone-tosin meterol (ADVAIR DISKUS) 500-50 MCG/DOSE diskus inhaler 1 puff by Other route 2 (two) times a day Active fluticasone (FLONASE) 50 MCG/ACT nasal spray Administer 1 spray into each nostril 2 (two) times a day Active Incruse Ellipta 62.5 MCG/INH aerosol powder 1 Active Trelegy Ellipta 200-62.5-25 MCG/INH aerosol powder INHALE 1 PUFF DAILY 30 DAYS 2 Active hydroCHLOROthia zide 12.5 MG tablet Take 1 tablet by mouth 1 (one) time each day 3 Active omeprazole (PriLOSEC) [address] capsule Take 1 capsule (20 mg total) by mouth in the morning and 1 capsule (20 mg total) in the evening. 30 capsule 3 3 Active amLODIPine (NORVASC) 5 MG tablet Take 1 tablet (5 mg total) by mouth 1 (one) time each day 30 tablet 11 3 Active Active Problems Problem Noted Date Diagnosed Date Allergic rhinitis 08/28/2022 Severe obesity 08/28/2022 Obstructive sleep apnea syndrome 08/28/2022 Renal disorder due to type 2 diabetes mellitus 1 10/29/2021 Seasonal allergy 08/28/2022 Asthma 10/22/2021 Depressive disorder 10/22/2021 Diabetes mellitus 10/22/2021 Fibromyositis 10/22/2021 Osteoarthritis of knee 10/22/2021 Patient encounter status 10/22/2021 Hypertension 10/22/2021 Proteinuria 03/01/2021 Essential hypertension 06/11/2018 Overview (03/01/2021): Last Assessment & Plan: The systolic is elevated today I will observe no changes continue losartan. Hyperlipidemia 06/11/2018 Overview (03/01/2021): Last Assessment & Plan: Controlled LDL 88 mg/dL on atorvastatin no changes. Uncontrolled type 2 diabetes mellitus with compl ication 06/11/2018 Overview (03/01/2021): Last Assessment & Plan: The patient's glycemic levels are well controlled. She has occasional hypoglycemia hemoglobin A1c is 6.7% I would not make any changes I have requested lipid panel microalbumin level and a hemoglobin A1c for the follow-up visit in 6 months time. Immunizations Name Administration Dates Next Due Influenza, Quadrivalent, Preservative Free 07/02,06/03/2021 Influenza, Quadrivalent, With Preservative 05/25 Moderna SARS-COV-2 11/30/2020,11/02/2020 Pfizer SARS-COV-2 01/13/2022,07/04/2021 Pneumococcal Polysaccharide 05/25/2019, 0,11/13/2009 Tdap 07/16/2021 Family History Medical History Relation Comments Diabetes Father Heart disease Father Hypertension Father Kidney disease Father Stroke Father Cancer Mother Diabetes Mother Hypertension Mother Kidney disease Mother Diabetes Sibling 1 Hypertension Sibling 2 Relation Status Comments Father Mother Alive Sibling 1 Sibling 2 Social History Tobacco Use Types Packs/Day Years Used Date Smoking Tobacco: Never Smokeless Tobacco: Never Tobacco Cessation:Counseling Given: No Alcohol Use Standard Drinks/Week Comments No 0 (1 standard drink = 0.6 oz pur e alcohol) Comments Unknown Sex and Gender Information Value Date Recorded Sex Assigned at Not on file Legal Sex Female 5:06 PM EST Gender Identity Not on file Sexual Orientation Not on file Last Filed Vital Signs Vital Sign Reading Time Taken Comments Blood Pressure 118/56 06/22/2023 4:23 PM EDT Pulse 83 06/22/2023 4:23 PM EDT Temperature - - Respiratory Rate - - Oxygen Saturation 95% 10/22/2021 1:25 PM EST Inhaled Oxygen Concentration - - Weight 83 kg (183 lb) 06/22/2023 4:23 PM EDT Height 157.5 cm (5' 2 ) 12/19/2019 12:00 PM EDT Body Mass Index 33.47 12/19/2019 12:00 PM EDT Plan of Treatment Health Maintenance Due Date Last Done Comments Breast Cancer Screening 1965 Hepatitis B Vaccine (1 of 3 - 19+ 3-dose series) 1984 Colorectal Cancer Screening: Annual FOBT 2014 Colorectal Cancer Screening: Colonoscopy 2014 Colorectal Cancer Screening: Sigmoidoscopy 2014 Pneumococcal Vaccine: Pediat rics (0 to 5 Years) and At-Risk Patients (6 to 64 Years) (3 of 3 - PCV) 05/25/2020 05/25/2019, 07/17/2010, 11/13/2009 Diabetes: Ophthalmology Exam 10/05/2020 Diabetes: Pedal Pulse Checked 10/05/2020 Diabetes: Sensory Foot Exam 10/05/2020 Diabetes: Visual Foot Exam 10/05/2020 Diabetes: Hemoglobin A1C 01/19/2023 023, 10/03/2022, 09/03/2022, Additional history exists Influenza Vaccine (#1) 2024 3, 07/02/2022, 06/03/2021, Additional history exists Insurance MEDICARE [place]ICAID [place] MEDICARE [place]ICAID [place] Care Teams Life Skills Teacher Relationship Specialty Start Date End Date Name, MD Jamal [address] [place] [id number] PCP - General Internal Medicine 03/12/21
--- OUTSIDE RECORDS SUMMARY | 2024-10-19 13:13 | XMS_ITS | Clinical Summary ---
Author Organization [facility] Address [address] [place] [address] 7 [place] [address] Care Team Providers Care Eap Counselor Name Role Phone Name, Jamal HENDRIX Primary Care Provider [phone] Allergies Active Allergy Reactions Criticality Noted Date Comments Canagliflozin Medium 04/21/2022 UTI Lisinopril Cough,Shortness of breath High 11/15/2017 Oxycodone-Acetaminophen Nausea And Vomiting 01/2023 Wound Dressing Adhesive Rash Low 07/26/2023 Medications albuterol 108 (90 Base) MCG/ACT inhaler Inhale 2 puffs every 4 (four) hours if needed. 0 Active montelukast (Singulair) 10 MG tablet Take 10 mg by mouth in the evening. 1 Active budesonide (Pulmicort) 1 MG/2ML nebulizer solution Take 2 mL by nebulization 1 (one) time each day. Rinse mouth after using. 2 Active glucose blood (FREESTYLE LITE) test strip Use to test blood sugar four times daily, before meals and at bedtime. 2 Active fluticasone (Flonase) 50 MCG/ACT nasal spray Administer 2 sprays into each nostril 1 (one) time each day. 2 Active B-D ULTRAFINE III SHORT PEN 31G X 8 MM misc USE 1 EACH 5 TIMES A DAY 2 Active Diclofenac Sodium 1 % gel Apply to affected area twice daily 2 Active rosuvastatin (Crestor) 5 MG tabletIndicatio ns:Asthma, unspecified asthma severity, unspecified whether complicated, unspecified whether persistent TOME PEACE TABLETA TODOS LOS ORDAZ 90 tablet 3 3 Active triamcinolone (Kenalog) 0.1 % creamIndication s:Asthma, unspecified asthma severity, unspecified whether complicated, unspecified whether persistent APLIQUE CAPA JULIENNE EL AREA AFECTADA DOS VECES AL SHRUTHI 30 g 3 Active pantoprazole (ProtoNix) 40 MG EC tablet Take 1 tablet (40 mg) by mouth before breakfast. 30 tablet 11 3 Active buPROPion XL (Wellbutrin XL) 300 MG 24 hr tablet Take 1 tablet by mouth once daily 3 Active D3-1000 25 MCG (1000 UT) capsule TOME 1 C PSULA POR V A ORAL TO LOS D 3 Active cyancobalamine (Vitamin B-12) 250 MCG tablet TOME PEACE TABLETA POR V A ORAL LOS D 3 Active FreeStyle lancets USE 1 EACH CUATRO VECES AL D A BEFORE MEALS AND AT NIGHTLY 3 Active traZODone (Desyrel) 50 MG tablet Take 2 tablets (100mg) by mouth every night 3 Active Trelegy Ellipta 200-62.5-25 MCG/ACT aerosol powder INHALE 1 PUFF BY INHALATION ROUTE EVERY DAY AT THE SAME TIME EACH DAY 60 each 4 4 Active losartan (Cozaar) 25 MG tablet Take 3 tablets (75 mg) by mouth Once per day. 4 04/26/20 25 Active cetirizine (ZyrTEC) 10 MG tablet TAKE 1 TABLET BY MOUTH ONCE PER DAY. 90 tablet 1 4 Active lidocaine (Lidoderm) 5 % patchIndication s:Chronic low back pain without sciatica, unspecified back pain laterality APPLY 1 PATCH TOPICALLY IN THE MORNING REMOVE AND DISARD PATCH WITHIN 12 HOURS OR INSTRUCTED BY 30 patch 3 4 Active albuterol (2.5 MG/3ML) 0.083% nebulizer solutionIndicat ions:Asthma, unspecified asthma severity, unspecified whether complicated, unspecified whether persistent INHALE THE CONTENTS OF 1 VIAL VIA NEBULIZER THREE TIMES DAILY 75 mL 11 4 06/17/20 25 Active Active Problems Problem Noted Date Diagnosed Date Severe obesity (BMI 35.0-39.9) with comorbidity 04/26/2024 Hx of cholecystectomy 10/28/2023 Gallstone pancreatitis 07/25/2023 Overview (10/28/2023): Last Assessment & Plan: Elevated lipase at time of admission of 298. Suspect gallstone pancreatitis as the etiology Lipase continues to improve, down to 83 today --Consult to general surgery before discharge. Patient had cholecystectomy 08/13/2023 Bariatric surgery status 06/01/2023 Overview (06/01/2023): Gastric sleeve 01/2023 at [facility] Obstructive sleep apnea syndrome 08/28/2022 Allergic rhinitis 08/28/2022 Diabetic nephropathy associa amor with type 2 diabetes mellitus 08/28/2022 Type 2 diabetes mellitus wit h microalbuminuria, without long-term current use of insulin 08/11/2022 Overview (01/28/2024): Last Assessment & Plan: Controlled. Hemoglobin A1c is 5.6 she is no longer in the diabetic or prediabetic range of all diabetic medications. I will give her a follow-up appointment in 6 months and if she continues to do well then she will need to see me any longer she can follow with her primary care physician. Depression 10/22/2021 Asthma 10/22/2021 Hyperlipidemia LDL goal <100 06/11/2018 Overview (01/28/2024): Last Assessment & Plan: Controlled LDL 88 mg/dL on atorvastatin no changes. Last Assessment & Plan: Controlled based on LDL of 99 mg/dL she should continue rosuvastatin. Last Assessment & Plan: Controlled. LDL 99 mg of rosuvastatin 10 mg no changes required. Last Assessment & Plan: Uncontrolled. LDL increased from 99 to 137 mg/dL we will repeat lipid panel in 6 months and see if it is improved. If it does not improve below 100 mg/dL she will need to resume statins. Last Assessment & Plan: Her LDL is now 125 mg/dL and I do not know if we actually need to maintain her LDL less than 100 mg/dL now that she is no longer in the diabetic range but I think is best to do so noted to be safe and I prescribed rosuvastatin 5 mg. She will repeat lipid panel fasting in 6 months time. Essential hypertension 06/11/2018 Overview (08/13/2023): Last Assessment & Plan: The systolic is elevated today I will observe no changes continue losartan. Last Assessment & Plan: Controlled. She has microalbuminuria continue losartan another antihypertensive. No changes. Last Assessment & Plan: Continue amlodipine and hydrochlorothiazide with holding parameters. Resolved Problems Problem Noted Date Diagnosed Date Resolved Date Cholangitis 07/25/2023 08/13/2023 10/28/2023 Overview (08/13/2023): Last Assessment & Plan: Patient presented with sudden onset of right-sided abdominal pain radiating to the back with associated fever and nausea but no vomiting. Laboratory studies significant for transaminitis with AST 528 ALT is 475 and alkaline phosphatase was 269. No evidence of hyperbilirubinemia. Lactic acidosis of 2.36 resolved to 1.[address] without acute abnormality status post sleeve gastrectomy. No CBD dilatation. Incidental finding of a mild splenomegaly. She initially had high fever up to 102.8 and leukocytosis. Blood cultures have remained negative. MRCP on 07/25 showing choledocholithiasis without CBD dilitation Clinical picture consistent with acute cholangitis secondary to obstructing common bile duct stone. Attempts made for transfer to [facility] and [facility] for ERCP, but unfortunately no beds available. She has improved clinically over the last 48 hours with resolving fever, leukocytosis and abdominal pain. Lipase also improved --GI planning ERCP today. Continue IV PIP/Tazo --N.p.o. for procedure Encounter for preventive health examination 02/19/2023 01/28/2024 Severe obesity 08/28/2022 06/01/2023 Seasonal allergies 08/28/2022 4 Uncontrolled type 2 diabetes mellitus with hyperglycemia 06/11/2018 06/01/2023 Overview (08/28/2022): Last Assessment & Plan: The patient's glycemic levels are well controlled. She has occasional hypoglycemia hemoglobin A1c is 6.7% I would not make any changes I have requested lipid panel microalbumin level and a hemoglobin A1c for the follow-up visit in 6 months time. DM (diabetes mellitus) 06/11/201801/27 Overview (08/13/2023): Last Assessment & Plan: Glucose control over the last 2 weeks has been excellent 118 mg/dL. She had 1 low glucose level and 1 elevated glucose level. Her hemoglobin A1c is elevated at 7.5% which does not make much sense. So I will check fructosamine level, check CBC to see if there is any anemia or any other blood cell abnormality which can result in falsely elevated hemoglobin A1c. Also will check reticulocyte. The patient informs me that she was taking prednisone for about 2 months and this could have resulted in elevated glucose levels. She does have recurrent asthma exacerbation. The obesity physician would like to increase Ozempic up to 4 mg but there is no such thing. I can increase Ozempic to 2 mg but it can cause increased adverse effects. She currently does not have any adverse effects with the use of Ozempic 1 mg. She is on Tresiba 100 units and it was using it in the morning but now he has to to use it in the evening. It will not make any difference because this medication can be administered at any time of day as long as his 8 hours from the last. However if ongoing increase his Ozempic to 2 mg then I am going to decrease the Tresiba to 50 units daily. Last Assessment & Plan: Controlled. Hemoglobin A1c 5.2%. The patient is status post bariatric surgery on a liquid protein diet and protein bars. She is not eating any solid food for the next 3 weeks. Presently her glucose levels are in the reference range. She is off of insulin and other medications. It is unclear if this will be the case once she starts eating regular food. We will repeat the hemoglobin A1c in 6 months time. Last Assessment & Plan: Status post sleeve gastrectomy. Patient has been off most of her antiglycemic's including insulin. Patient states she is only on weekly Ozempic. Patient follows with Dr. Powell for endocrinology. Blood sugar levels remain well controlled -Continue low-dose insulin sliding scale [id number]-[id number] testing Encounters Date Type Department Care Team Description 10/19/2024 10:40 AM EST Office Visit [facility] [address] [place] [phone] NameJamal MD Left hand pain (Primary Dx) 09/13/2024 Refill [facility] [address] [place] [phone] Jamal Castañeda MD 07/26/2024 11:30 AM EST Office Visit [facility] [address] [place] [address] [phone] NameJamal MD Type 2 diabetes mellitus with hyperglycemia, with long-term current use of insulin ([facility]) (Primary Dx); Moderate asthma, unspecified whether complicated, unspecified whether persistent; Encounter for immunization 07/26/2024 Travel 07/21/2024 Telephone [facility] [address] [place] [phone] María Lisa MA chart prep from Last 3 Months Immunizations Name Administration Dates Next Due Hep B, adult 12/17/2023,10/28/2023 Influenza injectable quadriv alent IIV4 with preservative 05/25/2019 Influenza injectable quadriv alent preservative free 06/01/2023,07/02/2022,06/03/2021 Influenza, seasonal, injecta ble, preservative free 07/26/2024 Moderna Covid-19 Vaccine 12+ 11/30/2020,11/02/19 21 Pfizer Covid-19 Vaccine 12+ 07/26/2024,,07/04/2021 Pfizer Covid-19 Vaccine 12+ Bivalent 07/02/2022 Pfizer Covid-19 Vaccine 12+ gino-sucrose (Roberson Cap) 01/13/2022 Pneumococcal Conjugate PCV 20 10/28/2023 Pneumococcal Polysaccharide PPSV23 05/25/2019,,11/13/2009 Tdap 07/16/2021 Family History Medical History Relation Name Comments Uterine cancer Mother Relation Name Status Comments Mother Social History Tobacco Use Types Packs/Day Years Used Date Smoking Tobacco: Never Smokeless Tobacco: Never Tobacco Cessation:Counseling Given: Not Answered Alcohol Use Standard Drinks/Week Comments Never 0 [...] Orientation Straight 07/07/2022 10 :19 AM EDT Last Filed Vital Signs Vital Sign Reading Time Taken Comments Blood Pressure 138/70 10/19/2024 10:17 AM EST Pulse 60 10/19/2024 10:17 AM EST Temperature 36.6 ??C (97.9 ??F) 10/19/2024 10:[address] Respiratory Rate 16 10/19/2024 10:17 AM EST Oxygen Saturation 97% 07/26/2024 11:48 AM EST Inhaled Oxygen Concentration - - Weight 83.9 kg (185 lb) 10/19/2024 10:17 AM EST Height 149.9 cm (4' 11 ) 10/19/2024 10:17 AM EST Body Mass Index 37.37 10/19/2024 10:17 AM EST Plan of Treatment Upcoming Encounters Date Type Department Care Team (Late st Contact Info) Description 10/31/2024 10:15 AM EST Office Visit [facility] [address] [place] [address] Name, MD Jamal [address] [place] [address] Health Maintenance Due Date Last Done Comments CT Colonography 1965 FIT 1965 FOBT 1965 HIV Screening 1965 Sigmoidoscopy 1965 Zoster Vaccines (1 of 2) 2015 Hepatitis B Vaccines (3 of 3 - 19+ 3-dose series) 04/27/2024 12/17/2023, 10/28/2023 Depression Screening 10/28/2024 10/28/2023, 10/28/19 Diabetes: Foot Exam 10/28/2024 10/28/2023 SDOH Screening 10/28/2024 10/28/2023 Diabetes: Hemoglobin A1C 12/09/2024 10 024, 05/23/2024, 04/26/2024, Additional history exists Alcohol/Substance Use Screening 04/26/2025 04/26/2024 Lipid Panel 06/10/2025 06/10/2024, 05/1 02/2023, 11/02/2020 Eye Exam 08/05/2025 08/05/2023 Tobacco Screening 10/19/2025 10/19/2024 FIT DNA/Cologuard 11/21/2025 11/21/2022 Mammogram 11/30/2025 12/01/2023, 09/19/2019 Cervical Cancer Screening 12/16/2026 HPV/Cotest 12/16/2026 12/17/2023 Pap Smear 12/16/2026 12/17/2023 DTaP/Tdap/Td Vaccines (2 - Td or Tdap) 07/16/2031 07/16/2021 Colonoscopy 08/05/2033 08/05/2023 Colorectal Cancer Screening 08/05/2033 RSV Patients and Patients Aged 60 years or older (1 - 1-dose 75+ series) 2040 Hepatitis C Screening Completed 10/28/2023 Pneumococcal Vaccine: 50+ Years Completed 10/28/2023, 05/25/2019, 07/17/2010, Additional history exists COVID-19 Vaccine Completed 07/26/2024, 06/2023, 07/02/2022, Additional history exists Influenza Vaccine Completed 07/26/2024, , 07/02/2022, Additional history exists HIB Vaccines Aged Out No longer eligi ble based on patient's age to complete this topic HPV Vaccines Aged Out No longer eligi ble based on patient's age to complete this topic Hepatitis A Vaccines Aged Out No long er eligible based on patient's age to complete this topic IPV Vaccines Aged Out No longer eligi ble based on patient's age to complete this topic Meningococcal Vaccine Aged Out No [place] eligible based on patient's age to complete this topic RSV under 20 months Aged Out No longe r eligible based on patient's age to complete this topic Rotavirus Vaccines Aged Out No longer eligible based on patient's age to complete this topic Procedures Procedure Name Priority Date/Time Associated Diagnosis Comments XR HAND 3+ VIEWS LEFT Routine 10/19/2024 11:18 AM EST Left hand pain POCT GLUCOSE Routine 07/26/2024 11:49 AM EST Type 2 diabetes mellitus with hyperglycemia, with long-term current use of insulin (CMS/HCC) CREATININE, SERUM Routine 07/19/2024 2:2 0 PM EST UREA NITROGEN (BUN) Routine 07/19/2024 2 :20 PM EST ELECTROLYTE PANEL Routine 07/19/2024 2:2 0 PM EST PROTEIN CREATININE RATIO, URINE Routine 07/19/2024 2:17 PM EST HEMOGLOBIN A1C Routine 06/10/2024 7:01 AM EDT LIPID PANEL, STANDARD Routine 06/10/2024 7:01 AM EDT HPV MRNA E6/E7 REFLEX TO HPV 16, 18/45 Routine 12/17/2023 10:51 AM EDT PAP SMEAR Routine 12/17/2023 10:51 AM EDT Cervical cancer screening BI MAMMOGRAM SCREENING TOMOSYNTHESIS BILATERAL Routine 12/01/2023 11:50 AM EDT HEPATITIS C ANTIBODY Routine 10/28/2023 10:55 AM EST Need for hepatitis C screening test HM COLONOSCOPY Routine 08/05/2023 9:44 AM EST HM DIABETES EYE EXAM Routine 08/05/2023 COLOGUARD COLON CANCER SCREENING (EXTERNAL RESULTS ONLY) Routine 11/21/2022 2:00 PM EDT from Last 3 Months or Most Recently Relevant to Health Maintenance Results * XR Hand 3+ Views Left (10/19/2024 11:18 AM EST) Anatomical Region Laterality Modality Upper Extremities, Hand Left Radiogra phic Imaging 10/19/2024 11:1 8 AM EST Narrative 10/19/2024 11:49 AM EST ?[facility] ?[address] ?[place] [address] ?XRay Report ? Signed ? Patient: Eris Palmer,Angela I ?MR ?? #: [id number] ? : 1965 ?Acct:[id number] ? Age/Sex: 59 / F ?ADM Date: 10/19/24 ? Loc: HO.HHCX ? Attending Dr: Jamal Castañeda MD ? Ordering Physician: Jamal Castañeda MD ?? Date of Service: 10/19/24 ?? Procedure(s): XR hand LT min 3V ?? Accession Number(s): [id number] ? cc: Jamal Castañeda MD ? EXAMINATION: ?? XR HAND, LEFT ? CLINICAL INFORMATION: ?? 3 weeks of left hand pain after trauma, mild swelling ? COMPARISON: ?? March 21, 2013 ? TECHNIQUE: ?? PA, lateral, and oblique views of the left hand. ? FINDINGS: ?? Joint space narrowing with the sclerosis of the articular surfaces ?? involving the distal interphalangeal joints of the digits. ?? No acute cortical disruption or malalignment. No lytic or blastic ?? lesions. No subcutaneous emphysema. No metallic or radiopaque foreign ?? body. ? XR/XR hand LT min 3V ?? IMPRESSION: ?? Osteoarthrosis, distal interphalangeal joints of the digits. ? Electronically signed by: ??Wiley Harrell MD ??10/19/2024 11:46 AM ?? EST RP ? Dictated By: ?Wiley Heath MD ? Signed By: ?<Electronically signed by Wiley Collazo MD in OV> ? 10/19/24 1146 ? DD/ 1118 ? TD/TT: 10/19/24 1140 ? Editor Department: ? Procedure Note Neal, Image - 10/19/[address] [address] XRay Report Signed Patient: Angela Montilla [facility] #: [id number] : 1965Acct:[id number] Age/Sex: 59 / FADM Date: 10/19/24 Loc: .HHCX Attending Dr: Jamal Castañeda MD Ordering Physician: Name,Jamal MD Date of Service: 10/19/24 Procedure(s): XR hand LT min 3V Accession Number(s): [id number] cc: Jamal Castañeda MD EXAMINATION: XR HAND, LEFT CLINICAL INFORMATION: 3 weeks of left hand pain after trauma, mild swelling COMPARISON: March 21, 2013 TECHNIQUE: PA, lateral, and oblique views of the left hand. FINDINGS: Joint space narrowing with the sclerosis of the articular surfaces involving the distal interphalangeal joints of the digits. No acute cortical disruption or malalignment. No lytic or blastic lesions. No subcutaneous emphysema. No metallic or radiopaque foreign body. XR/XR hand LT min 3V IMPRESSION: Osteoarthrosis, distal interphalangeal joints of the digits. Electronically signed by: Wiley Harrell MD 10/19/2024 11:46 AM EST RP Dictated By: Wiley Heath MD Signed By: <Electronically signed by Wiley Collazo MDin OV> 10/19/24 1146 DD/ 1118 TD/TT: 10/19/24 1140 Editor Department: us Jamal Castañeda MD IMG XR PROCEDURES Final Result * POCT Glucose (07/26/2024 11:49 AM EST) Glucose Blood, POC 90 60 - 200 mg/dL QC Media Lot # [id number] Lot# Expiration Date Blood Capillary blood specimen / Unknown 07/26/2024 11:49 AM EST us Jamal Castañeda MD POINT OF CARE TEST ENTER/EDIT OR DERABLES Final Result * Creatinine, Serum (07/19/2024 2:20 PM EST) Creatinine, Serum 0.69 0.5 - 1.4 mg/dL [facility] Estimated Glomerular Filt Rate >60 [facility] Comment:Chronic Kidney Disea se: Estimated GFR < 60 mL/min/1.85x0Rpqllj Kidney Disease: Estimated GFR < 15 mL/min/1.73m2 07/19/2024 2:20 PM EST 07/19/2024 2:20 PM EST us Generic External Data Provider LAB BLOOD ORDERAB LES Final Result Performing Organization Address [facility] Co de Phone Number [facility] [address] [place] [phone] * (ABNORMAL) BUN (Blood Urea Nitrogen) (07/19/2024 2:20 PM EST) Urea Nitrogen (BUN) 18(H) 9 - 16 mg/dL [facility] 07/19/2024 2:20 PM EST 07/19/2024 2:20 PM EST Generic External Data Provider LAB BLOOD ORDERAB LES Final Result Performing Organization Address [facility] Phone Number [facility] [address] [place] [phone] * Electrolyte Panel (07/19/2024 2:20 PM EST) Sodium 140 135 - 145 mmol/L [facility] Potassium 4.5 3.3 - 5.1 mmol/L [facility] Chloride 105 96 - 108 mmol/L [facility] Carbon Dioxide 27 22 - 29 mmol/L [facility] Anion Gap 13 12 - 20 [facility] 07/19/2024 2:20 PM EST 07/19/2024 2:20 PM EST Generic External Data Provider LAB BLOOD ORDERAB LES Final Result Performing Organization Address [facility] Co de Phone Number [facility] [address] [place] [phone] * Protein Creatinine Ratio, Urine (07/19/2024 2:17 PM EST) Creatinine, Urine 77.45 mg/dL [facility] Protein, Total, Random Urine <7 <12 mg/dL [facility] Protein/Creatin ine Ratio, Ur TNP <0.2 [facility] Comment:Unable to calculate urine protein creatinine ratio due tolow creatinine or protein result. 07/19/2024 2:17 PM EST 07/19/2024 2:31 PM EST Generic External Data Provider LAB URINE ORDERAB LES Final Result Performing Organization Address [facility] Co de Phone Number [facility] [address] [place] [phone] * Hemoglobin A1c (06/10/2024 7:01 AM EDT) Hemoglobin A1c 5.4 <6.0 % [facility] Comment:Hemoglobin A1C Refer ence Range Adults: 4.8 - 6.0 % Non diabetic: < 6.0 % Goal: < 7.0 %Additional Action Suggested: > 8.0 %Note: Hemoglobin A1c results are invalid for patients with abnormal amounts of HbF. Blood transfusions may impact the HbA1c concentration in the patient sample. Estimated Average Glucose 108 mg/dL [facility] Comment:eAG = Estimated ave rage glucose which is %A1C expressed asaverage glucose, using the formula of the P0H-UpbvknwWhhkxpt Glucose study (ADAG), Diabetes Care, Vol.31,#8,Apr. 2007 06/10/2024 7:01 AM EDT 06/10/2024 7:01 AM EDT us Generic External Data Provider LAB BLOOD ORDERAB LES Final Result Performing Organization Address [facility] Co de Phone Number [facility] [address] [place] [address] [phone] * (ABNORMAL) Lipid Panel, Standard (06/10/2024 7:01 AM EDT) Triglycerides 129 <150 mg/dL [facility] Comment:Desirable Triglyceri de: less than 150 mg/dLBorderline High Triglyceride 150-199 mg/dLHigh Triglyceride: 200-499 mg/dLVery High Triglyceride: greater than or equal to 5OO mg/dL Cholesterol 200(H) <200 mg/dL [facility] Comment:Desirable Cholestero l: less than 200 mg/dLBorderline High Cholesterol: 200-239 mg/dLHigh Cholesterol: greater than 239 mg/dL LDL Cholesterol Calculated 122(H) <100 mg/dL [facility] Comment:Desirable LDL: less than 100 mg/dLNear Optimal/Above Optimal LDL: 110- 129 mg/dLBorderline High LDL: 130-159 mg/dLHigh LDL: 160-189 mg/dLVery High LDL: greater than or equal to 190 mg/dL HDL Cholesterol 53 >40 mg/dL [facility] Comment:Desirable HDL: great er than 40 mg/dL Note: This HDL assay may give artificially low results in patients with liver disease. 06/10/2024 7:01 AM EDT 06/10/2024 7:01 AM EDT us Generic External Data Provider LAB BLOOD ORDERAB LES Final Result [facility] [address] [place] [phone] * HPV mRNA E6/E7 w/Reflex to HPV Genotypes 16, 18/45 (12/17/2023 10:51 AM EDT) HPV nRNA E6/E7 Not Detected Not Detected [facility] Comment:Methodology: Transcr iption-Mediated AmplificationThis assay detects E6/E7 viral messenger RNA (mRNA) from 14high-risk HPV types (16,18,31,33,35,39,45,51,52,56,58,59,66,68).Cervical sources are required for HPV testing.If a vaginal source from a patient who has had atotal hysterectomy with removal of cervix wassubmitted, please contact the testing laboratoryfor alternative testing options.For additional information, please refer [email or web address]/faq/[email or web address](This link if provided for information/educational purposes only.)THIS TEST WAS PERFORMED AT:[facility] [place] [phone] VINCENT MD HPV mRNA E6/E7 TNP [facility] HPV 16 RNA TNP [facility] HPV 18/45 RNA TNP [facility] 12/17/2023 10:5 1 AM EDT 12/22/2023 12:00 PM EDT Ignacia Tanner CNM LAB CYTOLOGY ORDERABLES F inal Result [facility] [address] [place] [phone] * Pap Smear (12/17/2023 10:51 AM EDT) Swab Cervix uteri structure / Unknown 12/17/2023 10:51 AM EDT 12/22/2023 12:00 PM EDT Narrative [facility] - 01/04/2024 12:50 PM EDT ----- ------- Name: Angela Montilla I ?Age/Sex: 58/F ? : 1965 Unit#: [id number] ?? Attend Dr: IGNACIA TANNER CNM ?Re12/17/23 ?Status: DEP REF ? Location: HO.LNP ?Disch: ? ----- ------- SPEC : [id number] ? RECD: 12/22/23-1200 ? STATUS: ??SOUT ? REQ NUM: [id number] ? MAYLIN: 12/17/23-1051 ? SUBM DR: IGNACIA TANNER CNM ? ENTERED: ??12/22/23-1242 ?SP TYPE: Pap Smr ?OTHR : ? ORDERED: ??Pap Smear ? Interpretation ?? Satisfactory for evaluation. ?? Atrophic. ?? Negative for intraepithelial lesion or malignancy. ?HPV mRNA E6/E7: ?NOT DETECTED ? This assay detects E6/E7 viral messenger RNA (mRNA) from 14 high-risk HPV types (16, 18, ?? 31, 33, 35, 39, 45, 51, 52, 56, 58, 59, 66, 68) ?? HPV testing performed by [facility], [place], [place]. ??See reference laboratory ?? portion of the EMR for entire report. ?Clinical Information LMP: Postmenopausal Previous PAP test: Unknown date/findings ? Material Received ?? ThinPrep-Vaginal/Cervical ----- ------- Signed (signature on file) ANGELI Sarah (ASCP) 01/04/24 1250 ? ----- ------- ? END OF REPORT ? us Ignacia Tanner [facility] CYTOLOGY ORDERABLES F inal Result [facility] [address] [place] [address] [phone] * BI Mammogram Screening Tomosynthesis Bilateral (12/01/2023 11:50 AM EDT) Anatomical Region Laterality Modality Breast Bilateral Mammography 12/01/2023 11:5 0 AM EDT Narrative 12/20/2023 3:46 PM EDT ? [facility] [place] ? [address] ?[place] [address] ? Mammography Report ? Signed ? Patient: Eris Palmer,Angela I ?MR ?? #: [id number] ? : 1965 ?Acct:[id number] ? Age/Sex: 58 / F ?ADM Date: 03/26/24 ? Loc: HO.MAMMO ? Attending Dr: Jamal Castañeda MD ? Ordering Physician: Jamal Castañeda MD ?Results: 1Negative ? Date of Service: 12/01/23 ?Follow Up: 1 Year From Orig ?? inal Mammogram ? Procedure(s): MM tomosynthesis screening BI ?? Accession Number(s): [id number] ? cc: Maddy,Jamal HENDRIX ? EXAMINATION: ?? MM SCREENING DIGITAL BREAST TOMOSYNTHESIS, BILATERAL ? CLINICAL INFORMATION: ? Screening. Asymptomatic. ? COMPARISON: ?? Mammography: This study is compared with prior exams dating back to ?? 2019. ? TECHNIQUE: ?? Digital breast tomosynthesis is performed in both the craniocaudal and ?? mediolateral oblique views along with computer-aided detection (CAD). ?? Synthesized 2D images are generated from the tomosynthesis. ? FINDINGS: ?? The breasts are almost entirely fatty (ACR BI-RADS breast composition ?? Category a). ? There are no significant masses, abnormal calcifications, or other ?? abnormalities. ? MM/MM tomosynthesis screening BI ?? IMPRESSION: ?? No mammographic evidence of malignancy. ? ASSESSMENT: ? BI-RADS BI-RADS 1 - Negative ? RECOMMENDATION: ?? Routine annual mammography screening. ? 1 year F/U ? This examination should not preclude the clinical evaluation of a ?? suspicious palpable abnormality. ? This patient's information was entered into a reminder system with a ?? target due date for their next mammogram. ? Dictated By: ?Martha Aguirre MD ? Signed By: ?<Electronically signed by Martha Aguirre MD in OV> ? 12/20/23 1542 ? DD/ 1150 ? TD/TT: ? Editor Department: ? Procedure Note Donotsyedinterpreter, Image - 12/20/2023 [place] [facility] [address] [place] [address] Mammography Report Signed Patient: Angela Montilla [facility] #: [id number] : 1965Acct:[id number] Age/Sex: 58 / FADM Date: 12/01/23 Loc: SHO Attending Dr: Jamal Castañeda MD Ordering Physician: Jamal Castañeda MDResults: 1Negative Date of Service: 12/01/23Follow Up: 1 Year From Orig inal Mammogram Procedure(s): MM tomosynthesis screening BI Accession Number(s): [id number] cc: Jamal Castañeda MD EXAMINATION: MM SCREENING DIGITAL BREAST TOMOSYNTHESIS, BILATERAL CLINICAL INFORMATION: Screening. Asymptomatic. COMPARISON: Mammography: This study is compared with prior exams dating back to 2019. TECHNIQUE: Digital breast tomosynthesis is performed in both the craniocaudal and mediolateral oblique views along with computer-aided detection (CAD). Synthesized 2D images are generated from the tomosynthesis. FINDINGS: The breasts are almost entirely fatty (ACR BI-RADS breast composition Category a). There are no significant masses, abnormal calcifications, or other abnormalities. MM/MM tomosynthesis screening BI IMPRESSION: No mammographic evidence of malignancy. ASSESSMENT: BI-RADS BI-RADS 1 - Negative RECOMMENDATION: Routine annual mammography screening. 1 year F/U This examination should not preclude the clinical evaluation of a suspicious palpable abnormality. This patient's information was entered into a reminder system with a target due date for their next mammogram. Dictated By: Martha Aguirre MD Signed By: <Electronically signed by Martha Aguirre MD in OV> 12/20/23 1542 DD/ 1150 TD/TT: Editor Department: Jamal Castañeda MD IMG BI PROCEDURES Edited Result - Final * Hepatitis C Ab (10/28/2023 10:55 AM EST) Hepatitis C Antibody Nonreactive Nonreactive [facility] Comment:Antibodies to HCV no t detected; does not exclude early acuteHCV infection. Blood Venous blood specimen / Unknown 10/28/2023 10:55 AM EST 10/28/2023 1:21 PM EST Jamal Castañeda MD LAB BLOOD ORDERABLES Final Resul t [facility] [address] [place] [phone] * Diabetes Eye Exam (08/05/2023) Eye Exam Normal Normal us Jamal Castañeda MD HEALTH MAINTENANCE Final Result * Cologuard Colon Cancer Screening (11/21/2022 2:00 PM EDT) Cologuard Cancer Screen Negative Comment:repeat in 3 yrs Stool 11/21/2022 2:00 PM EDT Result Derrell Castañeda MD POINT OF CARE TEST ENTER/EDIT OR DERABLES Final Result from Last 3 Months or Most Recently Relevant to Health Maintenance Insurance MEDICARE [facility] Care Teams Eap Counselor Relationship Specialty Start Date End Date Name, MD Jamal [address] [place] [phone] PCP - General Family Medicine 05/25/19
--- OUTSIDE RECORDS SUMMARY | 2024-10-19 13:13 | XMS_ITS | Encounter Summary ---
Author Organization [employer] Address [address] [place] [address] 7 [place] [address] Care Team Providers Care Printer Floor Covering Assistant Name Role Phone Name, Jamal HENDRIX Primary Care Provider [phone] Reason for Visit * Reason Comments Hand Pain Encounter Details Date Type Department Care Team ([facility] st Contact Info) Description 10/19/2024 10:40 AM EST Office Visit [facility] [address] [place] [address] [phone] Name, MD Jamal [address] [place] [phone] Left hand pain (Primary Dx) Social History Tobacco Use Types Packs/Day Years [...] the past 12 months, has t he [employer], gas, oil or water [employer] threatened to shut off services in your home? No 10/28/2023 Depression Answer Date Recorded Patient Health Questionnaire-2 Score 0 10/28/2023 Comments No Sex and Gender Information Value Date Recorded Sex Assigned at Female 07/07/2022 10:19 AM EDT Legal Sex Female 10:19 AM EDT Gender Identity Female 07/07/2022 10:19 AM EDT Sexual Orientation Straight 07/07/2022 10 :19 AM EDT documented as of this encounter Last Filed Vital Signs Vital Sign Reading Time Taken Comments Blood Pressure 138/70 10/19/2024 10:17 AM EST Pulse 60 10/19/2024 10:17 AM EST Temperature 36.6 ??C (97.9 ??F) 10/19/2024 10:[address] Respiratory Rate 16 10/19/2024 10:17 AM EST Oxygen Saturation - - Inhaled Oxygen Concentration - - Weight 83.9 kg (185 lb) 10/19/2024 10:17 AM EST Height 149.9 cm (4' 11 ) 10/19/2024 10:17 AM EST Body Mass Index 37.37 10/19/2024 10:17 AM EST documented in this encounter Progress Notes * Jamal Castañeda MD - 10/19/2024 10:40 AM EST Subjective Patient ID: Angela Palmer is a 59 y.o. female who presents for Hand Pain. Patient comes because of 3 weeks of left hand pain. The patient started have pain after trauma to the left hand. She tells me a relative accidentally hit her left hand with a billiard ball. The patient had immediate pain, swelling and decreased range of motion of the left hand after trauma. Symptoms have improved over time but even today she has discomfort and mild swelling of the left hand. Range of motion of the left hand has normalized but movement of the left hand causes discomfort. Review of Systems Musculoskeletal: See HPI Visit Vitals BP 138/70 (BP Location: Left arm, Patient Position: Sitting, BP Cuff Size: Adult) Pulse 60 Temp 97.9 ??F (36.6 ??C) (Oral) Resp 16 Ht 4' 11 (1.499 m) Wt 185 lb (83.9 kg) BMI 37.37 kg/m?? OB Status Postmenopausal Smoking Status Never BSA 1.87 m?? Objective Physical Exam Constitutional: General: She is not in acute distress. Appearance: She is not toxic-appearing. Musculoskeletal: Comments: Mild swelling on the dorsum of the left hand. Mild discomfort on palpation of the left hand. Patient describes discomfort with active range of motion of the left hand (opening and closing the fist). Assessment/Plan Diagnoses and all orders for this visit: Left hand pain Comments: Patient with left hand pain and swelling after trauma. She has significant improvement compared to the days after the trauma. I suspect soft tissue injury. I recommended to rest and apply ice to the area. Evaluation with hand x-ray. I will contact the patient with results. Orders: - XR Hand 3+ Views Left; Future documented in this encounter Plan of Treatment Upcoming Encounters Date Type Department Care Team (Late st Contact Info) Description 10/31/2024 10:15 AM EST Office Visit [facility] [address] [place] [address] Name, MD Jamal [address] [place] [address] documented as of this encounter Procedures Procedure Name Priority Date/Time Associated Diagnosis Comments XR HAND 3+ VIEWS LEFT Routine 10/19/2024 11:18 AM EST Left hand pain documented in this encounter Results * XR Hand 3+ Views Left (10/19/2024 11:18 AM EST) Anatomical Region Laterality Modality Upper Extremities, Hand [facility] 10/19/2024 11:1 8 AM EST Narrative 10/19/2024 11:49 AM EST ?[facility] ?[address] ?[place] [address] ?XRay Report ? Signed ? Patient: Eris Palmer,Angela I ?MR ?? #: [id number] ? : 1965 ?Acct:[id number] ? Age/Sex: 59 / F ?ADM Date: 10/19/24 ? Loc: HO.HHCX ? Attending Dr: Jamal Castañeda MD ? Ordering Physician: Jamal Castañeda MD ?? Date of Service: 10/19/24 ?? Procedure(s): XR hand LT min 3V ?? Accession Number(s): [id number] ? cc: Jamal Castañeda MD ? EXAMINATION: [...] DD/ 1118 ? TD/TT: 10/19/24 1140 ? Surgical Forceps Fabricator: ? Procedure Note John De Jesus - 10/19/2024 [facility] [address] [place] [address] XRay Report Signed Patient: Eris FountainMaria Luisa villegasna IMR #: [id number] : 1965Acct:[id number] Age/Sex: 59 / FADM Date: 10/19/24 Loc: HO.HHCX Attending Dr: Jamal Castañeda MD Ordering Physician: Jamal Castañeda MD Date of Service: 10/19/24 Procedure(s): XR hand LT min 3V Accession Number(s): [id number] cc: Jamal Castañeda MD EXAMINATION: XR HAND, [...] Wiley Harrell MD 10/19/2024 11:46 AM EST Dictated By: Wiley Heath MD Signed By: <Electronically signed by Wiley Collazo MDin OV> 10/19/24 1146 DD/ 1118 TD/TT: 10/19/24 1140 Surgical Forceps Fabricator: Jamal Castañeda MD IMG XR PROCEDURES Final Result documented in this encounter Visit Diagnoses Diagnosis Left hand pain- Primary Pain in soft tissues of limb documented in this encounter Additional Health Concerns Assessment Noted Time PHQ-9 Depression Total Score: 2 10/28/19 24 10:00 AM EST documented as of this encounter Care Teams Printer Floor Covering Assistant Relationship Specialty Start Date End Date NameJamal MD [address] [place] [address] PCP - General Family Medicine 05/25/19 documented as of this encounter
== END 2024-10-19 11:18 | disposition home or self-care (01) ==
LOC: HO.HHCX 11:17
PROVIDERS: Visit Provider Internal Medicine Geriatric Medicine
DX: M79.642 Pain in left hand (principal)
CPT/HCPCS: 73130

== ENCOUNTER → 2024-10-19 11:18 | Outpatient (BNV) | payer MEDICARE, MEDICAID, SELFPAY | PROVIDERS: Visit Provider Radiology Diagnostic Radiology | DX: S69.92XA Unspecified injury of left wrist, hand and finger(s), initial encounter (principal) | CPT/HCPCS: 73130 ==

== ENCOUNTER → 2024-10-20 07:57 | Outpatient (REF) | payer MEDICARE, MEDICAID, SELFPAY ==
--- OUTSIDE RECORDS SUMMARY | 2024-10-20 08:00 | XMS_ITS | Clinical Summary ---
Author Organization [facility] Address [address] [facility] [address] [place] [address] Phone Care Team Providers Care Head School Custodian Name Role Phone Name, Jamal HENDRIX Primary Care Provider [phone] Allergies Active Allergy Reactions Criticality Noted Date [...] [place]ICAID [place] Care Teams Head School Custodian Relationship Specialty Start Date End Date Name, MD Jamal [address] [place] [phone] PCP - General Internal Medicine 03/12/21
--- OUTSIDE RECORDS SUMMARY | 2024-10-20 08:00 | XMS_ITS | Encounter Summary ---
Author Organization [employer] Address [address] [place] [address] 7 [place] [address] Care Team Providers Care Culinary Director Name Role Phone Name, Jamal HENDRIX Primary Care Provider [phone] Encounter Details Date Type Department Care Team ([facility] st Contact Info) Description 10/19/2024 Telephone [facility] [address] [place], [place] [phone] Name, MD Jamal [address] [place] [address] Social History Tobacco Use Types Packs/Day Years [...] AM EDT documented as of this encounter Miscellaneous Notes * Telephone Encounter - Alexa Keating RN - 10/19/2024 1:31 PM EST Images from the original note were not included. TC placed to pt via [employer] diplomatic interpreter (Emmanuel ID#[id number]) to inform of below provider message. Jamal Castañeda MD [place] [facility] [place] Team Nurses Please call the patient and let her know her X-ray did NOT show any fracture . No answer, LVM to call office back. documented in this encounter Plan of Treatment Upcoming Encounters Date Type Department Care Team (Late st Contact Info) Description 10/31/2024 10:15 AM EST Office Visit [facility] [address] [place] [address] Name, MD Jamal [address] [place] [address] documented as of this encounter Visit Diagnoses Not on filedocumented in this encounter Additional Health Concerns Assessment Noted Time PHQ-9 Depression Total Score: 2 10/28/19 10:00 AM EST documented as of this encounter Care Teams Culinary Director Relationship Specialty Start Date End Date Name, MD Jamal [address] [place] [address] PCP - General Family Medicine 05/25/19 documented as of this encounter
--- OUTSIDE RECORDS SUMMARY | 2024-10-20 08:00 | XMS_ITS | Encounter Summary ---
Author Organization [employer] Address [address] [place] [address] [place] [address] Care Team Providers Care Tank Systems Maintainer Name Role Phone Name, Jamal HENDRIX Primary Care Provider [phone] Reason for Visit * Reason Comments Med Refill Encounter Details Date Type Department Care Team ([facility] st Contact Info) Description 09/13/2024 Refill [facility] [address] [place], [place] [phone] Name, MD Jamal [address] [place] [address] Social History Tobacco Use Types Packs/Day Years [...] Description 10/31/2024 10:15 AM EST Office Visit [facility] [address] [place] [address] NameJamal MD [address] [place] [address] documented as of this encounter Visit Diagnoses Not on filedocumented in this encounter Additional Health Concerns Assessment Noted Time PHQ-9 Depression Total Score: 2 10/28/19 24 10:00 AM EST documented as of this encounter Care Teams Tank Systems Maintainer Relationship Specialty Start Date End Date Name, MD Jamal [address] [place] [phone] PCP - General Family Medicine 05/25/19 documented as of this encounter
--- OUTSIDE RECORDS SUMMARY | 2024-10-20 08:00 | XMS_ITS | Encounter Summary ---
Author Organization [employer] Address [address] [place] [address] 7 [place] [address] Care Team Providers Care Terra Cotta Mason Name Role Phone Name, Jamal HENDRIX Primary Care Provider [phone] Reason for Visit * Reason Comments Hand Pain Encounter Details Date Type Department Care Team ([facility] st Contact Info) Description 10/19/2024 10:40 AM EST Office Visit [facility] [address] [place] [address] [phone] Name, MD Jamal [address] [place] [phone] Left hand pain (Primary Dx) Social History [...] the past 12 months, has t he [employer], gas, oil or water [employer] threatened to shut off services in your [...] Description 10/31/2024 10:15 AM EST Office Visit [facility] [address] [place] [address] Name, MD Jamal [address] [place] [address] documented as of this encounter Procedures Procedure Name Priority Date/Time Associated Diagnosis Comments XR HAND 3+ VIEWS LEFT Routine 10/19/2024 11:18 AM EST Left hand pain documented in this encounter Results * XR Hand 3+ Views Left (10/19/2024 11:18 AM EST) Anatomical Region Laterality Modality Upper Extremities, Hand Left [facility] 10/19/2024 11:1 8 AM EST Narrative 10/19/2024 11:49 AM EST ?[facility] ?[address] ?[place] [address] ?XRay Report ? Signed ? Patient: Eris Palmer,Angela I ?MR ?? #: [id number] ? : 1965 ?Acct:[id number] ? Age/Sex: 59 / F ?ADM Date: 10/19/24 ? Loc: HO.HHCX ? Attending Dr: Jamal Castañeda MD ? Ordering Physician: Jamal Castañeda MD ?? Date of Service: 10/19/24 ?? Procedure(s): XR hand LT min 3V ?? Accession Number(s): [id number] ? cc: Jamal Castañeda MD ? EXAMINATION: [...] DD/ 1118 ? TD/TT: 10/19/24 1140 ? Assistant Pressman: ? Procedure Note John De Jesus - 10/19/2024 [facility] [address] [place] [address] XRay Report Signed Patient: Eris FountainMaria Luisa villegasna IMR #: [id number] : 1965Acct:[id number] Age/Sex: 59 / FADM Date: 10/19/24 Loc: HO.HHCX Attending Dr: Jamal Castañeda MD Ordering Physician: Jamal Castañeda MD Date of Service: 10/19/24 Procedure(s): XR hand LT min 3V Accession Number(s): [id number] cc: Jamal Castañeda MD EXAMINATION: XR HAND, [...] 10/19/24 1146 DD/ 1118 TD/TT: 10/19/24 1140 Assistant Pressman: Jamal Castañeda MD IMG XR PROCEDURES Final Result documented in this encounter Visit Diagnoses Diagnosis Left hand pain- Primary Pain in soft tissues of limb documented in this encounter Additional Health Concerns Assessment Noted Time PHQ-9 Depression Total Score: 2 10/28/19 24 10:00 AM EST documented as of this encounter Care Teams Terra Cotta Mason Relationship Specialty Start Date End Date NameJamal MD [address] [place] [address] PCP - General Family Medicine 05/25/19 documented as of this encounter
--- OUTSIDE RECORDS SUMMARY | 2024-10-20 08:00 | XMS_ITS | Clinical Summary ---
Author Organization [facility] Address [address] [place] [address] 7 [place] [address] Care Team Providers Care Fishing Game Warden Name Role Phone Name, Jamal HENDRIX Primary Care Provider [phone] Allergies Active Allergy Reactions Criticality Noted Date [...] 06/01/2023 Overview (06/01/2023): Gastric sleeve 01/2023 [place] [facility] Obstructive sleep apnea syndrome 08/28/2022 Allergic rhinitis [...] duct stone. Attempts made for transfer to [facility] and [facility] for ERCP, but unfortunately no beds available. [...] well controlled -Continue low-dose insulin sliding scale [id number] testing Encounters Date Type Department Care Team Description 10/19/2024 10:40 AM EST Office Visit [facility] [address] [place] [address] NameJamal MD Left hand pain (Primary Dx) 10/19/2024 Telephone [facility] [address] [place] [address] Jamal Castañeda MD 09/13/[address] [address] NameJamal MD 07/26/2024 11:30 AM EST Office Visit [address] [address] NameJamal MD Type 2 diabetes mellitus with hyperglycemia, with long-term current use of insulin ([facility]) (Primary Dx); Moderate asthma, unspecified whether complicated, unspecified whether persistent; Encounter for immunization 07/26/2024 Travel 07/21/2024 Telephone [facility] [address] [place] [address] María Lisa MA chart prep from Last 3 Months Immunizations Name Administration Dates Next Due Hep B, adult 12/17/2023,10/28/2023 Influenza injectable quadriv alent IIV4 with preservative 05/25/2019 Influenza injectable quadriv alent preservative free 06/01/2023,07/02/2022,06/03/2021 Influenza, seasonal, injecta ble, preservative free 07/26/2024 Moderna Covid-19 Vaccine 12+ 11/30/2020,11/02/19 Pfizer Covid-19 Vaccine 12+ 07/26/2024,,07/04/2021 Pfizer Covid-19 [...] is your housing situation today? I have jaspreetdeng vick 10/28/[address] you [...] Description 10/31/2024 10:15 AM EST Office Visit [facility] [address] [place] [address] Name, MD Jamal [address] [place] [address] Health Maintenance Due Date Last Done Comments CT Colonography 1965 FIT 1965 FOBT 1965 HIV Screening 1965 Sigmoidoscopy 1965 Zoster Vaccines (1 of 2) 2015 Hepatitis B Vaccines (3 of 3 - 19+ 3-dose series) 04/27/2024 12/17/2023, 10/28/2023 Depression Screening 10/28/2024 10/28/2023, 10/28/19 Diabetes: Foot Exam 10/28/2024 10/28/2023 SDOH Screening 10/28/2024 10/28/2023 Diabetes: Hemoglobin A1C 12/09/2024 024, 05/23/2024, 04/26/2024, Additional history exists Alcohol/Substance Use Screening 04/26/2025 04/26/2024 Lipid Panel 06/10/2025 06/10/2024, 05/02/2023, 11/02/2020 Eye Exam 08/05/2025 08/05/2023 Tobacco Screening [...] hyperglycemia, with long-term current use of insulin ([facility]) HEMOGLOBIN A1C Routine 06/10/2024 7:01 AM EDT [...] Laterality Modality Upper Extremities, Hand [facility] 10/19/2024 11:1 8 AM EST Narrative 10/19/2024 11:49 AM EST ?[facility] ?[address] ?[place] [address] ?XRay Report ? Signed ? Patient: Eris Palmer,Angela I ?MR ?? #: [id number] ? : 1965 ?Acct:[id number] ? Age/Sex: 59 / F ?ADM Date: 10/19/ ? Loc: HO.HHCX ? Attending Dr: Jamal Castañeda MD ? Ordering Physician: Jamal Castañeda MD ?? Date of Service: 10/19/24 ?? Procedure(s): XR hand LT min 3V ?? Accession Number(s): [id number] ? cc: Maddy,Jamal HENDRIX ? EXAMINATION: ?? XR HAND, LEFT ? [...] DD/ 1118 ? TD/TT: 10/19/24 1140 ? Magazine Grinder Loader: ? Procedure Note Jester, Image - 10/19/[address] [address] XRay Report Signed Patient: Angela Montilla [facility] #: [id number] : 1965Acct:[id number] Age/Sex: 59 / FADM Date: 10/19/24 Loc: HO.HHCX Attending Dr: Jamal Castañeda MD Ordering Physician: Jamal Castañeda MD Date of Service: 10/19/24 Procedure(s): XR hand LT min 3V Accession Number(s): [id number] cc: Jamal Castañeda MD EXAMINATION: XR HAND, [...] 10/19/24 1146 DD/ 1118 TD/TT: 10/19/24 1140 Magazine Grinder Loader: us Jamal Castañeda MD IMG XR PROCEDURES Final Result * POCT Glucose (07/26/2024 11:49 AM EST) Glucose Blood, POC 90 60 - 200 mg/dL QC Media Lot # [id number] Lot# Expiration Date Blood Capillary blood specimen / Unknown 07/26/2024 11:49 AM EST us Jamal Castañeda MD POINT OF CARE TEST ENTER/EDIT OR DERABLES Final Result * Hemoglobin A1c (06/10/2024 7:01 AM EDT) Hemoglobin A1c 5.4 <6.0 % [facility] Comment:Hemoglobin A1C Refer ence Range Adults: 4.8 - 6.0 % Non diabetic: < 6.0 % Goal: < 7.0 %Additional Action Suggested: > 8.0 %Note: Hemoglobin A1c results are invalid for patients with abnormal amounts of HbF. Blood transfusions may impact the HbA1c concentration in the patient sample. Estimated Average Glucose 108 mg/dL [facility] Comment:eAG = Estimated ave rage glucose which is %A1C expressed asaverage glucose, using the formula of the D5S-JfaemsdNjbmgnt Glucose study (ADAG), Diabetes Care, Vol.31,#8,2007 06/10/2024 7:01 AM EDT 06/10/2024 7:01 AM EDT Generic External Data Provider LAB BLOOD ORDERAB LES Final Result Performing Organization Address [facility] Co de Phone Number [facility] [address] [place] [address] [phone] * (ABNORMAL) Lipid Panel, Standard (06/10/2024 7:01 AM EDT) Triglycerides 129 <150 mg/dL [facility] Comment:Desirable Triglyceri de: less than 150 mg/dLBorderline High Triglyceride 150-199 mg/dLHigh Triglyceride: 200-499 mg/dLVery High Triglyceride: greater than or equal to 5OO mg/dL Cholesterol 200(H) <200 mg/dL [facility] Comment:Desirable Cholestero l: less than 200 mg/dLBorderline High Cholesterol: 200-239 mg/dLHigh Cholesterol: greater than 239 mg/dL LDL Cholesterol Calculated 122(H) <100 mg/dL [facility] Comment:Desirable LDL: less than 100 mg/dLNear Optimal/Above Optimal LDL: 110- 129 mg/dLBorderline High LDL: 130-159 mg/dLHigh LDL: 160-189 mg/dLVery High LDL: greater than or equal to 190 mg/dL HDL Cholesterol 53 >40 mg/dL [facility] Comment:Desirable HDL: great er than 40 mg/dL Note: This HDL assay may give artificially low results in patients with liver disease. 06/10/2024 7:01 AM EDT 06/10/2024 7:01 AM EDT us Generic External Data Provider LAB BLOOD ORDERAB LES Final Result Performing Organization Address [facility]/ZIP Co de Phone Number [facility] [address] [place] [address] [phone] * HPV mRNA E6/E7 w/Reflex to HPV Genotypes 16, 18/45 (12/17/2023 10:51 AM EDT) HPV nRNA E6/E7 Not Detected Not Detected [facility] Comment:Methodology: Transcr iption-Mediated AmplificationThis assay detects E6/E7 viral messenger RNA (mRNA) from 14high-risk HPV types (16,18,31,33,35,39,45,51,52,56,58,59,66,68).Cervical sources are required for HPV testing.If a vaginal source from a patient who has had atotal hysterectomy with removal of cervix wassubmitted, please contact the testing laboratoryfor alternative testing options.For additional information, please refer tohttp://education.[employer]/faq/RCU497u5(This link if provided for information/educational purposes only.)THIS TEST WAS PERFORMED AT:[employer] [place] [phone] VINCENT MD HPV mRNA E6/E7 [facility] HPV 16 RNA [facility] HPV 18/45 RNA [facility] 12/17/2023 10:5 1 AM EDT 12/22/2023 12:00 PM EDT us Ignacia Tanner [facility] CYTOLOGY ORDERABLES F inal Result [facility] [address] [place] [phone] * Pap Smear (12/17/2023 10:51 AM EDT) Swab Cervix uteri structure / Unknown 12/17/2023 10:51 AM EDT 12/22/2023 12:00 PM EDT Narrative [facility] - 01/04/2024 12:50 PM EDT ----- ------- Name: Angela Montilla I ?Age/Sex: 58/F ? : 1965 Unit#: [id number] ?? Attend Dr: IGNACIA TANNER CNM ?Re12/17/23 ?Status: DEP REF ? Location: HO.LNP ?Disch: ? ----- ------- SPEC : [id number] ? RECD: 12/22/23-1200 ? STATUS: ??SOUT ? REQ NUM: [id number] ? MAYLIN: 12/17/23-1051 ? SUBM DR: IGNACIA TANNER CNM ? ENTERED: ??12/22/23-1243 ?SP TYPE: Pap Smr ?OTHR DR: ? ORDERED: ??Pap Smear ? Interpretation ?? Satisfactory for evaluation. ?? Atrophic. ?? Negative for intraepithelial lesion or malignancy. ?HPV mRNA E6/E7: ?NOT DETECTED ? This assay detects E6/E7 viral messenger RNA (mRNA) from 14 high-risk HPV types (16, 18, ?? 31, 33, 35, 39, 45, 51, 52, 56, 58, 59, 66, 68) ?? HPV testing performed by [facility], [place], [place]. ??See reference laboratory ?? portion of the EMR for entire report. ?Clinical Information LMP: Postmenopausal Previous PAP test: Unknown date/findings ? Material Received ?? ThinPrep-Vaginal/Cervical ----- ------- Signed (signature on file) ANGELI Sarah (ASCP) 01/04/24 1250 ? ----- ------- ? END OF REPORT ? us Ignacia [facility] CYTOLOGY ORDERABLES F inal Result [facility] [address] [facility] [place] [phone] * BI Mammogram Screening Tomosynthesis Bilateral (12/01/2023 11:50 AM EDT) Anatomical Region Laterality Modality Breast Bilateral Mammography 12/01/2023 11:5 0 AM EDT Narrative 12/20/2023 3:46 PM EDT ? [facility] ? [address] ?[place] [address] ? Mammography Report ? Signed ? Patient: Angela Montilla I ?MR ?? #: [id number] ? : 1965 ?Acct:[id number] ? Age/Sex: 58 / F ?ADM Date: 12/01/23 ? Loc: HO.MAMMO ? Attending Dr: Jamal Name MD ? Ordering Physician: Name,Jamal MD ?Results: 1Negative ? Date of Service: 12/01/23 ?Follow Up: 1 Year From Orig ?? inal Mammogram ? Procedure(s): MM tomosynthesis screening BI ?? Accession Number(s): [id number] ? cc: Name,Jamal HENDRIX ? EXAMINATION: ?? MM SCREENING DIGITAL [...] 1542 ? DD/ 1150 ? TD/TT: ? Magazine Grinder Loader: ? Procedure Note Neal, John - 12/20/2023 [facility] [address] [place] [address] Mammography Report Signed Patient: Angela Montilla IMR #: [id number] : 1965Acct:[id number] Age/Sex: 58 / FADM Date: 12/01/23 Loc: HO.MAMMO Attending Dr: Jamal Castañeda MD Ordering Physician: Jamal Castañedaesults: 1Negative Date of Service: 12/01/23Follow Up: 1 Year From Orig inal Mammogram Procedure(s): MM tomosynthesis screening BI Accession Number(s): [id number] cc: Jamal Castañeda MD EXAMINATION: MM SCREENING [...] in OV> 12/20/23 1542 DD/ 1150 TD/TT: Magazine Grinder Loader: us Jamal Castañeda MD IMG BI PROCEDURES Edited Result - Final * Hepatitis C Ab (10/28/2023 10:55 AM EST) Hepatitis C Antibody Nonreactive Nonreactive [facility] Comment:Antibodies to HCV no t detected; does not exclude early acuteHCV infection. Blood Venous blood specimen / Unknown 10/28/2023 10:55 AM EST 10/28/2023 1:21 PM EST us Jamal Castañeda MD LAB BLOOD ORDERABLES Final Resul t [facility] [address] [place] [phone] * Hm Diabetes Eye Exam (08/05/2023) Eye Exam Normal Normal us Jamal Castañeda MD HEALTH MAINTENANCE Final Result * Cologuard Colon Cancer Screening (11/21/2022 2:00 PM EDT) Cologuard Cancer Screen Negative Comment:repeat in 3 yrs Stool 11/21/2022 2:00 PM EDT Jamal Castañeda MD POINT OF CARE TEST ENTER/EDIT OR DERABLES Final Result from Last 3 Months or Most Recently Relevant to Health Maintenance Insurance MEDICARE Member Subscriber Plan / Payer (Ef fective 2022-Present) Name:Eris PalmerAngela I Member ID:[id number] Relation to Subscriber:Self Name:Eris DavisonAngela I Subscriber ID:[id number] Payer ID:STATE Group ID:Not on file Type:Medicare Address: [facility] [place] [address] [address] [facility] Care Teams Fishing Game Warden Relationship Specialty Start Date End Date Name, MD Jamal [address] [place] [address] PCP - General Family Medicine 05/25/19
== END ==
LOC: HO.SL 07:57
PROVIDERS: PCP Internal Medicine Geriatric Medicine; Visit Provider Hospitalist
DX: G47.33 Obstructive sleep apnea (adult) (pediatric) (principal)
CPT/HCPCS: 95806

== ENCOUNTER → 2024-10-20 08:25 | Outpatient (BNV) | payer MEDICARE, MEDICAID, SELFPAY | PROVIDERS: PCP Internal Medicine Geriatric Medicine; Visit Provider Internal Medicine | DX: R06.83 Snoring (principal); G47.10 Hypersomnia, unspecified | CPT/HCPCS: 95806 ==

== ENCOUNTER 2024-10-21 12:32 | Outpatient (REF) | payer MEDICARE, MEDICAID, SELFPAY ==
--- OUTSIDE RECORDS SUMMARY | 2024-10-21 12:56 | XMS_ITS | Encounter Summary ---
Author Organization [employer] Address [address] [place] [address] 7 [place] [address] Care Team Providers Care Leather Currier Name Role Phone Name, Jamal HENDRIX Primary Care Provider [phone] Encounter Details Date Type Department Care Team (Latest Contact Info) Description 10/20/2024 Travel Social History Tobacco Use Types Packs/Day Years [...] Recorded Patient Health Questionnaire-2 Score 0 10/28/2023 Internet Access Answer Date Recorded Internet Access Q1 Yes 10/20/2024 Internet Access Q2 Not on file 10/20/2024 Comments No Sex and Gender Information Value [...] Description 10/31/2024 10:15 AM EST Office Visit [facility] [address] [place] [address] Name, MD Jamal [address] [place] [address] 12/12/2024 10:00 AM EDT Office Visit [address] [address] Patricia Berry CNM [address] [place] [address] documented as of this encounter Visit Diagnoses Not on filedocumented in this encounter Additional Health Concerns Assessment Noted Time PHQ-9 Depression Total Score: 2 10/28/19 24 10:00 AM EST documented as of this encounter Care Teams Leather Currier Relationship Specialty Start Date End Date Name, MD Jamal [address] [place] [address] PCP - General Family Medicine 05/25/19 documented as of this encounter
--- OUTSIDE RECORDS SUMMARY | 2024-10-21 12:56 | XMS_ITS | Encounter Summary ---
Author Organization [facility] [facility] Address [address] [place] [address] 7 [place] [address] Care Team Providers Care University Manager Name Role Phone Name, Jamal HENDRIX Primary Care Provider [phone] Reason for Visit * Reason Comments Hand Pain Encounter Details Date Type Department Care Team ([facility] st Contact Info) Description 10/19/2024 10:40 AM EST Office [address] [facility] [address] [place] [phone] Name, MD Jamal [address] [place] [address] Left hand pain (Primary Dx) Social History [...] Description 10/31/2024 10:15 AM EST Office [address] [facility] [address] [place] [address] Name, MD Jamal [address] [place] [address] 12/12/2024 10:00 AM EDT Office Visit [facility] [address] [place] [address] Patricia Berry CNM [address] [place] [address] documented as of this encounter Procedures Procedure Name Priority Date/Time Associated Diagnosis Comments XR HAND 3+ VIEWS LEFT Routine 10/19/2024 11:18 AM EST Left hand pain documented in this encounter Results * XR Hand 3+ Views Left (10/19/2024 11:18 AM EST) Anatomical Region Laterality Modality Upper Extremities, Hand Left Radiogra phic Imaging 10/19/2024 11:1 8 AM EST Narrative 10/19/2024 11:49 AM EST ?[facility] ?[address] ?[place] [address] ?XRay Report ? Signed ? Patient: Eris PalmerAngela Schneider ?MR ?? #: [id number] ? : 1965 ?Acct:[id number] ? Age/Sex: 59 / F ?ADM Date: 10/19/24 ? Loc: HO.HHCX ? Attending Dr: Jamal Castañeda MD ? Ordering Physician: Jamal Castañeda MD ?? Date of Service: 10/19/24 ?? Procedure(s): XR hand LT min 3V ?? Accession Number(s): [id number] ? cc: Jamal Castañeda MD ? EXAMINATION: [...] DD/ 1118 ? TD/TT: 10/19/24 1140 ? Manager Placement: ? Procedure Note Donotuseinterpreter, Image - 10/19/[address] [address] XRay Report Signed Patient: Angela Montilla IMR #: [id number] : 1965Acct:[id number] Age/Sex: 59 / FADM Date: 10/19/24 Loc: HO.HHCX Attending Dr: Jamal Castañeda MD Ordering Physician: Jamal Castañeda MD Date of Service: 10/19/24 Procedure(s): XR hand LT min 3V Accession Number(s): [id number] cc: Jamal Castañeda MD EXAMINATION: XR HAND, [...] 10/19/24 1146 DD/ 1118 TD/TT: 10/19/24 1140 Manager Placement: Jamal Castañeda MD IMG XR PROCEDURES Final Result documented in this encounter Visit Diagnoses Diagnosis Left hand pain- Primary Pain in soft tissues of limb documented in this encounter Additional Health Concerns Assessment Noted Time PHQ-9 Depression Total Score: 2 10/28/19 24 10:00 AM EST documented as of this encounter Care Teams University Manager Relationship Specialty Start Date End Date Jamal Castañeda MD [address] [place] [address] [place] [address] PCP - General Family Medicine 05/25/19 documented as of this encounter
--- OUTSIDE RECORDS SUMMARY | 2024-10-21 12:56 | XMS_ITS | Encounter Summary ---
Author Organization [employer] Address [address] [place] [address] 7 [place] [address] Care Team Providers Care Trimming Cutter Machine Name Role Phone Name, Jamal HENDRIX Primary Care Provider Reason for Visit * Reason Comments Med Refill Encounter Details Date Type Department Care Team ([facility] st Contact Info) Description 09/13/2024 Refill [facility] [address] [place], [place] [phone] Name, MD Jamal [address] [place] [address] Social History Tobacco Use Types Packs/Day Years [...] Description 10/31/2024 10:15 AM EST Office Visit [address] [address] Name, MD Jamal [address] [place] [address] 12/12/2024 10:00 AM EDT Office Visit [address] [address] [address] [address] documented as of this encounter Visit Diagnoses Not on filedocumented in this encounter Additional Health Concerns Assessment Noted Time PHQ-9 Depression Total Score: 2 10/28/19 10:00 AM EST documented as of this encounter Care Teams Trimming Cutter Machine Relationship Specialty Start Date End Date NameJamal MD [address] [place] [address] PCP - General Family Medicine 05/25/19 documented as of this encounter
--- OUTSIDE RECORDS SUMMARY | 2024-10-21 12:56 | XMS_ITS | Encounter Summary ---
Author Organization [employer] Address [address] [place] [address] 7 [place] [address] Care Team Providers Care Patron Attendant Name Role Phone Name, Jamal HENDRIX Primary Care Provider [phone] Encounter Details Date Type Department Care Team ([facility] st Contact Info) Description 10/19/2024 Telephone [facility] [address] [place], [place] [phone] Name, MD Jamal [address] [place] [address] Social History Tobacco Use Types Packs/Day Years [...] not included. TC placed to pt via [employer] iron worker foreman (Emmanuel ID#[id number]) to inform of below provider message. Jamal [facility]añ[facility] MD [facility] Please call the patient and let her know her X-ray did NOT show any fracture . No answer, LVM to call office back. documented in this encounter Plan of Treatment Upcoming Encounters Date Type Department Care Team (Late st Contact Info) Description 10/31/2024 10:15 AM EST Office Visit [address] [address] Name, MD Jamal [address] [place] [address] 12/12/2024 10:00 AM EDT Office Visit [address] [address] Patricia Berry CNM [address] [place] [address] documented as of this encounter Visit Diagnoses Not on filedocumented in this encounter Additional Health Concerns Assessment Noted Time PHQ-9 Depression Total Score: 2 10/28/19 24 10:00 AM EST documented as of this encounter Care Teams Patron Attendant Relationship Specialty Start Date End Date Name, MD Jamal [address] [place] [address] PCP - General Family Medicine 05/25/19 documented as of this encounter
--- OUTSIDE RECORDS SUMMARY | 2024-10-21 12:56 | XMS_ITS | Clinical Summary ---
Author Organization [employer] Address [address] [place] [address] 7 [place] [address] Care Team Providers Care Heat Set Operator Name Role Phone Name, Jamal HENDRIX Primary Care Provider [phone] Allergies Active Allergy Reactions Criticality Noted Date [...] 06/01/2023 Overview (06/01/2023): Gastric sleeve 01/2023 at [facility] Obstructive sleep apnea syndrome 08/28/2022 Allergic rhinitis [...] duct stone. Attempts made for transfer to [facility] and [facility] for ERCP, but [...] well controlled -Continue low-dose insulin sliding scale mmycy-yr-tudz testing Encounters Date Type Department Care Team Description 10/20/2024 Travel 10/20/2024 Patient Outreach [facility] [address] [place], [place] [phone] Jamal Castañeda MD Pre-visit Planning (SDOH negative, Tobacco screening negative. ) 10/19/2024 10:40 AM EST Office Visit [facility] [address] [place] [phone] Jamal Castañeda MD Left hand pain (Primary Dx) 10/19/2024 Telephone [facility] [address] [place] [phone] Jamal Castañeda MD 09/13/2024 Refill [facility] [address] [place] [address] [phone] Jamal Castañeda MD 07/26/2024 11:30 AM EST Office Visit [facility] [address] [place] [address] [phone] Jamal Castañeda MD Type 2 diabetes mellitus with hyperglycemia, with long-term current use of insulin ([facility]) (Primary Dx); Moderate asthma, unspecified whether complicated, unspecified whether persistent; Encounter for immunization 07/26/2024 Travel 07/21/2024 Telephone [facility] [address] [place] [phone] María Lisa MA chart prep from Last [...] Description 10/31/2024 10:15 AM EST Office Visit [facility] [address] [place] [phone] Name, MD Jamal [address] [place] [phone] 12/12/2024 10:00 AM EDT Office Visit [facility] [address] [place] [phone] Ignacia Tanner, LUDMILA [address] [place] [address] Health Maintenance Due Date Last Done Comments CT Colonography 1965 FIT 1965 FOBT 1965 HIV Screening 1965 Sigmoidoscopy 1965 Zoster Vaccines (1 of 2) 2015 Hepatitis B Vaccines (3 of 3 - 19+ 3-dose series) 04/27/2024 12/17/2023, 10/28/2023 Depression Screening 10/28/2024 10/28/2023, 10/28/19 Diabetes: Foot Exam 10/28/2024 10/28/2023 Diabetes: Hemoglobin A1C 12/09/2024 024, 05/23/2024, 04/26/2024, Additional history exists Alcohol/Substance Use Screening 04/26/2025 04/26/2024 Lipid Panel 06/10/2025 06/10/2024, 0502/2023, 11/02/2020 Eye Exam 08/05/2025 08/05/2023 Tobacco Screening 10/19/2025 10/19/2024 SDOH Screening 10/20/2025 10/20/2024 FIT DNA/Cologuard 11/21/2025 11/21/2022 Mammogram 11/30/2025 12/01/2023, [...] hyperglycemia, with long-term current use of insulin ([facility]) HEMOGLOBIN A1C Routine 06/10/2024 7:01 AM EDT [...] AM EST Narrative 10/19/2024 11:49 AM EST ?[facility] ?[address] ?[place] [address] ?XRay Report ? Signed ? Patient: Angela Montilla I ?MR ?? #: [id number] ? : 1965 ?Acct:[id number] ? Age/Sex: 59 / F ?ADM Date: 10/19/24 ? Loc: HO.HHCX ? Attending Dr: Jamal Castañeda MD ? Ordering Physician: Jamal Castañeda MD ?? Date of Service: 10/19/24 ?? Procedure(s): XR hand LT min 3V ?? Accession Number(s): [id number] ? cc: Jamal Castañeda MD ? EXAMINATION: [...] DD/ 1118 ? TD/TT: 10/19/24 1140 ? Corporate Pilot: ? Procedure Note John De Jesus - 10/19/2024 [facility] [address] [place] [address] XRay Report Signed Patient: Angela Montilla [facility] #: [id number] : 1965Acct:[id number] Age/Sex: 59 / FADM Date: 10/19/24 Loc: HO.HHCX Attending Dr: Jamal Castañeda MD Ordering Physician: Jamal Castañeda MD Date of Service: 10/19/24 Procedure(s): XR hand LT min 3V Accession Number(s): [id number] cc: Jamal Castañeda MD EXAMINATION: XR HAND, [...] 10/19/24 1146 DD/ 1118 TD/TT: 10/19/24 1140 Corporate Pilot: us Jamal Castañeda MD IMG XR PROCEDURES [...] AM EDT) Hemoglobin A1c 5.4 <6.0 % [facility] Comment:Hemoglobin A1C Refer ence Range Adults: 4.8 - 6.0 % Non diabetic: < 6.0 % Goal: < 7.0 %Additional Action Suggested: > 8.0 %Note: Hemoglobin A1c results are invalid for patients with abnormal amounts of HbF. Blood transfusions may impact the HbA1c concentration in the patient sample. Estimated Average Glucose 108 mg/dL [facility] Comment:eAG = Estimated ave rage glucose which is %A1C expressed asaverage glucose, using the formula of the K2Z-WqwlcxrBjnwgjp Glucose study (ADAG), Diabetes Care, Vol.31,#8,2007 06/10/2024 7:01 AM EDT 06/10/2024 7:01 AM EDT us Generic External Data Provider LAB BLOOD ORDERAB LES Final Result Performing Organization Address City/State/[facility] Co de Phone Number [facility] [address] [place] [phone] * (ABNORMAL) Lipid Panel, Standard (06/10/2024 7:01 AM EDT) Triglycerides 129 <150 mg/dL [facility] Comment:Desirable Triglyceri de: less than 150 mg/dLBorderline High Triglyceride 150-199 mg/dLHigh Triglyceride: 200-499 mg/dLVery High Triglyceride: greater than or equal to 5OO mg/dL Cholesterol 200(H) <200 mg/dL [facility] Comment:Desirable Cholestero l: less than 200 mg/dLBorderline High Cholesterol: 200-239 mg/dLHigh Cholesterol: greater than 239 mg/dL LDL Cholesterol Calculated 122(H) <100 mg/dL [facility] Comment:Desirable LDL: less than 100 mg/dLNear Optimal/Above Optimal LDL: 110- 129 mg/dLBorderline High LDL: 130-159 mg/dLHigh LDL: 160-189 mg/dLVery High LDL: greater than or equal to 190 mg/dL HDL Cholesterol 53 >40 mg/dL [facility] Comment:Desirable HDL: great er than 40 mg/dL Note: This HDL assay may give artificially low results in patients with liver disease. 06/10/2024 7:01 AM EDT 06/10/2024 7:01 AM EDT us Generic External Data Provider LAB BLOOD ORDERAB LES Final Result Performing Organization Address [facility]/ZIP Co de Phone Number [facility] [address] [place] [address] [phone] * HPV mRNA E6/E7 w/Reflex to HPV Genotypes 16, 18/45 (12/17/2023 10:51 AM EDT) HPV nRNA E6/E7 Not Detected Not Detected [facility] Comment:Methodology: Transcr iption-Mediated AmplificationThis assay detects E6/E7 viral messenger RNA (mRNA) from 14high-risk HPV types (16,18,31,33,35,39,45,51,52,56,58,59,66,68).Cervical sources are required for HPV testing.If a vaginal source from a patient who has had atotal hysterectomy with removal of cervix wassubmitted, please contact the testing laboratoryfor alternative testing options.For additional information, please refer tohttp://education.Aniways/faq/ANC463l1(This link if provided for information/educational purposes only.)THIS TEST WAS PERFORMED AT:[employer] [place] [phone] VINCENT MD HPV mRNA E6/E7 [facility] HPV 16 RNA [facility] HPV 18/45 RNA [facility] 12/17/2023 10:5 1 AM EDT 12/22/2023 12:00 PM EDT us Ignacia KEYS LAB CYTOLOGY ORDERABLES F inal Result Performing Organization Address [facility]/ZIP Co de Phone Number [facility] [address] [place] [phone] * Pap Smear (12/17/2023 10:51 AM EDT) Swab Cervix uteri structure / Unknown 12/17/2023 10:51 AM EDT 12/22/2023 12:00 PM EDT [facility] - 01/04/2024 12:50 PM EDT ----- ------- Name: Angela Montilla I ?Age/Sex: 58/F ? : 1965 Unit#: [id number] ?? Attend Dr: IGNACIA TANNER CNM ?Re12/17/23 ?Status: DEP REF ? Location: HO.LNP ?Disch: ? ----- ------- SPEC : [id number] ? RECD: 12/22/23-1200 ? STATUS: ??SOUT ? REQ NUM: [id number] ? MAYLIN: 12/17/23-1051 ? SUBM DR: IGNACIA TANNER CNM ? ENTERED: ??12/22/23-1243 ?SP TYPE: Pap Smr ?OTHR : ? [...] 66, 68) ?? HPV testing performed by [employer], [place], [place]. ??See reference laboratory ?? portion of the EMR for entire report. ?Clinical Information LMP: Postmenopausal Previous PAP test: Unknown date/findings ? Material Received ?? ThinPrep-Vaginal/Cervical ----- ------- Signed (signature on file) ANGELI Sarah (ASCP) 01/04/24 1250 ? ----- ------- ? END OF REPORT ? us Ignacia Tanner [facility] CYTOLOGY ORDERABLES F inal Result [facility] [address] [place] [phone] * BI Mammogram Screening Tomosynthesis Bilateral (12/01/2023 11:50 AM EDT) Anatomical Region Laterality Modality Breast Bilateral Mammography 12/01/2023 11:5 0 AM EDT Narrative 12/20/2023 3:46 PM EDT ? [facility] ? [address] ?[place] [address] ? Mammography Report ? Signed ? Patient: Eris PalmerAngela I ?MR ?? #: [id number] ? : 1965 ?Acct:[id number] ? Age/Sex: 58 / F ?ADM Date: 03/26/24 ? Loc: HO.MAMMO ? Attending : Jamal Name MD ? Ordering Physician: Name,Jamal MD ?Results: 1Negative ? Date of Service: 12/01/23 ?Follow Up: 1 Year From Orig ?? inal Mammogram ? Procedure(s): MM tomosynthesis screening BI ?? Accession Number(s): [id number] ? cc: Name,Jamal HENDRIX ? EXAMINATION: ?? [...] 1542 ? DD/ 1150 ? TD/TT: ? Corporate Pilot: ? Procedure Note Neal, Image - 12/20/2023 [facility] [address] [place] [address] Mammography Report Signed Patient: Maria Luisa Montillana [facility] #: [id number] : 1965Acct:[id number] Age/Sex: 58 / FADM Date: 12/01/23 Loc: HO.BRISAO Attending Dr: Jamal Castañeda MD Ordering Physician: Jamal Castañeda MDResults: 1Negative Date of Service: 12/01/23Follow Up: 1 Year From Orig inal Mammogram Procedure(s): MM tomosynthesis screening BI Accession Number(s): [id number] cc: NameJmaal MD EXAMINATION: MM SCREENING DIGITAL BREAST TOMOSYNTHESIS, [...] in OV> 12/20/23 1542 DD/ 1150 TD/TT: Corporate Pilot: us Jamal Castañeda MD IMG BI PROCEDURES Edited Result - Final * Hepatitis C Ab (10/28/2023 10:55 AM EST) Hepatitis C Antibody Nonreactive Nonreactive [facility] Comment:Antibodies to HCV no t detected; does not exclude early acuteHCV infection. Blood Venous blood specimen / Unknown 10/28/2023 10:55 AM EST 10/28/2023 1:21 PM EST us Jamal Castañeda MD LAB BLOOD ORDERABLES Final Resul t [facility] [address] [place] [phone] * Diabetes Eye Exam (08/05/2023) Eye Exam Normal Normal Result Derrell Castañeda MD HEALTH MAINTENANCE Final Result * Cologuard Colon Cancer Screening (11/21/2022 2:00 PM EDT) Cologuard Cancer Screen Negative Comment:repeat in 3 yrs Stool 11/21/2022 2:00 PM EDT Result Derrell Castañeda MD POINT OF CARE TEST ENTER/EDIT OR DERABLES Final Result from Last 3 Months or Most Recently Relevant to Health [place] [id number] [facility] Care Teams Heat Set Operator Relationship Specialty Start Date End Date Name, MD Jamal [address] [place] [phone] PCP - General Family Medicine 05/25/19
--- OUTSIDE RECORDS SUMMARY | 2024-10-21 12:56 | XMS_ITS | Clinical Summary ---
Author Organization [facility] Address [address] [facility] [address] [place] [phone] Phone Care Team Providers Care Anthropological Linguist Name Role Phone Name, Jamal HENDRIX Primary Care Provider [phone] Allergies Active Allergy Reactions Criticality Noted Date [...] [place]ID [place] Care Teams Anthropological Linguist Relationship Specialty Start Date End Date Name, MD Jamal [address] [place] [phone] PCP - General Internal Medicine 03/12/21
--- OUTSIDE RECORDS SUMMARY | 2024-10-21 12:56 | XMS_ITS | Encounter Summary ---
Author Organization [employer] Address [address] [place] [address] 7 [place] [address] Care Team Providers Care French Folding Machine Operator Name Role Phone Name, Jamal HENDRIX Primary Care Provider [phone] Reason for Visit * Reason Comments Pre-visit Planning SDOH negative, Tobac co screening negative. Encounter Details Date Type Department Care Team ([facility] st Contact Info) Description 10/20/2024 Patient Outreach [facility] [address] [place] [address] Name, MD Jamal [address] [place] [address] Pre-visit Planning (SDOH negative, Tobacco screening negative. ) Social History Tobacco Use Types Packs/Day Years [...] AM EDT documented as of this encounter Progress Notes * Colette Fatima - 10/20/2024 9:43 AM EST ROCCO Payton placed successful outbound call to patient for pre-visit planning. Patient name and confirmed. Patient confirms appt date and time, and has transportation arrangements. Biggest concern for appointment at this time is no concerns. Appropriate screenings completed in anticipation ofappointment. documented in this encounter Plan of Treatment Upcoming Encounters Date Type Department Care Team (Late st Contact Info) Description 10/31/2024 10:15 AM EST Office Visit [facility] [address] [place] [phone] Name, MD Jamal [address] [place] [phone] 12/12/2024 10:00 AM EDT Office Visit [address] [phone] Patricia Berry CNM [address] [place], [place] [phone] documented as of this encounter Visit Diagnoses Not on filedocumented in this encounter Additional Health Concerns Assessment Noted Time PHQ-9 Depression Total Score: 2 10/28/19 24 10:00 AM EST documented as of this encounter Care Teams French Folding Machine Operator Relationship Specialty Start Date End Date Name, MD Jamal [address] [place] [address] PCP - General Family Medicine 05/25/19 documented as of this encounter
[2024-10-21 13:52] LABS: Creatinine Urine 173.55 mg/dL; Protein/Creatinine Ratio, Ur 0.07 (<0.2); Total Protein Urine Random 13 mg/dL (<12)
== END 2024-10-21 12:33 | disposition home or self-care (01) ==
LOC: HO.LNP 12:32
PROVIDERS: Visit Provider Internal Medicine Nephrology
DX: R80.8 Other proteinuria (principal)
CPT/HCPCS: 82570; 84156

== ENCOUNTER 2024-12-22 13:08 | Outpatient (AMB) | payer MEDICARE, MEDICAID, SELFPAY ==
--- NOTE | 2024-12-22 13:15 | A.OFFVIS_ITS ---
Vital Signs 3 12/22/24 13:22 Height 4 ft 11 in Weight 189 lb 4 oz BMI 38.2 BP 165/70 H Blood Pressure Location Lt brachial Position Sitting Pulse 84 Intake Visit Reasons: Left Breast mass Intake Note: Patient is seen in office for evaluation of a left breast abscess. Pt c/o: admits to a lump on the left breast and another in the left axilla, onset about 3 wks, was given antbx and had to stop the antbx due to a rash, currently the area is looking purple PCP:12/15/24 Skilled Labor Required: Yes Skilled Labor Language: Accounts Officer Services: Skilled Labor Present Skilled Labor Name: Nichole ARAYA Information Interpreted: non-clinical & clinical Global Creative Chairman: Global Creative Chairman Present Accompanied by: Self / Same As Patient Allergies canagliflozin [Invokana] Allergy (Severe, Verified 12/22/24 13:26) chest tightness lisinopril [LISINOPRIL] Allergy (Severe, Verified 12/22/24 13:26) sweating, rash, difficulty breathing, cough oxycodone Allergy (Intermediate, Verified 12/22/24 13:26) vomiting/GI cramping sulfamethoxazole [From Bactrim] Allergy (Mild, Verified 12/22/24 14:25) Rash trimethoprim [From Bactrim] Allergy (Mild, Verified 12/22/24 14:25) Rash Medication List - Last Reconciled 12/22/24 by Vaughn Rodriguez MD albuterol sulfate 2.5 mg inhalation Q6H PRN albuterol sulfate 90 mcg/actuation 2 puffs PO Q6H PRN amitriptyline 50 mg BEDTIME aspirin 81 mg DAILY bupropion HCl XL 300 mg PO QAM cephalexin 500 mg PO Q8H 10 days cetirizine 10 mg PO DAILY cholecalciferol (vitamin D3) (Vitamin D3) 25 mcg PO DAILY cyanocobalamin (vitamin B-12) 250 mcg PO DAILY fluticasone propionate 50 mcg/actuation 2 sprays intranasal DAILY ikbrdnpveam-giwsexiov-bqtlidcd 200-62.5-25 mcg (Trelegy Ellipta) 1 ea inhalation DAILY lidocaine 5% 1 patch topical DAILY loratadine 10 mg DAILY losartan 25 mg PO DAILY meclizine 12.5 mg PO BID PRN montelukast 10 mg PO DAILY 90 days nebulizers As directed rosuvastatin 10 mg PO BEDTIME trazodone 50 - 100 mg PO BEDTIME PRN triamcinolone acetonide 0.1% 1 appl topical BID HPI Comments Details: 59-year-old female presenting with breast infection and axillary lump. The infection, noted for a duration of weeks, is not a recurrence at the exact spot of previous cyst surgery but in the central area. A swollen lymph node in the axillary region is noted. Previous breast surgery history is significant but without malignancy. Antibiotic-associated rash identified from the Bactrim. She reports the pain is somewhat improved but she continues to have daily drainage. The previous infection was located in the sternum which was excised. She is currently off antibiotics. [facility] Medical History (Updated 12/22/24 @ 14:24 by Vaughn Rodriguez MD) Left breast abscess Asthma exacerbation GERD (gastroesophageal reflux disease) Diabetic nephropathy Hypertension LUCINDA (obstructive sleep apnea) Bilateral primary osteoarthritis of knee Kidney problem Fibromyalgia Right knee pain Carpal tunnel syndrome Morbid obesity Depression Anxiety Asthma Type 2 diabetes mellitus Dyspepsia Hypertriglyceridemia Bursitis, subacromial Surgical History History of carpal tunnel release of both wrists S/P laparoscopic sleeve gastrectomy S/P cardiac cath Family History Mother No problems noted. Father No problems noted. Social History Household Members: Family Household Members Other:: niece Housing: Apartment Are you a primary skin care specialist to a significant other at home: No Do you presently have visiting nurse or other home services: No Alcohol intake: never Patient Tobacco Use Status: Never used Tobacco service: No Current occupational status: unemployed Current occupation: right handed Review of Systems Const All systems reviewed & are unremarkable except as noted in HPI and below Skin/Breast Reports as per HPI Physical Exam Vital Signs: Last Vital Signs Pulse 84 12/22/24 13:22 BP 165/70 H 12/22/24 13:22 BMI result Body Mass Index 38.2 Const General: cooperative and no acute distress Nutritional Appearance: well nourished Orientation/consciousness: patient oriented x3 Limitations: no limitations HEENT Head: Yes normocephalic and Yes atraumatic Ears: hearing grossly normal bilaterally Chest Other: Exam limited to left breast: Area of open wound and drainage noted in the upper inner quadrant with superficial inflammatory changes suggestive of an infected epidermal inclusion cyst. Site measures approximately 1.5 cm in diameter. Light pressure produces some sebaceous material. Left axilla reveals a palpable slightly tender lymph node suggestive of a reactive lymph node. Chest/axillae images: 2 1. Site of infected cyst upper inner quadrant left breast, 1.5 cm diameter. Resp Effort & Inspection: normal respiratory effort, no audible wheezes, no cough and no respiratory distress Cardio Jugular venous distension: no JVD GI Inspection: Yes normal to inspection Skin Other: Warm, dry, no rash Neuro General: patient oriented x3 Extrem General: Yes no clubbing, cyanosis or edema Assessment & Plan Assessment & Plan (1) Left breast abscess: Code(s): N61.1 - Abscess of the breast and nipple Category: Medical Plan 59-year-old female patient presenting with a recurring infection in the left breast at the upper inner quadrant. The wound is open and draining currently and does appear to be improving. I recommended changing the antibiotics as she appears to be allergic to the Bactrim. We also discussed excision of the cyst prevent further infections as a short-stay surgery. After discussion of the procedure, risks, and alternatives, she consents to the left breast cyst excision. Medications: New 2 cephalexin 500 mg PO Q8H 30 caps 0RF 10 days Coding Level of Care Code New Pt Level 4 (91563) Diagnoses Left breast abscess N61.1
[2024-12-22 13:22] VITALS: BP 165/70; PULSE 84; BMI 38.2
--- OUTSIDE RECORDS SUMMARY | 2024-12-22 16:07 | XMS_ITS | Clinical Summary ---
Author Organization [facility] Address [address] [facility] [address] [place] [address] Phone Care Team Providers Care Body Trimmer Name Role Phone Name, Jamal HENDRIX Primary Care Provider [phone] Allergies Active Allergy Reactions Criticality Noted Date [...] follow-up visit in 6 months time. Immunizations Immunization Administration Dates Next Due Influenza, Quadrivalent, Preservative [...] Colorectal Cancer Screening: Sigmoidoscopy 2014 Pneumococcal Vaccine: 50+ Ye ars (3 of 3 - PCV) 05/25/2020 05/25/2019, 07/17/2010, 11/13/2009 Diabetes: Ophthalmology Exam 10/05/2020 Diabetes: Pedal Pulse Checked 10/05/2020 Diabetes: Sensory Foot Exam 10/05/2020 Diabetes: Visual Foot Exam 10/05/2020 Diabetes: Hemoglobin A1C 01/19/2023 023, 10/03/2022, 09/03/2022, Additional history exists Influenza Vaccine (Season Ended) 2025 06/01/2023, 07/02/2022, 06/03/2021, Additional history exists Pneumococcal Vaccine: Peds ( 0 to 5 Years) and At-Risk Patients (6 to 49 Years) Discontinued 05/25/2019, 07/17/2010, 11/13/2009 Insurance Medicare Medicaid [place] Medicare Medicaid [place] Care Teams Body Trimmer Relationship Specialty Start Date End Date Name, MD Jamal [address] [place] [phone] PCP - General Internal Medicine 03/12/21
--- OUTSIDE RECORDS SUMMARY | 2024-12-22 16:07 | XMS_ITS | Clinical Summary ---
Author Organization [employer] Address [address] [place] [address] 7 [place] [address] Care Team Providers Care Security Guard Supervisor Name Role Phone Name, Jamal HENDRIX Primary Care Provider [phone] Allergies Active Allergy Reactions Criticality Noted Date Comments Canagliflozin Medium 04/21/2022 UTI Lisinopril Cough,Shortness of breath High 11/15/2017 Oxycodone-Acetaminophen Nausea And Vomiting 01/2023 Wound Dressing Adhesive Rash Low 07/26/2023 Medications albuterol 108 (90 Base) MCG/ACT inhaler Inhale 2 puffs every 4 (four) hours if needed. 12/28/19 20 Active montelukast (Singulair) 10 MG tablet Take 10 mg by mouth in the evening. 02/02/20 21 Active budesonide (Pulmicort) 1 MG/2ML nebulizer solution Take 2 mL by nebulization 1 (one) time each day. Rinse mouth after using. 04/22/20 22 Active glucose blood (FREESTYLE LITE) test strip Use to test blood sugar four times daily, before meals and at bedtime. 08/11/20 22 Active fluticasone (Flonase) 50 MCG/ACT nasal spray Administer 2 sprays into each nostril 1 (one) time each day. 08/06/20 22 Active B-D ULTRAFINE III SHORT PEN 31G X 8 MM misc USE 1 EACH 5 TIMES A DAY 08/11/20 22 Active Diclofenac Sodium 1 % gel Apply to affected area twice daily 04/24/20 22 Active rosuvastatin (Crestor) 5 MG tabletIndicatio ns:Asthma, unspecified asthma severity, unspecified whether complicated, unspecified whether persistent TOME PEACE TABLETA TODOS LOS ORDAZ 90 tablet 3 11/11/19 23 Active triamcinolone (Kenalog) 0.1 % creamIndication s:Asthma, unspecified asthma severity, unspecified whether complicated, unspecified whether persistent APLIQUE CAPA JULIENNE EL AREA AFECTADA DOS VECES AL SHRUTHI 30 g 12/02/19 23 Active buPROPion XL (Wellbutrin XL) 300 MG 24 hr tablet Take 1 tablet by mouth once daily 08/01/20 23 Active D3-1000 25 MCG (1000 UT) capsule TOME 1 C PSULA POR V A ORAL TODOS LOS D 06/03/20 23 Active cyancobalamine (Vitamin B-12) 250 MCG tablet TOME PEACE TABLETA POR V A ORAL TOS LOS D 06/03/20 23 Active FreeStyle lancets USE 1 EACH CUATRO VECES AL D A BEFORE MEALS AND AT NIGHTLY 05/04/20 23 Active traZODone (Desyrel) 50 MG tablet Take 2 tablets (100mg) by mouth every night 08/01/20 23 Active lidocaine (Lidoderm) 5 % patchIndication s:Chronic low back pain without sciatica, unspecified back pain laterality APPLY 1 PATCH TOPICALLY IN THE MORNING REMOVE AND DISARD PATCH WITHIN 12 HOURS OR INSTRUCTED BY 30 patch 3 05/13/20 24 Active albuterol (2.5 MG/3ML) 0.083% nebulizer solutionIndicat ions:Asthma, unspecified asthma severity, unspecified whether complicated, unspecified whether persistent INHALE THE CONTENTS OF 1 VIAL VIA NEBULIZER THREE TIMES DAILY 75 mL 06/17/20 24 2024 Active pantoprazole (ProtoNix) 40 MG EC tablet Take 1 tablet (40 mg) by mouth before breakfast. 30 tablet 10/31/19 25 2025 Active losartan-hydroC HLOROthiazide (Hyzaar) 50-12.5 MG tabletIndicatio ns:Essential hypertension Take 1 tablet by mouth Once per day. 30 tablet 11 11/16/19 25 2025 Active cetirizine (ZyrTEC) 10 MG tablet TAKE 1 TABLET BY MOUTH EVERY DAY 90 tablet 1 12/10/19 25 Active sulfamethoxazol e-trimethoprim (Bactrim DS) 800-160 MG tablet Take 1 tablet by mouth 2 times daily for 7 days. 14 tablet 12/16/19 25 2024 Active celecoxib (CeleBREX) 200 MG capsuleIndicati ons:Left breast abscess Take 1 capsule (200 mg) by mouth Once per day for 10 days. 10 capsule 12/16/19 25 2024 Active Trelegy Ellipta 200-62.5-25 MCG/ACT aerosol powder INHALE 1 PUFF BY INHALATION ROUTE EVERY DAY AT THE SAME TIME EACH DAY 60 each 4 12/20/19 25 Active Trelegy Ellipta 200-62.5-25 MCG/ACT aerosol powder INHALE 1 PUFF BY INHALATION ROUTE EVERY DAY AT THE SAME TIME EACH DAY 60 each 4 02/29/20 24 2024 Discontinued cetirizine (ZyrTEC) 10 MG tablet TAKE 1 TABLET BY MOUTH ONCE PER DAY. 90 tablet 1 05/13/20 24 2024 Discontinued Active Problems Problem Noted Date Diagnosed Date [...] duct stone. Attempts made for transfer to [facility] and [facility] for ERCP, but unfortunately [...] well controlled -Continue low-dose insulin sliding scale [id number] testing Encounters Date Type Department Care Team Description 12/18/2024 Refill [facility] [address] [place] [address] Name, MD Jamal 12/15/2024 11:30 AM EDT Office Visit [facility] [address] [place], [place] [phone] Name, MD Jamal Left breast abscess (Primary Dx); Type 2 diabetes mellitus with hyperglycemia, with long-term current use of insulin ([facility]) 12/15/2024 Travel 12/12/2024 10:00 AM EDT Office Visit [address] [address] Ignacia Tanner CNM Visit for pelvic exam (Primary Dx); Left breast abscess 12/12/2024 Travel 12/08/[address] [address] Jamal Castañeda MD 11/15/2024 11:00 AM EDT Telemedicine [address] [address] Fara Valente, RN Essential hypertension 11/15/[address] [address] Jamal Castañeda MD 11/15/2024 Travel 11/14/[address] [address] Hannah Calero RN 11/14/2024 Travel 11/08/[address] [address] Jamal Castñaeda MD 11/08/2024 Travel 10/31/2024 10:15 AM EST Office Visit [address] [address] Jamal Castañeda MD Type 2 diabetes mellitus with hyperglycemia, with long-term current use of insulin ([facility]) (Primary Dx); Essential hypertension 10/20/2024 Travel 10/20/2024 Patient Outreach [facility] [address] [place], [place] [phone] Jamal Castañeda MD Pre-visit Planning (SDOH negative, Tobacco screening negative. ) 10/19/2024 10:40 AM EST Office Visit [facility] [address] [place] [address] Jamal Castañeda MD Left hand pain (Primary Dx) 10/19/[address] [address] Jamal Castañeda MD from Last 3 Months Immunizations Name Administration [...] Packs/Day Years Used Date Smoking Tobacco: Never Passive Smoke Exposure: Never Smokeless Tobacco: Never Tobacco Cessation:Counseling Given: [...] Answer Date Recorded Patient Health Questionnaire-9 Score 11 10/31/2024 Patient Health Questionnaire-9 Score 11 10/31/2024 Last PHQ-9: Questionnaire Data Not on file 0 10/31/2024 Housing Stability Answer Date Recorded What is [...] Answer Date Recorded Patient Health Questionnaire-2 Score 3 10/31/2024 Internet Access Answer Date Recorded Internet Access [...] Sign Reading Time Taken Comments Blood Pressure 151/75 12/15/2024 11:30 AM EDT Pulse 64 12/15/2024 11:30 AM EDT Temperature 36.7 ??C (98.1 ??F) 12/15/2024 11:30 AM E DT Respiratory Rate 14 12/15/2024 11:30 AM EDT Oxygen Saturation 98% 12/15/2024 11:30 AM EDT Inhaled Oxygen Concentration - - Weight 85.7 kg (189 lb) 12/15/2024 11:30 AM EDT Height 149.9 cm (4' 11 ) 12/15/2024 11:30 AM EDT Body Mass Index 38.17 12/15/2024 11:30 AM EDT Plan of Treatment Upcoming Encounters Date Type Department Care Team (Late st Contact Info) Description 01/17/2025 11:15 AM EDT Office Visit [facility] [address] [place] [address] Name, MD Jamal [address] [place] [address] Health Maintenance Due Date Last Done Comments CT Colonography 1965 FIT 1965 FOBT 1965 HIV Screening 1965 Sigmoidoscopy 1965 Zoster Vaccines (1 of 2) 2015 Hepatitis B Vaccines (3 of 3 - 19+ 3-dose series) 04/27/2024 12/17/2023, 10/28/2023, 07/25/2023 Diabetes: Foot Exam 10/28/2024 10/28/2023 Alcohol/Substance Use Screening 04/26/2025 04/26/2024 Depression Monitoring 04/30/2025 10/31/2024, 025 Lipid Panel 06/10/2025 06/10/2024, 01/05, 11/02/2020 Diabetes: Hemoglobin A1C 06/16/2025 025, 06/10/2024, 05/23/2024, Additional history exists Eye Exam 08/05/2025 08/05/2023 SDOH Screening 10/20/2025 10/20/2024 Depression Screening 10/31/2025 10/31/2024, 10/31/19 FIT DNA/Cologuard 11/21/2025 11/21/2022 Mammogram 11/30/2025 12/01/2023, 09/07, 09/19/2019 Tobacco Screening 12/15/2025 12/15/2024 Cervical Cancer Screening 12/16/2026 HPV/Cotest 12/16/2026 12/17/2023 [...] Procedure Name Priority Date/Time Associated Diagnosis Comments POCT GLYCATED HEMOGLOBIN, TOTAL Routine 12/15/2024 11:32 AM EDT Type 2 diabetes mellitus with hyperglycemia, with long-term current use of insulin ([facility]) POCT GLUCOSE Routine 12/15/2024 11:32 AM EDT Type 2 diabetes mellitus with hyperglycemia, with long-term current use of insulin ([facility]) POCT GLUCOSE Routine 10/31/2024 9:57 AM EST Type 2 diabetes mellitus with hyperglycemia, with long-term current use of insulin ([facility]) XR HAND 3+ VIEWS LEFT Routine 10/19/2024 11:18 AM EST Left hand pain LIPID PANEL, STANDARD Routine 06/10/2024 7:01 AM [...] Recently Relevant to Health Maintenance Results * POCT HGB A1C (12/15/2024 11:32 AM EDT) Hemoglobin A1C 5.5 4.0 - 6.0 % QC Media Lot # [id number] Lot# Expiration Date 110,426 Blood 12/15/2024 11:3 2 AM EDT Jmaal Name POINT OF CARE TEST ENTER/EDIT OR DERABLES Final Result * POCT Glucose (12/15/2024 11:32 AM EDT) Only the most recent of2 resultswithin the time period is included. Pathologist [facility] Glucose Blood, POC 99 60 - 200 mg/dL QC Media Lot # [id number] Lot# Expiration Date 82,625 Blood Capillary blood specimen / Unknown 12/15/2024 11:32 AM EDT Jamal Name POINT OF CARE TEST ENTER/EDIT OR DERABLES Final Result * XR Hand 3+ Views Left (10/19/2024 11:18 AM EST) Anatomical Region Laterality Modality Upper Extremities, Hand Left Radiogra phic Imaging 10/19/2024 11:1 8 AM EST Narrative 10/19/2024 11:49 AM EST ?[facility] ?[address] ?[place] [address] ?XRay Report ? Signed ? Patient: Eris Palmer,Angela I ?MR ?? #: [id number] ? : 1965 ?Acct:[id number] ? Age/Sex: 59 / F ?ADM Date: 02/12/25 ? Loc: HO.HHCX ? Attending Dr: Jamal Castañeda MD ? Ordering Physician: Jamal Castañeda MD ?? Date of Service: 10/19/24 ?? Procedure(s): XR hand LT min 3V ?? Accession Number(s): [id number] ? cc: Maddy,Jamal HENDRIX ? EXAMINATION: ?? [...] Harrell MD ??10/19/2024 11:46 AM ?? EST ? Dictated By: ?Wiley Heath MD ? Signed By: ?<Electronically signed by Wiley Collazo MD in OV> ? 10/19/24 1146 ? DD/ 1118 ? TD/TT: 10/19/24 1140 ? [employer] Architect: ? Procedure Note Neal, Image - 10/19/[address] [address] XRay Report Signed Patient: Angela Montilla IMR #: [id number] : 1965Acct:[id number] Age/Sex: 59 / FADM Date: 10/19/24 Loc: HO.HHCX Attending Dr: Jamal Castañeda MD Ordering Physician: Jamal Castañeda MD Date of Service: 10/19/24 Procedure(s): XR hand LT min 3V Accession Number(s): [id number] cc: Jamal Castañeda MD EXAMINATION: XR HAND, [...] 10/19/24 1146 DD/ 1118 TD/TT: 10/19/24 1140 [employer] Architect: us Jamal Name IMG XR PROCEDURES Final Result * (ABNORMAL) Lipid Panel, Standard (06/10/2024 7:01 AM EDT) Triglycerides 129 <150 mg/dL [facility] Comment:Desirable Triglyceri de: less than 150 mg/dLBorderline High Triglyceride 150-199 mg/dLHigh Triglyceride: 200-499 mg/dLVery High Triglyceride: greater than or equal to 5OO mg/dL Cholesterol 200(H) <200 mg/dL [facility] Comment:Desirable Cholestero l: less than 200 mg/dLBorderline High Cholesterol: 200-239 mg/dLHigh Cholesterol: greater than 239 mg/dL LDL Cholesterol Calculated 122(H) <100 mg/dL [facility] Comment:Desirable LDL: less than 100 mg/dLNear Optimal/Above Optimal LDL: 110- 129 mg/dLBorderline High LDL: 130-159 mg/dLHigh LDL: 160-189 mg/dLVery High LDL: greater than or equal to 190 mg/dL HDL Cholesterol 53 >40 mg/dL [facility] Comment:Desirable HDL: great er than 40 mg/dL Note: This HDL assay may give artificially low results in patients with liver disease. 06/10/2024 7:01 AM EDT 06/10/2024 7:01 AM EDT us Generic External Data Provider LAB BLOOD ORDERAB LES Final Result [facility] [address] [place] [address] [phone] * HPV mRNA E6/E7 w/Reflex to HPV Genotypes 16, 18/45 (12/17/2023 10:51 AM EDT) HPV nRNA E6/E7 Not Detected Not Detected [facility] Comment:Methodology: Transcr iption-Mediated AmplificationThis assay detects E6/E7 viral messenger RNA (mRNA) from 14high-risk HPV types (16,18,31,33,35,39,45,51,52,56,58,59,66,68).Cervical sources are required for HPV testing.If a vaginal source from a patient who has had atotal hysterectomy with removal of cervix wassubmitted, please contact the testing laboratoryfor alternative testing options.For additional information, please refer [email or web address]/faq/DKP449z8(This link if provided for information/educational purposes only.)THIS TEST WAS PERFORMED AT:[employer] [place] [phone] VINCENT MD HPV mRNA E6/E7 TNP [facility] HPV 16 RNA [facility] HPV 18/45 RNA [facility] 12/17/2023 10:5 1 AM EDT 12/22/2023 12:00 PM EDT Ignacia Tanner [facility] CYTOLOGY ORDERABLES F inal Result [facility] [address] [place] [phone] * Pap Smear (12/17/2023 10:51 AM EDT) Swab Cervix uteri structure / Unknown 12/17/2023 10:51 AM EDT 12/22/2023 12:00 PM EDT Narrative [facility] - 01/04/2024 12:50 PM EDT ----- ------- Name: Eris FountainderonAngela Jennie ?Age/Sex: 58/F ? : 1965 Unit#: [id number] ?? Attend Dr: IGNACIA TANNER CNM ?Re12/17/23 ?Status: DEP REF ? Location: HO.LNP ?Disch: ? ----- ------- SPEC : [id number] ? RECD: 12/22/23-1200 ? STATUS: ??SOUT ? REQ NUM: [id number] ? MAYLIN: 12/17/23-1051 ? SUBM DR: IGNACIA TANNER CNM ? ENTERED: ??12/22/23-124 ?SP TYPE: Pap Smr ?OTHR : ? [...] 66, 68) ?? HPV testing performed by [facility], [place], [place]. ??See reference laboratory ?? portion of the EMR for entire report. ?Clinical Information LMP: Postmenopausal Previous PAP test: Unknown date/findings ? Material Received ?? ThinPrep-Vaginal/Cervical ----- ------- Signed (signature on file) ANGELI Sarah (ASCP) 01/04/24 1250 ? ----- ------- ? END OF REPORT ? us Ignacia Tanner CNM LAB CYTOLOGY ORDERABLES F inal Result [facility] [address] [place] [address] [phone] * BI Mammogram Screening Tomosynthesis Bilateral (12/01/2023 11:50 AM EDT) Anatomical Region Laterality Modality Breast Bilateral Mammography 12/01/2023 11:5 0 AM EDT Narrative 12/20/2023 3:46 PM EDT ? [facility] [place] ? [address] ?[place] [address] ? Mammography Report ? Signed ? Patient: Eris PalmerAngela Schneider ?MR ?? #: [id number] ? : 1965 ?Acct:[id number] ? Age/Sex: 58 / F ?ADM Date: 12/01/23 ? Loc: HO.MAMMO ? Attending Dr: Jamla Name MD ? Ordering Physician: Name,Jamal MD ?Results: 1Negative ? Date of Service: 12/01/23 ?Follow Up: 1 Year From Orig ?? inal Mammogram ? Procedure(s): MM tomosynthesis screening BI ?? Accession Number(s): [id number] ? cc: Name,Jamal HENDRIX ? EXAMINATION: ?? [...] 1542 ? DD/ 1150 ? TD/TT: ? Saas Architect: ? Procedure Note Jester, Image - 12/20/2023 [facility] [address] [place] [address] Mammography Report Signed Patient: Angela Montilla [facility] #: [id number] : 1965Acct:[id number] Age/Sex: 58 / FADM Date: 12/01/23 Loc: SHO Attending Dr: Jamal Castañeda MD Ordering Physician: Jamal Castañedaults: 1Negative Date of Service: 12/01/23Follow Up: 1 Year From Orig inal Mammogram Procedure(s): MM tomosynthesis screening BI Accession Number(s): [id number] cc: Name,Jamal MD EXAMINATION: MM SCREENING DIGITAL BREAST TOMOSYNTHESIS, [...] in OV> 12/20/23 1542 DD/ 1150 TD/TT: [employer] Architect: us Jamal Castañeda MD IMG BI PROCEDURES Edited Result - Final * Hepatitis C Ab (10/28/2023 10:55 AM EST) Hepatitis C Antibody Nonreactive Nonreactive [facility] Comment:Antibodies to HCV no t detected; does not exclude early acuteHCV infection. Blood Venous blood specimen / Unknown 10/28/2023 10:55 AM EST 10/28/2023 1:21 PM EST us Jamal Castañeda MD LAB BLOOD ORDERABLES Final Resul t [facility] [address] [place] [phone] * Hm Diabetes Eye Exam (08/05/2023) Eye Exam Normal Normal us Jamal Castañeda MD HEALTH MAINTENANCE Final Result * Cologuard Colon Cancer Screening (11/21/2022 2:00 PM EDT) Cologuard Cancer Screen Negative Comment:repeat in 3 yrs Stool 11/21/2022 2:00 PM EDT us Jamalmargaret Castañeda MD POINT OF CARE TEST ENTER/EDIT OR DERABLES Final Result from Last 3 Months or Most Recently Relevant to Health Maintenance Insurance MEDICARE Member Subscriber Plan / Payer ( fective 2022-Present) Name:Angela Montilla I Member ID:[id number] Relation to Subscriber:Self Name:Angela Montilla I Subscriber ID:[id number] Payer ID:[id number] Group ID:Not on file Type:Medicare Address: [facility], [facility]. [address] [address] [facility] STANDARD Care Teams Security Guard Supervisor Relationship Specialty Start Date End Date Name, MD Jamal [address] [place] [address] PCP - General Family Medicine 05/25/19
--- OUTSIDE RECORDS SUMMARY | 2024-12-22 16:07 | XMS_ITS | Encounter Summary ---
Author Organization [employer] Address [address] [place] [address] [address] [place] [address] Care Team Providers Care Product Picker Name Role Phone Name, Jamal HENDRIX Primary Care Provider [phone] Reason for Visit * Reason Comments Med Refill Encounter Details Date Type Department Care Team ([facility] st Contact Info) Description 12/18/2024 Refill [facility] [address] [place] [address] Name, MD Jamal [address] [place] [address] Social History Tobacco Use Types Packs/Day Years Used Date Smoking Tobacco: Never Passive Smoke Exposure: Never Smokeless Tobacco: Never Alcohol Use Standard [...] Description 01/17/2025 11:15 AM EDT Office Visit [facility] [address] [place] [address] NameJamal MD [address] [place] [address] documented as of this encounter Visit Diagnoses Not on filedocumented in this encounter Additional Health Concerns Assessment Noted Time PHQ-9 Depression Total Score: 11 025 10:46 AM EST documented as of this encounter Care Teams Product Picker Relationship Specialty Start Date End Date NameJamal MD [address] [place] [phone] PCP - General Family Medicine 05/25/19 documented as of this encounter
--- OUTSIDE RECORDS SUMMARY | 2024-12-22 16:07 | XMS_ITS | Encounter Summary ---
Author Organization [employer] Address [address] [place] [address] [place] [address] Care Team Providers Care Integrity Consultant Name Role Phone Name, Jamal HENDRIX Primary Care Provider [phone] Reason for Visit * Reason Comments Med Refill Encounter Details Date Type Department Care Team ([facility] st Contact Info) Description 09/13/2024 Refill [facility] [address] [place], [place] [phone] Name, MD Jamal [address] [place] [address] Social History Tobacco Use Types Packs/Day Years [...] Description 01/17/2025 11:15 AM EDT Office Visit [facility] [address] [place] [address] NameJamal MD [address] [place] [address] documented as of this encounter Visit Diagnoses Not on filedocumented in this encounter Additional Health Concerns Assessment Noted Time PHQ-9 Depression Total Score: 2 10/28/19 24 10:00 AM EST documented as of this encounter Care Teams Integrity Consultant Relationship Specialty Start Date End Date NameJamal MD [address] [place] [phone] PCP - General Family Medicine 05/25/19 documented as of this encounter
== END 2024-12-22 13:41 | disposition home or self-care (01) ==
LOC: HO.HGS 13:08
PROVIDERS: Visit Provider Surgery
DX: N61.1 Abscess of the breast and nipple (principal)
CPT/HCPCS: 99204

== ENCOUNTER → 2024-12-22 13:08 | Outpatient (BNVA) | payer MEDICARE, MEDICAID, SELFPAY | PROVIDERS: Visit Provider Surgery | DX: N61.1 Abscess of the breast and nipple (principal) | CPT/HCPCS: 99202 ==

== ENCOUNTER 2025-01-02 09:00 | Outpatient (AMB) | payer MEDICARE, MEDICAID, SELFPAY ==
[2025-01-02 09:14] VITALS: BP 140/62; PULSE 64; O2SAT 98; BMI 38.5
--- NOTE | 2025-01-02 09:14 | MHC.OFFVIS ---
Vital Signs 01/02/25 09:14 Height 4 ft 11 in Weight 190 lb 11.198 oz BMI 38.5 BP 140/62 H Blood Pressure Location Rt brachial Position Sitting Pulse 64 Pulse Source Pulse Oximeter Pulse Oximetry (%) 98 Oxygen Delivery Method Room Air Intake Visit Reasons: Asthma/LUCINDA Allergies canagliflozin [Invokana] Allergy (Severe, Verified 12/22/24 13:26) chest tightness lisinopril [LISINOPRIL] Allergy (Severe, Verified 12/22/24 13:26) sweating, rash, difficulty breathing, cough oxycodone Allergy (Intermediate, Verified 12/22/24 13:26) vomiting/GI cramping sulfamethoxazole [From Bactrim] Allergy (Mild, Verified 12/22/24 14:25) Rash trimethoprim [From Bactrim] Allergy (Mild, Verified 12/22/24 14:25) Rash HPI Comments Details: The patient is a 59-year-old woman with a known history of obstructive sleep apnea, asthma who is presenting with worsening cough. The patient has is constantly clearing her throat. She denies any reflux symptoms. She denies any significant postnasal drip. She is not taking any Konstantin inhibitors that she is allergic to them. The cough is indeed aggravating to her and her family. Moderate severity. Inhalers have been partially helpful. She gets very confused with her inhalers as she has many. A try to simplify her regimen by given her 1 maintenance inhaler, Trelegy and she can continue her rescue inhaler as needed. The patient also did undergo allergy testing and she is allergic to trees among other things. I do not have those results at this time. The patient also has a diagnosis of sleep apnea. She had been on CPAP but could not tolerated. Therefore she was on oxygen. At this point the patient continues to have daytime drowsiness with an elevated Davenport score of 12/24. Will have the patient have a sleep study at this time to see if we can get her situated with CPAP as is going to be a better therapy for her underlying sleep apnea. The patient also has cardiovascular risk factors increasing her risk with the untreated sleep apnea this time. The patient will undergo sleep study will follow-up after the results. 02/23/2023 the patient is here for a pulmonary follow-up visit. Overall the patient is doing well. Back in January she did undergo a [place] surgery. Since then she has lost already about 70 lb. The patient has not been using her CPAP. She does have severe sleep apnea. Although on has not been getting supplies readily from her [employer] company. That made it hard for her to use the machine. Ultimately she has been sleeping without it and with weight loss she feels that she is doing a little better. She still has a dry mouth but her daytime drowsiness improved. We did talk about positional therapy. She is going to work on positional therapy and will plan to repeat her sleep study in the coming months. If her symptoms worsen she is to call the office for an earlier assessment otherwise will follow-up after sleep study in 4-6 months. Her respiratory therapy has been stable. She is continue with her inhalers with good effect. Has not required any prednisone. 10/07/2023 the patient is here for a pulmonary follow-up visit. The patient continues to lose weight after having her bariatric surgery. She did have a slight complication of pancreatitis due to gallstones and ultimately required a cholecystectomy. She did require also a 5 day stay in hospital. Currently she is feeling better from that. She continues to use her respiratory medications with good effect. The Trelegy inhaler has been very affecting beneficial she does take once a day. She does take the lower dose which is reassuring. She has not required her rescue inhaler and has not required any prednisone either. The patient also has been struggling with her sleep apnea. She does have daytime drowsiness. Her repeat sleep study demonstrated that she still had moderate sleep apnea. She has a hard time sleeping on her sides so therefore tends to sleep more on her back which is an issue. She tries to sleep elevated to try help with that. She has not been able to use her CPAP because she has not been able to get supplies. She has been calling her [employer] without much success. I did call them to see what the issues as far as getting an update. Have to find that if she is still active with the [employer] if she has not been using it. But I understand from her point of view is hard for her to use it if she has not been able to get supplies. Therefore, will go ahead and wait for the [employer] to let us know what the next best step would be. Explained to the patient that if she is the activated from the [employer] she will need a repeat sleep study. This be important specially with an elevated Davenport score 11/24. 04/04/2024 the patient is here for a pulmonary follow-up visit. Overall the patient is doing okay. She is status post again the bariatric surgery and has had significant weight loss. She is wondering if she still needs her CPAP after all the weight loss. Will go ahead and repeat her home sleep study to see if she no longer needs it. If she does will go ahead and send supplies to her [employer] company in order for to continue using it. From a respiratory status the patient is doing okay. She is using her Trelegy inhaler daily. She also has a rescue inhaler that she typically uses less than 2 times a week. 07/04/2024 the patient is here for a pulmonary follow-up visit. Overall she is doing okay. For the last few days she did develop a cough productive in nature. Moderate severity. Denies any fevers or chills. Positive sick contacts. Denies any chest tightness. She is using Trelegy which is helping her. She has a rescue inhaler as well they can she can use as needed. She is not requiring it right now. She has had significant weight loss losing about 80 lb already. Will go ahead and request a repeat sleep study at this time to see if we can assure that she does not need the CPAP any longer. 01/02/2025 the patient is here for a pulmonary follow-up visit. She has had issues with coughing asthma exacerbations. She has been to urgent care about 3 times already or to a primary care to deal with her worsening respiratory symptoms. Moderate severity. Complains of chest tightness. In the meantime the patient also has significant daytime drowsiness. Davenport score is elevated 11/24. She does have a CPAP and she does use it. The patient did have a sleep study demonstrated an AHI have about 4 although she desaturated down to 74% with about 20 minutes below 88%. Likely this was a suboptimal sleep study since she was very hypoxic. The patient may have a component hyperventilation syndrome. She will benefit from an in-lab sleep study to better address her significant nocturnal hypoxia and history of sleep apnea. She also has been using her nebulizer for the asthma. She needs some aerosol mask because she can not tolerate the mouthpiece well. Will request for an from her local [employer] company. Also to note, she has a breast lesion that will require a surgical intervention. [facility] Medical History (Updated 01/02/25 @ 23:22 by Rajinder Ramirez MD) Nocturnal hypoxia Left breast abscess Asthma exacerbation GERD (gastroesophageal reflux disease) Diabetic nephropathy Hypertension LUCINDA (obstructive sleep apnea) Bilateral primary osteoarthritis of knee Kidney problem Fibromyalgia Right knee pain Carpal tunnel syndrome Morbid obesity Depression Anxiety Asthma Type 2 diabetes mellitus Dyspepsia Hypertriglyceridemia Bursitis, subacromial Surgical History History of carpal tunnel release of both wrists S/P laparoscopic sleeve gastrectomy S/P cardiac cath Family History Mother No problems noted. Father No problems noted. Social History Household Members: Family Household Members Other:: niece Housing: Apartment Are you a primary client care manager to a significant other at home: No Do you presently have visiting nurse or other home services: No Alcohol intake: never Patient Tobacco Use Status: Never used Tobacco service: No Current occupational status: unemployed Current occupation: right handed Review of Systems Const Denies night sweats and Reports weight loss ENT Denies change in voice, Denies lip swelling, Denies mouth pain, Reports nasal congestion, Reports nasal discharge and Denies tongue swelling Card Denies chest pain and Reports dyspnea on exertion Resp Reports chest congestion, Reports cough, Reports dyspnea on exertion and Reports wheezing GI Denies abdominal pain Musc Reports abnormal gait Neuro Denies Neuro-related abnormal movements and Reports abnormal gait Psych Denies no additional complaints Derik/Lymph Denies easy bleeding and Denies lymphadenopathy Aller/Immun Denies lip swelling, Denies tongue swelling and Reports wheezing Physical Exam Vital Signs: Last Vital Signs Pulse 64 01/02/25 09:14 BP 140/62 H 01/02/25 09:14 Pulse Ox 98 01/02/25 09:14 Oxygen Delivery Method Room Air 01/02/25 09:14 BMI result Body Mass Index 38.5 Const General: alert Neck Neck: Yes normal visual inspection, Yes full ROM and Yes no lymphadenopathy Chest Chest palpation & inspection: normal inspection of the chest Resp Auscultation: diminished lung sounds Cardio Rate: regular rate Rhythm: regular rhythm Heart sounds: S1 normal heart sound present and S2 normal heart sound present GI Palpation (GI): Soft to palpation and nontender Auscultation: normal bowel sounds Skin General skin exam: rashes and/or lesions noted Extrem General: Yes edema Assessment & Plan Assessment & Plan (1) LUCINDA (obstructive sleep apnea): Code(s): G47.33 - Obstructive sleep apnea (adult) (pediatric) Category: Medical (2) Asthma: Comment: controlled on current regimen-denies any recent exacerbation Code(s): J45.909 - Unspecified asthma, uncomplicated Category: Medical Qualifiers: Asthma complication type: uncomplicated Asthma persistence: persistent Asthma severity: moderate Qualified Code(s): J45.40 - Moderate persistent asthma, uncomplicated (3) Nocturnal hypoxia: Code(s): G47.34 - Idiopathic sleep related nonobstructive alveolar hypoventilation Category: Medical (4) Pre-op chest exam: Code(s): Z01.811 - Encounter for preprocedural respiratory examination Category: Medical Plan Will need an in lab sleep study Will treat for sinusitis May proceed with anesthesia and general surgery for her breast lesion. She does has increased risk for perioperative pulmonary complications, including: atelectasis, hypoxia, asthma, pneumonia and respiratory failure. She is medically optomized at this time. low salt diet fluticasone nasal spray continue Trelegy inhaler daily IVAN as needed cough medicine F/U 4-6 months Orders: Orders RT PSG in-lab sleep study Today G47.34 - Idiopathic sleep related nonobstructive alveolar hypoventilation Medications: New oxymetazoline 0.05% (Afrin (oxymetazoline)) 2 sprays intranasal Q12H 5 days PRN 22 mL 0RF nasal congestion methylprednisolone (Medrol (Julien)) PO PER PKG DIR 6 days 21 ea 0RF amoxicillin-pot clavulanate 875-125 mg 1 tab PO BID 10 days 20 tabs 0RF Coding Level of Care Code Est Pt Level 4 (33105) Complex EM visit Add On G2211 Diagnoses LUCINDA (obstructive sleep apnea) G47.33 Moderate persistent asthma without complication J45.40 Asthma complication type: uncomplicated Asthma persistence: persistent Asthma severity: moderate Nocturnal hypoxia G47.34 Pre-op chest exam Z01.811 Time Spent (min) 17
--- OUTSIDE RECORDS SUMMARY | 2025-01-02 09:45 | XMS_ITS | Clinical Summary ---
Author Organization [facility] Address [address] [facility] [address] [place] [address] Phone Care Team Providers Care Orthotic Finish Grinding Technician Name Role Phone Name, Jamal HENDRIX Primary Care Provider [phone] Allergies Active Allergy Reactions Criticality Noted Date [...] Discontinued 05/25/2019, 07/17/2010, 11/13/2009 Insurance Medicare Medicaid [place] Medicare Medicaid [place] Care Teams Orthotic Finish Grinding Technician Relationship Specialty Start Date End Date Name, MD Jamal [address] [place] [id number] PCP - General Internal Medicine 03/12/21
--- OUTSIDE RECORDS SUMMARY | 2025-01-02 09:45 | XMS_ITS | Clinical Summary ---
Author Organization [employer] Address [address] [place] [address] 7 [place] [address] Care Team Providers Care Acetylene Torch Solderer Name Role Phone Name, Jamal HENDRIX Primary Care Provider [phone] Allergies Active Allergy Reactions Criticality Noted Date [...] DAY 90 tablet 1 12/10/19 25 Active Trelegy Ellipta 200-62.5-25 MCG/ACT aerosol [...] 90 tablet 1 05/13/20 24 2024 Discontinued sulfamethoxazol e-trimethoprim (Bactrim DS) 800-160 MG tablet Take 1 tablet by mouth 2 times daily for 7 days. 14 tablet 12/16/19 25 2024 celecoxib (CeleBREX) 200 MG capsuleIndicati ons:Left breast abscess Take 1 capsule (200 mg) by mouth Once per day for 10 days. 10 capsule 12/16/19 25 2024 Active Problems Problem Noted Date Diagnosed Date [...] 06/01/2023 Overview (06/01/2023): Gastric sleeve 01/2023 at [facility] Obstructive sleep apnea syndrome 08/28/2022 Allergic [...] duct stone. Attempts made for transfer to [facility] and [facility] for ERCP, but unfortunately no beds available. She has improved clinically over the last 48 hours with resolving fever, leukocytosis and abdominal pain. Lipase also improved --GI planning ERCP today. Continue IV PIP/Tazo --N.p.o. for procedure Encounter for preventive health examination 02/19/2023 01/28/2024 Severe obesity 08/28/2022 06/01/2023 Seasonal allergies 08/28/2022 Uncontrolled type 2 diabetes mellitus with hyperglycemia [...] well controlled -Continue low-dose insulin sliding scale [id number]-ka-jucc testing Encounters Date Type Department Care Team Description 12/18/2024 Refill [facility] CH[facility] MED & PEDS [address] [place] [address] Name, MD Jamal 12/15/2024 11:30 AM EDT Office Visit [facility] MEDICINE [address] [place], [place] [phone] Name, MD Jamal Left breast abscess (Primary Dx); Type 2 diabetes mellitus with hyperglycemia, with long-term current use of insulin ([facility]) 12/15/2024 Travel 12/12/2024 10:00 AM EDT Office Visit [facility] MEDICINE [address] [place] [address] Ignacia Tanner CNM Visit for pelvic exam (Primary Dx); Left breast abscess 12/12/2024 Travel 12/08/[address] [address] Jamal Castañeda MD 11/15/2024 11:00 AM EDT Telemedicine [address] [address] Fara Valente, RN Essential hypertension 11/15/[address] [address] Jamal Castañeda MD 11/15/2024 Travel 11/14/[address] [address] Hannah Calero, CECILLE 11/14/2024 Travel 11/08/[address] [address] Jamal Castañeda MD 11/08/2024 Travel 10/31/2024 10:15 AM EST Office Visit [address] [address] Jamal Castañeda MD Type 2 diabetes mellitus with hyperglycemia, with long-term current use of insulin ([facility]) (Primary Dx); Essential hypertension 10/20/2024 Travel 10/20/2024 Patient Outreach [facility] & PEDS [address] [place], [place] [phone] Jamal Castañeda MD Pre-visit Planning (SDOH negative, Tobacco screening negative. ) 10/19/2024 10:40 AM EST Office Visit [facility] WALK-IN CENTER [address] [place] [address] Jamal Castañeda MD Left hand pain (Primary Dx) 10/19/[address] [address] Jamal Castañeda MD from Last 3 Months [...] Description 01/17/2025 11:15 AM EDT Office Visit [facility] MEDICINE [address] [place] [address] Name, MD Jamal [address] [place] [address] Health Maintenance Due Date Last Done Comments CT Colonography 1965 FIT 1965 FOBT 1965 HIV Screening 1965 Sigmoidoscopy 1965 Zoster Vaccines (1 of 2) 2015 Hepatitis B Vaccines (3 of 3 - 19+ 3-dose series) 04/27/2024 12/17/2023, 10/28/2023, 07/25/2023 Diabetes: Foot Exam 10/28/2024 10/28/2023 Alcohol/Substance Use Screening 04/26/2025 04/26/2024 Lipid Panel 06/10/2025 06/10/2024, 01/05, 11/02/2020 Diabetes: Hemoglobin A1C 06/16/2025 025, 09/19/2024, 06/10/2024, Additional history exists Eye Exam 08/05/2025 08/05/2023 [...] hyperglycemia, with long-term current use of insulin ([facility]) POCT GLUCOSE Routine 12/15/2024 11:32 AM EDT Type 2 diabetes mellitus with hyperglycemia, with long-term current use of insulin ([facility]) POCT GLUCOSE Routine 10/31/2024 9:57 AM EST Type 2 diabetes mellitus with hyperglycemia, with long-term current use of insulin ([facility]) XR HAND 3+ VIEWS LEFT Routine 10/19/2024 [...] 110,426 Blood 12/15/2024 11:3 2 AM EDT Jamal Name POINT OF CARE TEST ENTER/EDIT OR DERABLES Final Result * POCT Glucose (12/15/2024 11:32 AM EDT) Only the most recent of2 resultswithin the time period is included. Glucose Blood, POC 99 60 - 200 mg/dL QC Media Lot # [id number] Lot# Expiration Date 82,625 Blood Capillary blood specimen / Unknown 12/15/2024 11:32 AM EDT Jaaml Name POINT OF CARE TEST ENTER/EDIT OR DERABLES Final Result * XR Hand 3+ Views Left (10/19/2024 11:18 AM EST) Anatomical Region Laterality Modality Upper Extremities, Hand Left Radiogra phic Imaging 10/19/2024 11:1 8 AM EST Narrative 10/19/2024 11:49 AM EST ?[facility] ?[address] ?[place] [address] ?XRay Report ? Signed ? Patient: Eris Palmer,Angela I ?MR ?? #: [id number] ? : 1965 ?Acct:[id number] ? Age/Sex: 59 / F ?ADM Date: 02/12/25 ? Loc: HO.HHCX ? Attending : Jamal Castañeda MD ? Ordering Physician: Jamal Castañeda MD ?? Date of Service: 10/19/24 ?? Procedure(s): XR hand LT min 3V ?? Accession Number(s): [id number] ? cc: Jamal Castañeda MD ? EXAMINATION: [...] DD/ 1118 ? TD/TT: 10/19/24 1140 ? Clerk Of Court: ? Procedure Note John De Jesus - 10/19/[address] [address] XRay Report Signed Patient: Angela Montilla IMR #: [id number] : 1965Acct:[id number] Age/Sex: 59 / FADM Date: 10/19/24 Loc: HO.HHCX Attending Dr: Jamal Castañeda MD Ordering Physician: Jamal Castañeda MD Date of Service: 10/19/24 Procedure(s): XR hand LT min 3V Accession Number(s): [id number] cc: Jamal Castañeda MD EXAMINATION: XR HAND, [...] 10/19/24 1146 DD/ 1118 TD/TT: 10/19/[address]: us Jamal Castañeda MD IMG XR PROCEDURES Final Result * (ABNORMAL) Lipid Panel, Standard (06/10/2024 7:01 AM EDT) Triglycerides 129 <150 mg/dL [facility] Comment:Desirable Triglyceri de: less than 150 mg/dLBorderline High Triglyceride 150-199 mg/dLHigh Triglyceride: 200-499 mg/dLVery High Triglyceride: greater than or equal to 5OO mg/dL Cholesterol 200(H) <200 mg/dL [facility] Comment:Desirable Cholestero l: less than 200 mg/dLBorderline High Cholesterol: 200-239 mg/dLHigh Cholesterol: greater than 239 mg/dL LDL Cholesterol Calculated 122(H) <100 mg/dL [facility] Comment:Desirable LDL: less than 100 mg/dLNear Optimal/Above Optimal LDL: 110- 129 mg/dLBorderline High LDL: 130-159 mg/dLHigh LDL: 160-189 mg/dLVery High LDL: greater than or equal to 190 mg/dL HDL Cholesterol 53 >40 mg/dL [facility] Comment:Desirable HDL: great er than 40 mg/dL Note: This HDL assay may give artificially low results in patients with liver disease. 06/10/2024 7:01 AM EDT 06/10/2024 7:01 AM EDT us Generic External Data Provider LAB BLOOD ORDERAB LES Final Result [facility] [address] [place] [address] [phone] * HPV mRNA E6/E7 w/Reflex to HPV Genotypes 16, 18/45 (12/17/2023 10:51 AM EDT) HPV nRNA E6/E7 Not Detected Not Detected [facility] Comment:Methodology: Transcr iption-Mediated AmplificationThis assay detects E6/E7 viral messenger RNA (mRNA) from 14high-risk HPV types (16,18,31,33,35,39,45,51,52,56,58,59,66,68).Cervical sources are required for HPV testing.If a vaginal source from a patient who has had atotal hysterectomy with removal of cervix wassubmitted, please contact the testing laboratoryfor alternative testing options.For additional information, please refer [email or web address].[email or web address] [email or web address]/QZA028e6(This link if provided for information/educational purposes only.)THIS TEST WAS PERFORMED AT:[employer] [place] [phone] VINCENT MD HPV mRNA E6/E7 [facility] HPV 16 RNA [facility] HPV 18/45 RNA [facility] 12/17/2023 10:5 1 AM EDT 12/22/2023 12:00 PM EDT Ignacia Tanner [facility] CYTOLOGY ORDERABLES F inal Result [facility] [address] [place] [phone] * Pap Smear (12/17/2023 10:51 AM EDT) Swab Cervix uteri structure / Unknown 12/17/2023 10:51 AM EDT 12/22/2023 12:00 PM EDT Narrative [facility] - 01/04/2024 12:50 PM EDT ----- ------- Name: Angela Montilla I ?Age/Sex: 58/F ? : 1965 Unit#: [id number] ?? Attend Dr: IGNACIA TANNER CNM ?Re12/17/23 ?Status: DEP REF ? Location: HO.LNP ?Disch: ? ----- ------- SPEC : [id number] ? RECD: 12/22/23-1199 ? STATUS: ??SOUT ? REQ NUM: [id number] ? MAYLIN: 12/17/23-1051 ? SUBM DR: IGNACIA [...] 66, 68) ?? HPV testing performed by [employer], [place], [place]. ??See reference laboratory ?? portion of the EMR for entire report. ?Clinical Information LMP: Postmenopausal Previous PAP test: Unknown date/findings ? Material Received ?? ThinPrep-Vaginal/Cervical ----- ------- Signed (signature on file) ANGELI Sarah (ASCP) 01/04/24 1250 ? ----- ------- ? END OF REPORT ? us Ignacia Tanner CNM LAB CYTOLOGY ORDERABLES F inal Result [facility] [address] [place] [phone] * BI Mammogram Screening Tomosynthesis Bilateral (12/01/2023 11:50 AM EDT) Anatomical Region Laterality Modality Breast Bilateral Mammography 12/01/2023 11:5 0 AM EDT Narrative 12/20/2023 3:46 PM EDT ? [facility] ? [address] ?[place] [address] ? Mammography Report ? Signed ? Patient: Angela Montilla I ?MR ?? #: [id number] ? : 1965 ?Acct:[id number] ? Age/Sex: 58 / F ?ADM Date: 12/01/23 ? Loc: HO.MAMMO ? Attending Dr: Jamal Name MD ? Ordering Physician: Name,Jamal MD ?Results: 1Negative ? Date of Service: 12/01/23 ?Follow Up: 1 Year From Orig ?? inal Mammogram ? Procedure(s): MM tomosynthesis screening BI ?? Accession Number(s): [id number] ? cc: Name,Jamal HENDRIX ? EXAMINATION: ?? [...] 1542 ? DD/ 1150 ? TD/TT: ? Clerk Of Court: ? Procedure Note Neal, Image - 12/20/2023 [facility] [address] [place] [address] Mammography Report Signed Patient: Angela Montilla [facility] #: [id number] : 1965Acct:[id number] Age/Sex: 58 / FADM Date: 12/01/23 Loc: HO.MAMMO Attending Dr: Jamal Castañeda MD Ordering Physician: Jamal Castañedaesults: 1Negative Date of Service: 12/01/23Follow Up: 1 Year From Orig inal Mammogram Procedure(s): MM tomosynthesis screening BI Accession Number(s): [id number] cc: Jamal Castañeda MD EXAMINATION: MM SCREENING [...] in OV> 12/20/23 1542 DD/ 1150 TD/TT: Clerk Of Court: us Jamal Castañeda MD IMG BI PROCEDURES Edited Result - Final * Hepatitis C Ab (10/28/2023 10:55 AM EST) Hepatitis C Antibody Nonreactive Nonreactive [facility] Comment:Antibodies to HCV no t detected; does not exclude early acuteHCV infection. Blood Venous blood specimen / Unknown 10/28/2023 10:55 AM EST 10/28/2023 1:21 PM EST us Jamal Castañeda MD LAB BLOOD ORDERABLES Final Resul t [facility] [address] [place], [place] [phone] * Hm Diabetes Eye Exam (08/05/2023) [...] Subscriber Plan / Payer (Ef fective 2022-Present) Name:Angela Montilla I Member ID:[id number] Relation to Subscriber:Self Name:Angela Montilla I Subscriber ID:[id number] Payer ID:STATE Group ID:Not on file Type:Medicare Address: [facility] [address] [address] [facility] Care Teams Acetylene Torch Solderer Relationship Specialty Start Date End Date Name, MD Jamal [address] [place] [address] PCP - General Family Medicine 05/25/19
--- OUTSIDE RECORDS SUMMARY | 2025-01-02 09:45 | XMS_ITS | Encounter Summary ---
Author Organization [employer] Address [address] [place] [address] [place] [address] Care Team Providers Care Digital Pre Press Operator Name Role Phone Name, Jamal HENDRIX Primary Care Provider [phone] Reason for Visit * Reason Comments Med Refill Encounter Details Date Type Department Care Team ([facility] st Contact Info) Description 09/13/2024 Refill [facility] MEDICINE [address] [place], [place] [phone] Name, MD Jamal [address] [place] [address] Social History Tobacco Use Types Packs/Day Years [...] Description 01/17/2025 11:15 AM EDT Office Visit [facility] MEDICINE [address] [place] [address] NameJamal MD [address] [place] [address] documented as of this encounter Visit Diagnoses Not on filedocumented in this encounter Additional Health Concerns Assessment Noted Time PHQ-9 Depression Total Score: 2 10/28/19 24 10:00 AM EST documented as of this encounter Care Teams Digital Pre Press Operator Relationship Specialty Start Date End Date NameJamal MD [address] [place] [address] PCP - General Family Medicine 05/25/19 documented as of this encounter
== END 2025-01-02 09:41 | disposition home or self-care (01) ==
LOC: HO.HPS 09:00
PROVIDERS: PCP Internal Medicine Geriatric Medicine; Visit Provider Hospitalist
DX: G47.33 Obstructive sleep apnea (adult) (pediatric) (principal); J45.40 Moderate persistent asthma, uncomplicated; G47.34 Idiopathic sleep related nonobstructive alveolar hypoventilation; Z01.811 Encounter for preprocedural respiratory examination
CPT/HCPCS: 99214; G2211

== ENCOUNTER → 2025-01-02 09:00 | Outpatient (BNVA) | payer MEDICARE, MEDICAID, SELFPAY | PROVIDERS: PCP Internal Medicine Geriatric Medicine; Visit Provider Hospitalist | DX: Z01.811 Encounter for preprocedural respiratory examination (principal); J45.40 Moderate persistent asthma, uncomplicated; G47.33 Obstructive sleep apnea (adult) (pediatric); G47.34 Idiopathic sleep related nonobstructive alveolar hypoventilation; E66.01 Morbid (severe) obesity due to excess calories; Z99.89 Dependence on other enabling machines and devices | CPT/HCPCS: 99212 ==

== ENCOUNTER 2025-01-19 09:27 | Outpatient (AMB) | payer MEDICARE, MEDICAID, SELFPAY ==
--- NOTE | 2025-01-19 09:34 | HO.NEPHOV ---
Vital Signs 01/19/25 09:38 Height 4 ft 11 in Weight 190 lb 8 oz BMI 38.5 BP 124/74 Blood Pressure Location Lt brachial Position Sitting Intake Visit Reasons: 6mon follow up w/labs-LVM Butt Welder Required: No Accompanied by: Other Relationship Allergies canagliflozin [Invokana] Allergy (Severe, Verified 01/19/25 09:37) chest tightness lisinopril [LISINOPRIL] Allergy (Severe, Verified 01/19/25 09:37) sweating, rash, difficulty breathing, cough oxycodone Allergy (Intermediate, Verified 01/19/25 09:37) vomiting/GI cramping sulfamethoxazole [From Bactrim] Allergy (Mild, Verified 01/19/25 09:37) Rash trimethoprim [From Bactrim] Allergy (Mild, Verified 01/19/25 09:37) Rash HPI Comments Details: Angela was seen in follow-up of her hypertension and proteinuria. She was on amlodipine and hydrochlorothiazide which was discontinued and losartan was re introduced, which she is tolerating well. Her BP has been labile. She does not have any chest pain, shortness of breath, paroxysmal nocturnal dyspnea, orthopnea, pedal edema, fever or urinary symptoms. She does not take any cmvj-opc-mixpoiz medications. [facility] Medical History (Updated 01/19/25 @ 10:13 by Sen Hedrick MD) Nocturnal hypoxia Left breast abscess Asthma exacerbation GERD (gastroesophageal reflux disease) Diabetic nephropathy Hypertension LUCINDA (obstructive sleep apnea) Bilateral primary osteoarthritis of knee Kidney problem Fibromyalgia Right knee pain Carpal tunnel syndrome Morbid obesity Depression Anxiety Asthma Type 2 diabetes mellitus Dyspepsia Hypertriglyceridemia Bursitis, subacromial Surgical History History of carpal tunnel release of both wrists S/P laparoscopic sleeve gastrectomy S/P cardiac cath Family History Mother No problems noted. Father No problems noted. Social History Household Members: Family Household Members Other:: niece Housing: Apartment Are you a primary ocular care aide to a significant other at home: No Do you presently have visiting nurse or other home services: No Alcohol intake: never Patient Tobacco Use Status: Never used Tobacco service: No Current occupational status: unemployed Current occupation: right handed Review of Systems Const All systems reviewed & are unremarkable except as noted in HPI and below Physical Exam Vital Signs: Last Vital Signs BP 124/74 01/19/25 09:38 BMI result Body Mass Index 38.5 Const General: comfortable and no acute distress Orientation/consciousness: patient oriented x3 HEENT Head: Yes normocephalic Mouth: Normal oral and palatal mucosa present Eyes EOM: EOMs intact bilaterally Neck Neck: Yes supple Resp Auscultation: clear to auscultation bilaterally Cardio Jugular venous distension: no JVD Rate: regular rate GI Palpation (GI): Soft to palpation Auscultation: normal bowel sounds General: Yes no CVA tenderness Back/Spine/Pelvis Back: no CVA tenderness Skin General skin exam: no rashes or lesions noted Neuro General: patient oriented x3 and moves all extremities Extrem General: Yes no pedal edema Results Reviewed Nephrology Results: Urine Creatinine 173.55 mg/dL 10/21/24 Protein/Creatinin Ratio 0.07 (<0.2) 10/21/24 Assessment & Plan Assessment & Plan (1) Proteinuria: Code(s): R80.9 - Proteinuria, unspecified Category: Medical Qualifiers: Proteinuria type: other Qualified Code(s): R80.8 - Other proteinuria (2) Hypertension: Code(s): I10 - Essential (primary) hypertension Category: Medical Qualifiers: Hypertension type: primary hypertension Qualified Code(s): I10 - Essential (primary) hypertension (3) Hypertension: Code(s): I10 - Essential (primary) hypertension Category: Medical Qualifiers: Hypertension type: primary hypertension Qualified Code(s): I10 - Essential (primary) hypertension Plan Angela has longstanding hypertension. She was on amlodipine and hydrochlorothiazide which was discontinued and started losartan which was increased to 25 mg twice daily. She has no significant detectable proteinuria. Her renal functions are normal. All her and her niece's questions were answered. Follow-up appointment given Medications: Changed From losartan 50 mg PO DAILY To losartan 25 mg PO BID 30 days 60 tabs 3RF Coding Level of Care Code Est Pt Level 4 (30732) Diagnoses Other proteinuria R80.8 Proteinuria type: other Primary hypertension I10 Hypertension type: primary hypertension
[2025-01-19 09:38] VITALS: BP 124/74; BMI 38.5
--- OUTSIDE RECORDS SUMMARY | 2025-01-19 10:11 | XMS_ITS | Encounter Summary ---
Author Organization [employer] Address [address] [place] [address] [place] [address] Care Team Providers Care Automotive Sales Representative Name Role Phone NameJamal MD Primary Care Provider [phone] Reason for Visit * Reason Comments Follow-up Encounter Details Date Type Department Care Team ([facility] st Contact Info) Description 01/17/2025 11:15 AM EDT Office Visit [facility] MEDICINE [address] [place] [address] [phone] Name, MD Jamal [address] [place] [address] Essential hypertension (Primary Dx); Left breast abscess Social History Tobacco Use Types Packs/Day Years [...] the past 12 months, has t he [employer] [place], gas, oil or water company threatened to [...] Sign Reading Time Taken Comments Blood Pressure 143/65 01/17/2025 11:31 AM EDT Pulse 58 01/17/2025 11:31 AM EDT Temperature 36.5 ??C (97.7 ??F) 01/17/2025 11:31 AM E DT Respiratory Rate 15 01/17/2025 11:31 AM EDT Oxygen Saturation 99% 01/17/2025 11:31 AM EDT Inhaled Oxygen Concentration - - Weight 86.7 kg (191 lb 3.2 oz) 01/17/2025 11:31 AM EDT Height 149.9 cm (4' 11 ) 01/17/2025 11:31 AM EDT Body Mass Index 38.62 01/17/2025 11:31 AM EDT documented in this encounter Progress Notes * Jamal Castañeda MD - 01/17/2025 11:15 AM EDT Subjective Patient ID: Angela Palmer is a 59 y.o. female who presents for Follow-up. Patient comes for a follow-up visit. She is asymptomatic. Last appointment with me she had a left breast abscess that has resolved. Unfortunately she developed an allergic reaction to the Bactrim I prescribed her. When she was seen by the surgeon she was switched to Keflex. She has upcoming appointment with the surgeon to remove a left breast cyst that seems to be the area where she has the recurrent infections. Today her BP is elevated. She tells me that BP is about the same when she checks at home. She is using losartan/HCTZ 50/12.5 daily. Her BP normalized after bariatric surgery for a few months but the numbers have been creeping up. Review of Systems Constitutional: Negative for chills and fever. HENT: Negative for sore throat. Respiratory: Negative for cough, shortness of breath and wheezing. Cardiovascular: Negative for chest pain, palpitations and leg swelling. Gastrointestinal: Negative for abdominal pain. Visit Vitals BP (!) 143/65 (BP Location: Right arm, Patient Position: Sitting, BP Cuff Size: Large adult) Pulse 58 Temp 97.7 ??F (36.5 ??C) (Oral) Resp 15 Ht 4' 11 (1.499 m) Wt 191 lb 3.2 oz (86.7 kg) SpO2 99% BMI 38.62 kg/m?? OB Status Postmenopausal Smoking Status Never BSA 1.9 m?? Objective Physical Exam Constitutional: Appearance: Normal appearance. Cardiovascular: Rate and Rhythm: Normal rate and regular rhythm. Heart sounds: No murmur heard. No gallop. Pulmonary: Effort: Pulmonary effort is normal. No respiratory distress. Breath sounds: Normal breath sounds. No wheezing. Musculoskeletal: Right lower leg: No edema. Left lower leg: No edema. Neurological: Mental Status: She is alert. Assessment/Plan Diagnoses and all orders for this visit: Essential hypertension Comments: Increase losartan/HCTZ to 100/25. She will come next week for repeat BMP. Check blood pressure at home. Follow-up televisit with team nurses in 2 weeks for BP recheck. Left breast abscess Comments: Resolved. I documented her allergic reaction to Bactrim. She is encouraged to keep her upcoming appointment with surgery for surgical removal of left breast cyst. Other orders - losartan-hydroCHLOROthiazide (Hyzaar) 100-25 MG tablet; Take 1 tablet by mouth Once per day. documented in this encounter Plan of Treatment Upcoming Encounters Date Type Department Care Team (Late st Contact Info) Description 02/01/2025 11:30 AM EDT Telemedicine [facility] MED[facility] [address] [place] [address] documented as of this encounter Visit Diagnoses Diagnosis Essential hypertension- Primary Unspecified essential hypertension Left breast abscess documented in this encounter Additional Health Concerns Assessment Noted Time PHQ-9 Depression Total Score: 11 025 10:46 AM EST documented as of this encounter Care Teams Automotive Sales Representative Relationship Specialty Start Date End Date NameJamal MD [address] [place] [address] PCP - General Family Medicine 05/25/19 documented as of this encounter
--- OUTSIDE RECORDS SUMMARY | 2025-01-19 10:11 | XMS_ITS | Clinical Summary ---
Author Organization [facility] Address [address] [facility] [address] [place] [address] Phone Care Team Providers Care Granite Setter Name Role Phone Name, Jamal HENDRIX Primary Care Provider [phone] Allergies Active Allergy Reactions Criticality Noted Date [...] Discontinued 05/25/2019, 07/17/2010, 11/13/2009 Insurance Medicare Medicaid [place] Medicare Medicaid [place] Care Teams Granite Setter Relationship Specialty Start Date End Date Name, MD Jamal [address] [place] [address] PCP - General Internal Medicine 03/12/21
--- OUTSIDE RECORDS SUMMARY | 2025-01-19 10:11 | XMS_ITS | Encounter Summary ---
Author Organization [employer] Address [address] [place] [address] [place] [address] Care Team Providers Care Catering Manager Name Role Phone Name, Jamal HENDRIX Primary Care Provider [phone] Reason for Visit * Reason Comments Med Refill Encounter Details Date Type Department Care Team ([facility] st Contact Info) Description 09/13/2024 Refill [facility] [address] [place], [place] [phone] Name, MD Jamal [address] [place] [address] Social History Tobacco Use Types Packs/Day Years [...] Info) Description 02/01/2025 11:30 AM EDT Telemedicine [facility] [address] [place] [address] documented as of this encounter Visit Diagnoses Not on filedocumented in this encounter Additional Health Concerns Assessment Noted Time PHQ-9 Depression Total Score: 2 10/28/19 24 10:00 AM EST documented as of this encounter Care Teams Catering Manager Relationship Specialty Start Date End Date Name, MD Jamal [address] [place] [address] PCP - General Family Medicine 05/25/19 documented as of this encounter
--- OUTSIDE RECORDS SUMMARY | 2025-01-19 10:11 | XMS_ITS | Encounter Summary ---
Author Organization [employer] Address [address] [place] [address] [place] [address] Care Team Providers Care Electric Meter Tester Shop Name Role Phone NameJamal MD Primary Care Provider [phone] Reason for Visit * Reason Onset Date Comments CHART PREP 01/16/2025 Encounter Details Date Type Department Care Team ([facility] Contact Info) Description 01/16/[address] [facility] MEDICINE [address] [place], [place] [phone] Name, MD Jamal [address] [place] [address] CHART PREP Social History Tobacco Use Types Packs/Day Years [...] encounter Miscellaneous Notes * Telephone Encounter - Asha Melchor MA - 01/16/2025 2:01 PM EDT Chart Prep Labs: done from 11/15/24 Images: done hand x-ray 10/19/24 Referrals: complete general surgery appt kept 12/22/24. Vaccines due: Zoster Screenings: foot exam Overdue care gaps: Glucose, SBIRT, Disability screen, and Tobacco documented in this encounter Plan of Treatment Upcoming Encounters Date Type Department Care Team ([facility] Contact Info) Description 02/01/2025 11:30 AM EDT Telemedicine [facility] MEDICINE [address] [place] [address] documented as of this encounter Visit Diagnoses Not on filedocumented in this encounter Additional Health Concerns Assessment Noted Time PHQ-9 Depression Total Score: 11 025 10:46 AM EST documented as of this encounter Care Teams Electric Meter Tester Shop Relationship Specialty Start Date End Date Name, MD Jamal [address] [place] [address] PCP - General Family Medicine 05/25/19 documented as of this encounter
--- OUTSIDE RECORDS SUMMARY | 2025-01-19 10:11 | XMS_ITS | Encounter Summary ---
Author Organization [email or web address] Address [address] [place] [address] 7 [place] [address] Care Team Providers Care Harbor Police Launch Commander Name Role Phone Name, Jamal HENDRIX Primary Care Provider [phone] Encounter Details Date Type Department Care Team (Latest Contact Info) Description 01/17/2025 Travel Social History Tobacco Use Types Packs/Day [...] Info) Description 02/01/2025 11:30 AM EDT Telemedicine [facility] MEDICINE [address] [place] [address] documented as of this encounter Visit Diagnoses Not on filedocumented in this encounter Additional Health Concerns Assessment Noted Time PHQ-9 Depression Total Score: 11 025 10:46 AM EST documented as of this encounter Care Teams [employer] Launch Commander Relationship Specialty Start Date End Date Name, MD Jamal [address] [place] [address] PCP - General Family Medicine 05/25/19 documented as of this encounter
--- OUTSIDE RECORDS SUMMARY | 2025-01-19 10:11 | XMS_ITS | Clinical Summary ---
Author Organization [employer] Address [address] [place] [address] 7 [place] [address] Care Team Providers Care Departmental Secretary Name Role Phone Name, Jamal HENDRIX Primary Care Provider [phone] Allergies Active Allergy Reactions Criticality Noted Date Comments Sulfamethoxazole-Trimeth oprim 01/17/2025 Skin pruritus/rash Canagliflozin Medium 04/21/2022 UTI Lisinopril Cough,Shortness of [...] 04/24/20 22 Active rosuvastatin (Crestor) 5 MG tabletIndication s:Asthma, unspecified asthma severity, unspecified whether complicated, unspecified whether persistent TOME PEACE TABLETA TODOS LOS ORDAZ 90 tablet 3 11/11/19 23 Active triamcinolone (Kenalog) 0.1 % creamIndications :Asthma, unspecified asthma severity, unspecified whether complicated, unspecified whether persistent APLIQUE CAPA JULIENNE EL AREA AFECTADA DOS VECES AL SHRUTHI 30 g 12/02/19 23 Active buPROPion XL (Wellbutrin XL) 300 MG 24 hr tablet Take 1 tablet by mouth once daily 08/01/20 23 Active D3-1000 25 MCG (1000 UT) capsule TOME 1 C PSULA POR V A ORAL TOS LOS D 06/03/20 23 Active cyancobalamine (Vitamin B-12) 250 MCG tablet TOME PEACE TABLETA POR V A ORAL LOS D 06/03/20 23 Active FreeStyle lancets USE 1 EACH CUATRO VECES AL D A BEFORE MEALS AND AT NIGHTLY 05/04/20 23 Active traZODone (Desyrel) 50 MG tablet Take 2 tablets (100mg) by mouth every night 08/01/20 23 Active lidocaine (Lidoderm) 5 % patchIndications :Chronic low back pain without sciatica, unspecified back pain laterality APPLY 1 PATCH TOPICALLY IN THE MORNING REMOVE AND DISARD PATCH WITHIN 12 HOURS OR INSTRUCTED BY MD 30 patch 3 05/13/20 24 Active albuterol (2.5 MG/3ML) 0.083% nebulizer solutionIndicati ons:Asthma, unspecified asthma severity, unspecified whether complicated, unspecified whether persistent INHALE THE CONTENTS OF 1 VIAL VIA NEBULIZER THREE TIMES DAILY 75 mL 06/17/20 24 025 Active pantoprazole (ProtoNix) 40 MG EC tablet Take 1 tablet (40 mg) by mouth before breakfast. 30 tablet 11 10/31/19 25 026 Active cetirizine (ZyrTEC) 10 MG tablet TAKE 1 TABLET BY MOUTH EVERY DAY 90 tablet 1 12/10/19 25 Active Trelegy Ellipta 200-62.5-25 MCG/ACT aerosol powder INHALE 1 PUFF BY INHALATION ROUTE EVERY DAY AT THE SAME TIME EACH DAY 60 each 4 04/14/20 25 Active losartan-hydroCH LOROthiazide (Hyzaar) 100-25 MG tablet Take 1 tablet by mouth Once per day. 30 tablet 01/18/20 25 026 Active losartan-hydroCH LOROthiazide (Hyzaar) 50-12.5 MG tabletIndication s:Essential hypertension Take 1 tablet by mouth Once per day. 30 tablet 11 11/16/19 025 Discontinu ed(Dose adjustment ) sulfamethoxazole -trimethoprim (Bactrim DS) 800-160 MG tablet Take 1 tablet by mouth 2 times daily for 7 days. 14 tablet 12/16/19 25 025 celecoxib (CeleBREX) 200 MG capsuleIndicatio ns:Left breast abscess Take 1 capsule (200 mg) by mouth Once per day for 10 days. 10 capsule 12/16/19 25 025 Active Problems Problem Noted Date Diagnosed Date [...] 06/01/2023 Overview (06/01/2023): Gastric sleeve 01/2023 at [facility] Obstructive sleep apnea [...] for transfer to [facility] for ERCP, but [...] well controlled -Continue low-dose insulin sliding scale lufyi-kw-nylo testing Encounters Date Type Department Care Team Description 01/17/2025 11:15 AM EDT Office Visit [facility] MEDICINE [address] [place] [address] Jamal Castañeda MD Essential hypertension (Primary Dx); Left breast abscess 01/17/2025 Travel 01/16/[address] [address] Jamal Castañeda MD CHART PREP 12/18/[address] [facility] [address] [place] [address] Jamal Castañeda MD 12/15/2024 11:30 AM EDT Office Visit [address] [address] Jamal Castañeda MD Left breast abscess (Primary Dx); Type 2 diabetes mellitus with hyperglycemia, with long-term current use of insulin ([facility]) 12/15/2024 Travel 12/12/2024 10:00 AM EDT Office Visit [facility] [address] [place] [address] Ignacia Tanner, ILIANA Visit for pelvic exam (Primary Dx); Left breast abscess 12/12/2024 Travel 12/08/[address] [facility] MED[facility]INE [address] [place] [address] Jamal Castañeda MD 11/15/2024 11:[address] [facility] [address] [place] [address] Fara Valente, RN Essential hypertension 11/15/[address] [address] Jamal Castañeda MD 11/15/2024 Travel 11/14/[address] [facility] [address] [place] [address] Hannah Calero, CECILLE 11/14/2024 Travel 11/08/[address] [facility] [address] [place] [address] Jamal Castañeda MD 11/08/2024 Travel 10/31/2024 10:15 AM EST Office Visit [facility] [address] [place] [address] Jamal Castañeda MD Type 2 diabetes mellitus with hyperglycemia, with long-term current use of insulin ([facility]) (Primary Dx); Essential hypertension from Last 3 Months Immunizations Immunization Administration Dates Next Due Hep B, adult [...] Mass Index 38.62 01/17/2025 11:31 AM EDT Plan of Treatment Upcoming Encounters Date Type Department Care Team (Late st Contact Info) Description 02/01/2025 11:[address] [facility] [address] [place] [address] Health Maintenance Due Date Last Done Comments CT Colonography 1965 FIT 1965 FOBT 1965 HIV Screening 1965 Sigmoidoscopy 1965 Zoster Vaccines (1 of 2) 2015 Hepatitis B Vaccines (3 of 3 - 19+ 3-dose series) 04/27/2024 12/17/2023, 10/28/2023, 07/25/2023 Diabetes: Foot Exam 10/28/2024 10/28/2023 Lipid Panel 06/10/2025 06/10/2024, 0502/2023, 11/02/2020 Diabetes: Hemoglobin A1C 06/16/2025 04 025, 09/19/2024, 06/10/2024, Additional history exists Eye Exam 08/05/2025 08/05/2023 SDOH Screening 10/20/2025 10/20/2024 Depression Screening 10/31/2025 10/31/2024, 10/31/19 FIT DNA/Cologuard 11/21/2025 11/21/2022 Mammogram 11/30/2025 12/01/2023, 09/07, 09/19/2019 Alcohol/Substance Use Screening 01/17/2026 01/17/2025 Tobacco Screening 01/17/2026 01/17/2025 Cervical Cancer Screening 12/16/2026 HPV/Cotest 12/16/2026 12/17/2023 [...] patient's age to complete this topic Meningococcal B Vaccine Aged Out No l onger eligible based on patient's age to complete [...] hyperglycemia, with long-term current use of insulin ([facility]) POCT GLUCOSE Routine 12/15/2024 11:32 AM EDT Type 2 diabetes mellitus with hyperglycemia, with long-term current use of insulin ([facility]) AMB REFERRAL TO ALLERGY Routine 12/14/2024 Seasonal allergic rhinitis due to pollen Moderate asthma, unspecified whether complicated, unspecified whether persistent POCT GLUCOSE Routine 10/31/2024 9:57 AM EST Type 2 diabetes mellitus with hyperglycemia, with long-term current use of insulin ([facility]) LIPID PANEL, STANDARD Routine 06/10/2024 7:01 AM [...] 110,426 Blood 12/15/2024 11:3 2 AM EDT us Jamal Castañeda MD POINT OF CARE TEST ENTER/EDIT OR DERABLES Final Result * POCT Glucose (12/15/2024 11:32 AM EDT) Only the most recent of2 resultswithin the time period is included. Glucose Blood, POC 99 60 - 200 mg/dL QC Media Lot # [id number] Lot# Expiration Date [id number] Blood Capillary blood specimen / Unknown 12/15/2024 11:32 AM EDT us Jamal Castañeda MD POINT OF CARE TEST ENTER/EDIT OR DERABLES Final Result * Referral to Allergy (12/14/2024) us Jamal Castañeda MD OUTPATIENT REFERRAL ORDERABLES F inal Result * (ABNORMAL) Lipid Panel, Standard (06/10/2024 7:01 AM EDT) Triglycerides 129 <150 mg/dL [facility] Comment:Desirable Triglyceri de: less than 150 mg/dLBorderline High Triglyceride 150-199 mg/dLHigh Triglyceride: 200-499 mg/dLVery High Triglyceride: greater than or equal to 5OO mg/dL Cholesterol 200(H) <200 mg/dL [facility] Comment:Desirable Cholestero l: less than 200 mg/dLBorderline High Cholesterol: 200-239 mg/dLHigh Cholesterol: greater than 239 mg/dL LDL Cholesterol Calculated 122(H) <100 mg/dL [facility] Comment:Desirable LDL: less than 100 mg/dLNear Optimal/Above Optimal LDL: 110- 129 mg/dLBorderline High LDL: 130-159 mg/dLHigh LDL: 160-189 mg/dLVery High LDL: greater than or equal to 190 mg/dL HDL Cholesterol 53 >40 mg/dL [facility] Comment:Desirable HDL: great er than 40 mg/dL Note: This HDL assay may give artificially low results in patients with liver disease. 06/10/2024 7:01 AM EDT 06/10/2024 7:01 AM EDT us Generic External Data Provider LAB BLOOD ORDERAB LES Final Result [facility] [address] [place] [address] [phone] * HPV mRNA E6/E7 w/Reflex to HPV Genotypes 16, 18/45 (12/17/2023 10:51 AM EDT) HPV nRNA E6/E7 Not Detected Not Detected [facility] Comment:Methodology: Transcr iption-Mediated AmplificationThis assay detects E6/E7 viral messenger RNA (mRNA) from 14high-risk HPV types (16,18,31,33,35,39,45,51,52,56,58,59,66,68).Cervical sources are required for HPV testing.If a vaginal source from a patient who has had atotal hysterectomy with removal of cervix wassubmitted, please contact the testing laboratoryfor alternative testing options.For additional information, please refer tohttp://education.Cloud[employer].net/faq/BUH889l7(This link if provided for information/educational purposes only.)THIS TEST WAS PERFORMED AT:[facility] [place] [phone] VINCENT MD HPV mRNA E6/E7 [facility] HPV 16 RNA [facility] HPV 18/45 RNA [facility] 12/17/2023 10:5 1 AM EDT 12/22/2023 12:00 PM EDT us Ignacia KEYS LAB CYTOLOGY ORDERABLES F inal Result [facility] [address] [place], [place] [phone] * Pap Smear (12/17/2023 10:51 AM EDT) Swab Cervix uteri structure / Unknown 12/17/2023 10:51 AM EDT 12/22/2023 12:00 PM EDT Narrative [facility] - 01/04/2024 12:50 PM EDT ----- ------- Name: Angela Montilla I ?Age/Sex: 58/F ? : 1965 Unit#: [id number] ?? Attend Dr: IGNACIA TANNER CNM ?Re12/17/23 ?Status: DEP REF ? Location: HO.LNP ?Disch: ? ----- ------- SPEC : [id number] ? RECD: 12/22/23-1200 ? STATUS: ??SOUT ? REQ NUM: [id number] ? MAYLIN: 12/17/23-1050 ? SUBM DR: IGNACIA TANNER CNM ? [...] 66, 68) ?? HPV testing performed by [facility], [place], [place]. ??See reference laboratory ?? portion of the EMR for entire report. ?Clinical Information LMP: Postmenopausal Previous PAP test: Unknown date/findings ? Material Received ?? ThinPrep-Vaginal/Cervical ----- ------- Signed (signature on file) ANGELI Sarah (ASCP) 01/04/24 1250 ? ----- ------- ? END OF REPORT ? us Ignacia Jamal CNM LAB CYTOLOGY ORDERABLES F inal Result [facility] [address] [place] [address] [phone] * BI Mammogram Screening Tomosynthesis Bilateral (12/01/2023 11:50 AM EDT) Anatomical Region Laterality Modality Breast Bilateral Mammography 12/01/2023 11:5 0 AM EDT Narrative 12/20/2023 3:46 PM EDT ? [facility] ? [address] ?[place] [address] ? Mammography Report ? Signed ? Patient: Eris Palmer,Angela I ?MR ?? #: [id number] ? : 1965 ?Acct:[id number] ? Age/Sex: 58 / F ?ADM Date: /26/24 ? Loc: HO.MAMMO ? Attending Dr: Jamal Name MD ? Ordering Physician: Name,Jamal MD ?Results: 1Negative ? Date of Service: 11/30/24 ?Follow Up: 1 Year From Orig ?? inal Mammogram ? Procedure(s): MM tomosynthesis screening BI ?? Accession Number(s): [id number] ? cc: Name,Jamal HENDRIX ? EXAMINATION: ?? [...] 1542 ? DD/ 1150 ? TD/TT: ? Cement Worker: ? Procedure Note Neal, Image - 12/20/2023 [facility] [address] [place] [address] Dr. [place], RADHA [address] Mammography Report Signed Patient: Angela Mnotilla [facility] #: [id number] : 1965Acct:[id number] Age/Sex: 58 / FADM Date: 12/01/23 Loc: SHO Attending Dr: Jamal Castañeda MD Ordering Physician: Jamal Castañedaesults: 1Negative Date of Service: 12/01/23Follow Up: 1 Year From Orig ina Mammogram Procedure(s): MM tomosynthesis screening BI Accession Number(s): [id number] cc: Jamal Castañeda MD EXAMINATION: MM SCREENING [...] in OV> 12/20/23 1542 DD/ 1150 TD/TT: Cement Worker: Jamal Castañeda MD IMG BI PROCEDURES Edited Result - Final * Hepatitis C Ab (10/28/2023 10:55 AM EST) Hepatitis C Antibody Nonreactive Nonreactive [facility] Comment:Antibodies to HCV no t detected; does not exclude early acuteHCV infection. Blood Venous blood specimen / Unknown 10/28/2023 10:55 AM EST 10/28/2023 1:21 PM EST us Jamal Castañeda MD LAB BLOOD ORDERABLES Final Resul t [facility] [address] [place] [phone] * Diabetes Eye Exam (08/05/2023) Eye Exam Normal Normal us Jamal Castañeda MD HEALTH MAINTENANCE Final Result * Cologuard Colon Cancer Screening (11/21/2022 2:00 PM EDT) Cologuard Cancer Screen Negative Comment:repeat in 3 yrs Stool 11/21/2022 2:00 PM EDT us Jamal Castañeda MD POINT OF CARE TEST ENTER/EDIT OR DERABLES Final Result from Last 3 Months or Most Recently Relevant to Health Maintenance Insurance MEDICARE Member Subscriber Plan / Payer (Ef fective 2022-Present) Name:Angela Montilla I Member ID:[id number] Relation to Subscriber:Self Name:Angela Montilla I Subscriber ID:[id number] Payer ID:STATE Group ID:Not on file Type:Medicare Address: [facility] [address] [address] [facility] Care Teams Departmental Secretary Relationship Specialty Start Date End Date Name, MD Jamal [address] [place] [address] PCP - General Family Medicine 05/25/19
== END 2025-01-19 10:19 | disposition home or self-care (01) ==
LOC: HO.HKAS 09:28
PROVIDERS: PCP Internal Medicine Geriatric Medicine; Visit Provider Internal Medicine Nephrology
DX: R80.8 Other proteinuria (principal); I10 Essential (primary) hypertension
CPT/HCPCS: 99214

== ENCOUNTER → 2025-01-19 09:27 | Outpatient (BNVA) | payer MEDICARE, MEDICAID, SELFPAY | PROVIDERS: PCP Internal Medicine Geriatric Medicine; Visit Provider Internal Medicine Nephrology | DX: I10 Essential (primary) hypertension (principal); R80.8 Other proteinuria | CPT/HCPCS: 99212 ==

== ENCOUNTER 2025-02-01 09:23 | Outpatient (REF) | payer MEDICARE, MEDICAID, SELFPAY ==
--- OUTSIDE RECORDS SUMMARY | 2025-02-01 10:04 | XMS_ITS | Clinical Summary ---
Author Organization [facility] Address [address] [facility] [address] [place] [address] Phone Care Team Providers Care Body Bumper Name Role Phone Name, Jamal HENDRIX Primary Care Provider [phone] Allergies Active Allergy Reactions Criticality Noted Date [...] Discontinued 05/25/2019, 07/17/2010, 11/13/2009 Insurance Medicare Medicaid [place] Medicare Medicaid [place] Care Teams Body Bumper Relationship Specialty Start Date End Date Name, MD Jamal [address] [place] [address] PCP - General Internal Medicine 03/12/21
[2025-02-01 12:12] LABS: Blood Urea Nitrogen 12 mg/dL (9-16)
[2025-02-01 12:13] LABS: Anion Gap 12 (12-20); Blood Urea Nitrogen 11 mg/dL (9-16); Calcium 9.4 mg/dL (8.4-10.2); Carbon Dioxide 29 mmol/L (22-29); Chloride 104 mmol/L (96-108); Estimated Glomerular Filt Rate > 60; Glucose Random 86 mg/dL (60-115); Potassium 4.7 mmol/L (3.3-5.1); Sodium 140 mmol/L (135-145)
== END 2025-02-01 09:24 | disposition home or self-care (01) ==
LOC: HO.HHCL 09:23
PROVIDERS: Visit Provider Internal Medicine Nephrology
DX: I10 Essential (primary) hypertension (principal); R80.8 Other proteinuria
CPT/HCPCS: 36415; 80048; 84520

== ENCOUNTER 2025-02-21 09:41 | Outpatient (AMB) | payer MEDICARE, MEDICAID, SELFPAY ==
[2025-02-21 10:06] VITALS: BP 128/62; PULSE 53; O2SAT 98; BMI 38.6
--- NOTE | 2025-02-21 10:06 | HO.NEPHOV_ITS ---
Vital Signs 02/21/25 10:06 Height 4 ft 11 in Weight 191 lb BMI 38.6 BP 128/62 Blood Pressure Location Lt brachial Position Sitting Pulse 53 Pulse Source Pulse Oximeter Pulse Oximetry (%) 98 Oxygen Delivery Method Room Air Intake Visit Reasons: 1mon follow-up No Labs-LVM Founder Chairman And Chief Creative Officer Required: No Founder Chairman And Chief Creative Officer Services: Founder Chairman And Chief Creative Officer Offered & Declined (Niece will translate ) Accompanied by: Nephew or Niece Allergies canagliflozin [Invokana] Allergy (Severe, Verified 02/21/25 10:09) chest tightness lisinopril [LISINOPRIL] Allergy (Severe, Verified 02/21/25 10:09) sweating, rash, difficulty breathing, cough oxycodone Allergy (Intermediate, Verified 02/21/25 10:09) vomiting/GI cramping sulfamethoxazole [From Bactrim] Allergy (Mild, Verified 02/21/25 10:09) Rash trimethoprim [From Bactrim] Allergy (Mild, Verified 02/21/25 10:09) Rash HPI Comments Details: Angela was seen in follow-up of her hypertension and proteinuria. She was on amlodipine and hydrochlorothiazide which was discontinued and losartan was re introduced, which she is tolerating well. Her BP is better but not optimal at home. She does not have any chest pain, shortness of breath, paroxysmal nocturnal dyspnea, orthopnea, pedal edema, fever or urinary symptoms. She does not take any bgqp-kte-oatssjg medications. [facility] Medical History (Updated 01/19/25 @ 10:13 by Sen Hedrick MD) Nocturnal hypoxia Left breast abscess Asthma exacerbation GERD (gastroesophageal reflux disease) Diabetic nephropathy Hypertension LUCINDA (obstructive sleep apnea) Bilateral primary osteoarthritis of knee Kidney problem Fibromyalgia Right knee pain Carpal tunnel syndrome Morbid obesity Depression Anxiety Asthma Type 2 diabetes mellitus Dyspepsia Hypertriglyceridemia Bursitis, subacromial Surgical History History of carpal tunnel release of both wrists S/P laparoscopic sleeve gastrectomy S/P cardiac cath Family History Mother No problems noted. Father No problems noted. Social History Household Members: Family Household Members Other:: niece Housing: Apartment Are you a primary before and after school daycare worker to a significant other at home: No Do you presently have visiting nurse or other home services: No Alcohol intake: never Patient Tobacco Use Status: Never used Tobacco service: No Current occupational status: unemployed Current occupation: right handed Review of Systems Const All systems reviewed & are unremarkable except as noted in HPI and below Physical Exam Vital Signs: Last Vital Signs Pulse 53 02/21/25 10:06 BP 128/62 02/21/25 10:06 Pulse Ox 98 02/21/25 10:06 Oxygen Delivery Method Room Air 02/21/25 10:06 BMI result Body Mass Index 38.6 Const General: comfortable and no acute distress Orientation/consciousness: patient oriented x3 HEENT Head: Yes normocephalic Mouth: Normal oral and palatal mucosa present Eyes EOM: EOMs intact bilaterally Neck Neck: Yes supple Resp Auscultation: clear to auscultation bilaterally Cardio Jugular venous distension: no JVD Rate: regular rate GI Palpation (GI): Soft to palpation Auscultation: normal bowel sounds General: Yes no CVA tenderness Back/Spine/Pelvis Back: no CVA tenderness Skin General skin exam: no rashes or lesions noted Neuro General: patient oriented x3 and moves all extremities Extrem General: Yes no pedal edema Results Reviewed Nephrology Results: Sodium 140 mmol/L (135-145) 02/01/25 Potassium 4.7 mmol/L (3.3-5.1) 02/01/25 Chloride 104 mmol/L (96-108) 02/01/25 Carbon Dioxide 29 mmol/L (22-29) 02/01/25 BUN 11 mg/dL (9-16) 02/01/25 Creatinine 0.61 mg/dL (0.5-1.4) 02/01/25 Calcium 9.4 mg/dL (8.4-10.2) 02/01/25 Urine Creatinine 173.55 mg/dL 10/21/24 Protein/Creatinin Ratio 0.07 (<0.2) 10/21/24 Assessment & Plan Assessment & Plan (1) Hypertension: Code(s): I10 - Essential (primary) hypertension Category: Medical Qualifiers: Hypertension type: primary hypertension Qualified Code(s): I10 - Essential (primary) hypertension Plan Angela has longstanding hypertension. She was on amlodipine and hydrochlorothiazide which was discontinued and started losartan which was increased to 50 mg twice daily. She has no significant detectable proteinuria. Her renal functions are normal. All her and her niece's questions were answered. Follow-up appointment given Coding Level of Care Code Est Pt Level 4 (86392) Diagnoses Primary hypertension I10 Hypertension type: primary hypertension
--- OUTSIDE RECORDS SUMMARY | 2025-02-21 10:40 | XMS_ITS | Clinical Summary ---
Author Organization [facility] Address [address] [facility] [address] [place] [address] Phone Care Team Providers Care Detailer Name Role Phone Name, Jamal HENDRIX Primary Care Provider [phone] Allergies Active Allergy Reactions Criticality Noted Date [...] Discontinued 05/25/2019, 07/17/2010, 11/13/2009 Insurance Medicare Medicaid [place] Medicare Medicaid [place] Care Teams Detailer Relationship Specialty Start Date End Date Name, MD Jamal [address] [place] [id number] PCP - General Internal Medicine 03/12/21
== END 2025-02-21 10:42 | disposition home or self-care (01) ==
LOC: HO.HKAS 09:41
PROVIDERS: PCP Internal Medicine Geriatric Medicine; Visit Provider Internal Medicine Nephrology
DX: I10 Essential (primary) hypertension (principal)
CPT/HCPCS: 99214

== ENCOUNTER → 2025-02-21 09:41 | Outpatient (BNVA) | payer MEDICARE, MEDICAID, SELFPAY | PROVIDERS: PCP Internal Medicine Geriatric Medicine; Visit Provider Internal Medicine Nephrology | DX: I10 Essential (primary) hypertension (principal) | CPT/HCPCS: 99212 ==

== ENCOUNTER 2025-03-01 05:43 | Day surgery (SDC) | payer MEDICARE, MEDICAID, SELFPAY ==
--- OUTSIDE RECORDS SUMMARY | 2025-01-27 14:09 | XMS_ITS | Clinical Summary ---
Author Organization [facility] Address [address] [facility] [address] [place] [address] Phone Care Team Providers Care Hand Developer Name Role Phone Name, Jamal HENDRIX Primary Care Provider Allergies Active Allergy Reactions Criticality Noted Date [...] Discontinued 05/25/2019, 07/17/2010, 11/13/2009 Insurance Medicare Medicaid [place] Medicare Medicaid [place] Care Teams Hand Developer Relationship Specialty Start Date End Date Name, MD Jamal [address] [place] [address] PCP - General Internal Medicine 03/12/21
[2025-02-27 12:30] VITALS: BMI 38.6
--- NOTE | 2025-02-28 09:38 | HO.ANESPROP2 ---
Documented by User: Marly Pemberton NP 02/28/25 09:45 HPI - Anesthesia Eval Consult details Narrative: 59yo F for Left Excision of Breast Infected Cyst [place] [facility] [place], proteinuria. Stable at 02/21/25 Follow[place] [facility] [place] asthma/LUCINDA. Per 12/2024 office visit May proceed with anesthesia and general surgery for her breast lesion. She does has increased risk for perioperative pulmonary complications, including: atelectasis, hypoxia, asthma, pneumonia and respiratory failure. She is medically optomized at this time. [place] [facility] [place] for htn, hx CP (nml cath 2021), dizziness (r/t vertigo). Stable at 09/2024 office visit. [facility] Active Problems Active Problems: All Active Problems Hypertension (Acute) Pre-op chest exam (Acute) Proteinuria (Acute) Dizziness (Acute) Obesity (BMI 30-39.9) (Acute) Gallstone pancreatitis (Acute) Stable angina (Acute) Constipation (Acute) Tricuspid valve insufficiency (Acute) Hepatomegaly (Acute) Chest pain (Acute) Generalized anxiety disorder (Acute) Chest pain at rest (Acute) Steatosis, liver (Acute) Diabetes mellitus (Acute) LUCINDA and COPD overlap syndrome (Acute) Morbid obesity (Acute) Limb swelling (Acute) Nocturnal hypoxia (Acute) Left breast abscess (Acute) S/P cardiac cath (Acute) S/P laparoscopic sleeve gastrectomy (Acute) GERD (gastroesophageal reflux disease) (Acute) Diabetic nephropathy (Acute) Hypertension (Acute) Depression (Acute) Hypertriglyceridemia (Acute) Asthma (Acute) Morbid obesity (Acute) LUCINDA (obstructive sleep apnea) (Acute) Right knee pain (Acute) Past Medical History Medical History Nocturnal hypoxia Left breast abscess Asthma exacerbation GERD (gastroesophageal reflux disease) Diabetic nephropathy Hypertension LUCINDA (obstructive sleep apnea) Bilateral primary osteoarthritis of knee Kidney problem Fibromyalgia Right knee pain Carpal tunnel syndrome Morbid obesity Depression Anxiety Asthma Type 2 diabetes mellitus Dyspepsia Hypertriglyceridemia Bursitis, subacromial Family History Family History Mother No problems noted. Father No problems noted. Family history of problems with anesthesia: No Surgical History Surgical History Hx laparoscopic cholecystectomy History of carpal tunnel release of both wrists S/P laparoscopic sleeve gastrectomy S/P cardiac cath History of Problems with Anesthesia: Yes (PONV) Social History Social History Household Members: Family Household Members Other:: niece Housing: Apartment Are you a primary foster care case manager to a significant other at home: No Do you presently have visiting nurse or other home services: No Alcohol intake: never Patient Tobacco Use Status: Never used Tobacco Use of substances other than those prescribed or required for medical reasons: No Are you DNR?: No Advance Directives: Yes Advance Directives on File: Yes Advance Directives Date on File: 03/01/25 service: No Current occupational status: unemployed Current occupation: right handed Meds Allergies Allergy/AdvReac Type Severity Reaction Status Date / Time canagliflozin (Invokana) Allergy Severe chest Verified 03/01/25 06:06 tightness lisinopril (LISINOPRIL) Allergy Severe sweating, Verified 03/01/25 06:06 rash, difficulty breathing, cough oxycodone Allergy Intermediate vomiting/GI Verified 03/01/25 06:06 cramping sulfamethoxazole (From Allergy Mild Rash Verified 03/01/25 06:06 Bactrim) trimethoprim (From Bactrim) Allergy Mild Rash Verified 03/01/25 06:06 Home Medications ?Medication ?Instructions ?Recorded ?Confirmed ?Last Taken ?Type nebulizers 02/23/23 12/22/24 Unknown History albuterol sulfate 2.5 mg/3 mL 2.5 mg inhalation Q6H PRN sob 08/12/23 02/27/25 Unknown History (0.083 %) solution for nebulization amitriptyline 50 mg tablet 50 mg BEDTIME 08/12/23 02/27/25 Unknown History bupropion HCl 300 mg 24 hr tablet, 300 mg PO QAM 08/12/23 02/27/25 Unknown History extended release cholecalciferol (vitamin D3) 25 25 mcg PO DAILY 08/12/23 02/27/25 Unknown History mcg (1,000 unit) capsule (Vitamin D3) cyanocobalamin (vitamin B-12) 250 250 mcg PO DAILY 08/12/23 02/27/25 Unknown History mcg tablet fluticasone fur. 200 mcg-umeclid 1 ea inhalation DAILY 08/12/23 02/27/25 08/13/23 History 62.5 mcg-vilant 25 mcg inhalat.powder (Trelegy Ellipta) trazodone 50 mg tablet 50 - 100 mg PO BEDTIME PRN insomnia 08/12/23 02/27/25 Unknown History lidocaine 5 % topical patch 1 patch topical DAILY 10/07/23 02/27/25 Unknown History cetirizine 10 mg tablet 10 mg PO DAILY 02/16/24 02/27/25 Unknown History rosuvastatin 10 mg tablet 10 mg PO BEDTIME 09/20/24 02/27/25 Unknown History Exam Height,Weight and Vital Signs: Height 4 ft 11 in Weight 86.636 kg Pertinent Lab Results Pertinent Lab Results: Laboratory Tests 06/10/24 02/01/25 07:01 09:26 WBC 7.4 Hgb 12.8 Hct 38.9 Plt Count 258 Sodium 140 Potassium 4.7 Chloride 104 Carbon Dioxide 29 BUN 11 Creatinine 0.61 Narrative Narrative: cardiac catheterization 06/2022 showing normal coronary arteries EKG 2023 Details: Sinus bradycardia 56 beats per minute, normal axis, first-degree AV block with RI interval 214 milliseconds, poor R-wave progression, QTC 382 milliseconds. Assessment and Plan Assessment Anesthesia Assessment: Chart Reviewed Final Anesthetic Review Family History of Problems with Anesthesia: No History of Problems with Anesthesia: Yes (PONV) Documented by User: Ada House MD 03/01/25 08:20 [facility] Past Medical History Medical History Nocturnal hypoxia Left breast abscess Asthma exacerbation GERD (gastroesophageal reflux disease) Diabetic nephropathy Hypertension LUCINDA (obstructive sleep apnea) Bilateral primary osteoarthritis of knee Kidney problem Fibromyalgia Right knee pain Carpal tunnel syndrome Morbid obesity Depression Anxiety Asthma Type 2 diabetes mellitus Dyspepsia Hypertriglyceridemia Bursitis, subacromial Family History Family History Mother No problems noted. Father No problems noted. Surgical History Surgical History Hx laparoscopic cholecystectomy History of carpal tunnel release of both wrists S/P laparoscopic sleeve gastrectomy S/P cardiac cath Social History Social History Household Members: Family Household Members Other:: niece Housing: Apartment Are you a primary foster care case manager to a significant other at home: No Do you presently have visiting nurse or other home services: No Alcohol intake: never Patient Tobacco Use Status: Never used Tobacco Use of substances other than those prescribed or required for medical reasons: No Are you DNR?: No Advance Directives: Yes Advance Directives on File: Yes Advance Directives Date on File: 03/01/25 service: No Current occupational status: unemployed Current occupation: right handed Meds Allergies Allergy/AdvReac Type Severity Reaction Status Date / Time canagliflozin (Invokana) Allergy Severe chest Verified 03/01/25 06:06 tightness lisinopril (LISINOPRIL) Allergy Severe sweating, Verified 03/01/25 06:06 rash, difficulty breathing, cough oxycodone Allergy Intermediate vomiting/GI Verified 03/01/25 06:06 cramping sulfamethoxazole (From Allergy Mild Rash Verified 03/01/25 06:06 Bactrim) trimethoprim (From Bactrim) Allergy Mild Rash Verified 03/01/25 06:06 Home Medications ?Medication ?Instructions ?Recorded ?Confirmed ?Last Taken ?Type nebulizers 02/23/23 12/22/24 Unknown History albuterol sulfate 2.5 mg/3 mL 2.5 mg inhalation Q6H PRN sob 08/12/23 02/27/25 Unknown History (0.083 %) solution for nebulization amitriptyline 50 mg tablet 50 mg BEDTIME 08/12/23 02/27/25 Unknown History bupropion HCl 300 mg 24 hr tablet, 300 mg PO QAM 08/12/23 02/27/25 Unknown History extended release cholecalciferol (vitamin D3) 25 25 mcg PO DAILY 08/12/23 02/27/25 Unknown History mcg (1,000 unit) capsule (Vitamin D3) cyanocobalamin (vitamin B-12) 250 250 mcg PO DAILY 08/12/23 02/27/25 Unknown History mcg tablet fluticasone fur. 200 mcg-umeclid 1 ea inhalation DAILY 08/12/23 02/27/25 08/13/23 History 62.5 mcg-vilant 25 mcg inhalat.powder (Trelegy Ellipta) trazodone 50 mg tablet 50 - 100 mg PO BEDTIME PRN insomnia 08/12/23 02/27/25 Unknown History lidocaine 5 % topical patch 1 patch topical DAILY 10/07/23 02/27/25 Unknown History cetirizine 10 mg tablet 10 mg PO DAILY 02/16/24 02/27/25 Unknown History rosuvastatin 10 mg tablet 10 mg PO BEDTIME 09/20/24 02/27/25 Unknown History Exam Airway Mallampati Class: II TM Dist: <=3cm Neck ROM: Full Heart: rrr Lungs: cta Assessment and Plan Assessment Anesthesia Assessment: Anesthesia Plan Discussed Final Anesthetic Review NPO: Yes ASA Class: III Final Preanesthetic Review: No Changes in Pt Med Stat, Meds/Allgs Chart Reviewed, Consent Obtained/Reviewed and Anes Risks/Benef Reviewed Patient Risk: Intermediate Procedure Risk: Low Anesthetic Plan Anesthetic Plan: GA Disposition: Standard PACU
[2025-03-01 06:13] VITALS: BMI 38.3
[2025-03-01 06:36] VITALS: BP 150/69; PULSE 66; RESP 16; TEMP 36.6; O2SAT 95
[2025-03-01 06:37] LABS: Glucose, Whole Blood 97 mg/dL (60-115)
[2025-03-01] MEDS: Lactated Ringers 1,000 ML 100 ML IVCONT (06:37)
--- NOTE | 2025-03-01 07:24 | P.HPSUR_ITS ---
Pre-Procedural Eval Section A - 24 Hr Update-Section A only Date of Service: 03/01/25 The patient is an INPATIENT: No Changes since office visit: Yes Patient answered all questions; No Cold of Flu in the past 2 weeks, No New Medical Problems and No Changes in Medication The patient has been examined within 24 hours of the surgical procedure. The History & Physical has been completed within 30 days and I have reviewed it.: No Section B - Complete if H&P > 30 days Chief Complaint: Abscess of the breast and nipple Details of Present Illness: No change in breast symptoms, continues to feel a lump in the left upper outer quadrant. Relevant Family History (Specify if Yes): No Relevant Social History: None Present Medications: see Short Stay Collaborative assessment Medical History: No relevant PMH History of Previous Operations: No relevant previous surgery Allergies: Allergies Allergy/AdvReac Type Severity Reaction Status Date / Time canagliflozin (Invokana) Allergy Severe chest Verified 03/01/25 06:06 tightness lisinopril (LISINOPRIL) Allergy Severe sweating, Verified 03/01/25 06:06 rash, difficulty breathing, cough oxycodone Allergy Intermediate vomiting/GI Verified 03/01/25 06:06 cramping sulfamethoxazole (From Allergy Mild Rash Verified 03/01/25 06:06 Bactrim) trimethoprim (From Bactrim) Allergy Mild Rash Verified 03/01/25 06:06 Review of Systems Sugical H&P ROS: Negative: Constitution, Cardiovascular, Respiratory, Neurological, Psychiatric, Hem-Onc, Allergic/Immunologic, Gastrointestinal, G enitourinary, Musculoskeletal, Integumentary, Endocrine and Eyes/Ears/Nose/Throat Exam Surgical H&P Exam: Normal: HEENT, Normal: Heart, Normal: Lungs, Normal: Extremities, Normal: Abdomen, Normal: Skin and Normal: Neurological Plan Diagnosis/Plan: Unchanged I have reviewed the history and physical and performed a pertinent physical examination on my patient. No changes have occurred unless specified. Time Spent With Patient Time: Total time managing care of this patient today ____ minutes.
--- NOTE | 2025-03-01 07:57 | W.PM.OPN ---
Operative Note Operative Note Date of Service: 03/01/25 Narrative: Preoperative diagnosis: Left breast infected cyst Postoperative diagnosis: Same Procedure: Excision of left breast infected cyst Surgeon: Vaughn Rodriguez MD [place] Supervisor: Griselda Remy PA-C; BRIGIDO Zafar Anesthesia: General LMA Indications for procedure: 59-year-old female patient presenting with a previously infected skin cyst of the left breast at the upper outer quadrant treated with oral antibiotics with some improvement however she continues to have a painful red cystic lesion without fluctuance. She presents today for excision of this persistent cyst. Operative findings: 3 cm area of inflammation in the left upper outer quadrant Specimen: Left breast cyst Estimated blood loss: 2 mL Complications: None Procedure details: Patient was brought to the OR and placed in a supine position. After administering general anesthesia the patient's left breast was prepped with ChloraPrep and draped in a sterile fashion. A surgical time-out was called the consent confirmed. Patient received preoperative antibiotics and Venodyne boots were in place. Local anesthesia consisting of 0.5% Sensorcaine with epinephrine was then infiltrated circumferentially around the infected cyst. Elliptical incision oriented transversely was then created with a scalpel. This was carried out through subcutaneous tissue and around the cyst wall. The lesion was completely excised and sent to pathology. Hemostasis was achieved using electrocautery. Dermis was then reapproximated using interrupted 3-0 Polysorb sutures. Skin was closed using a running subcuticular 4-0 Polysorb suture. Dressings were applied consisting of Steri-Strips, 2 x 2 gauze and Tegaderm. The patient tolerated the procedure well. Sponge, instrument, and needle counts reported as correct. The patient was transferred to PACU in stable condition.
[2025-03-01 08:15] VITALS: BP 150/66; PULSE 94; RESP 18; TEMP 36.2; O2SAT 96
[2025-03-01 08:20] VITALS: BP 137/62; PULSE 84; RESP 18; O2SAT 96
[2025-03-01 08:25] VITALS: BP 147/68; PULSE 81; RESP 16; O2SAT 95
[2025-03-01 08:30] VITALS: BP 146/71; PULSE 72; RESP 16; TEMP 36.1; O2SAT 94
[2025-03-01] MEDS: Ondansetron ODT 4 MG TAB.RAPDIS TRANSLINGU (09:03)
== END 2025-03-01 10:55 | disposition home or self-care (01) ==
PROVIDERS: PCP Internal Medicine Geriatric Medicine; Visit Provider Surgery
PROC: (CPT 19120; principal; 2025-03-01 07:30)
DX: N60.82 Other benign mammary dysplasias of left breast (principal); J45.40 Moderate persistent asthma, uncomplicated; I10 Essential (primary) hypertension; E11.21 Type 2 diabetes mellitus with diabetic nephropathy; M79.7 Fibromyalgia; G47.33 Obstructive sleep apnea (adult) (pediatric); G47.34 Idiopathic sleep related nonobstructive alveolar hypoventilation; F32.A Depression, unspecified; F41.9 Anxiety disorder, unspecified; E66.01 Morbid (severe) obesity due to excess calories; Z68.38 Body mass index [BMI] 38.0-38.9, adult; Z79.82 Long term (current) use of aspirin; Z79.899 Other long term (current) drug therapy; Z88.2 Allergy status to sulfonamides; Z88.5 Allergy status to narcotic agent; Z88.8 Allergy status to other drugs, medicaments and biological substances; Z98.84 Bariatric surgery status; Z98.890 Other specified postprocedural states; Z56.0 Unemployment, unspecified
CPT/HCPCS: 19120; 82947; 88304; 88307; J0690; J1100; J2003; J2250; J2405; J2704; J3010

== ENCOUNTER → 2025-03-01 05:43 | Outpatient (BNV) | payer MEDICARE, MEDICAID, SELFPAY | PROVIDERS: PCP Internal Medicine Geriatric Medicine; Visit Provider Surgery | DX: N61.1 Abscess of the breast and nipple (principal) | CPT/HCPCS: 19120 ==

== ENCOUNTER 2025-03-15 10:46 | Outpatient (AMB) | payer MEDICARE, MEDICAID, SELFPAY ==
--- NOTE | 2025-03-15 10:59 | MHC.OFFVIS ---
Vital Signs 03/15/25 11:07 Weight 194 lb BP 176/71 H Blood Pressure Location Rt brachial Position Sitting Pulse 79 Intake Visit Reasons: s/p Excision lft BR infected cyst Intake Note: Patient is seen in office for post op assessment post Excision of left breast infected cyst. Pt c/o: reports has not changed dressing since procedure. C/o tenderness when rubbing with bra. Completed Cephalexin course. surgery:03/01/25 (AISHA) Bible Teacher Required: Yes Bible Teacher Name: Leila DE LUNA Accompanied by: Self / Same As Patient Allergies canagliflozin (Invokana) Allergy (Severe, Verified 03/15/25 11:07) chest tightness lisinopril (LISINOPRIL) Allergy (Severe, Verified 03/15/25 11:07) sweating, rash, difficulty breathing, cough oxycodone Allergy (Intermediate, Verified 03/15/25 11:07) vomiting/GI cramping sulfamethoxazole (From Bactrim) Allergy (Mild, Verified 03/15/25 11:07) Rash trimethoprim (From Bactrim) Allergy (Mild, Verified 03/15/25 11:07) Rash HPI HPI s/p Excision lft BR infected cyst: Details: master at arms used for this evaluation. Patient doing well was scared to remove the dressings due to a previous infected incision site. Otherwise she is doing well denies pain at the site. Denies fever chills, swelling of the incision site. States she is nervous that it will become affected [facility] Medical History Nocturnal hypoxia Left breast abscess Asthma exacerbation GERD (gastroesophageal reflux disease) Diabetic nephropathy Hypertension LUCINDA (obstructive sleep apnea) Bilateral primary osteoarthritis of knee Kidney problem Fibromyalgia Right knee pain Carpal tunnel syndrome Morbid obesity Depression Anxiety Asthma Type 2 diabetes mellitus Dyspepsia Hypertriglyceridemia Bursitis, subacromial Surgical History (Updated 03/15/25 @ 11:22 by Rey Vegas PA-C) H/O excision of mass (03/01/25) Hx laparoscopic cholecystectomy History of carpal tunnel release of both wrists S/P laparoscopic sleeve gastrectomy S/P cardiac cath Family History Mother No problems noted. Father No problems noted. Social History Household Members: Family Household Members Other:: niece Housing: Apartment Are you a primary assurance services manager health care to a significant other at home: No Do you presently have visiting nurse or other home services: No Alcohol intake: never Patient Tobacco Use Status: Never used Tobacco Advance Directives Date on File: 03/01/25 service: No Current occupational status: unemployed Current occupation: right handed Physical Exam Vital Signs: Last Vital Signs Pulse 79 03/15/25 11:07 BP 176/71 H 03/15/25 11:07 Const General: comfortable and no acute distress Orientation/consciousness: patient oriented x3 Chest Other: Left breast incision site appears to be healing well it is clean dry and intact, no evidence of erythema, nontender, no fluid collection Resp Effort & Inspection: normal respiratory effort and able to speak in complete sentences Neuro General: patient oriented x3 Assessment & Plan Assessment & Plan (1) History of epidermal inclusion cyst excision: Comment: left breast Code(s): Z98.890 - Other specified postprocedural states; Z87.2 - Personal history of diseases of the skin and subcutaneous tissue Category: Medical Plan 59-year-old female status post infected left breast cyst excision on 03/01/2025 put in the office for routine follow up. Overall the patient is doing very well she has no complaints. Denies pain, fever, chills, redness around the incision site. She is concerned and nervous that it may become infected. I removed the dressings in the office including the Steri-Strips. The incision site appears to be healing well, there was no concern for infection at this time. There is some firmness underneath the incision site which is likely scar tissue. I recommended that the patient can use warm compresses and gentle massage if this persists and is bothersome. We discussed the surgical pathology results, results were as follows, Epidermal inclusion cyst. The patient was relieved that this was nothing concerning. In regards to follow up, patient can follow up as needed for any concerns. We discussed return precautions including redness around the incision site, swelling, pain or if she begins to experience fevers. Otherwise she can follow up as needed Coding Level of Care Code Global (93015) Diagnoses History of epidermal inclusion cyst excision Z98.890; Z87.2
[2025-03-15 11:07] VITALS: BP 176/71; PULSE 79
--- OUTSIDE RECORDS SUMMARY | 2025-03-15 11:48 | XMS_ITS | Clinical Summary ---
Author Organization [facility] Address [address] [facility] [address] [place] [address] Phone Care Team Providers Care Human Resources Training Manager Name Role Phone Name, Jamal HENDRIX Primary Care Provider [phone] Allergies Active Allergy Reactions Criticality Noted Date [...] 09/03/2022, Additional history exists Influenza Vaccine (#1) 2025 3, 07/02/2022, 06/03/2021, Additional history exists Pneumococcal Vaccine: Peds ( 0 to 5 Years) and At-Risk Patients (6 to 49 Years) Discontinued 05/25/2019, 07/17/2010, 11/13/2009 Insurance Medicare Medicaid [place] Medicare Medicaid [place] Care Teams Human Resources Training Manager Relationship Specialty Start Date End Date Name, MD Jamal [address] [place] [id number] PCP - General Internal Medicine 03/12/21
--- OUTSIDE RECORDS SUMMARY | 2025-03-15 11:48 | XMS_ITS | Encounter Summary ---
Author Organization [facility] Address [address] [place] [address] Care Team Providers Care Piece Dyeing Machine Tender Name Role Phone Name, Jamal HENDRIX Primary Care Provider [phone] Reason for Visit * Reason Comments Med Refill Encounter Details Date Type Department Care Team ([facility] st Contact Info) Description 09/13/2024 Refill [facility] MEDICINE [address] [place], [place] [phone] Name, MD Jamal [address] [place] [address] Social History Tobacco Use Types Packs/Day Years [...] Care Team (Late st Contact Info) Description 05/10/2025 10:30 AM EDT Office Visit [facility] MEDICINE [address] [place] [address] NameJamal MD [address] [place] [address] documented as of this encounter Visit Diagnoses Not on filedocumented in this encounter Additional Health Concerns Assessment Noted Time PHQ-9 Depression Total Score: 2 10/28/19 24 10:00 AM EST documented as of this encounter Care Teams Piece Dyeing Machine Tender Relationship Specialty Start Date End Date Name, MD Jamal [address] [place] [id number] PCP - General Family Medicine 05/25/19 documented as of this encounter
== END 2025-03-15 11:22 | disposition home or self-care (01) ==
LOC: HO.HGS 10:46
PROVIDERS: PCP Internal Medicine Geriatric Medicine
DX: Z98.890 Other specified postprocedural states (principal); Z87.2 Personal history of diseases of the skin and subcutaneous tissue
CPT/HCPCS: 99024

== ENCOUNTER → 2025-03-15 10:46 | Outpatient (BNVA) | payer MEDICARE, MEDICAID, SELFPAY | PROVIDERS: PCP Internal Medicine Geriatric Medicine | DX: Z48.817 Encounter for surgical aftercare following surgery on the skin and subcutaneous tissue (principal); Z98.890 Other specified postprocedural states; Z87.2 Personal history of diseases of the skin and subcutaneous tissue | CPT/HCPCS: 99212 ==

== ENCOUNTER 2025-03-28 12:51 | Outpatient (AMB) | payer MEDICARE, MEDICAID, SELFPAY ==
--- NOTE | 2025-03-28 13:17 | HO.NEPHOV_ITS ---
Vital Signs 03/28/25 13:21 Height 4 ft 11 in Weight 192 lb 8 oz BMI 38.9 BP 122/70 Blood Pressure Location Lt brachial Position Sitting Intake Visit Reasons: 1m follow up-LVM Front Elevator Operator Required: Yes Front Elevator Operator Language: Mechanical Supervisor Services: Front Elevator Operator Offered & Declined ([facility] Front Elevator Operator services refused ) Accompanied by: Nephew or Niece Allergies canagliflozin (Invokana) Allergy (Severe, Verified 03/28/25 13:21) chest tightness lisinopril (LISINOPRIL) Allergy (Severe, Verified 03/28/25 13:21) sweating, rash, difficulty breathing, cough oxycodone Allergy (Intermediate, Verified 03/28/25 13:21) vomiting/GI cramping sulfamethoxazole (From Bactrim) Allergy (Mild, Verified 03/28/25 13:21) Rash trimethoprim (From Bactrim) Allergy (Mild, Verified 03/28/25 13:21) Rash HPI Comments Details: Angela was seen in follow-up of her hypertension and proteinuria. She was on amlodipine and hydrochlorothiazide which was discontinued and losartan was re introduced, which she is tolerating well. Her BP is better but not optimal at home. She does not have any chest pain, shortness of breath, paroxysmal nocturnal dyspnea, orthopnea, pedal edema, fever or urinary symptoms. She does not take any krpd-eau-iuohvmb medications. [facility] Medical History Nocturnal hypoxia Left breast abscess Asthma exacerbation GERD (gastroesophageal reflux disease) Diabetic nephropathy Hypertension LUCINDA (obstructive sleep apnea) Bilateral primary osteoarthritis of knee Kidney problem Fibromyalgia Right knee pain Carpal tunnel syndrome Morbid obesity Depression Anxiety Asthma Type 2 diabetes mellitus Dyspepsia Hypertriglyceridemia Bursitis, subacromial Surgical History (Updated 03/15/25 @ 11:22 by Rey Vegas PA-C) H/O excision of mass (03/01/25) Hx laparoscopic cholecystectomy History of carpal tunnel release of both wrists S/P laparoscopic sleeve gastrectomy S/P cardiac cath Family History Mother No problems noted. Father No problems noted. Social History Household Members: Family Household Members Other:: niece Housing: Apartment Are you a primary healthcare interpreter to a significant other at home: No Do you presently have visiting nurse or other home services: No Alcohol intake: never Patient Tobacco Use Status: Never used Tobacco Advance Directives Date on File: 03/01/25 service: No Current occupational status: unemployed Current occupation: right handed Review of Systems Const All systems reviewed & are unremarkable except as noted in HPI and below Physical Exam Const General: comfortable and no acute distress Orientation/consciousness: patient oriented x3 HEENT Head: Yes normocephalic Mouth: Normal oral and palatal mucosa present Eyes EOM: EOMs intact bilaterally Neck Neck: Yes supple Resp Auscultation: clear to auscultation bilaterally Cardio Jugular venous distension: no JVD Rate: regular rate GI Palpation (GI): Soft to palpation Auscultation: normal bowel sounds General: Yes no CVA tenderness Back/Spine/Pelvis Back: no CVA tenderness Skin General skin exam: no rashes or lesions noted Neuro General: patient oriented x3 and moves all extremities Extrem General: Yes no pedal edema Results Reviewed Nephrology Results: Sodium, (135-145) 140 mmol/L 02/01/25 Potassium, (3.3-5.1) 4.7 mmol/L 02/01/25 Chloride, (96-108) 104 mmol/L 02/01/25 Carbon Dioxide, (22-29) 29 mmol/L 02/01/25 BUN, (9-16) 11 mg/dL 02/01/25 Creatinine, (0.5-1.4) 0.61 mg/dL 02/01/25 Calcium, (8.4-10.2) 9.4 mg/dL 02/01/25 Assessment & Plan Assessment & Plan (1) Hypertension: Code(s): I10 - Essential (primary) hypertension Category: Medical Qualifiers: Hypertension type: primary hypertension Qualified Code(s): I10 - Essential (primary) hypertension Plan Angela has longstanding hypertension. She was on amlodipine and hydrochloro thiazide which was discontinued and started losartan which was increased to 50 mg twice daily, which she could continue for now. She has no significant detectable proteinuria. Her renal functions are normal. All her and her niece's questions were answered. Follow-up appointment given Orders: Orders Magnesium 3 Months I10 - Essential (primary) hypertension Creatinine 3 Months I10 - Essential (primary) hypertension Blood Urea Nitrogen 3 Months I10 - Essential (primary) hypertension Electrolytes 3 Months I10 - Essential (primary) hypertension Calcium 3 Months I10 - Essential (primary) hypertension Coding Level of Care Code Est Pt Level 4 (38226) Diagnoses Primary hypertension I10 Hypertension type: primary hypertension
[2025-03-28 13:21] VITALS: BP 122/70; BMI 38.9
--- OUTSIDE RECORDS SUMMARY | 2025-03-28 13:53 | XMS_ITS | Clinical Summary ---
Author Organization [facility] Address [address] [facility] [address] [place] [address] Phone Care Team Providers Care Insulation Blower Name Role Phone Name, Jamal HENDRIX Primary Care Provider [phone] Allergies Active Allergy Reactions Criticality Noted Date [...] Medicaid [place] Medicare Medicaid [place] Care Teams Insulation Blower Relationship Specialty Start Date End Date Name, MD Jamal [address] [place] [phone] PCP - General Internal Medicine 03/12/21
--- OUTSIDE RECORDS SUMMARY | 2025-03-28 13:53 | XMS_ITS | Clinical Summary ---
Author Organization [employer] Address [address] [place] [address] [place] [address] Care Team Providers Care Support Specialist Name Role Phone Name, Jamal HENDRIX Primary Care Provider [phone] Allergies Active Allergy Reactions Criticality Noted Date [...] VECES AL SHRUTHI 30 g 3 Active buPROPion XL (Wellbutrin XL) 300 MG 24 hr tablet Take 1 tablet by mouth once daily 3 Active D3-1000 25 MCG (1000 UT) capsule TOME 1 C PSULA POR V A ORAL TOS LOS D 3 Active cyancobalamine (Vitamin B-12) 250 MCG tablet TOME PEACE TABLETA POR V A ORAL LOS D 3 Active FreeStyle lancets USE 1 EACH CUATRO VECES AL D A BEFORE MEALS AND AT NIGHTLY 3 Active traZODone (Desyrel) 50 MG tablet Take 2 tablets (100mg) by mouth every night 3 Active lidocaine (Lidoderm) 5 % patchIndication s:Chronic low back pain without sciatica, unspecified back pain laterality APPLY 1 PATCH TOPICALLY IN THE MORNING REMOVE AND DISARD PATCH WITHIN 12 HOURS OR INSTRUCTED BY MD 30 patch 3 4 Active albuterol (2.5 MG/3ML) 0.083% nebulizer solutionIndicat ions:Asthma, unspecified asthma severity, unspecified whether complicated, unspecified whether persistent INHALE THE CONTENTS OF 1 VIAL VIA NEBULIZER THREE TIMES DAILY 75 mL 4 06/17/20 25 Active pantoprazole (ProtoNix) 40 MG EC tablet Take 1 tablet (40 mg) by mouth before breakfast. 30 tablet 11 5 10/31/19 26 Active cetirizine (ZyrTEC) 10 MG tablet TAKE 1 TABLET BY MOUTH EVERY DAY 90 tablet 1 5 Active Trelegy Ellipta 200-62.5-25 MCG/ACT aerosol powder INHALE 1 PUFF BY INHALATION ROUTE EVERY DAY AT THE SAME TIME EACH DAY 60 each 4 5 Active losartan-hydroC HLOROthiazide (Hyzaar) 100-25 MG tablet Take 1 tablet by mouth Once per day. 30 tablet 11 5 01/18/20 26 Active Active Problems Problem Noted Date Diagnosed Date Severe obesity (BMI 35.0-39.9) with comorbidity 04/26/2024 Hx of cholecystectomy 10/28/2023 Gallstone pancreatitis 07/25/2023 3 Overview (10/28/2023): Last Assessment & Plan: Elevated lipase at time of admission of 298. Suspect gallstone pancreatitis as the etiology Lipase continues to improve, down to 83 today --Consult to general surgery before discharge. Patient had cholecystectomy 08/13/2023 Bariatric surgery status 06/01/2023 Overview (06/01/2023): Gastric sleeve 01/2023 at [facility] Obstructive sleep apnea syndrome 08/28/2022 Allergic rhinitis [...] duct stone. Attempts made for transfer to [facility] and [facility] for ERCP, but unfortunately no beds available. [...] well controlled -Continue low-dose insulin sliding scale rktcd-cf-ywez testing Encounters Date Type Department Care Team Description 03/01/2025 Orders Only GENERIC EXTERNAL DATA DEPARTMENT Provider, Generic External Data 02/09/[address] [address] María Lisa MA april recalls 02/01/2025 11:30 AM EDT Telemedicine [address] [address] Fara Valente RN Essential hypertension 02/01/2025 Travel 01/17/2025 11:15 AM EDT Office Visit [address] [phone] Jamal Castañeda MD Essential hypertension (Primary Dx); Left breast abscess 01/17/2025 Travel 01/16/[address] [address] NameJamal MD CHART PREP from Last 3 Months Immunizations Immunization Administration [...] 58 01/17/2025 11:31 AM EDT Temperature 36.5 C (97.7 F) 01/17/2025 11:31 AM EDT Respiratory Rate 15 01/17/2025 11:31 AM EDT [...] Description 05/10/2025 10:30 AM EDT Office Visit [facility] [address] [place] [phone] Name, MD Jamal [address] [place] [phone] Health Maintenance Due Date Last Done Comments CT Colonography 1965 FIT 1965 FOBT 1965 HIV Screening 1965 Sigmoidoscopy 1965 Zoster Vaccines (1 of 2) 2015 Hepatitis B Vaccines (3 of 3 - 19+ 3-dose series) 04/27/2024 12/17/2023, 10/28/2023, 07/25/2023 Diabetes: Foot Exam 10/28/2024 10/28/2023 Depression Monitoring 04/30/2025 10/31/2024, 025 Influenza Vaccine (#1) 2025 , 06/01/2023, 07/02/2022, Additional history exists Lipid Panel 06/10/2025 06/10/2024, 08/07, 02/16/2023, Additional history exists Eye Exam 08/05/2025 08/05/2023 Diabetes: Hemoglobin A1C 09/17/2025 025, 12/15/2024, 06/10/2024, Additional history exists SDOH Screening 10/20/2025 10/20/2024 FIT DNA/Cologuard 11/21/2025 11/21/2022 Mammogram 11/30/2025 12/01/2023, 09/07, 09/19/2019 Alcohol/Substance Use Screening 01/17/2026 01/17/2025 Disability Screening 01/17/2026 01/17/2025 Tobacco Screening 01/17/2026 01/17/2025 [...] Completed 07/26/2024, 06/2023, 07/02/2022, Additional history exists HIB Vaccines Aged [...] Procedure Name Priority Date/Time Associated Diagnosis Comments GROSS AND MICROSCOPIC LEVEL 5 Routine 03/01/2025 7:53 AM EDT GLUCOSE, WHOLE BLOOD Routine 03/01/2025 6:34 AM EDT BASIC METABOLIC PANEL Routine 02/01/2025 9:26 AM EDT Essential hypertension POCT GLYCATED HEMOGLOBIN, TOTAL Routine 12/15/2024 11:32 AM EDT Type 2 diabetes mellitus with hyperglycemia, with long-term current use of insulin ([facility]) LIPID PANEL, STANDARD Routine 06/10/2024 7:01 AM [...] Recently Relevant to Health Maintenance Results * Gross and Microscopic Level 5 (03/01/2025 7:53 AM EDT) 03/01/2025 7:53 AM EDT 03/01/2025 9:30 AM EDT [facility] - 03/02/2025 4:37 PM EDT ----- ------- Name: Eris PalmerAngela Schneider Age/Sex: 59/F : 1965 Unit#: [id number] Attend Dr: Vaughn Rodriguez MD Re03/01/25 Status: [facility] Location: [facility] Disch: ----- ------- SPEC : [id number] RECD: 03/01/25 STATUS: GABRIELE JAMES NUM: [id number] MAYLIN: 03/01/25-075[address] [facility] [address]: Vaughn Rodriguez MD ENTERED: 03/01/25 SP TYPE: Surgical OTHR DR: Jamal Castañeda MD ORDERED: Gross Micro L5 Diagnosis Skin, left breast, excision: Epidermal inclusion cyst. Clinical History Abscess of the breast and nipple Microscopic Description Microscopic sections reviewed. Material Received Cyst left breast Gross Description Received in formalin labeled cyst left breast is a 2.5 x 1.0 cm ellipse of centrally puckered and retracted wilder skin and subcutaneous tissue excised to a maximum depth 1.5 cm. The skin surface displays an eccentric 0.4 cm in greatest dimension puckered and retracted focus. The margins are inked and the specimen is serially sectioned to reveal a subjacent 0.3 cm in greatest dimension wilder-white cyst containing wilder-white cheesy and keratotic material surrounded by dense roberson-white fibrous dermal tissue and unremarkable subcutaneous fat. Assembly Machine Operator sections are submitted in a cassette labeled A1. CEDS IHC S/NG Disclaimer NOTE: Unless otherwise stated, all tissue is formalin-fixed and paraffin-embedded. Some or all of the immunohistochemical tests reported herein may have been developed and their performance characteristics determined by [facility]. They have not been cleared or approved by the U.S. Food and Drug Administration (FDA). However, the FDA has determined that such clearance or approval is not necessary. This laboratory is certified under the Clinical Laboratory Improvement Amendments of 1988 (CLIA) as qualified to perform high complexity clinical laboratory testing. Copies To: Vaughn Rodriguez MD [facility] [address] [place] [phone] CONTINUED ON NEXT PAGE ----- ------- Name: Angela Montilla I Age/Sex: 59/F : 1965 Unit#: [id number] Attend Dr: Vaughn Rodriguez MD Re03/01/25 Status: [facility] Location: [facility] Disch: ----- ------- SPEC : [id number] RECD: 03/01/25 STATUS: GABRIELE JAMES NUM: [id number] MAYLIN: 03/01/[address] [facility] [address]: Vaughn Rodriguez MD ENTERED: 03/01/25 SP TYPE: Surgical OTHR DR: Name,Jamal HENDRIX ORDERED: Gross Micro L5 Copies To: (Continued) Maddy,Jamal HENDRIX [address] [place] [address] ----- ------- Signed (signature on file) Jay Hawkins MD 03/02/25 1637 ----- ------- END OF REPORT Generic External Data Provider LAB BLOOD ORDERAB LES Final Result Performing Organization Address [facility]/ZIP Co de Phone Number [facility] [address] [place] [phone] * Glucose, Whole Blood (03/01/2025 6:34 AM EDT) Glucose, Whole Blood 97 60 - 115 mg/dL [facility] Comment:METER #: [id number] 03/01/2025 6:34 AM EDT 03/01/2025 6:37 AM EDT [employer] External Data Provider LAB BLOOD ORDERAB LES Final Result Performing Organization Address [facility] Co de Phone Number [facility] [address] [place] [phone] * Basic Metabolic Panel (02/01/2025 9:26 AM EDT) Sodium 140 135 - 145 mmol/L [facility] Potassium 4.7 3.3 - 5.1 mmol/L [facility] Chloride 104 96 - 108 mmol/L [facility] Carbon Dioxide 29 22 - 29 mmol/L [facility] Anion Gap 12 12 - 20 [facility] Urea Nitrogen (BUN) 11 9 - 16 mg/dL [facility] Creatinine, Serum 0.61 0.5 - 1.4 mg/dL [facility] Estimated Glomerular Filt Rate >60 [facility] Comment:Chronic Kidney Disea se: Estimated GFR < 60 mL/min/1.88a1Ccewlo Kidney Disease: Estimated GFR < 15 mL/min/1.73m2 Glucose 86 60 - 115 mg/dL [facility] Calcium 9.4 8.4 - 10.2 mg/dL [facility] Blood Venous blood specimen / Unknown 02/01/2025 9:26 AM EDT 02/01/2025 11:23 AM EDT us Jamal Name MD LAB BLOOD ORDERABLES Final Resul t [facility] [address] [place] [phone] * (ABNORMAL) Lipid Panel, Standard (06/10/2024 7:01 AM EDT) Triglycerides 129 <150 mg/dL [facility] Comment:Desirable Triglyceri de: less than 150 mg/dLBorderline High Triglyceride 150-199 mg/dLHigh Triglyceride: 200-499 mg/dLVery High Triglyceride: greater than or equal to 5OO mg/dL Cholesterol 200(H) <200 mg/dL [facility] Comment:Desirable Cholestero l: less than 200 mg/dLBorderline High Cholesterol: 200-239 mg/dLHigh Cholesterol: greater than 239 mg/dL LDL Cholesterol Calculated 122(H) <100 mg/dL [facility] Comment:Desirable LDL: less than 100 mg/dLNear Optimal/Above Optimal LDL: 110- 129 mg/dLBorderline High LDL: 130-159 mg/dLHigh LDL: 160-189 mg/dLVery High LDL: greater than or equal to 190 mg/dL HDL Cholesterol 53 >40 mg/dL [facility] Comment:Desirable HDL: great er than 40 mg/dL Note: This HDL assay may give artificially low results in patients with liver disease. 06/10/2024 7:01 AM EDT 06/10/2024 7:01 AM EDT us Generic External Data Provider LAB BLOOD ORDERAB LES Final Result [facility] [address] [place] [phone] [phone] * HPV mRNA E6/E7 w/Reflex to HPV Genotypes 16, 18/45 (12/17/2023 10:51 AM EDT) HPV nRNA E6/E7 Not Detected Not Detected [facility] Comment:Methodology: Transcr iption-Mediated AmplificationThis assay detects E6/E7 viral messenger RNA (mRNA) from 14high-risk HPV types (16,18,31,33,35,39,45,51,52,56,58,59,66,68).Cervical sources are required for HPV testing.If a vaginal source from a patient who has had atotal hysterectomy with removal of cervix wassubmitted, please contact the testing laboratoryfor alternative testing options.For additional information, please refer [email or web address]/faq/GRL059t0(This link if provided for information/educational purposes only.)THIS TEST WAS PERFORMED AT:[facility] [place] [phone] VINCENT MD HPV mRNA E6/E7 [facility] HPV 16 RNA [facility] HPV 18/45 RNA [facility] 12/17/2023 10:5 1 AM EDT 12/22/2023 12:00 PM EDT us Ignacia Tanner CNM LAB CYTOLOGY ORDERABLES F inal Result [facility] [address] [place] [phone] * Pap Smear (12/17/2023 10:51 AM EDT) Swab Cervix uteri structure / Unknown 12/17/2023 10:51 AM EDT 12/22/2023 12:00 PM EDT Manoj [facility] - 01/04/2024 12:50 PM EDT ----- ------- Name: Angela Montilla I Age/Sex: 58/F : 1965 Unit#: [id number] Attend Dr: IGNACIA TANNER CNM Re12/17/23 Status: DEP REF Location: [facility] Disch: ----- ------- SPEC : [id number] RECD: 12/22/23-1200 STATUS: GABRIELE JAMES NUM: [id number] MAYLIN: 12/17/23-[address]: IGNACIA TANNER CNM ENTERED: 12/22/23-1243 SP TYPE: Pap Smr OTHR DR: ORDERED: Pap Smear Interpretation Satisfactory for evaluation. Atrophic. Negative for intraepithelial lesion or malignancy. HPV mRNA E6/E7: NOT DETECTED This assay detects E6/E7 viral messenger RNA (mRNA) from 14 high-risk HPV types (16, 18, 31, 33, 35, 39, 45, 51, 52, 56, 58, 59, 66, 68) HPV testing performed by [facility], [place], [place]. See reference laboratory portion of the EMR for entire report. Clinical Information LMP: Postmenopausal Previous PAP test: Unknown date/findings Material Received ThinPrep-Vaginal/Cervical ----- ------- Signed (signature on file) ANGELI Sarah (ASCP) 01/04/24 1250 ----- ------- END OF REPORT Ignacia KEYS LAB CYTOLOGY ORDERABLES F inal Result [facility] [address] [place] [phone] * BI Mammogram Screening Tomosynthesis Bilateral (12/01/2023 11:50 AM EDT) Anatomical Region Laterality Modality Breast Bilateral Mammography 12/01/2023 11:5 0 AM EDT Narrative 12/20/2023 3:46 PM EDT [facility] [address] [place] [address] Mammography Report Signed Patient: Angela Montilla I MR #: [id number] : 1965 Acct:[id number] Age/Sex: 58 / F ADM Date: 12/01/23 Loc: [facility] Attending Dr: Jamal Castañeda MD Ordering Physician: Jamal Castañeda MD Results: 1Negative Date of Service: 12/01/23 Follow Up: 1 Year From Orig inal Mammogram Procedure(s): MM tomosynthesis screening BI Accession Number(s): [id number] cc: Jamal Castañeda MD EXAMINATION: MM SCREENING [...] in OV> 12/20/23 1542 DD/ 1150 TD/TT: Service Employee: Procedure Note Donotuseinterpreter, Image - 12/20/2023 [facility] [address] [place] [address] Mammography Report Signed Patient: Angela Montilla [facility] #: [id number] : 1965Acct:[id number] Age/Sex: 58 / FADM Date: 12/01/23 Loc: [facility] Attending Dr: Jamal Castañeda MD Ordering Physician: Jamal Castañeda MDResults: 1Negative Date of Service: 12/01/23Follow Up: 1 Year From Orig inal Mammogram Procedure(s): MM tomosynthesis screening BI Accession Number(s): [id number] cc: Jamal Castañeda MD EXAMINATION: MM SCREENING [...] in OV> 12/20/23 1542 DD/ 1150 TD/TT: Service Employee: us Jamal Castañeda MD IMG BI PROCEDURES Edited Result - Final * Hepatitis C Ab (10/28/2023 10:55 AM EST) Hepatitis C Antibody Nonreactive Nonreactive [facility] Comment:Antibodies to HCV no t detected; does not exclude early acuteHCV infection. Blood Venous blood specimen / Unknown 10/28/2023 10:55 AM EST 10/28/2023 1:21 PM EST us Jamal Castañeda MD LAB BLOOD ORDERABLES Final Resul t [facility] [address] [place] [phone] * Hm Diabetes Eye Exam (08/05/2023) Eye Exam Normal Normal us Jamal Castañeda MD HEALTH MAINTENANCE Final Result * Cologuard Colon Cancer Screening (11/21/2022 2:00 PM EDT) Pathologist Blaise Cologuard Cancer Screen Negative Comment:repeat in 3 yrs Stool 11/21/2022 2:00 PM EDT Jamal Castañeda MD POINT OF CARE TEST ENTER/EDIT OR DERABLES Final Result from Last 3 Months or Most Recently Relevant to Health Maintenance Insurance MEDICARE Member Subscriber Plan / Payer (Ef fective 2022-Present) Name:Angela Montilla I Member ID:[id number] Relation to Subscriber:Self Name:Angela Montilla I Subscriber ID:[id number] Payer ID:STATE Group ID:Not on file Type:Medicare Address: [facility].[address] [phone] [facility] Care Teams Support Specialist Relationship Specialty Start Date End Date Name, MD Jamal [address] [place] [phone] PCP - General Family Medicine 05/25/19
== END 2025-03-28 13:37 | disposition home or self-care (01) ==
LOC: HO.HKAS 12:52
PROVIDERS: PCP Internal Medicine Geriatric Medicine; Visit Provider Internal Medicine Nephrology
DX: I10 Essential (primary) hypertension (principal)
CPT/HCPCS: 99214

== ENCOUNTER → 2025-03-28 12:51 | Outpatient (BNVA) | payer MEDICARE, MEDICAID, SELFPAY | PROVIDERS: PCP Internal Medicine Geriatric Medicine; Visit Provider Internal Medicine Nephrology | DX: I10 Essential (primary) hypertension (principal) | CPT/HCPCS: 99212 ==

== ENCOUNTER 2025-06-26 13:52 | Outpatient (REF) | payer MEDICARE, MEDICAID, SELFPAY ==
--- NOTE | ~2025-06-26 | XR_ITS ---
EXAMINATION: XR SHOULDER, RIGHT CLINICAL INFORMATION: pain after fall COMPARISON: None available. TECHNIQUE: AP external rotation, Grashey, scapular Y, and axillary views of the right shoulder. FINDINGS: Inadequate collimation. No acute cortical disruption or malalignment. No lytic or blastic lesions. No soft tissue calcifications. Asymmetric joint space narrowing, acromioclavicular joint.. XR/XR shoulder RT min 2V IMPRESSION: No acute fracture or dislocation. Mild degenerative changes, acromioclavicular clavicular joint. Electronically signed by: Wiley Harrell MD 06/26/2025 02:34 PM EDT
--- NOTE | ~2025-06-26 | XR_ITS ---
EXAMINATION: XR ELBOW, RIGHT CLINICAL INFORMATION: pain after fall COMPARISON: None available. TECHNIQUE: AP, lateral, and oblique views of the right elbow. FINDINGS: No fracture, dislocation, or suspicious bone lesion. Normal alignment. Minimal spurring of the lateral epicondyle. Joint spaces appear preserved. There is no joint effusion. Soft tissues appear normal. XR/XR elbow RT min 3V IMPRESSION: No acute fracture or dislocation. No joint effusion. Electronically signed by: Kleber Henriquez MD 06/26/2025 02:36 PM EDT
--- OUTSIDE RECORDS SUMMARY | 2025-06-26 13:40 | XMS_ITS | Encounter Summary ---
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 me 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, patient denies head trauma [...] PM EDT Narrative 06/26/2025 2:39 PM EDT [address] [address] XRay Report Signed Patient: Angela Montilla I MR #: [id number] : 1965 Acct:[id number] Age/Sex: 60 / F ADM Date: 06/26/25 Loc: .HHCX Attending Dr: Kerline Vincent MD Ordering Physician: Kerline Gan MD Date of Service: 06/26/25 Procedure(s): XR elbow RT min 3V Accession Number(s): [id number] cc: Kerline Gan MD Reason for Exam: [...] 06/26/25 1436 DD/ 1417 TD/TT: 06/26/25 1430 Clinical Phlebotomist: Procedure Note Donotuseinterpreter, Image - 06/26/[address] [address] XRay Report Signed Patient: Angela Montilla IMR #: [id number] : 1965Acct:[id number] Age/Sex: 60 / FADM Date: 06/26/25 Loc: ELIX Attending Dr: Kerline Vincent MD Ordering Physician: Kerline Gan MD Date of Service: 06/26/25 Procedure(s): XR elbow RT min 3V Accession Number(s): [id number] cc: Kerline Gan MD Reason for Exam: [...] 06/26/25 1436 DD/ 1417 TD/TT: 06/26/25 1430 Clinical Phlebotomist: Kerline Vincent MD IMG XR PROCEDURES Gio amor Result - Final * XR Shoulder 2+ Views Right (06/26/2025 2:15 PM EDT) Anatomical Region Laterality Modality Upper Extremities, Shoulder Right Radi ographic Imaging 06/26/2025 2:15 PM EDT Narrative 06/26/2025 2:37 PM EDT [address] [address] XRay Report Signed Patient: Angela Montilla I MR #: [id number] : 1965 Acct:[id number] Age/Sex: 60 / F ADM Date: 06/26/25 Loc: ELICX Attending Dr: Kerline Vincent MD Ordering Physician: Kerline Gan MD Date of Service: 06/26/25 Procedure(s): XR shoulder RT min 2V Accession Number(s): [id number] cc: Kreline Gan MD Reason for Exam: pain after [...] 06/26/25 1434 DD/ 1415 TD/TT: 06/26/25 1430 Clinical Phlebotomist: Procedure Note Donotuseinterpreter, Image - 06/26/[address] [address] XRay Report Signed Patient: Angela Montilla [facility] #: [id number] : 1965Acct:[id number] Age/Sex: 60 / FADM Date: 06/26/25 Loc: HO.HHCX Attending Dr: Kerline Vincent MD Ordering Physician: Kerline Gan MD Date of Service: 06/26/25 Procedure(s): XR shoulder RT min 2V Accession Number(s): [id number] cc: Kerline Gan MD Reason for Exam: [...] changes, acromioclavicular clavicular joint. Electronically signed by: Wliey Harrell MD 06/26/2025 02:34 PM EDT RP Dictated By: Wiley Heath MD Signed By: <Electronically signed by Wiley Collazo MDin OV> 06/26/25 1434 DD/ 1415 TD/TT: 06/26/25 1430 Clinical Phlebotomist: Kerline Vincent MD IMG XR PROCEDURES Gio amor Result - Final documented in this encounter Visit Diagnoses Diagnosis Right elbow pain Pain in joint, upper arm Acute pain of right shoulder documented in this encounter Additional Health Concerns Assessment Noted Time PHQ-9 Depression Total Score: 11 025 10:46 AM EST documented as of this encounter Care Teams Shipping Checker Relationship Specialty Start Date End Date Name, MD Jamal [address] [place] [address] PCP - General Family Medicine 05/25/19 documented as of this encounter
--- OUTSIDE RECORDS SUMMARY | 2025-06-26 17:12 | XMS_ITS | Encounter Summary ---
Author Organization [facility] Address [address] [facility] [address] [place] [phone] Phone Care Team Providers Care Tool And Die Assembler Name Role Phone Name, Jamal HENDRIX Primary Care Provider [phone] Encounter Details Date Type Department Care Team (Late st Contact Info) Description 07/24/2023 Procedure Pass [facility], Ct Scan - [address] [address] Social History Tobacco Use Types Packs/Day Years Used Date Smoking Tobacco: Never Smokeless Tobacco: Never Alcohol Use Standard Drinks/Week Comments No 0 (1 standard drink = 0.6 oz pur e alcohol) Education Answer Date Recorded Are you interested in more education? Not on lee ann e 01/02/2023 Are you concerned about learning? Not on file 01/02/2023 No 01/02/2023 No 01/02/2023 Digital Access Answer Date Recorded No 02/02/2023 No 02/02/2023 Reliable internet access at home? Not on file 02/02/2023 Device with a working camera? Not on file Intimate Partner Violence Answer Date R ecorded Are you denied basic needs s uch as food, clothing, or medical care? No 07/27/2023 In the past 12 months have y ou been in a relationship with a person who hurts, threatens, or tries to control you? No 07/27/2023 Are you denied basic needs s uch as food, clothing, or medical care? No 07/27/2023 In the past 12 months have y ou been in a relationship with a person who hurts, threatens, or tries to control you? No 07/27/2023 Comments No Sex and Gender Information Value Date Recorded Sex Assigned at Female 11/08/2019 1:29 PM EST Legal Sex Female 3:38 AM EDT Gender Identity Female 11/08/2019 1:29 PM EST Sexual Orientation Straight 12/07/2020 4: 09 PM EDT documented as of this encounter Functional Status * Calculated C-SSRS Risk Score (Lifetime/Recent) Answer Date of Assessment Author No Risk Indicated 07/24/2023 11:58 PM EST Agustín Delarosa, CECILLE * [place] Suicide Severity Rating Scale (Screener/Recent Self-Report) Question Answer Date of Assessment Author 1. Wish to be (Past 1 Month) No 07/24/2023 11:58 PM EST Agustín Dorsey, CECILLE 2. Non-Specific Active Suicidal Thoughts (Past 1 Month) No 07/24/2023 11:58 PM Agustín Valera, CECILLE 6. Suicidal Behavior (Lifetime) No 07/24/2023 11:58 PM EST Agustín Dorsey RN documented as of this encounter Plan of Treatment Upcoming Encounters Date Type Department Care Team (Late st Contact Info) Description 09/26/2025 8:50 AM EST Office Visit [facility] [address] [place] [phone] Vaughn Powell DO [address] [place] [phone] [email or web address] documented as of this encounter Visit Diagnoses Not on filedocumented in this encounter Additional Health Concerns Infection Onset Date Last Indicated Resolved Time CoV-Risk Comment:Per note documentation 07/24/2023 07/24/2023 12:57 PM EST documented as of this encounter Care Teams Tool And Die Assembler Relationship Specialty Start Date End Date Name, MD Jamal [address] [place] [address] PCP - General Geriatric Psychiatry 09/29/19 documented as of this encounter Additional Source Comments The information contained in this document represents components of the legal health record. It is not the complete legal health record.[facility]
--- OUTSIDE RECORDS SUMMARY | 2025-06-26 17:12 | XMS_ITS | Encounter Summary ---
Author Organization [facility] Address [address] [place] [address] [place] [address] Phone Care Team Providers Care Wad Blanking Press Adjuster Name Role Phone Name, Jamal HENDRIX Primary Care Provider [phone] Encounter Details Date Type Department Care Team (Late st Contact Info) Description 07/27/2023 Procedure Pass [facility], [address] [address] Social History Tobacco Use Types Packs/Day Years [...] PM EDT documented as of this encounter Plan of Treatment Upcoming Encounters Date Type Department Care Team (Late st Contact Info) Description 09/26/2025 8:50 AM EST Office Visit [facility] [address] [place] [address] Vaughn Powell DO [address] [place] [address] [email or web address] documented as of this encounter Visit Diagnoses Not on filedocumented in this encounter Care Teams Wad Blanking Press Adjuster Relationship Specialty Start Date End Date Name, MD Jamal [address] [place] [address] PCP - General Geriatric Psychiatry 09/29/19 documented as of this encounter Additional Source Comments The information contained in this document represents components of the legal health record. It is not the complete legal health record.[facility]
--- OUTSIDE RECORDS SUMMARY | 2025-06-26 17:12 | XMS_ITS | Encounter Summary ---
Author Organization [facility] Address [address] [place] [address] [place] [address] Phone Care Team Providers Care Auto Body Repairer Name Role Phone Name, Jamal HENDRIX Primary Care Provider [phone] Encounter Details Date Type Department Care Team (Late st Contact Info) Description 07/27/2023 Procedure Pass [facility] Admitting Dept Virtual Department [address] [place] [address] Social History Tobacco Use Types Packs/Day Years [...] 8:50 AM EST Office Visit [facility] [address] [place] [address] Vaughn Powell DO [address] [place] [address] [email or web address] documented as of this encounter Visit Diagnoses Not on filedocumented in this encounter Care Teams Auto Body Repairer Relationship Specialty Start Date End Date Name, MD Jamal [address] [place] [address] PCP - General Geriatric Psychiatry 09/29/19 documented as of this encounter Additional Source Comments The information contained in this document represents components of the legal health record. It is not the complete legal health record.[facility]
--- OUTSIDE RECORDS SUMMARY | 2025-06-26 17:12 | XMS_ITS | Encounter Summary ---
Author Organization [employer] Address [address] [place] [address] [address] [place] [address] Care Team Providers Care Trench Shovel Operator Name Role Phone Name, Jamal HENDRIX Primary Care Provider [phone] Encounter Details Date Type Department Care Team (Latest Contact Info) Description 06/26/2025 Travel Social History Tobacco Use Types Packs/Day [...] as of this encounter Plan of Treatment Not on file documented as of this encounter Visit Diagnoses Not on filedocumented in this encounter Additional Health Concerns Assessment Noted Time PHQ-9 Depression Total Score: 11 025 10:46 AM EST documented as of this encounter Care Teams Trench Shovel Operator Relationship Specialty Start Date End Date Name, MD Jamal [address] [place] [address] PCP - General Family Medicine 05/25/19 documented as of this encounter
--- OUTSIDE RECORDS SUMMARY | 2025-06-26 17:12 | XMS_ITS | Clinical Summary ---
Author Organization [facility] Address [address] [facility] [address] [place] [address] Phone Care Team Providers Care Supervisor Pipe Joints Name Role Phone Name, Jamal HENDRIX Primary Care Provider [phone] Allergies Active Allergy Reactions Criticality Noted Date [...] Last Done Comments Breast Cancer Screening 1965 Colorectal Cancer Screening: Annual FOBT 2014 Colorectal Cancer Screening: Colonoscopy 2014 Colorectal Cancer Screening: Sigmoidoscopy 2014 Pneumococcal Vaccine: 50+ Years (3 of 3 - PCV) 05/25/2020 05/25/2019, 07/17/2010, 11/13/2009 Diabetes: Ophthalmology Exam 10/05/2020 Diabetes: Pedal Pulse Checked 10/05/2020 Diabetes: Sensory Foot Exam 10/05/2020 Diabetes: Visual Foot Exam 10/05/2020 Diabetes: Hemoglobin A1C 01/19/2023 023, 10/03/2022, 09/03/2022, Additional history exists Influenza Vaccine (#1) 2025 3, 07/02/2022, 06/03/2021, Additional history exists Pneumococcal Vaccine: Peds (0 to 5 Years) and At-Risk Patients (6 to 49 Years) Discontinued 05/25/2019, 07/17/2010, 11/13/2009 Hepatitis B Vaccine Aged Out No longe r eligible based on patient's age to complete this topic Insurance Medicare Medicaid [place] Medicare Medicaid [place] Care Teams Supervisor Pipe Joints Relationship Specialty Start Date End Date Name, MD Jamal [address] [place] [phone] PCP - General Internal Medicine 03/12/21
--- OUTSIDE RECORDS SUMMARY | 2025-06-26 17:12 | XMS_ITS | Clinical Summary ---
Author Organization [employer] Address [address] [place] [address] 7 [place] [address] Care Team Providers Care Head Start Coordinator Name Role Phone Name, Jamal HENDRIX Primary Care Provider [phone] Allergies Active Allergy Reactions Criticality Noted Date [...] affected area twice daily 04/24/20 22 Active triamcinolone (Kenalog) 0.1 % creamIndicatio ns:Asthma, unspecified asthma severity, unspecified whether complicated, [...] ORAL TODOS LOS D 06/03/20 23 Active FreeStyle lancets USE 1 EACH CUATRO VECES AL D A BEFORE MEALS AND AT NIGHTLY 05/04/20 23 Active traZODone (Desyrel) 50 MG tablet Take 2 tablets (100mg) by mouth every night 08/01/20 23 Active lidocaine (Lidoderm) 5 % patchIndicatio ns:Chronic low back pain without sciatica, unspecified back pain laterality APPLY 1 PATCH TOPICALLY IN THE MORNING REMOVE AND DISARD PATCH WITHIN 12 HOURS OR INSTRUCTED BY MD 30 patch 3 05/13/20 24 Active albuterol (2.5 MG/3ML) 0.083% nebulizer solutionIndica tions:Asthma, unspecified asthma severity, unspecified whether complicated, unspecified whether persistent INHALE THE CONTENTS OF 1 VIAL VIA NEBULIZER THREE TIMES DAILY 75 mL 11 06/17/20 24 Active pantoprazole (ProtoNix) 40 MG EC tablet Take 1 tablet (40 mg) by mouth before breakfast. 30 tablet 11 10/31/19 25 026 Active Trelegy Ellipta 200-62.5-25 MCG/ACT aerosol powder INHALE 1 PUFF BY INHALATION ROUTE EVERY DAY AT THE SAME TIME EACH DAY 60 each 4 12/20/19 25 Active rosuvastatin (Crestor) 40 MG tablet 03/20/20 25 Active losartan (Cozaar) 50 MG tablet Take 50 mg by mouth 2 times daily. 04/19/20 25 Active cetirizine (ZyrTEC) 10 MG tablet TAKE 1 TABLET BY MOUTH EVERY DAY 90 tablet 1 06/19/20 25 Active ibuprofen 800 MG tabletIndicati ons:Right elbow pain,Acute pain of right shoulder Take 1 tablet (800 mg) by mouth every 8 (eight) hours if needed for moderate pain for up to 10 days. 30 tablet 06/26/20 025 Active cetirizine (ZyrTEC) 10 MG tablet TAKE 1 TABLET BY MOUTH EVERY DAY 90 tablet 1 12/10/19 025 Discontinued Active Problems Problem Noted Date Diagnosed Date Right elbow pain 06/26/2025 Assessment & Plan (06/26/2025 3:34 PM EDT): Apply ice and rest Continue with local lidocaine patch I prescribed ibuprofen 800mg Q 8hrs with full stomach Patient is also currently taking baclofen XRAY ordered she will be contacted with results Acute pain of right shoulder 06/26/2025 Assessment & Plan (06/26/2025 3:34 PM EDT): Apply ice and rest Continue with local lidocaine patch I prescribed ibuprofen 800mg Q 8hrs with full stomach Patient is also currently taking baclofen XRAY ordered she will be contacted with results Severe obesity (BMI 35.0-39.9) with comorbidity (CMS/HCC) 04/26/2024 Hx of cholecystectomy 10/28/2023 Gallstone pancreatitis 07/25/2023 Overview (10/28/2023): Last Assessment & Plan: Elevated lipase at time of admission of 298. Suspect gallstone pancreatitis as the etiology Lipase continues to improve, down to 83 today --Consult to general surgery before discharge. Patient had cholecystectomy 08/13/2023 Bariatric surgery status 06/01/2023 Overview (06/01/2023): Gastric sleeve [place] [facility] [place] Obstructive sleep apnea syndrome 08/28/2022 Allergic rhinitis [...] duct stone. [facility]s [place] for [place] [facility] [place] [facility] [place] but unfortunately no beds available. She has improved clinically over the last 48 hours with resolving fever, leukocytosis and abdominal pain. Lipase also improved --GI planning ERCP today. Continue IV PIP/Tazo --N.p.o. for procedure Encounter for preventive health examination 02/19/2023 01/28/2024 Severe obesity (CMS/HCC) 08/28/2022 Seasonal allergies 08/28/2022 Uncontrolled type 2 diabetes [...] well controlled -Continue low-dose insulin sliding scale [id number] testing Encounters Date Type Department Care Team Description 06/26/2025 1:40 PM EDT Office Visit [facility] [address] [place] [address] Kerline Gan MD Right elbow pain; Acute pain of right shoulder 06/26/2025 Travel 06/18/2025 Refill [facility] [address] [place], [place] [phone] Name, MD Jamal 05/10/2025 10:30 AM EDT Office Visit [facility] [address] [place] [address] Name, MD Jamal Type 2 diabetes mellitus with microalbuminuria, without long-term current use of insulin ([facility]) (Primary Dx) 05/10/2025 Travel 05/09/2025 Telephone [facility] [address] [place] [address] María Lisa MA chart prep from Last 3 Months Immunizations Immunization Administration [...] 17 06/26/2025 1:09 PM EDT Oxygen Saturation 99% 05/10/2025 9:54 AM EDT Inhaled Oxygen Concentration - - Weight 87.6 kg (193 lb 3.2 oz) 06/26/2025 1:09 P M EDT Height 149.9 cm (4' 11 ) 06/26/2025 1:09 PM EDT Body Mass Index 39.02 06/26/2025 1:09 PM EDT Plan of Treatment Health Maintenance Due Date Last Done Comments CT Colonography 1965 FIT 1965 FOBT 1965 HIV Screening 1965 Sigmoidoscopy 1965 Zoster Vaccines (1 of 2) 2015 Hepatitis B Vaccines (3 of 3 - 19+ 3-dose series) 04/27/2024 12/17/2023, 10/28/2023, 07/25/2023 Diabetes: Foot Exam 10/28/2024 10/28/2023 RSV Patients and Patients Aged 60 years or older (1 - Risk 60-74 years 1-dose series) 2025 Depression Monitoring 04/30/2025 10/31/2024, 025 Influenza Vaccine (#1) 2025 , 06/01/2023, 07/02/2022, Additional history exists Lipid Panel 06/10/2025 06/10/2024, 08/07, 02/16/2023, Additional history exists Eye Exam 08/05/2025 08/05/2023 Diabetes: Hemoglobin A1C 09/17/2025 025, 12/15/2024, 06/10/2024, Additional history exists SDOH Screening 10/20/2025 10/20/2024 FIT DNA/Cologuard 11/21/2025 11/21/2022 Mammogram 11/30/2025 12/01/2023, 09/07, 09/19/2019 Alcohol/Substance Use Screening 01/17/2026 01/17/2025 Disability Screening 01/17/2026 01/17/2025 Tobacco Screening 06/26/2026 06/26/2025 Cervical Cancer Screening 12/16/2026 HPV/Cotest 12/16/2026 12/17/2023 Pap Smear 12/16/2026 12/17/2023 DTaP/Tdap/Td Vaccines (2 - Td or Tdap) 07/16/2031 07/16/2021 Colonoscopy 08/05/2033 08/05/2023 Colorectal Cancer Screening 08/05/2033 Hepatitis C Screening Completed 10/28/2023 Pneumococcal Vaccine: [...] PM EDT Acute pain of right shoulder POCT GLUCOSE Routine 05/10/2025 9:56 AM EDT Type 2 diabetes mellitus with microalbuminuria, without long-term current use of insulin ([facility]) POCT GLYCATED HEMOGLOBIN, TOTAL Routine 12/15/2024 11:32 AM EDT Type 2 diabetes mellitus with hyperglycemia, with long-term current use of insulin ([facility]) LIPID PANEL, STANDARD Routine 06/10/2024 7:01 AM EDT HPV MRNA E6/E7 REFLEX TO HPV 16, 18/45 Routine 12/17/2023 10:51 AM EDT PAP SMEAR Routine 12/17/2023 10:51 AM EDT Cervical cancer screening BI MAMMOGRAM SCREENING TOMOSYNTHESIS BILATERAL Routine 12/01/2023 11:50 AM EDT HEPATITIS C ANTIBODY Routine 10/28/2023 10:55 AM EST Need for hepatitis C screening test HM COLONOSCOPY Routine 08/05/2023 9:44 AM EST DIABETES EYE EXAM Routine 08/05/2023 COLOGUARD COLON CANCER SCREENING (EXTERNAL RESULTS ONLY) Routine 11/21/2022 2:00 PM EDT from Last 3 Months or Most Recently Relevant to Health Maintenance Results * XR Elbow 3+ Views Right (06/26/2025 2:17 PM EDT) Anatomical Region Laterality Modality Upper Extremities, Elbow Right Radiogr aphic Imaging 06/26/2025 2:17 PM EDT Narrative 06/26/2025 2:39 PM EDT [address] [address] XRay Report Signed Patient: Angela Montilla I MR #: [id number] : 1965 Acct:[id number] Age/Sex: 60 / F ADM Date: 06/26/25 Loc: HO.HHCX Attending Dr: Kerline Vincent MD Ordering Physician: Kerline Gan MD Date of Service: 06/26/25 Procedure(s): XR elbow RT min 3V Accession Number(s): [id number] cc: Kerline Gan MD Reason for Exam: [...] 06/26/25 1436 DD/ 1417 TD/TT: 06/26/25 1430 Combat Rifle Crewmember: Procedure Note Donotuseinterpreter, Image - 06/26/2025 [facility] [address] [facility] [place] [address] XRay Report Signed Patient: Angela Montilla IMR #: [id number] : 1965Acct:[id number] Age/Sex: 60 / FADM Date: 06/26/25 Loc: HO.HHCX Attending Dr: Kerline Vincent MD Ordering Physician: Kerline Gan MD Date of Service: 06/26/25 Procedure(s): XR elbow RT min 3V Accession Number(s): [id number] cc: Kerline Gan MD Reason for Exam: [...] 06/26/25 1436 DD/ 1417 TD/TT: 06/26/25 1430 Combat Rifle Crewmember: us Kerline Vincent MD IMG XR PROCEDURES Gio amor Result - Final * XR Shoulder 2+ Views Right (06/26/2025 2:15 PM EDT) Anatomical Region Laterality Modality Upper Extremities, Shoulder Right Radi ographic Imaging 06/26/2025 2:15 PM EDT Narrative 06/26/2025 2:37 PM EDT [facility] [address] [place] [address] XRay Report Signed Patient: Angela Montilla I MR #: [id number] : 1965 Acct:[id number] Age/Sex: 60 / F ADM Date: 06/26/25 Loc: HO.HHCX Attending Dr: Kerline Vincent MD Ordering Physician: Kerline Gan MD Date of Service: 06/26/25 Procedure(s): XR shoulder RT min 2V Accession Number(s): [id number] cc: Kerline Gan MD Reason for Exam: [...] Wiley Harrell MD 06/26/2025 02:34 PM EDT Dictated By: Wiley Heath MD Signed By: <Electronically signed by Wiley Collazo MD in OV> 06/26/25 1434 DD/ 1415 TD/TT: 06/26/25 1430 Combat Rifle Crewmember: Procedure Note Donotuseinterpreter, Image - 06/26/2025 [facility] [address] [place] [address] XRay Report Signed Patient: Angela Montilla IMR #: [id number] : 1965Acct:[id number] Age/Sex: 60 / FADM Date: 06/26/25 Loc: HO.HHCX Attending Dr: Kerline Vincent MD Ordering Physician: Kerline Gan MD Date of Service: 06/26/25 Procedure(s): XR shoulder RT min 2V Accession Number(s): [id number] cc: Kerline Gan MD Reason for Exam: [...] 06/26/25 1434 DD/ 1415 TD/TT: 06/26/25 1430 Combat Rifle Crewmember: Kerline Vincent MD IMG XR PROCEDURES Goi amor Result - Final * POCT Glucose (05/10/2025 9:56 AM EDT) Glucose Blood, POC 75 60 - 200 mg/dL QC Media Lot # [id number] Lot# Expiration Date Blood Capillary blood specimen / Unknown 05/10/2025 9:56 AM EDT Jamal Castañeda MD POINT OF CARE TEST ENTER/EDIT OR DERABLES Final Result * POCT HGB A1C (12/15/2024 11:32 AM EDT) Hemoglobin A1C 5.5 4.0 - 6.0 % QC Media Lot # [id number] Lot# Expiration Date [id number] Blood 12/15/2024 11:3 2 AM EDT us Jamal Name POINT OF CARE TEST ENTER/EDIT OR DERABLES Final Result * (ABNORMAL) Lipid Panel, Standard (06/10/2024 7:01 AM EDT) Triglycerides 129 <150 mg/dL [facility] Comment:Desirable Triglyceri de: less than 150 mg/dLBorderline High Triglyceride 150-199 mg/dLHigh Triglyceride: 200-499 mg/dLVery High Triglyceride: greater than or equal to 5OO mg/dL Cholesterol 200(H) <200 mg/dL [facility] Comment:Desirable Cholestero l: less than 200 mg/dLBorderline High Cholesterol: 200-239 mg/dLHigh Cholesterol: greater than 239 mg/dL LDL Cholesterol Calculated 122(H) <100 mg/dL [facility] Comment:Desirable LDL: less than 100 mg/dLNear Optimal/Above Optimal LDL: 110- 129 mg/dLBorderline High LDL: 130-159 mg/dLHigh LDL: 160-189 mg/dLVery High LDL: greater than or equal to 190 mg/dL HDL Cholesterol 53 >40 mg/dL [facility] Comment:Desirable HDL: great er than 40 mg/dL Note: This HDL assay may give artificially low results in patients with liver disease. 06/10/2024 7:01 AM EDT 06/10/2024 7:01 AM EDT us Generic External Data Provider LAB BLOOD ORDERAB LES Final Result [facility] [address] [place] [phone] * HPV mRNA E6/E7 w/Reflex to HPV Genotypes 16, 18/45 (12/17/2023 10:51 AM EDT) HPV nRNA E6/E7 Not Detected Not Detected [facility] Comment:Methodology: Transcr iption-Mediated AmplificationThis assay detects E6/E7 viral messenger RNA (mRNA) from 14high-risk HPV types (16,18,31,33,35,39,45,51,52,56,58,59,66,68).Cervical sources are required for HPV testing.If a vaginal source from a patient who has had atotal hysterectomy with removal of cervix wassubmitted, please contact the testing laboratoryfor alternative testing options.For additional information, please refer [email or web address]/faq/[email or web address](This link if provided for information/educational purposes only.)THIS TEST WAS PERFORMED AT:[employer] [facility] [place] [phone] VINCENT MD HPV mRNA E6/E7 TNP [facility] HPV 16 [facility] HPV 18/45 RNA [facility] 12/17/2023 10:5 1 AM EDT 12/22/2023 12:00 PM EDT Ignacia Tanner CNM LAB CYTOLOGY ORDERABLES F inal Result [facility] [address] [place] [phone] * Pap Smear (12/17/2023 10:51 AM EDT) Swab Cervix uteri structure / Unknown 12/17/2023 10:51 AM EDT 12/22/2023 12:00 PM EDT Narrative [facility] - 01/04/2024 12:50 PM EDT ----- ------- Name: Angela Montilla I Age/Sex: 58/F : 1965 Unit#: [id number] Attend Dr: IGNACIA TANNER CNM Re12/17/23 Status: DEP REF Location: [facility] Disch: ----- ------- SPEC : [id number] RECD: 12/22/23-1199 STATUS: GABRIELE JAMES NUM: [id number] MAYLIN: 12/17/23-[address]: IGNACIA TANNER [facility] ENTERED: 12/22/23-1243 SP TYPE: Pap Smr OTHR DR: ORDERED: Pap Smear Interpretation Satisfactory for evaluation. Atrophic. Negative for intraepithelial lesion or malignancy. HPV mRNA E6/E7: NOT DETECTED This assay detects E6/E7 viral messenger RNA (mRNA) from 14 high-risk HPV types (16, 18, 31, 33, 35, 39, 45, 51, 52, 56, 58, 59, 66, 68) HPV testing performed by [employer], [place], [place]. See reference laboratory portion of the EMR for entire report. Clinical Information LMP: Postmenopausal Previous PAP test: Unknown date/findings Material Received ThinPrep-Vaginal/Cervical ----- ------- Signed (signature on file) ANGELI Sarah (ASC) 01/04/24 7898 ----- ------- END OF REPORT us Ignacia Jamal [facility] CYTOLOGY ORDERABLES F inal Result [facility] [address] [place] [phone] * BI Mammogram Screening Tomosynthesis Bilateral (12/01/2023 11:50 AM EDT) Anatomical Region Laterality Modality Breast Bilateral Mammography 12/01/2023 11:5 0 AM EDT Narrative 12/20/2023 3:46 PM EDT [address] [place] [address] Mammography Report Signed Patient: Angela Montilla I MR #: [id number] : 1965 Acct:[id number] Age/Sex: 58 / F ADM Date: 12/01/23 Loc: HO.MAMMO Attending Dr: Jamal Castañeda MD Ordering Physician: Jamal Castañeda MD Results: 1Negative Date of Service: 12/01/23 Follow Up: 1 Year From Orig inal Mammogram Procedure(s): MM tomosynthesis screening BI Accession Number(s): [id number] cc: Jamal Castañeda MD EXAMINATION: MM SCREENING [...] by Martha Aguirre MD in OV> 12/20/23 154 DD/ 1150 TD/TT: Combat Rifle Crewmember: Procedure Note Donotuseinterpreter, Image - 12/20/2023 [facility] [address] [place], [place] [address] Mammography Report Signed Patient: Angela Montilla IMR #: [id number] : 1965Acct:[id number] Age/Sex: 58 / FADM Date: 12/01/23 Loc: SHO Attending Dr: Jamal Catsañeda MD Ordering Physician: Jamal Castañeda MDResults: 1Negative Date of Service: 12/01/23Follow Up: 1 Year From Orig inal Mammogram Procedure(s): MM tomosynthesis screening BI Accession Number(s): [id number] cc: Jamal Castañeda MD EXAMINATION: MM SCREENING [...] by Martha Aguirre MD in OV> 12/20/23 154 DD/ 1150 TD/TT: Combat Rifle Crewmember: Jamal Castañeda MD IMG BI PROCEDURES Edited Result - Final * Hepatitis C Ab (10/28/2023 10:55 AM EST) Hepatitis C Antibody Nonreactive Nonreactive [facility] Comment:Antibodies to HCV no t detected; does not exclude early acuteHCV infection. Blood Venous blood specimen / Unknown 10/28/2023 10:55 AM EST 10/28/2023 1:21 PM EST Jamal Castañeda MD LAB BLOOD ORDERABLES Final Resul t [facility] [address] [place] [phone] * Hm Diabetes Eye Exam (08/05/2023) [...] Recently Relevant to Health Maintenance Insurance MEDICARE [facility] STANDARD Care Teams Head Start Coordinator Relationship Specialty Start Date End Date Name, MD Jamal [address] [place] [phone] PCP - General Family Medicine 05/25/19
--- OUTSIDE RECORDS SUMMARY | 2025-06-26 17:12 | XMS_ITS | Encounter Summary ---
Author Organization [employer] Address [address] [place] [address] [address] [place] [address] Care Team Providers Care Perinatal Coordinator Name Role Phone Name, Jamal HENDRIX Primary Care Provider [phone] Reason for Visit * Reason Comments Med Refill Encounter Details Date Type Department Care Team ([facility] st Contact Info) Description 09/13/2024 Refill [facility] [address] [place], [place] [phone] Name, MD Jamal [address] [place] [address] Social History Tobacco Use Types Packs/Day Years [...] documented as of this encounter Care Teams Perinatal Coordinator Relationship Specialty Start Date End Date Name, MD Jamal [address] [place] [address] PCP - General Family Medicine 05/25/19 documented as of this encounter
--- OUTSIDE RECORDS SUMMARY | 2025-06-26 17:12 | XMS_ITS | Clinical Summary ---
Author Organization [facility] Address [address] [facility] [address] [place] [phone] Phone Care Team Providers Care [employer] Name Role Phone Name, Jamal HENDRIX Primary Care Provider [phone] Allergies Active Allergy Reactions Criticality Noted Date Comments Adhesive Tape-Silicones Rash Low 07/26/2023 Canagliflozin 04/21/2022 uti Lisinopril 11/15/2017 Oxycodone-Acetaminophen Nausea and/or Vomiting 11/10/2022 Sulfamethoxazole-Trimeth oprim 01/17/2025 Skin pruritus/rash Medications traZODone (DESYREL) 50 MG tablet Take 100 mg by mouth nightly at bedtime. Active pantoprazole (PROTONIX) 40 MG tablet Take 40 mg by mouth daily. Active lancets 28 gauge MiscIndication s:Type 2 diabetes mellitus with microalbuminur ia, without long-term current use of insulin 1 each by Miscellaneous route as needed. 100 each 3 4 Active FREESTYLE LITE Strp stripsIndicati ons:Type 2 diabetes mellitus with microalbuminur ia, without long-term current use of insulin 1 each by Miscellaneous route every morning. 100 strip 3 4 Active rosuvastatin (CRESTOR) 40 MG tabletIndicati ons:Hyperlipid emia LDL goal <100 Take 1 tablet (40 mg total) by mouth daily. 90 tablet 1 5 Active Active Problems Problem Noted Date Diagnosed Date Cholangitis 07/25/2023 Assessment & Plan (07/27/2023 10:55 AM EST): Patient presented with sudden onset of right-sided [...] duct stone. Attempts made for transfer to [facility] for ERCP, but unfortunately no beds available. She has improved clinically over the last 48 hours with resolving fever, leukocytosis and abdominal pain. Lipase also improved --GI planning ERCP today. Continue IV PIP/Tazo --N.p.o. for procedure Gallstone pancreatitis 07/25/2023 Assessment & Plan (07/27/2023 10:55 AM EST): Elevated lipase at time of admission of 298. Suspect gallstone pancreatitis as the etiology Lipase continues to improve, down to 83 today --Consult to general surgery before discharge. She will likely need elective cholecystectomy in the near future --Continue supportive management otherwise, as above Type 2 diabetes mellitus wit h microalbuminuria, without long-term current use of insulin 08/11/2022 Assessment & Plan (03/20/2025 8:54 AM EDT): Controlled. Hemoglobin A1c 5.7%. She appears to be in remission after gastric bypass. Assessment & Plan (09/19/2024 9:50 AM EST): Repeat hemoglobin A1c is 5.5% so she appears to be in remission. She continues on diet control. She will follow in 6 months. If she continues to do well she can be seen on a yearly basis. Assessment & Plan (05/26/2024 10:46 AM EDT): The patient is in remission after gastric bypass. She has very good glycemic control. She asked for freestyle strips but there is likely not going to cover this no more than 1 a day. So I will send a prescription for that. I will repeat a hemoglobin A1c prior to the follow-up visit. Assessment & Plan (08/25/2023 10:15 AM EST): Controlled. Hemoglobin A1c is 5.6 she is no longer in the diabetic or prediabetic range of all diabetic medications. I will give her a follow-up appointment in 6 months and if she continues to do well then she will need to see me any longer she can follow with her primary care physician. Assessment & Plan (02/23/2023 10:08 AM EDT): Controlled. Hemoglobin A1c 5.2%. The patient is [...] the hemoglobin A1c in 6 months time. Assessment & Plan (08/11/2022 9:50 AM EST): Fair control. Hemoglobin A1c 7.1% she is having occasional fasting hypoglycemia some decreasing the Tresiba of down to 100 units from 125. At this point she is not having any postprandial hypoglycemia with NovoLog so not changing her NovoLog correction scale. She should continue Ozempic 1 mg. I will have her return for follow-up in 3 months. DM (diabetes mellitus) 06/11/2018 Assessment & Plan (07/27/2023 10:55 AM EST): Status post sleeve gastrectomy. Patient has been off most of her antiglycemic's including insulin. Patient states she is only on weekly Ozempic. Patient follows with Dr. Powell for endocrinology. Blood sugar levels remain well controlled -Continue low-dose insulin sliding scale [id number] testing Assessment & Plan (11/10/2022 10:51 AM EST): Glucose control over the last 2 weeks [...] decrease the Tresiba to 50 units daily. Assessment & Plan (08/11/2022 9:43 AM EST): Fair control. Hemoglobin A1c 7.1% she is having occasional fasting hypoglycemia some decreasing the Tresiba of down to 100 units from 125. At this point she is not having any postprandial hypoglycemia with NovoLog so not changing her NovoLog correction scale. She should continue Ozempic 1 mg. I will have her return for follow-up in 3 months. Assessment & Plan (04/21/2022 11:36 AM EDT): Based on hemoglobin A1c she is controlled at 6.9% the last time we checked her hemoglobin hematocrit was in 2019 and she was not anemic. But in the last 2 weeks because she was on prednisone therapy and also was advised to stop NovoLog she did have elevated glucose levels. Thankfully she has resumed. The bariatric surgeon wants her to stop NovoLog because she put on a protein shake but even the protein shake has 17 g of carbohydrate and the patient is very insulin resistant and was still having postprandial hypoglycemia even with the shakes so she does not need the NovoLog. She needs to discuss this with the bariatric surgeon. Assessment & Plan (01/06/2022 10:10 AM EDT): Uncontrolled. But she is having too many hypoglycemic episodes I am going to decrease Tresiba by 15 units to 125 units. She will continue her NovoLog correction scale and Ozempic. If she continues to have hypoglycemic episodes she needs to contact me through the patient portal or can call so I can decrease the Tresiba even further. The patient has current severe hypoglycemia. There is significant concern hypoglycemic seizures which can be potentially fatal. I reemphasized to the patient that the use of insulin is high risk therapy that requires intensive monitoring for toxic effects (hypoglycemia, metabolic decompensation) due to the narrow therapeutic index of the medication and other factors (such as age, acute renal insufficiency, variable appetite and use of steroids) therefore close monitoring of blood sugar with regular review is paramount in the safe use of this medication. Assessment & Plan (09/30/2021 3:29 PM EST): Uncontrolled hemoglobin A1c increased to 8.2% she is on prednisone again for asthma exacerbation. I am increasing the Tresiba 245 units daily. Continue NovoLog correction scale. Continue Ozempic. Return for follow-up in 3 months she was advised to do lab work fasting prior to the follow-up visit. Assessment & Plan (06/10/2021 9:18 AM EDT): Uncontrolled. 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 Yet she has postprandial hyperglycemia in the day which she believes is due to food intake. She is no longer on prednisone. I am not going to change her NovoLog correction scale. She will continue on Ozempic. However I will decrease Tresiba U200 from 140 to 130 units.The patient has current severe hypoglycemia. There is significant concern hypoglycemic seizures which can be potentially fatal. I reemphasized to the patient that the use of insulin is high risk therapy that requires intensive monitoring for toxic effects (hypoglycemia, metabolic decompensation) due to the narrow therapeutic index of the medication and other factors (such as age, acute renal insufficiency, variable appetite and use of steroids) therefore close monitoring of blood sugar with regular review is paramount in the safe use of this medication. Assessment & Plan (12/10/2020 9:12 AM EDT): Uncontrolled hemoglobin A1c 7.6% previously 6.7. The patient has resumed prednisone administration so I am going to give her a a correction scale that she should use while using prednisone and this will be 70-100 =14 units increasing by 5 units every 50 mg/dL. She should resume her previous Humalog correction scale of prednisone. She should continue Tresiba and Ozempic. Assessment & Plan (05/28/2020 9:23 AM EDT): The patient's glycemic levels are well controlled. She has occasional hypoglycemia hemoglobin A1c is 6.7% I would not make any changes I have requested lipid panel microalbumin level and a hemoglobin A1c for the follow-up visit in 6 months time. Assessment & Plan (03/19/2020 9:15 AM EDT): Improved glycemic control this to a very wide range from 60 to 252 mg/dL she cannot explain why her glucose is 60. The 252 is likely from eating at nighttime. She needs to be consistent with NovoLog ministration this is always a problem. I had to remind her that for glucose in the 70s range she must administer NovoLog. Of course she is concerned about feeling hypoglycemic and in those cases I said she must eat first and then administer the NovoLog immediately after but only when the glucose are below 100. She of course needs to monitor her diet and not overeat. I will give her a follow-up appointment in 2 months time. At that time we can check a hemoglobin A1c but if I were to go by the average glucose it would appear to be around 6.9% which will be quite good. Because she still has glucose variability which is not so great. If she had the Dexcom we could estimate what the glucose variability is but it seems obvious to me that she does not want a Dexcom otherwise she would ensure to get it she does qualify for it. Assessment & Plan (02/06/2020 10:34 AM EDT): Uncontrolled her hemoglobin A1c is 9.6% but she has been monitoring glycemic levels as she should and therefore she has not been giving the NovoLog dose that she should she has been given the minimum amount of insulin and she is overeating. She may have a corticosteroid on board. I again prescribed a Dexcom and I told her to choose the Dexcom over the freestyle lite meter. That way she will have a better idea of what her glucose levels are and administer insulin based on her correction scale. Not going to change her dose of medications of the regimen at the present time. She will return for follow-up in 6 weeks I told her that if she gets the Dexcom she is going to have to come back to us so that we can show her how to use it. So she should call us for this. Assessment & Plan (09/29/2019 11:01 AM EST): A1c was 7.2% which is fair control. She had a difficult time over the holidays. She is back on track based on her glycemic control so I am not going to make any changes to her regimen. Assessment & Plan (06/20/2019 12:50 PM EDT): Uncontrolled. I would think that she probably has very good hemoglobin A1c but now she is having too many hypoglycemia and this is definitely not what I would consider control. She rather discontinue Farsi got in any of the insulins because she does have vulvovaginal pruritus. This is fine but she would need to come in sooner so that we can reassess and see if she is continues to have low glucose levels. When she does well with her diet we do see the effect in terms of glucose reduction so the question is if she continues to have hypoglycemia did we decrease the Tresiba or stop the NovoLog especially since she is using Ozempic 1 mg weekly. I will give her a follow-up visit in 3 months time. Assessment & Plan (08/30/2018 11:38 AM EST): Uncontrolled the last hemoglobin A1c was 7.6% her average glucose is 156 but she is eating more often overnight despite was then pick. She has a lot of foods and snacks she feels hungry. She will not do bariatric surgery. I will continue the same medications and will add Farxiga hopefully she will not have any adverse effects to this medication. She was advised to drink plenty of water and use proper hygiene. Assessment & Plan (07/09/2018 11:30 AM EDT): Uncontrolled. Hemoglobin A1c 7.6%. The average glucose is good at 127 mg/dL. However she does have some postprandial lows and at times in the evening especially postprandial hyperglycemia. I suspect that we have to adjust her NovoLog. Another problem is that she is eating more frequently in the evening. At this point I will increase her sent back from 0.5 mg to 1 mg weekly. She will continue with Tarceva 140 units daily. She is not really having fasting hypoglycemia she did have one low but again is variable. For the most part she appears to have some elevated fasting glucose levels. I am not certain how we going to change her NovoLog administration because there is really no pattern as to when she does well and when she does not. I think this is diet dependent. She does not carbohydrate count and does not really want to learn. We may have to adjust the NovoLog correction scale I will see by the follow-up visit if she continues to have frequent lows then we will have to decrease it. Assessment & Plan (06/11/2018 11:42 AM EDT): Uncontrolled the hemoglobin A1c is 7.6%. At this point I think that 1 of the problems is that the patient does tend to overeat. She does like to eat sweets and sometimes she gets carried away. I think that I would like to switch her to a different GLP-1 agonists such as Ozempic. I asked her to stop Victoza and to start with Ozempic at 0.5 mg tomorrow and she should do it every week for 4 weeks and then return for follow-up. Normally we start out with a smaller dose of 0.25 mg but I think that this is too low a dose and her glucose levels will go high. And starting out with the slightly higher dose because she is already been on a GLP-1 agonists some assuming that she will not have any adverse effects even though it is a different drug. I told her that in the next 4 weeks she may require more NovoLog based on her correction scale. She will continue Tresiba 140 units every morning. On the following visit I plan to increase Ozempic to 1 mg weekly. I also discussed with the patient the possibility of using Humulin U 500 either twice a day or 3 times a day if she does not have improved glycemic control in the long run. Hyperlipidemia LDL goal <100 06/11/2018 Assessment & Plan (03/20/2025 8:55 AM EDT): LDL was 106 mg/dL she is on rosuvastatin 10 mg based on new guidelines LDL should be less than 70 mg/dL. I will increase the dose of rosuvastatin to 40 mg. Assessment & Plan (09/19/2024 9:35 AM EST): She has not repeated lab work I advised her to do this fasting. Assessment & Plan (05/26/2024 10:47 AM EDT): Uncontrolled levels 114 mg/dL. She is not diabetic remission but I think that we should still follow the lipid panel as if she had diabetes. I will increase rosuvastatin to 10 mg show repeat lipid panel in 3 months time. Assessment & Plan (08/25/2023 10:16 AM EST): Her LDL is now 125 mg/dL and I do not know if we actually need to maintain her LDL less than 100 mg/dL now that she is no longer in the diabetic range but I think is best to do so noted to be safe and I prescribed rosuvastatin 5 mg. She will repeat lipid panel fasting in 6 months time. Assessment & Plan (02/23/2023 10:08 AM EDT): Uncontrolled. LDL increased from 99 to 137 mg/dL we will repeat lipid panel in 6 months and see if it is improved. If it does not improve below 100 mg/dL she will need to resume statins. Assessment & Plan (11/10/2022 10:54 AM EST): Controlled. LDL 99 mg of rosuvastatin 10 mg no changes required. Assessment & Plan (08/11/2022 9:44 AM EST): Controlled based on LDL of 99 mg/dL she should continue rosuvastatin. Assessment & Plan (04/21/2022 11:40 AM EDT): Controlled. LDL 99 mg/dL on rosuvastatin 10 mg no changes required. Assessment & Plan (01/06/2022 10:05 AM EDT): Unfortunately she did not do the lab work prior to this visit. I will cancel the previous orders and just reorder for the follow-up visit. Continue rosuvastatin 10 mg daily. Assessment & Plan (09/30/2021 3:30 PM EST): Controlled LDL 77 mg/dL on rosuvastatin 10 mg no changes required repeat lipid panel prior to the follow-up visit Assessment & Plan (06/10/2021 9:19 AM EDT): Controlled. LDL 77 mg/dL on rosuvastatin 10 mg. No changes. Assessment & Plan (12/10/2020 9:11 AM EDT): Controlled LDL is 77 mg/dL continue rosuvastatin 10 mg daily. Assessment & Plan (03/19/2020 8:55 AM EDT): Controlled LDL 88 mg/dL on atorvastatin no changes. Assessment & Plan (09/29/2019 10:52 AM EST): I do not have current lipid panel. Requested level. COntinue current medications. Assessment & Plan (06/20/2019 12:49 PM EDT): Her LDL cholesterol she reports being 84 mg/dL and HDL 29. However I suspect that she has low total cholesterol levels so this seems to be controlled that she should continue with Crestor 10 mg daily. Assessment & Plan (07/09/2018 11:26 AM EDT): Controlled. The LDL was now 91 mg/dL on Crestor 10 mg no changes. Assessment & Plan (06/11/2018 11:30 AM EDT): Uncontrolled. The LDL was last 104 mg/dL on 11/23/17. At that time I did increase Crestor to 10 mg she has not had a repeat lipid panel so I will request one. This change was done on 11/27/17. Essential hypertension 06/11/2018 Assessment & Plan (07/25/2023 2:20 AM EST): Continue amlodipine and hydrochlorothiazide with holding parameters. Assessment & Plan (12/10/2020 9:10 AM EDT): Controlled. She has microalbuminuria continue losartan another antihypertensive. No changes. Assessment & Plan (03/19/2020 9:13 AM EDT): The systolic is elevated today I will observe no changes continue losartan. Assessment & Plan (09/29/2019 10:47 AM EST): Controlled on current medications no changes. Assessment & Plan (06/20/2019 12:49 PM EDT): Controlled. Continue losartan 100 mill grams daily. Assessment & Plan (07/09/2018 11:27 AM EDT): Controlled on the current medications, no changes. Assessment & Plan (06/11/2018 11:31 AM EDT): Controlled on the current medications. Continue losartan 100 mg daily. 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 Family History Medical History Relation Comments Diabetes Brother Hypertension Brother Arthritis Father Coronary artery disease Father Diabetes Father Hypertension Father Hypertension Maternal Grandfather Hypertension Maternal Grandmother Arthritis Mother Bipolar disorder Mother Coronary artery disease Mother Dementia Mother Diabetes Mother Hypertension Mother No Known Problems Paternal Grandfather No Known Problems Paternal Grandmother Diabetes Sister Hypertension Sister Relation Status Comments Brother Alive Father Maternal Grandfather Maternal Grandmother Mother Paternal Grandfather Paternal Grandmother Sister Alive Social History Tobacco Use Types Packs/Day Years Used Date Smoking Tobacco: Never Smokeless Tobacco: Never Tobacco Cessation:Counseling Given: Not Answered Alcohol Use Standard Drinks/Week Comments No 0 [...] Orientation Straight 12/07/2020 4: 09 PM EDT Last Filed Vital Signs Vital Sign Reading Time Taken Comments Blood Pressure 122/68 03/20/2025 8:50 AM EDT Pulse 68 03/20/2025 8:50 AM EDT Temperature 36.2 C (97.2 F) 03/20/2025 8:50 AM EDT Respiratory Rate 16 07/28/2023 3:11 PM EST Oxygen Saturation 97% 03/20/2025 8:50 AM EDT Inhaled Oxygen Concentration - - Weight 86.8 kg (191 lb 6.4 oz) 03/20/2025 8:50 A M EDT Height 149.9 cm (4' 11.02 ) 03/20/2025 8:50 AM E DT Body Mass Index 38.64 03/20/2025 8:50 AM EDT Plan of Treatment Upcoming Encounters Date Type Department Care Team (Late st Contact Info) Description 09/26/2025 8:50 AM EST Office Visit [facility] [address] [place] [address] [place] [address] Vaughn Powell DO [address] [place] [address] Health Maintenance Due Date Last Done Comments DEPRESSION SCREENING 1977 HIV ONE-TIME SCREENING (18-65 YEARS) 1983 COLOGUARD 2010 COLONOSCOPY 2010 COLORECTAL CANCER SCREENING 2010 FIT TEST 2010 FOBT 2010 SIGMOIDOSCOPY 2010 VIRTUAL COLONOSCOPY 2010 ZOSTER VACCINES (1 of 2) 2015 DIABETIC EYE EXAM 06/11/2018 PNEUMOCOCCAL VACCINES (50+ years) (2 of 2 - PCV) 05/25/2020 05/25/2019, 07/17/2010, 11/13/2009 MAMMOGRAM 09/19/2021 09/19/2019 INFLUENZA VACCINE (#1) 2025 COVID-19 VACCINE ( - season) 2025 URINE MICROALBUMIN/CREATININE RATIO 05/23/2025 05/23/2024, 02/16/2023, 04/14/2022, Additional history exists HEMOGLOBIN A1C 09/17/2025 03/17/2025, 041 , 09/19/2024, Additional history exists BLOOD PRESSURE 09/20/2025 03/20/2025 PAP SMEAR 12/16/2026 12/17/2023 Adult Td,Tdap Booster 07/16/2031 07/16/2021 RSV VACCINE (1 - 1-dose 75+ series) 2040 HEPATITIS C SCREENING Completed 07/25/2023 SMOKING STATUS SCREENING (Once After 26 Yrs) Completed 05/26/2024 HEPATITIS A VACCINES Aged Out No long er eligible based on patient's age to complete this topic HIB VACCINES Aged Out No longer eligi ble based on patient's age to complete this topic MENINGOCOCCAL VACCINES (ACWY) Aged Out No longer eligible based on patient's age to complete this topic MENINGOCOCCAL VACCINES (B) Aged Out N o longer eligible based on patient's age to complete this topic Medical Devices Not on file Procedures Procedure Name Priority Date/Time Associated Diagnosis Comments HEMOGLOBIN A1C Routine 03/17/2025 9:11 AM EDT Type 2 diabetes mellitus with microalbuminuria, without long-term current use of insulin MICROALBUMIN/CREATIN INE RATIO, RANDOM URINE Routine 05/23/2024 9:49 AM EDT Type 2 diabetes mellitus with microalbuminuria, without long-term current use of insulin HEPATITIS C ANTIBODY, QUALITATIVE Routine 07/25/2023 5:40 AM EST from Last 3 Months or Most Recently Relevant to Health Maintenance Results * Hemoglobin A1c (03/17/2025 9:11 AM EDT) HEMOGLOBIN A1C 5.7 4.3 - 5.8 % [facility] Blood 03/17/2025 9:11 AM EDT 03/17/2025 9:16 AM EDT Vaughn Powell DO LAB BLOOD ORDERABLES Final Resul t Performing Organization Address City/[facility]/ZIP Co de Phone Number [address] [phone] * (ABNORMAL) Microalbumin/creatinine ratio, random urine (05/23/2024 9:49 AM EDT) URINE MICROALBUMIN 4.7(H) 0 - 2.3 mg/dL [facility] URINE CREATININE 178 mg/dL [facility] MICROALB/CRE RATIO 26.4(H) 0 - 20 mg/g Cre [facility] Urine (Urine) 05/23/2024 9:4 9 AM EDT 05/23/2024 9:50 AM EDT Vaughn Powell DO URINE ORDERABLES Final Result [address] [address] * Hepatitis C antibody, qualitative (07/25/2023 5:40 AM EST) HCV NON-REACTIV E NON-REACTI VE [facility] Blood 07/25/2023 5:40 AM EST 07/25/2023 5:58 AM EST Sean Quezada MD LAB BLOOD ORDERABLES Final Resu lt [address] [id number] from Last 3 Months or Most Recently Relevant to Health Maintenance [place] & [place] & [place] & B Member Subscriber Plan / Payer (Ef fective 2012-Present) Name:Angela Schulte Member ID:[id number] Relation to Subscriber:Self Name:Angela Schulte Subscriber ID:[id number] Payer ID:[id number] Group ID:Not on file Type:Medicare Address: [employer] [address] MEDICARE PART A & B Advance Directives For more information, please contact: [phone] (9AM - 5PM [place]/[facility], Thursday-Thursday) * Full Code (Latest Code Status on File) Date Activated Date Inactivated Comments 07/25/2023 12:57 AM Question Answer Comments Code Status Confirmed With: Patient Code Status Communicated To: Inpatient Attending Care Teams [employer] Relationship Specialty Start Date End Date Name, MD Jamal [address] [place] [id number] PCP - General Geriatric Psychiatry 09/29/19 Additional Source Comments The information contained in this document represents components of the legal health record. It is not the complete legal health record.[facility]
--- OUTSIDE RECORDS SUMMARY | 2025-06-26 17:12 | XMS_ITS | Encounter Summary ---
Author Organization [facility] Address [address] [place] [address] [place] [address] Phone Care Team Providers Care Customer Service Clerk Name Role Phone Name, Jamal HENDRIX Primary Care Provider [phone] Encounter Details Date Type Department Care Team (Late st Contact Info) Description 07/25/2023 Procedure Pass , [address] [address] Social History Tobacco Use Types Packs/Day Years [...] Upcoming Encounters Date Type Department Care Team ([facility] st Contact Info) Description 09/26/2025 8:50 AM EST Office Visit [facility] [address] [place] [address] Vaughn Powell DO [address] [place] [address] [email or web address] documented as of this encounter Visit Diagnoses Not on filedocumented in this encounter Additional Health Concerns Infection Onset Date Last Indicated Resolved Time CoV-Risk Comment:Per note documentation 07/24/2023 07/24/2023 12:57 PM EST documented as of this encounter Care Teams Customer Service Clerk Relationship Specialty Start Date End Date Name, MD Jamal [address] [place] [address] PCP - General Geriatric Psychiatry 09/29/19 documented as of this encounter Additional Source Comments The information contained in this document represents components of the legal health record. It is not the complete legal health record.[facility]
== END 2025-06-26 13:53 | disposition home or self-care (01) ==
LOC: HO.HHCX 13:52
PROVIDERS: Visit Provider Internal Medicine
DX: M25.511 Pain in right shoulder (principal); M25.521 Pain in right elbow
CPT/HCPCS: 73030; 73080

== ENCOUNTER → 2025-06-26 13:53 | Outpatient (BNV) | payer MEDICARE, MEDICAID, SELFPAY | PROVIDERS: Visit Provider Radiology Diagnostic Radiology | DX: M25.521 Pain in right elbow (principal); Z04.3 Encounter for examination and observation following other accident | CPT/HCPCS: 73080 ==

== ENCOUNTER 2025-06-30 09:09 | Outpatient (REF) | payer MEDICARE, MEDICAID, SELFPAY ==
--- OUTSIDE RECORDS SUMMARY | 2025-06-26 13:40 | XMS_ITS | Encounter Summary ---
Author Organization [employer] Address [address] [place] [address] 7t [place] [address] Care Team Providers Care Albacore Fishing Boat Crewman Name Role Phone Name, Jamal HENDRIX Primary Care Provider Reason for Visit * Reason Comments Arm Pain Encounter Details Date Type Department Care Team ([facility] st Contact Info) Description 06/26/2025 1:40 PM EDT Office Visit [facility] [address] [place] [phone] Kerline Gan MD [address] [place] [address] Right elbow pain; Acute pain of right shoulder Social History Tobacco Use Types Packs/Day Years [...] Sign Reading Time Taken Comments Blood Pressure 146/78 06/26/2025 1:10 PM EDT Pulse 62 06/26/2025 1:09 PM EDT Temperature 36.6 C (97.9 F) 06/26/2025 1:09 PM EDT Respiratory Rate 17 06/26/2025 1:09 PM EDT Oxygen Saturation - - Inhaled Oxygen Concentration - - Weight 87.6 kg (193 lb 3.2 oz) 06/26/2025 1:09 P M EDT Height 149.9 cm (4' 11 ) 06/26/2025 1:09 PM EDT Body Mass Index 39.02 06/26/2025 1:09 PM EDT documented in this encounter Progress Notes * Kerline Vincent MD - 06/26/2025 1:40 PM EDT SUBJECTIVE: Angela Palmer is a 60 y.o. year old female who presents for acute visit . Acute Concerns: Patient slept and fell 3 days ago and hurt her right elbow and shoulder, she has use ointment and patch for pain but still has pain, she tells me she can barely float remover her right arm, patient denies head trauma or LOC Social History Social History Narrative Not on file Problem List[1] Obstructive sleep apnea syndrome Hyperlipidemia LDL goal <100 Essential hypertension Depression Asthma Allergic rhinitis Diabetic nephropathy associated with type 2 diabetes mellitus (HCC) Bariatric surgery status Gallstone pancreatitis Hx of cholecystectomy Type 2 diabetes mellitus with microalbuminuria, without long-term current use of insulin (HCC) Severe obesity (BMI 35.0-39.9) with comorbidity (CMS/HCC) (HCC) Right elbow pain Acute pain of right shoulder Family History[2] Review of Systems Constitutional: Negative. HENT: Negative. Respiratory: Negative. Cardiovascular: Negative. Musculoskeletal: Positive for arthralgias and myalgias. Neurological: Negative. OBJECTIVE: Vitals: 06/26/25 1309 06/26/25 1310 BP: (!) 153/80 (!) 146/78 BP Location: Left arm Left arm Patient Position: Sitting BP Cuff Size: Adult Pulse: 62 Resp: 17 Temp: 97.9 ??F (36.6 ??C) TempSrc: Temporal Weight: 193 lb 3.2 oz (87.6 kg) Height: 4' 11 (1.499 m) Physical Exam Constitutional: Appearance: Normal appearance. Cardiovascular: Rate and Rhythm: Normal rate and regular rhythm. Pulmonary: Effort: Pulmonary effort is normal. Breath sounds: Normal breath sounds. Abdominal: General: Abdomen is flat. Palpations: Abdomen is soft. Musculoskeletal: Right shoulder: Tenderness present. Decreased range of motion. Right elbow: Laceration present. Decreased range of motion. Tenderness present. Neurological: Mental Status: She is alert. Follow Up: No follow-ups on file. Medications Ordered Prior to Encounter[3] Problem List Items Addressed This Visit Right elbow pain Apply ice and rest Continue with local lidocaine patch I prescribed ibuprofen 800mg Q 8hrs with full stomach Patient is also currently taking baclofen XRAY ordered she will be contacted with results Relevant Medications ibuprofen 800 MG tablet Other Relevant Orders XR Elbow 3+ Views Right (Completed) Acute pain of right shoulder Apply ice and rest Continue with local lidocaine patch I prescribed ibuprofen 800mg Q 8hrs with full stomach Patient is also currently taking baclofen XRAY ordered she will be contacted with results Relevant Medications ibuprofen 800 MG tablet Other Relevant Orders XR Shoulder 2+ Views Right (Completed) [1] Patient Active Problem List Diagnosis Obstructive sleep apnea syndrome Hyperlipidemia LDL goal <100 Essential hypertension Depression Asthma Allergic rhinitis Diabetic nephropathy associated with type 2 diabetes mellitus (HCC) Bariatric surgery status Gallstone pancreatitis Hx of cholecystectomy Type 2 diabetes mellitus with microalbuminuria, without long-term current use of insulin (HCC) Severe obesity (BMI 35.0-39.9) with comorbidity (CMS/HCC) (HCC) Right elbow pain Acute pain of right shoulder [2] Family History Problem Relation Name Age of Onset Uterine cancer Mother 63 [3] Current Outpatient Medications on File Prior to Visit Medication Sig Dispense Refill albuterol (2.5 MG/3ML) 0.083% nebulizer solution INHALE THE CONTENTS OF 1 VIAL VIA NEBULIZER THREE TIMES DAILY 75 mL 11 albuterol 108 (90 Base) MCG/ACT inhaler Inhale 2 puffs every 4 (four) hours if needed. B-D ULTRAFINE III SHORT PEN 31G X 8 MM misc USE 1 EACH 5 TIMES A DAY budesonide (Pulmicort) 1 MG/2ML nebulizer solution Take 2 mL by nebulization 1 (one) time each day.Rinse mouth after using. buPROPion XL (Wellbutrin XL) 300 MG 24 hr tablet Take 1 tablet by mouth once daily cetirizine (ZyrTEC) 10 MG tablet TAKE 1 TABLET BY MOUTH EVERY DAY 90 tablet 1 cyancobalamine (Vitamin B-12) 250 MCG tablet TOME PEACE TABLETA POR V A ORAL TODOS LOS D D3-1000 25 MCG (1000 UT) capsule TOME 1 C PSULA POR V A ORAL TODOS LOS D Diclofenac Sodium 1 % gel Apply to affected area twice daily fluticasone (Flonase) 50 MCG/ACT nasal spray Administer 2 sprays into each nostril 1 (one) time each day. FreeStyle lancets USE 1 EACH CUATRO VECES AL D A BEFORE MEALS AND AT NIGHTLY glucose blood (FREESTYLE LITE) test strip Use to test blood sugar four times daily, before meals and at bedtime. lidocaine (Lidoderm) 5 % patch APPLY 1 PATCH TOPICALLY IN THE MORNING REMOVE AND DISARD PATCH WITHIN 12 HOURS OR INSTRUCTED BY 30 patch 3 losartan (Cozaar) 50 MG tablet Take 50 mg by mouth 2 times daily. montelukast (Singulair) 10 MG tablet Take 10 mg by mouth in the evening. pantoprazole (ProtoNix) 40 MG EC tablet Take 1 tablet (40 mg) by mouth before breakfast. 30 tablet 11 rosuvastatin (Crestor) 40 MG tablet traZODone (Desyrel) 50 MG tablet Take 2 tablets (100mg) by mouth every night Trelegy Ellipta 200-62.5-25 MCG/ACT aerosol powder INHALE 1 PUFF BY INHALATION ROUTE EVERY DAY AT THE SAME TIME EACH DAY 60 each 4 triamcinolone (Kenalog) 0.1 % cream APLIQUE CAPA JULIENNE EL AREA AFECTADA DOS VECES AL SHRUTHI 30 g 0 No current facility-administered medications on file prior to visit. documented in this encounter Miscellaneous Notes * Assessment & Plan Note - Kerline Vincent MD - 06/26/2025 3:34 PM EDT Associated Problem(s): Right elbow pain Apply ice and rest Continue with local lidocaine patch I prescribed ibuprofen 800mg Q 8hrs with full stomach Patient is also currently taking baclofen XRAY ordered she will be contacted with results * Assessment & Plan Note - Kerline Vincent MD - 06/26/2025 3:34 PM EDT Associated Problem(s): Acute pain of right shoulder Apply ice and rest Continue with local lidocaine patch I prescribed ibuprofen 800mg Q 8hrs with full stomach Patient is also currently taking baclofen XRAY ordered she will be contacted with results documented in this encounter Plan of Treatment Not on file documented as of this encounter Procedures Procedure Name Priority Date/Time Associated Diagnosis Comments XR ELBOW 3+ VIEWS RIGHT Routine 06/26/2025 2:17 PM EDT Right elbow pain XR SHOULDER 2+ VIEWS RIGHT Routine 06/26/2025 2:15 PM EDT Acute pain of right shoulder documented in this encounter Results * XR Elbow 3+ Views Right (06/26/2025 2:17 PM EDT) Anatomical Region Laterality Modality Upper Extremities, Elbow Right Radiogr aphic Imaging 06/26/2025 2:17 PM EDT Narrative 06/26/2025 2:39 PM EDT [address] [address] XRay Report Signed Patient: Angela Montilla I MR #: [id number] : 1965 Acct:[id number] Age/Sex: 60 / F ADM Date: 06/26/25 Loc: .HHCX Attending Dr: Kerline Vincent MD Ordering Physician: Kerline Gan MD Date of Service: 06/26/25 Procedure(s): XR elbow RT min 3V Accession Number(s): [id number] cc: Kerline Gan MD Reason for Exam: pain after fall EXAMINATION: XR ELBOW, RIGHT CLINICAL INFORMATION: pain after fall COMPARISON: None available. TECHNIQUE: AP, lateral, and oblique views of the right elbow. FINDINGS: No fracture, dislocation, or suspicious bone lesion. Normal alignment. Minimal spurring of the lateral epicondyle. Joint spaces appear preserved. There is no joint effusion. Soft tissues appear normal. XR/XR elbow RT min 3V IMPRESSION: No acute fracture or dislocation. No joint effusion. Electronically signed by: Kleber Henriquez MD 06/26/2025 02:36 PM EDT Dictated By: Kleber Henriquez MD Signed By: <Electronically signed by Kleber Henriquez MD in OV> 06/26/25 1436 DD/ 1417 TD/TT: 06/26/25 1430 Truck Striker: Procedure Note Donotuseinterpreter, Image - 06/26/[address] [address] XRay Report Signed Patient: Angela Montilla IMR #: [id number] : 1965Acct:[id number] Age/Sex: 60 / FADM Date: 06/26/25 Loc: ELIX Attending Dr: Kerline Vincent MD Ordering Physician: Kerline Gan MD Date of Service: 06/26/25 Procedure(s): XR elbow RT min 3V Accession Number(s): [id number] cc: Kerline Gan MD Reason for Exam: pain after fall EXAMINATION: XR ELBOW, RIGHT CLINICAL INFORMATION: pain after fall COMPARISON: None available. TECHNIQUE: AP, lateral, and oblique views of the right elbow. FINDINGS: No fracture, dislocation, or suspicious bone lesion. Normal alignment. Minimal spurring of the lateral epicondyle. Joint spaces appear preserved. There is no joint effusion. Soft tissues appear normal. XR/XR elbow RT min 3V IMPRESSION: No acute fracture or dislocation. No joint effusion. Electronically signed by: Kleber Henriquez MD 06/26/2025 02:36 PM EDT Dictated By: Kleber Henriquez MD Signed By: <Electronically signed by Kleber Henriquez MD in OV> 06/26/25 1436 DD/ 1417 TD/TT: 06/26/25 1430 Truck Striker: Kerline Vincent MD IMG XR PROCEDURES Gio amor Result - Final * XR Shoulder 2+ Views Right (06/26/2025 2:15 PM EDT) Anatomical Region Laterality Modality Upper Extremities, Shoulder Right Radi ographic Imaging 06/26/2025 2:15 PM EDT Narrative 06/26/2025 2:37 PM EDT [address] [address] XRay Report Signed Patient: Angela Montilla I MR #: [id number] : 1965 Acct:[id number] Age/Sex: 60 / F ADM Date: 06/26/25 Loc: ELICX Attending Dr: Kerline Vincent MD Ordering Physician: Kerline Gan MD Date of Service: 06/26/25 Procedure(s): XR shoulder RT min 2V Accession Number(s): [id number] cc: Kerline Gan MD Reason for Exam: pain after fall EXAMINATION: XR SHOULDER, RIGHT CLINICAL INFORMATION: pain after fall COMPARISON: None available. TECHNIQUE: AP external rotation, Grashey, scapular Y, and axillary views of the right shoulder. FINDINGS: Inadequate collimation. No acute cortical disruption or malalignment. No lytic or blastic lesions. No soft tissue calcifications. Asymmetric joint space narrowing, acromioclavicular joint.. XR/XR shoulder RT min 2V IMPRESSION: No acute fracture or dislocation. Mild degenerative changes, acromioclavicular clavicular joint. Electronically signed by: Wiley Harrell MD 06/26/2025 02:34 PM EDT RP Dictated By: Wiley Heath MD Signed By: <Electronically signed by Wiley Collazo MD in OV> 06/26/25 1434 DD/ 1415 TD/TT: 06/26/25 1430 Truck Striker: Procedure Note Donotuseinterpreter, Image - 06/26/[address] [address] XRay Report Signed Patient: Angela Montilla [facility] #: [id number] : 1965Acct:[id number] Age/Sex: 60 / FADM Date: 06/26/25 Loc: HO.HHCX Attending Dr: Kerline Vincent MD Ordering Physician: Kerline Gan MD Date of Service: 06/26/25 Procedure(s): XR shoulder RT min 2V Accession Number(s): [id number] cc: Kerline Gan MD Reason for Exam: pain after fall EXAMINATION: XR SHOULDER, RIGHT CLINICAL INFORMATION: pain after fall COMPARISON: None available. TECHNIQUE: AP external rotation, Grashey, scapular Y, and axillary views of the right shoulder. FINDINGS: Inadequate collimation. No acute cortical disruption or malalignment. No lytic or blastic lesions. No soft tissue calcifications. Asymmetric joint space narrowing, acromioclavicular joint.. XR/XR shoulder RT min 2V IMPRESSION: No acute fracture or dislocation. Mild degenerative changes, acromioclavicular clavicular joint. Electronically signed by: Wiely Harrell MD 06/26/2025 02:34 PM EDT RP Dictated By: Wiley Heath MD Signed By: <Electronically signed by Wiley Collazo MDin OV> 06/26/25 1434 DD/ 1415 TD/TT: 06/26/25 1430 Truck Striker: Kerline Vincent MD IMG XR PROCEDURES Gio amor Result - Final documented in this encounter Visit Diagnoses Diagnosis Right elbow pain Pain in joint, upper arm Acute pain of right shoulder documented in this encounter Additional Health Concerns Assessment Noted Time PHQ-9 Depression Total Score: 11 025 10:46 AM EST documented as of this encounter Care Teams Albacore Fishing Boat Crewman Relationship Specialty Start Date End Date Name, MD Jamal [address] [place] [address] PCP - General Family Medicine 05/25/19 documented as of this encounter
--- OUTSIDE RECORDS SUMMARY | 2025-06-30 09:58 | XMS_ITS | Clinical Summary ---
Author Organization [employer] Address [address] [place] [address] 7 [place] [address] Care Team Providers Care Battery Test Engineer Name Role Phone Name, Jamal HENDRIX Primary Care Provider [phone] Allergies Active Allergy Reactions Criticality Noted Date [...] 06/01/2023 Overview (06/01/2023): Gastric sleeve 01/2023 at [facility] Obstructive sleep apnea syndrome 08/28/2022 Allergic rhinitis [...] duct stone. Attempts made for transfer to [facility] [place] ER[facility], but unfortunately no beds available. [...] well controlled -Continue low-dose insulin sliding scale [id number] testing Encounters Date Type Department Care Team Description 06/26/2025 1:40 PM EDT Office Visit [facility] [address] [place] [address] Kerline Gan MD Right elbow pain; Acute pain of right shoulder 06/26/2025 Travel 06/18/2025 Refill [facility] [address] [place], [place] [phone] Name, MD Jamal 05/10/2025 10:30 AM EDT Office Visit [facility] [address] [place] [address] Name, MD Jamal Type 2 diabetes mellitus with microalbuminuria, without long-term current use of insulin ([facility]) (Primary Dx) 05/10/2025 Travel 05/09/2025 Telephone [facility] [address] [place] [address] María Lisa MA chart prep from Last [...] microalbuminuria, without long-term current use of insulin ([facility]) POCT GLYCATED HEMOGLOBIN, TOTAL Routine 12/15/2024 11:32 AM EDT Type 2 diabetes mellitus with hyperglycemia, with long-term current use of insulin ([facility]) LIPID PANEL, STANDARD Routine 06/10/2024 [...] PM EDT Narrative 06/26/2025 2:39 PM EDT [address] [address] XRay Report Signed Patient: Angela Montilla I MR #: [id number] : 1965 Acct:[id number] Age/Sex: 60 / F ADM Date: 06/26/25 Loc: HO.HHCX Attending Dr: Kerline Vincent MD Ordering Physician: Kerline Gan MD Date of Service: 06/26/25 Procedure(s): XR elbow RT min 3V Accession Number(s): [id number] cc: Kerline Gan MD Reason for Exam: [...] 06/26/25 1436 DD/ 1417 TD/TT: 06/26/25 1430 Jail Officer: Procedure Note Donotuseinterpreter, Image - 06/26/2025 [facility] [address] [facility] [place] [address] XRay Report Signed Patient: Angela Montilla IMR #: [id number] : 1965Acct:[id number] Age/Sex: 60 / FADM Date: 06/26/25 Loc: HO.HHCX Attending Dr: Kerline Vincent MD Ordering Physician: Kerline Gan MD Date of Service: 06/26/25 Procedure(s): XR elbow RT min 3V Accession Number(s): [id number] cc: Kerline Gan MD Reason for Exam: [...] 06/26/25 1436 DD/ 1417 TD/TT: 06/26/25 1430 Jail Officer: us Kerline Vincent MD IMG XR PROCEDURES Gio amor Result - Final * XR Shoulder 2+ Views Right (06/26/2025 2:15 PM EDT) Anatomical Region Laterality Modality Upper Extremities, Shoulder Right Radi ographic Imaging 06/26/2025 2:15 PM EDT Narrative 06/26/2025 2:37 PM EDT [facility] [address] [place] [address] XRay Report Signed Patient: Angela Montilla I MR #: [id number] : 1965 Acct:[id number] Age/Sex: 60 / F ADM Date: 06/26/25 Loc: HO.HHCX Attending Dr: Kerline Vincent MD Ordering Physician: Kerline Gan MD Date of Service: 06/26/25 Procedure(s): XR shoulder RT min 2V Accession Number(s): [id number] cc: Kerline Gan MD Reason for Exam: [...] 06/26/25 1434 DD/ 1415 TD/TT: 06/26/25 1430 Jail Officer: Procedure Note Donotuseinterpreter, Image - 06/26/2025 [facility] [address] [place] [address] XRay Report Signed Patient: Angela Montilla IMR #: [id number] : 1965Acct:[id number] Age/Sex: 60 / FADM Date: 06/26/25 Loc: HO.HHCX Attending Dr: Kerline Vincent MD Ordering Physician: Kerline Gan MD Date of Service: 06/26/25 Procedure(s): XR shoulder RT min 2V Accession Number(s): [id number] cc: Kerline Gan MD Reason for Exam: [...] 06/26/25 1434 DD/ 1415 TD/TT: 06/26/25 1430 Jail Officer: Kerline Vincent MD IMG XR PROCEDURES Gio amor Result - Final * POCT Glucose [...] 7:01 AM EDT) Triglycerides 129 <150 mg/dL [facility] Comment:Desirable Triglyceri de: less than 150 mg/dLBorderline High Triglyceride 150-199 mg/dLHigh Triglyceride: 200-499 mg/dLVery High Triglyceride: greater than or equal to 5OO mg/dL Cholesterol 200(H) <200 mg/dL [facility] Comment:Desirable Cholestero l: less than 200 mg/dLBorderline High Cholesterol: 200-239 mg/dLHigh Cholesterol: greater than 239 mg/dL LDL Cholesterol Calculated 122(H) <100 mg/dL [facility] Comment:Desirable LDL: less than 100 mg/dLNear Optimal/Above Optimal LDL: 110- 129 mg/dLBorderline High LDL: 130-159 mg/dLHigh LDL: 160-189 mg/dLVery High LDL: greater than or equal to 190 mg/dL HDL Cholesterol 53 >40 mg/dL [facility] Comment:Desirable HDL: great er than 40 mg/dL Note: This HDL assay may give artificially low results in patients with liver disease. 06/10/2024 7:01 AM EDT 06/10/2024 7:01 AM EDT us Generic External Data Provider LAB BLOOD ORDERAB LES Final Result [facility] [address] [place] [phone] * HPV mRNA E6/E7 w/Reflex to HPV Genotypes 16, 18/45 (12/17/2023 10:51 AM EDT) HPV nRNA E6/E7 Not Detected Not Detected [facility] Comment:Methodology: Transcr iption-Mediated AmplificationThis assay detects E6/E7 viral messenger RNA (mRNA) from 14high-risk HPV types (16,18,31,33,35,39,45,51,52,56,58,59,66,68).Cervical sources are required for HPV testing.If a vaginal source from a patient who has had atotal hysterectomy with removal of cervix wassubmitted, please contact the testing laboratoryfor alternative testing options.For additional information, please refer tohttp://education.[employer]/faq/YYS555v8(This link if provided for information/educational purposes only.)THIS TEST WAS PERFORMED AT:[facility] [place] [phone] VINCENT MD HPV mRNA E6/E7 TNP [facility] HPV 16 RNA [facility] HPV 18/45 RNA [facility] 12/17/2023 10:5 1 AM EDT 12/22/2023 12:00 PM EDT Ignacia Tanner CNM LAB CYTOLOGY ORDERABLES F inal Result [facility] [address] [place] [phone] * Pap Smear (12/17/2023 10:51 AM EDT) Swab Cervix uteri structure / Unknown 12/17/2023 10:51 AM EDT 12/22/2023 12:00 PM EDT Narrative [facility] - 01/04/2024 12:50 PM EDT ----- ------- Name: Angela Montilla I Age/Sex: 58/F : 1965 Unit#: [id number] Attend Dr: IGNACIA TANNER CNM Re12/17/23 Status: DEP REF Location: [facility] Disch: ----- ------- SPEC : [id number] RECD: 12/22/23-1199 STATUS: GABRIELE JAMES NUM: [id number] MAYLIN: 12/17/23-[address]: IGNACIA TANNER [facility] ENTERED: 12/22/23-1243 SP TYPE: Pap Smr OTHR DR: ORDERED: Pap Smear Interpretation Satisfactory for evaluation. Atrophic. Negative for intraepithelial lesion or malignancy. HPV mRNA E6/E7: NOT DETECTED This assay detects E6/E7 viral messenger RNA (mRNA) from 14 high-risk HPV types (16, 18, 31, 33, 35, 39, 45, 51, 52, 56, 58, 59, 66, 68) HPV testing performed by [employer], [place], [place]. See reference laboratory portion of the EMR for entire report. Clinical Information LMP: Postmenopausal Previous PAP test: Unknown date/findings Material Received ThinPrep-Vaginal/Cervical ----- ------- Signed (signature on file) ANGELI Sarah (ASC) 01/04/24 2535 ----- ------- END OF REPORT us Ignacia Jamal [facility] LAB CYTOLOGY ORDERABLES F inal Result [facility] [address] [place] [address] [phone] * BI Mammogram Screening Tomosynthesis Bilateral (12/01/2023 11:50 AM EDT) Anatomical Region Laterality Modality Breast Bilateral Mammography 12/01/2023 11:5 0 AM EDT Narrative 12/20/2023 3:46 PM EDT [address] [place] [address] Mammography Report Signed Patient: Angela Montilla I MR #: [id number] : 1965 Acct:[id number] Age/Sex: 58 / F ADM Date: 12/01/23 Loc: HO.MAMMO Attending Dr: Jamal Castañeda MD Ordering Physician: Jamal Castañeda MD Results: 1Negative Date of Service: 12/01/23 Follow Up: 1 Year From Orig inal Mammogram Procedure(s): MM tomosynthesis screening BI Accession Number(s): [id number] cc: Jamal Castañeda MD EXAMINATION: MM SCREENING [...] in OV> 12/20/23 154 DD/ 1150 TD/TT: Jail Officer: Procedure Note Donotuseinterpreter, Image - 12/20/2023 Irineo [facility] [address] [place], [place] [address] Mammography Report Signed Patient: Angela Montilla IMR #: [id number] : 1965Acct:[id number] Age/Sex: 58 / FADM Date: 12/01/23 Loc: SHO Attending Dr: Jamal Castañeda MD Ordering Physician: Jamal Castañeda MDResults: 1Negative Date of Service: 12/01/23Follow Up: 1 Year From Orig inal Mammogram Procedure(s): MM tomosynthesis screening BI Accession Number(s): [id number] cc: Jamal Castañeda MD EXAMINATION: MM SCREENING [...] in OV> 12/20/23 154 DD/ 1150 TD/TT: Jail Officer: Jmaal Castañeda MD IMG BI PROCEDURES Edited Result - Final * Hepatitis C Ab (10/28/2023 10:55 AM EST) Hepatitis C Antibody Nonreactive Nonreactive [facility] Comment:Antibodies to HCV no t detected; does not exclude early acuteHCV infection. Blood Venous blood specimen / Unknown 10/28/2023 10:55 AM EST 10/28/2023 1:21 PM EST Jamal Castañeda MD LAB BLOOD ORDERABLES Final Resul t [facility] [address] [place] [phone] * Hm Diabetes Eye Exam (08/05/2023) [...] Recently Relevant to Health Maintenance Insurance MEDICARE [facility] ST[facility] Care Teams Battery Test Engineer Relationship Specialty Start Date End Date Name, MD Jamal [address] [place] [phone] PCP - General Family Medicine 05/25/19
--- OUTSIDE RECORDS SUMMARY | 2025-06-30 09:58 | XMS_ITS | Clinical Summary ---
Author Organization [facility] Address [address] [facility] [address] [place] [address] Phone Care Team Providers Care Drier Operator Name Role Phone Name, Jamal HENDRIX Primary Care Provider [phone] Allergies Active Allergy Reactions Criticality Noted Date [...] duct stone. Attempts made for transfer to [facility] for ERCP, but unfortunately no beds available. 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 Yet she has postprandial hyperglycemia in the [...] AM EST Office Visit [facility] [address] [place] [address] [place] [address] Vaughn Powell DO [address] [place] [address] Health Maintenance Due Date Last Done Comments [...] HEMOGLOBIN A1C 5.7 4.3 - 5.8 % [facility] Blood 03/17/2025 9:11 AM EDT 03/17/2025 9:16 AM EDT Vaughn Powell DO LAB BLOOD ORDERABLES Final Resul t Performing Organization Address City/[facility]/ZIP Co de Phone Number [address] [address] * (ABNORMAL) Microalbumin/creatinine ratio, random urine (05/23/2024 9:49 AM EDT) URINE MICROALBUMIN 4.7(H) 0 - 2.3 mg/dL [facility] URINE CREATININE 178 mg/dL [facility] MICROALB/CRE RATIO 26.4(H) 0 - 20 mg/g Cre [facility] Urine (Urine) 05/23/2024 9:4 9 AM EDT 05/23/2024 9:50 AM EDT Vaughn Powell DO URINE ORDERABLES Final Result [address] [address] * Hepatitis C antibody, qualitative (07/25/2023 5:40 AM EST) HCV NON-REACTIV E NON-REACTI VE [facility] Blood 07/25/2023 5:40 AM EST 07/25/2023 5:58 AM EST Sean Quezada MD LAB BLOOD ORDERABLES Final Resu lt [address] [address] from Last 3 Months or Most Recently [...] Payer (Ef fective 2012-Present) Name:Angela Schulte Member ID:[id number] Relation to Subscriber:Self Name:Angela Schulte Subscriber ID:[id number] Payer ID:[id number] Group ID:Not on file Type:Medicare Address: Dress Code [address] MEDICARE PART A & B Advance Directives For more information, please contact: [phone] (9AM - 5PM [place]/[facility], Thursday-Thursday) * Full Code (Latest Code Status on File) Date Activated Date Inactivated Comments 07/25/2023 12:57 AM Question Answer Comments Code Status Confirmed With: Patient Code Status Communicated To: Inpatient Attending Care Teams Drier Operator Relationship Specialty Start Date End Date Name, MD Jamal [address] [place] [address] PCP - General Geriatric Psychiatry 09/29/19 Additional Source Comments The information contained in this document represents components of the legal health record. It is not the complete legal health record.[facility]
--- OUTSIDE RECORDS SUMMARY | 2025-06-30 09:58 | XMS_ITS | Encounter Summary ---
Author Organization [employer] Address [address] [place] [address] 7 [place] [address] Care Team Providers Care Manager Target Name Role Phone Name, Jamal HENDRIX Primary Care Provider [phone] Reason for Visit * Reason Comments Med Refill Encounter Details Date Type Department Care Team ([facility] st Contact Info) Description 09/13/2024 Refill [facility] [address] [place], [place] [phone] Name, MD Jamal [address] [place] [address] Social History Tobacco Use Types Packs/Day Years [...] documented as of this encounter Care Teams Manager Target Relationship Specialty Start Date End Date Name, MD Jamal [address] [place] [address] PCP - General Family Medicine 05/25/19 documented as of this encounter
--- OUTSIDE RECORDS SUMMARY | 2025-06-30 09:58 | XMS_ITS | Encounter Summary ---
Author Organization [facility] Address [address] [place] [address] [place] [address] Phone Care Team Providers Care Credit Resolution Representative Name Role Phone Name, Jamal HENDRIX Primary Care Provider [phone] Encounter Details Date Type Department Care Team (Late st Contact Info) Description 07/27/2023 Procedure Pass [facility] Admitting Dept Virtual Department [address] [place] [address] Social History Tobacco Use Types Packs/Day Years [...] 8:50 AM EST Office Visit [facility] [address] [place] [address] Vaughn Powell DO [address] [place] [address] [email or web address] documented as of this encounter Visit Diagnoses Not on filedocumented in this encounter Care Teams Credit Resolution Representative Relationship Specialty Start Date End Date Name, MD Jamal [address] [place] [address] PCP - General Geriatric Psychiatry 09/29/19 documented as of this encounter Additional Source Comments The information contained in this document represents components of the legal health record. It is not the complete legal health record.[facility]
--- OUTSIDE RECORDS SUMMARY | 2025-06-30 09:58 | XMS_ITS | Clinical Summary ---
Author Organization [facility] Address [address] [facility] [address] [place] [address] Phone Care Team Providers Care Consulting Sme Name Role Phone Name, Jamal HENDRIX Primary Care Provider [phone] Allergies Active Allergy Reactions Criticality Noted Date [...] to complete this topic Insurance Medicare Medicaid [place] Medicare Medicaid [place] Care Teams Consulting Sme Relationship Specialty Start Date End Date Name, MD Jamal [address] [place] [address] PCP - General Internal Medicine 03/12/21
--- OUTSIDE RECORDS SUMMARY | 2025-06-30 09:59 | XMS_ITS | Encounter Summary ---
Author Organization [employer] Address [address] [place] [address] 7t [place] [address] Care Team Providers Care Silverware Cleaner Name Role Phone Name, Jamal HENDRIX Primary Care Provider [phone] Encounter Details Date Type Department Care Team [...] documented as of this encounter Care Teams Silverware Cleaner Relationship Specialty Start Date End Date Name, MD Jamal [address] [place] [address] PCP - General Family Medicine 05/25/19 documented as of this encounter
--- OUTSIDE RECORDS SUMMARY | 2025-06-30 09:59 | XMS_ITS | Encounter Summary ---
Author Organization [facility] Address [address] [place] [address] [place] [address] Phone Care Team Providers Care Shirt Trimmer Name Role Phone Name, Jamal HENDIRX Primary Care Provider [phone] Encounter Details Date Type Department Care Team (Late st Contact Info) Description 07/27/2023 Procedure Pass [facility], [address] [address] Social History Tobacco Use Types Packs/Day Years [...] 8:50 AM EST Office Visit [facility] [address] [place] [address] Vaughn Powell DO [address] [place] [address] [email or web address] documented as of this encounter Visit Diagnoses Not on filedocumented in this encounter Care Teams Shirt Trimmer Relationship Specialty Start Date End Date Name, MD Jamal [address] [place] [address] PCP - General Geriatric Psychiatry 09/29/19 documented as of this encounter Additional Source Comments The information contained in this document represents components of the legal health record. It is not the complete legal health record.[facility]
--- OUTSIDE RECORDS SUMMARY | 2025-06-30 09:59 | XMS_ITS | Encounter Summary ---
Author Organization [facility] Address [address] [facility] [address] [place] [address] Phone Care Team Providers Care Back Tender Insulation Board Name Role Phone Name, Jamal HENDRIX Primary Care Provider [phone] Encounter Details Date Type Department Care Team (Late st Contact Info) Description 07/24/2023 Procedure Pass [facility], [facility] Scan - [address] [address] Social History Tobacco Use Types Packs/Day Years [...] 11:58 PM EST Agustín Delarosa, CECILLE * [place] Suicide Severity Rating Scale (Screener/Recent Self-Report) Question [...] 8:50 AM EST Office Visit [facility] [address] [place] [address] Vaughn Powell DO [address] [place] [address] [email or web address] documented as of this encounter Visit Diagnoses Not on filedocumented in this encounter Additional Health Concerns Infection Onset Date Last Indicated Resolved Time CoV-Risk Comment:Per note documentation 07/24/2023 07/24/2023 12:57 PM EST documented as of this encounter Care Teams Back Tender Insulation Board Relationship Specialty Start Date End Date Name, MD Jamal [address] [place] [address] PCP - General Geriatric Psychiatry 09/29/19 documented as of this encounter Additional Source Comments The information contained in this document represents components of the legal health record. It is not the complete legal health record.[facility]
--- OUTSIDE RECORDS SUMMARY | 2025-06-30 09:59 | XMS_ITS | Encounter Summary ---
Author Organization [facility] Address [address] [place] [address] [place] [address] Phone Care Team Providers Care Synchro Assembler Name Role Phone Name, Jamal HENDRIX Primary Care Provider [phone] Encounter Details Date Type Department Care Team (Late st Contact Info) Description 07/25/2023 Procedure Pass [facility], [address] [address] Social History Tobacco Use Types Packs/Day Years [...] Upcoming Encounters Date Type Department Care Team ([facility] st Contact Info) Description 09/26/2025 8:50 AM EST Office Visit [facility] [address] [place] [address] Vaughn Powell DO [address] [place] [address] [email or web address] documented as of this encounter Visit Diagnoses Not on filedocumented in this encounter Additional Health Concerns Infection Onset Date Last Indicated Resolved Time CoV-Risk Comment:Per note documentation 07/24/2023 07/24/2023 12:57 PM EST documented as of this encounter Care Teams Synchro Assembler Relationship Specialty Start Date End Date Name, MD Jamal [address] [place] [address] PCP - General Geriatric Psychiatry 09/29/19 documented as of this encounter Additional Source Comments The information contained in this document represents components of the legal health record. It is not the complete legal health record.[facility]
[2025-06-30 13:59] LABS: Anion Gap 13 (12-20); Blood Urea Nitrogen 14 mg/dL (9-16); Calcium 9.5 mg/dL (8.4-10.2); Carbon Dioxide 27 mmol/L (22-29); Chloride 106 mmol/L (96-108); Estimated Glomerular Filt Rate > 60; Magnesium 2.0 mg/dL (1.6-2.6); Potassium 4.4 mmol/L (3.3-5.1); Sodium 142 mmol/L (135-145)
== END 2025-06-30 09:10 | disposition home or self-care (01) ==
LOC: HO.HKASLDS 09:09
PROVIDERS: PCP Internal Medicine Geriatric Medicine; Visit Provider Internal Medicine Nephrology
DX: I10 Essential (primary) hypertension (principal)
CPT/HCPCS: 36415; 80051; 82310; 82565; 83735; 84520

== ENCOUNTER 2025-07-04 11:22 | Outpatient (AMB) | payer MEDICARE, MEDICAID, SELFPAY ==
--- NOTE | 2025-07-04 11:23 | HO.NEPHOV_ITS ---
Vital Signs 07/04/25 11:27 Height 4 ft 11 in Weight 194 lb 2 oz BMI 39.2 BP 130/70 Blood Pressure Location Lt brachial Position Sitting Intake Visit Reasons: 3mnth follow up-LVM Experimental Display Builder Required: Yes Experimental Display Builder Language: Silhouette Artist Services: Experimental Display Builder Offered & Declined ([facility] Experimental Display Builder services refused ) Information Interpreted: clinical only Accompanied by: Self / Same As Patient Allergies canagliflozin (Invokana) Allergy (Severe, Verified 07/04/25 11:27) chest tightness lisinopril (LISINOPRIL) Allergy (Severe, Verified 07/04/25 11:27) sweating, rash, difficulty breathing, cough oxycodone Allergy (Intermediate, Verified 07/04/25 11:27) vomiting/GI cramping sulfamethoxazole (From Bactrim) Allergy (Mild, Verified 07/04/25 11:27) Rash trimethoprim (From Bactrim) Allergy (Mild, Verified 07/04/25 11:27) Rash HPI Comments Details: Angela was seen in follow-up of her hypertension and proteinuria. She was on a mlodipine and hydrochlorothiazide which was discontinued and losartan was re introduced, which she is tolerating well. Her BP is better. She does not have any chest pain, shortness of breath, paroxysmal nocturnal dyspnea, orthopnea, pedal edema, fever or urinary symptoms. She does not take any xtrl-moh-vzbbsez medications. [facility] Medical History Nocturnal hypoxia Left breast abscess Asthma exacerbation GERD (gastroesophageal reflux disease) Diabetic nephropathy Hypertension LUCINDA (obstructive sleep apnea) Bilateral primary osteoarthritis of knee Kidney problem Fibromyalgia Right knee pain Carpal tunnel syndrome Morbid obesity Depression Anxiety Asthma Type 2 diabetes mellitus Dyspepsia Hypertriglyceridemia Bursitis, subacromial Surgical History H/O excision of mass (03/01/25) Hx laparoscopic cholecystectomy History of carpal tunnel release of both wrists S/P laparoscopic sleeve gastrectomy S/P cardiac cath Family History Mother No problems noted. Father No problems noted. Social History Household Members: Family Household Members Other:: niece Housing: Apartment Are you a primary healthcare market consultant to a significant other at home: No Do you presently have visiting nurse or other home services: No Alcohol intake: never Patient Tobacco Use Status: Never used Tobacco Advance Directives Date on File: 03/01/25 service: No Current occupational status: unemployed Current occupation: right handed Review of Systems Const All systems reviewed & are unremarkable except as noted in HPI and below Physical Exam Const General: comfortable and no acute distress Orientation/consciousness: patient oriented x3 HEENT Head: Yes normocephalic Mouth: Normal oral and palatal mucosa present Eyes EOM: EOMs intact bilaterally Neck Neck: Yes supple Resp Auscultation: clear to auscultation bilaterally Cardio Jugular venous distension: no JVD Rate: regular rate GI Palpation (GI): Soft to palpation Auscultation: normal bowel sounds General: Yes no CVA tenderness Back/Spine/Pelvis Back: no CVA tenderness Skin General skin exam: no rashes or lesions noted Neuro General: patient oriented x3 and moves all extremities Extrem General: Yes no pedal edema Results Reviewed Nephrology Results: Sodium, (135-145) 142 mmol/L 06/30/25 Potassium, (3.3-5.1) 4.4 mmol/L 06/30/25 Chloride, (96-108) 106 mmol/L 06/30/25 Carbon Dioxide, (22-29) 27 mmol/L 06/30/25 BUN, (9-16) 14 mg/dL 06/30/25 Creatinine, (0.5-1.4) 0.65 mg/dL 06/30/25 Calcium, (8.4-10.2) 9.5 mg/dL 06/30/25 Assessment & Plan Assessment & Plan (1) Hypertension: Code(s): I10 - Essential (primary) hypertension Category: Medical Qualifiers: Hypertension type: primary hypertension Qualified Code(s): I10 - Essential (primary) hypertension Plan Angela has longstanding hypertension. She was on amlodipine and hydrochlorothiazide which was discontinued and started losartan which was increased to 50 mg twice daily, which she could continue for now. She has no significant detectable proteinuria. Her renal functions are normal. All her questions were answered. Follow-up appointment given Orders: Orders Protein Creatinine Ratio, Ur 6 Months I10 - Essential (primary) hypertension Electrolytes 6 Months I10 - Essential (primary) hypertension Blood Urea Nitrogen 6 Months I10 - Essential (primary) hypertension Creatinine 6 Months I10 - Essential (primary) hypertension Coding Level of Care Code Est Pt Level 4 (93011) Diagnoses Primary hypertension I10 Hypertension type: primary hypertension
[2025-07-04 11:27] VITALS: BP 130/70; BMI 39.2
== END 2025-07-04 11:34 | disposition home or self-care (01) ==
LOC: HO.HKAS 11:23
PROVIDERS: PCP Internal Medicine Geriatric Medicine; Visit Provider Internal Medicine Nephrology
DX: I10 Essential (primary) hypertension (principal)
CPT/HCPCS: 99214

== ENCOUNTER → 2025-07-04 11:22 | Outpatient (BNVA) | payer MEDICARE, MEDICAID, SELFPAY | PROVIDERS: PCP Internal Medicine Geriatric Medicine; Visit Provider Internal Medicine Nephrology | DX: I10 Essential (primary) hypertension (principal) | CPT/HCPCS: 99212 ==

== ENCOUNTER → 2025-07-06 20:30 | Outpatient (REF) | payer MEDICARE, MEDICAID, SELFPAY ==
--- OUTSIDE RECORDS SUMMARY | 2025-07-06 21:53 | XMS_ITS | Encounter Summary ---
Author Organization [employer] [facility] Address [address] [place] [address] 7 [place] [address] Care Team Providers Care Firepot Operator And Tender Name Role Phone Name, Jamal HENDRIX Primary Care Provider [phone] Reason for Visit * Reason Comments Med Refill Encounter Details Date Type Department Care Team ([facility] st Contact Info) Description 09/13/2024 Refill [facility] MEDICINE [address] [place], [place] [phone] Name, MD Jamal [address] [place] [address] Social History Tobacco Use Types Packs/Day Years [...] documented as of this encounter Care Teams Firepot Operator And Tender Relationship Specialty Start Date End Date Name, MD Jamal [address] [place] [address] PCP - General Family Medicine 05/25/19 documented as of this encounter
--- OUTSIDE RECORDS SUMMARY | 2025-07-06 21:53 | XMS_ITS | Encounter Summary ---
Author Organization [facility] Address [address] [place] [address] [place] [phone] Phone Care Team Providers Care Hardware Design Engineer Name Role Phone Name, Jamal HENDRIX Primary Care Provider [phone] Encounter Details Date Type Department Care Team (Late st Contact Info) Description 07/27/2023 Procedure Pass [facility], [address] [address] Social History Tobacco Use Types Packs/Day Years [...] AM EST Office Visit [facility] [address] [place] [phone] Vaughn Powell DO [address] [place] [address] [email or web address] documented as of this encounter Visit Diagnoses Not on filedocumented in this encounter Care Teams Hardware Design Engineer Relationship Specialty Start Date End Date Name, MD Jamal [address] [place] [address] PCP - General Geriatric Psychiatry 09/29/19 documented as of this encounter Additional Source Comments The information contained in this document represents components of the legal health record. It is not the complete legal health record.[facility]
--- OUTSIDE RECORDS SUMMARY | 2025-07-06 21:53 | XMS_ITS | Clinical Summary ---
Author Organization [employer] Address [address] [place] [address] 7 [place] [address] Care Team Providers Care Mains And Service Supervisor Name Role Phone Name, Jamal HENDRIX Primary Care Provider [phone] Allergies Active Allergy Reactions Criticality Noted Date [...] 06/01/2023 Overview (06/01/2023): Gastric sleeve 01/2023 at [facility] Obstructive sleep apnea syndrome 08/28/2022 Allergic rhinitis [...] duct stone. Attempts made for transfer to [facility] and [facility] for ERCP, but unfortunately no [...] well controlled -Continue low-dose insulin sliding scale vaxxz-rl-edsh testing Encounters Date Type Department Care Team Description 07/05/2025 Results Follow-Up [facility] MEDICINE [address] [place] [address] Kerline Gan MD XR Shoulder 2+ Views Right 06/26/2025 1:40 PM EDT Office Visit [facility] [address] [place] [address] Kerline Gan MD Right elbow pain; Acute pain of right shoulder 06/26/2025 Travel 06/18/2025 Refill [facility] MEDICINE [address] [place] [address] NameJamal MD 05/10/2025 10:30 AM EDT Office Visit [facility] MEDICINE [address] [place] [address] Name, MD Jamal Type 2 diabetes mellitus with microalbuminuria, without long-term current use of insulin ([facility] (Primary Dx) 05/10/2025 Travel 05/09/2025 Telephone [facility] MEDICINE [address] [place] [address] María Lisa MA chart prep from Last [...] Procedure Name Priority Date/Time Associated Diagnosis Comments MAGNESIUM Routine 06/30/2025 9:17 AM EDT CALCIUM Routine 06/30/2025 9:17 AM EDT CREATININE, SERUM Routine 06/30/2025 9:1 7 AM EDT UREA NITROGEN (BUN) Routine 06/30/2025 9 :17 AM EDT ELECTROLYTE PANEL Routine 06/30/2025 9:1 7 AM EDT XR ELBOW 3+ VIEWS RIGHT Routine 06/26/2025 2:17 PM EDT Right elbow pain XR SHOULDER 2+ VIEWS RIGHT Routine 06/26/2025 2:15 PM EDT Acute pain of right shoulder POCT GLUCOSE Routine 05/10/2025 9:56 AM EDT Type 2 diabetes mellitus with microalbuminuria, without long-term current use of insulin ([facility]) POCT GLYCATED HEMOGLOBIN, TOTAL Routine 12/15/2024 11:32 AM EDT Type 2 diabetes mellitus with hyperglycemia, with long-term current use of insulin ([facility]) LIPID PANEL, STANDARD Routine 06/10/2024 7:01 AM [...] Recently Relevant to Health Maintenance Results * Creatinine, Serum (06/30/2025 9:17 AM EDT) Creatinine, Serum 0.65 0.5 - 1.4 mg/dL [facility] Estimated Glomerular Filt Rate >60 [facility] Comment:Chronic Kidney Disea se: Estimated GFR < 60 mL/min/1.32i2Lrwtdl Kidney Disease: Estimated GFR < 15 mL/min/1.73m2 06/30/2025 9:17 AM EDT 06/30/2025 1:20 PM EDT us Generic External Data Provider LAB BLOOD ORDERAB LES Final Result [facility] [address] [place] [phone] * BUN (Blood Urea Nitrogen) (06/30/2025 9:17 AM EDT) Urea Nitrogen (BUN) 14 9 - 16 mg/dL [facility] 06/30/2025 9:17 AM EDT 06/30/2025 1:20 PM EDT Generic External Data Provider LAB BLOOD ORDERAB LES Final Result Performing Organization Address City/[facility] Co de Phone Number [facility] [address] [place] [phone] * Magnesium (06/30/2025 9:17 AM EDT) Pathologist [facility] Magnesium 2.0 1.6 - 2.6 mg/dL [facility] 06/30/2025 9:17 AM EDT 06/30/2025 1:20 PM EDT Generic External Data Provider LAB BLOOD ORDERAB LES Final Result Performing Organization Address [facility] de Phone Number [facility] [address] [place] [phone] * Calcium (06/30/2025 9:17 AM EDT) Pathologist [facility] Calcium 9.5 8.4 - 10.2 mg/dL [facility] 06/30/2025 9:17 AM EDT 06/30/2025 1:20 PM EDT Generic External Data Provider LAB BLOOD ORDERAB LES Final Result Performing Organization Address [facility] de Phone Number [facility] [address] [place] [phone] * Electrolyte Panel (06/30/2025 9:17 AM EDT) Sodium 142 135 - 145 mmol/L [facility] Potassium 4.4 3.3 - 5.1 mmol/L [facility] Chloride 106 96 - 108 mmol/L [facility] Carbon Dioxide 27 22 - 29 mmol/L [facility] Anion Gap 13 12 - 20 [facility] 06/30/2025 9:17 AM EDT 06/30/2025 1:20 PM EDT us Generic External Data Provider LAB BLOOD ORDERAB LES Final Result Performing Organization Address City/State/[facility] Co de Phone Number [facility] [address] [place] [phone] * XR Elbow 3+ Views Right (06/26/2025 2:17 PM EDT) Anatomical Region Laterality Modality Upper Extremities, Elbow Right Radiogr aphic Imaging 06/26/2025 2:17 PM EDT Narrative 06/26/2025 2:39 PM EDT [address] [address] XRay Report Signed Patient: Angela Montilla I MR #: [id number] : 1965 Acct:[id number] Age/Sex: 60 / F ADM Date: 06/26/25 Loc: HO.HHCX Attending Dr: Kerline Vincent MD Ordering Physician: Kerline Gan MD Date of Service: 06/26/25 Procedure(s): XR elbow RT min 3V Accession Number(s): [id number] cc: Kerline Gan MD Reason for Exam: [...] Kleber Henriquez MD 06/26/2025 02:36 PM EDT RP Dictated By: Kleber Henriquez MD Signed By: <Electronically signed by Kleber Henriquez MD in OV> 06/26/25 143 DD/ 16 TD/TT: 06/26/251429 Negative Assembler: Procedure Note Donotsyedinterpreter, Image - 06/26/[address] [address] XRay Report Signed Patient: Angela Montilla IMR #: [id number] : 1965Acct:[id number] Age/Sex: 60 / FADM Date: 06/26/25 Loc: .HHX Attending Dr: Kerline Vincent MD Ordering Physician: Kerline Gan MD Date of Service: 06/26/25 Procedure(s): XR elbow RT min 3V Accession Number(s): [id number] cc: Kerline Gan MD Reason for Exam: [...] Kleber Henriquez MD 06/26/2025 02:36 PM EDT RP Dictated By: Kleber Henriquez MD Signed By: <Electronically signed by Kleber Henriquez MD in OV> 06/26/25 1436 DD/ 1417 TD/TT: 06/26/25 143 Negative Assembler: Kerline Vincent MD IMG XR PROCEDURES Gio amor Result - Final * XR Shoulder 2+ Views Right (06/26/2025 2:15 PM EDT) Anatomical Region Laterality Modality Upper Extremities, Shoulder Right Radi ographic Imaging 06/26/2025 2:15 PM EDT Narrative 06/26/2025 2:37 PM EDT [address] [address] XRay Report Signed Patient: Angela Montilla I MR #: [id number] : 1965 Acct:[id number] Age/Sex: 60 / F ADM Date: 06/26/25 Loc: HO.CX Attending Dr: Kerline Vincent MD Ordering Physician: eKrline Gan MD Date of Service: 06/26/25 Procedure(s): XR shoulder RT min 2V Accession Number(s): [id number] cc: Kerline Gan MD Reason for Exam: [...] 06/26/25 1434 DD/ 1415 TD/TT: 06/26/25 1430 Negative Assembler: Procedure Note Donotuseinterpreter, Image - 06/26/[address] [address] XRay Report Signed Patient: Angela Montilla IMR #: [id number] : 1965Acct:[id number] Age/Sex: 60 / FADM Date: 06/26/25 Loc: HO.HHCX Attending Dr: Kerline Vincent MD Ordering Physician: Kerline Gan MD Date of Service: 06/26/25 Procedure(s): XR shoulder RT min 2V Accession Number(s): [id number] cc: Kerline Gan MD Reason for Exam: [...] 06/26/25 1434 DD/ 1415 TD/TT: 06/26/25 1430 Negative Assembler: Kerline Vincent MD IMG XR PROCEDURES Gio [...] Media Lot # [id number] Lot# Expiration Date 42 Blood 12/15/2024 11:3 2 AM EDT us Jamal Castañeda MD POINT OF CARE TEST ENTER/EDIT OR DERABLES Final Result * (ABNORMAL) Lipid Panel, Standard (06/10/2024 7:01 AM EDT) Triglycerides 129 <150 mg/dL [facility] Comment:Desirable Triglyceri de: less than 150 mg/dLBorderline High Triglyceride 150-199 mg/dLHigh Triglyceride: 200-499 mg/dLVery High Triglyceride: greater than or equal to 5OO mg/dL Cholesterol 200(H) <200 mg/dL [facility] Comment:Desirable Cholestero l: less than 200 mg/dLBorderline High Cholesterol: 200-239 mg/dLHigh Cholesterol: greater than 239 mg/dL LDL Cholesterol Calculated 122(H) <100 mg/dL [facility] Comment:Desirable LDL: less than 100 mg/dLNear Optimal/Above Optimal LDL: 110- 129 mg/dLBorderline High LDL: 130-159 mg/dLHigh LDL: 160-189 mg/dLVery High LDL: greater than or equal to 190 mg/dL HDL Cholesterol 53 >40 mg/dL [facility] Comment:Desirable HDL: great er than 40 mg/dL Note: This HDL assay may give artificially low results in patients with liver disease. 06/10/2024 7:01 AM EDT 06/10/2024 7:01 AM EDT us Generic External Data Provider LAB BLOOD ORDERAB LES Final Result [facility] [address] [place] [phone] * HPV mRNA E6/E7 w/Reflex to HPV Genotypes 16, 18/45 (12/17/2023 10:51 AM EDT) HPV nRNA E6/E7 Not Detected Not Detected [facility] Comment:Methodology: Transcr iption-Mediated AmplificationThis assay detects E6/E7 viral messenger RNA (mRNA) from 14high-risk HPV types (16,18,31,33,35,39,45,51,52,56,58,59,66,68).Cervical sources are required for HPV testing.If a vaginal source from a patient who has had atotal hysterectomy with removal of cervix wassubmitted, please contact the testing laboratoryfor alternative testing options.For additional information, please refer tohttp://education.33Across/faq/NUC833l8(This link if provided for information/educational purposes only.)THIS TEST WAS PERFORMED AT:[facility] [place] [phone] VINCENT MD HPV mRNA E6/E7 [facility] HPV 16 RNA [facility] HPV 18/45 RNA [facility] 12/17/2023 10:5 1 AM EDT 12/22/2023 12:00 PM EDT us Ignacia Tanner [facility] CYTOLOGY ORDERABLES F inal Result [facility] [address] [place] [phone] * Pap Smear (12/17/2023 10:51 AM EDT) Swab Cervix uteri structure / Unknown 12/17/2023 10:51 AM EDT 12/22/2023 12:00 PM EDT Narrative [facility] - 01/04/2024 12:50 PM EDT ----- ------- Name: Angela oMntilla I Age/Sex: 58/F : 1965 Unit#: [id number] Attend Dr: IGNACIA TANNER [facility] Re12/17/23 Status: KATI REF Location: [facility] Disch: ----- ------- SPEC : [id number] RECD: 12/22/23-1199 STATUS: GABRIELE JAMES NUM: [id number] MAYLIN: 12/17/23-[address]: IGNACIA TANNER [facility] ENTERED: 12/22/23-1243 SP TYPE: Pap Smr OTHR DR: ORDERED: Pap Smear Interpretation Satisfactory for evaluation. Atrophic. Negative for intraepithelial lesion or malignancy. HPV mRNA E6/E7: NOT DETECTED This assay detects E6/E7 viral messenger RNA (mRNA) from 14 high-risk HPV types (16, 18, 31, 33, 35, 39, 45, 51, 52, 56, 58, 59, 66, 68) HPV testing performed by [employer], [place], [place]. See reference laboratory portion of the EMR for entire report. Clinical Information LMP: Postmenopausal Previous PAP test: Unknown date/findings Material Received ThinPrep-Vaginal/Cervical ----- ------- Signed (signature on file) ANGELI Sarah (ASCP) 01/04/24 1250 ----- ------- END OF REPORT us Ignacia Tanner [facility] CYTOLOGY ORDERABLES F inal Result [facility] [address] [place] [phone] * BI Mammogram Screening Tomosynthesis Bilateral (12/01/2023 11:50 AM EDT) Anatomical Region Laterality Modality Breast Bilateral Mammography 12/01/2023 11:5 0 AM EDT Narrative 12/20/2023 3:46 PM EDT [address] [place] [address] Mammography Report Signed Patient: Angela Montilla I MR #: [id number] : 1965 Acct:[id number] Age/Sex: 58 / F ADM Date: 12/01/23 Loc: HO.MAMMO Attending Dr: Jamal Castañeda MD Ordering Physician: Jamal Castañeda MD Results: 1Negative Date of Service: 12/01/23 Follow Up: 1 Year From Orig inal Mammogram Procedure(s): MM tomosynthesis screening BI Accession Number(s): [id number] cc: Jamal Castañeda MD EXAMINATION: MM SCREENING [...] in OV> 12/20/23 1542 DD/ 1150 TD/TT: Negative Assembler: Procedure Note Donotuseinterpreter, Image - [facility]20/[facility] [address] [place], [place] [address] Mammography Report Signed Patient: Angela Montilla IMR #: [id number] : 1965Acct:[id number] Age/Sex: 58 / FADM Date: 12/01/23 Loc: SHO Attending Dr: Jamal Castañeda MD Ordering Physician: Jamal Castañeda MDResults: 1Negative Date of Service: 12/01/23Follow Up: 1 Year From Orig inal Mammogram Procedure(s): MM tomosynthesis screening BI Accession Number(s): [id number] cc: Jamal Castañeda MD EXAMINATION: MM SCREENING [...] in OV> 12/20/23 1542 DD/ 1150 TD/TT: Negative Assembler: Jamal Castañeda MD IMG BI PROCEDURES Edited Result - Final * Hepatitis C Ab (10/28/2023 10:55 AM EST) Hepatitis C Antibody Nonreactive Nonreactive [facility] Comment:Antibodies to HCV no t detected; does not exclude early acuteHCV infection. Blood Venous blood specimen / Unknown 10/28/2023 10:55 AM EST 10/28/2023 1:21 PM EST Jamal Castañeda MD LAB BLOOD ORDERABLES Final Resul t [facility] [address] [place] [phone] * Diabetes Eye Exam (08/05/2023) Eye [...] Recently Relevant to Health Maintenance Insurance MEDICARE [facility] STANDARD Care Teams Mains And Service Supervisor Relationship Specialty Start Date End Date Name, MD Jamal [address] [place] [phone] PCP - General Family Medicine 05/25/19
--- OUTSIDE RECORDS SUMMARY | 2025-07-06 21:53 | XMS_ITS | Encounter Summary ---
Author Organization [facility] Address [address] [facility] [address] [place] [address] Phone Care Team Providers Care Inspector Floor Name Role Phone Name, Jamal HENDRIX Primary Care Provider [phone] Encounter Details Date Type Department Care Team (Late st Contact Info) Description 07/24/2023 Procedure Pass [facility], Ct Scan - [address] [address] Social History Tobacco Use Types Packs/Day Years [...] 11:58 PM EST Agustín Delarosa, CECILLE * [place] Suicide Severity Rating Scale (Screener/Recent Self-Report) Question [...] 8:50 AM EST Office Visit [facility] [address] [place] [phone] Vaughn Powell DO [address] [place] [phone] [email or web address] documented as of this encounter Visit Diagnoses Not on filedocumented in this encounter Additional Health Concerns Infection Onset Date Last Indicated Resolved Time CoV-Risk Comment:Per note documentation 07/24/2023 07/24/2023 12:57 PM EST documented as of this encounter Care Teams Inspector Floor Relationship Specialty Start Date End Date Name, MD Jamal [address] [place] [address] PCP - General Geriatric Psychiatry 09/29/19 documented as of this encounter Additional Source Comments The information contained in this document represents components of the legal health record. It is not the complete legal health record.[facility]
--- OUTSIDE RECORDS SUMMARY | 2025-07-06 21:53 | XMS_ITS | Encounter Summary ---
Author Organization [facility] Address [address] [place] [address] [place] [address] Phone Care Team Providers Care Land Use Planner Name Role Phone Name, Jamal HENDRIX Primary Care Provider [phone] Encounter Details Date Type Department Care Team (Late st Contact Info) Description 07/27/2023 Procedure Pass [facility] Endoscopy Admitting Dept Virtual Department [address] [place] [address] Social History Tobacco Use Types Packs/Day Years [...] 8:50 AM EST Office Visit [facility] [address] [place] [phone] Vaughn Powell DO [address] [place] [address] [email or web address] documented as of this encounter Visit Diagnoses Not on filedocumented in this encounter Care Teams Land Use Planner Relationship Specialty Start Date End Date Name, MD Jamal [address] [place] [address] PCP - General Geriatric Psychiatry 09/29/19 documented as of this encounter Additional Source Comments The information contained in this document represents components of the legal health record. It is not the complete legal health record.[facility]
--- OUTSIDE RECORDS SUMMARY | 2025-07-06 21:53 | XMS_ITS | Clinical Summary ---
Author Organization [facility] Address [address] [facility] [address] [place] [address] Phone Care Team Providers Care College Associate Name Role Phone Name, Jamal HENDRIX Primary Care Provider [phone] Allergies Active Allergy Reactions Criticality Noted Date [...] duct stone. 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 Yet she has postprandial hyperglycemia in the [...] 8:50 AM EST Office Visit [facility] [address] [place] [address] [place] [address] Vaughn Powlel DO [address] [place] [address] [email or web address] Health Maintenance Due Date Last Done Comments [...] HEMOGLOBIN A1C 5.7 4.3 - 5.8 % [facility] Blood 03/17/2025 9:11 AM EDT 03/17/2025 9:16 AM EDT Vaughn Powell DO LAB BLOOD ORDERABLES Final Resul t Performing Organization Address City/[facility]/ZIP Co de Phone Number [address] [address] * (ABNORMAL) Microalbumin/creatinine ratio, random urine (05/23/2024 9:49 AM EDT) URINE MICROALBUMIN 4.7(H) 0 - 2.3 mg/dL [facility] URINE CREATININE 178 mg/dL [facility] MICROALB/CRE RATIO 26.4(H) 0 - 20 mg/g Cre [facility] Urine (Urine) 05/23/2024 9:4 9 AM EDT 05/23/2024 9:50 AM EDT Vaughn Powell DO URINE ORDERABLES Final Result [address] [address] * Hepatitis C antibody, qualitative (07/25/2023 5:40 AM EST) HCV NON-REACTIV E NON-REACTI VE [facility] Blood 07/25/2023 5:40 AM EST 07/25/2023 5:58 AM EST Sean Quezada MD LAB BLOOD ORDERABLES Final Resu lt [address] [address] from Last 3 Months or Most Recently [...] Payer (Ef fective 2012-Present) Name:Angela Schulte Member ID:[id number] Relation to Subscriber:Self Name:Angela Schulte Subscriber ID:[id number] Payer ID:[id number] Group ID:Not on file Type:Medicare Address: [employer] [address] MEDICARE PART A & B Advance Directives For more information, please contact: [phone] (9AM - 5PM [place]/[facility], Thursday-Thursday) * Full Code (Latest Code Status on File) Date Activated Date Inactivated Comments 07/25/2023 12:57 AM Question Answer Comments Code Status Confirmed With: Patient Code Status Communicated To: Inpatient Attending Care Teams College Associate Relationship Specialty Start Date End Date Name, MD Jamal [address] [place] [id number] PCP - General Geriatric Psychiatry 09/29/19 Additional Source Comments The information contained in this document represents components of the legal health record. It is not the complete legal health record.[facility]
--- OUTSIDE RECORDS SUMMARY | 2025-07-06 21:53 | XMS_ITS | Encounter Summary ---
Author Organization [facility] Address [address] [place] [address] [place] [phone] Phone Care Team Providers Care Fresco Artist Name Role Phone Name, Jamal HENDRIX Primary Care Provider [phone] Encounter Details Date Type Department Care Team (Late st Contact Info) Description 07/25/2023 Procedure Pass [facility], [address] [address] Social History Tobacco Use Types Packs/Day Years [...] Upcoming Encounters Date Type Department Care Team ([facility] st Contact Info) Description 09/26/2025 8:50 AM EST Office Visit [facility] [address] [place] [address] Vaughn Powell DO [address] [place] [address] [email or web address] documented as of this encounter Visit Diagnoses Not on filedocumented in this encounter Additional Health Concerns Infection Onset Date Last Indicated Resolved Time CoV-Risk Comment:Per note documentation 07/24/2023 07/24/2023 12:57 PM EST documented as of this encounter Care Teams Fresco Artist Relationship Specialty Start Date End Date Name, MD Jamal [address] [place] [address] PCP - General Geriatric Psychiatry 09/29/19 documented as of this encounter Additional Source Comments The information contained in this document represents components of the legal health record. It is not the complete legal health record.[facility]
--- OUTSIDE RECORDS SUMMARY | 2025-07-06 21:53 | XMS_ITS | Clinical Summary ---
Author Organization [facility] Address [address] [facility] [address] [place] [address] Phone Care Team Providers Care Ruby On Rails Consultant Name Role Phone Name, Jamal HENDRIX Primary Care Provider [phone] Allergies Active Allergy Reactions Criticality Noted Date [...] to complete this topic Insurance Medicare Medicaid [place] Medicare Medicaid [place] Care Teams Ruby On Rails Consultant Relationship Specialty Start Date End Date Name, MD Jamal [address] [place] [address] PCP - General Internal Medicine 03/12/21
--- OUTSIDE RECORDS SUMMARY | 2025-07-06 21:53 | XMS_ITS | Encounter Summary ---
Author Organization [email or web address] Address [address] [place] [address] [address] [place] [address] Care Team Providers Care Fine Grade Bulldozer Operator Name Role Phone Name, Jamal HENDRIX Primary Care Provider [phone] Encounter Details Date Type Department Care Team ([facility] st Contact Info) Description 07/05/2025 Results Follow-Up [facility] [address] [place] [address] Kerline Gan MD [address] [place] [address] XR Shoulder 2+ Views Right Social History Tobacco Use Types Packs/Day Years [...] encounter Miscellaneous Notes * Telephone Encounter - Shima Uribe RN - 07/05/2025 3:[address] to patient and she was made aware of message below, pt is aware there is no fracture however does not want PT at this time ----- Message from Kerline Vincent MD sent at 07/05/2025 10:12 AM EDT ----- Please let patient know I reviewed her x-ray she does not have any acute fracture or dislocation ifshe still has a lot of pain on her shoulder or elbow and happy to put a referral in for physical therapy thank you ----- Message ----- From: Interface, Ris Results In Sent: 06/26/2025 2:38 PM EDT To: Kerline Vincent MD * Telephone Encounter - Shima Uribe RN - 07/05/2025 11:04 AM EDT ----- Message from Kerline Vincent MD sent at 07/05/2025 10:12 AM EDT ----- Please let patient know I reviewed her x-ray she does not have any acute fracture or dislocation ifshe still has a lot of pain on her shoulder or elbow and happy to put a referral in for physical therapy thank you ----- Message ----- From: Donte Ris Results In Sent: 06/26/2025 2:38 PM EDT To: Kerline Vincent MD documented in this encounter Plan of Treatment Not on file documented as of this encounter Visit Diagnoses Not on filedocumented in this encounter Additional Health Concerns Assessment Noted Time PHQ-9 Depression Total Score: 11 10/31/ 025 10:46 AM EST documented as of this encounter Care Teams Fine Grade Bulldozer Operator Relationship Specialty Start Date End Date Name, MD Jamal [address] [place] [address] PCP - General Family Medicine 05/25/19 documented as of this encounter
== END ==
LOC: HO.SL 20:30
PROVIDERS: Visit Provider Hospitalist
DX: G47.34 Idiopathic sleep related nonobstructive alveolar hypoventilation (principal); G47.61 Periodic limb movement disorder; R06.83 Snoring
CPT/HCPCS: 95810

== ENCOUNTER → 2025-07-06 21:33 | Outpatient (BNV) | payer MEDICARE, MEDICAID, SELFPAY | PROVIDERS: Visit Provider Internal Medicine | DX: G47.33 Obstructive sleep apnea (adult) (pediatric) (principal); R06.83 Snoring; G47.61 Periodic limb movement disorder | CPT/HCPCS: 95810 ==